=== PATIENT | male | born 1975 | race Caucasian/White ===

== ENCOUNTER 2016-07-04 15:36 | Emergency (ER) | payer OTHER ==
[2016-07-04 17:30] VITALS: BP 139/43
== END 2016-07-04 17:36 | disposition left against medical advice (07) ==
LOC: ED 15:36
DX: M54.9 Dorsalgia, unspecified (principal); Z53.21 Procedure and treatment not carried out due to patient leaving prior to being seen by health care provider

== ENCOUNTER 2016-07-05 17:16 | Emergency (ER) | payer OTHER ==
[2016-07-05 17:35] VITALS: BP 141/73
--- NOTE | 2016-07-05 21:42 | ED ---
Upper Extremity Pain - HPI Summary HPI Summary: Pt here w/ chronic pain of Rt forearm and lower back. Has been receiving multiple narcotic pain medications from PCP (percocet and morphine) until recent d/c from PCP's office. 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 Pt reports he was seen by [facility] for pain management in the past but PCP wanted to take over which is why he's no longer there. He was recently referred back to [facility] who told pt he couldn't rx him a short dose of narcotics as pt's insurance will only cover a 30 day supply from a pain specialist's office. Pt brought his bottles of pain medications with him today. No other complaints at this time. - History of Current Complaint Chief Complaint: EDExtremityUpper Stated Complaint: RT ARM/LOWER BACK PAIN Time Seen by Provider: 07/05/16 17:54 Hx Obtained From: Patient - Allergies/Home Medications Allergies/Adverse Reactions: Allergies Allergy/AdvReac Type Severity Reaction Status Date / Time No Known Allergies Allergy Verified 07/05/16 17:36 PMH/Surg Hx/FS Hx/Imm Hx Previously Healthy: No - chronic pain, morbid obesity Musculoskeletal History: Reports: Hx Back Problems - chronic pain, Other Musculoskeletal History - chronic Rt arm pain Psychiatric History: Reports: Other Psychiatric Issues/Disorders - obesity Infectious Disease History: No Infectious Disease History: Denies: Traveled Outside the [place] in Last 30 Days - Family History Known Family History: Positive: None - Social History Alcohol Use: None Substance Use Type: Reports: Prescribed - percocet and morphine Smoking Status (MU): Never Smoked Tobacco Review of Systems Musculoskeletal: Other - see HPI Skin: Negative Neurological: Negative Psychological: Normal All Other Systems Reviewed And Are Negative: Yes Physical Exam Triage Information Reviewed: Yes Vital Signs On Initial Exam: Initial Vitals Temp Pulse Resp BP Pulse Ox 98.3 F 91 18 141/73 99 07/05/16 17:20 07/05/16 17:20 07/05/16 17:20 07/05/16 17:20 07/05/16 17:20 Vital Signs Reviewed: Yes Appearance: Positive: Well-Appearing, No Pain Distress, Obese Skin: Positive: Warm, Dry - no erythema or ecchymosis of arm Head/Face: Positive: Normal Head/Face Inspection Eyes: Positive: Normal, EOMI ENT: Positive: Hearing grossly normal, Pharynx normal - mucosa moist Respiratory/Lung Sounds: Positive: Breath Sounds Present Cardiovascular: Positive: Normal Musculoskeletal: Positive: Normal, Strength/ROM Intact - FROM UE's w/o pain restriction, ambulates Neurological: Positive: Normal, Alert, Oriented to Person Place, Time, CN Intact II-III Psychiatric: Positive: Normal Diagnostics - Vital Signs Vital Signs Temp Pulse Resp BP Pulse Ox 07/05/16 17:20 98.3 F 91 18 141/73 99 - Laboratory Lab Statement: Any lab studies that have been ordered have been reviewed, and results considered in the medical decision making process. Course/Dx - Course Course Of Treatment: Pt's reason for PCP d/c'ing him practice does not sound realistic however he presents after office hours so cannot call PCP office to verify. His ISTOP confirms his report of pain medication use, correct with name , amounts, supply. Provided 3 days supply today so pt doesn't withdraw and can contact PCP/[facility] at that time to discuss plan of care hereforth. - Diagnoses Provider Diagnoses: Chronic pain, Encounter for medication refill Discharge - Discharge Plan Condition: Stable Disposition: HOME Prescriptions: Oxycodone W/ Acetaminophen [Percocet 7.5-325 mg (NF)] 1 tab PO Q6H PRN #12 tab MDD 4 PRN Reason: Pain Patient Education Materials: Chronic Pain (ED) Referrals: Hubert Hernandes MD [Primary Care Provider] - Additional Instructions: Follow-up with pain management, Dr. Banks, regarding your chronic pain.
== END 2016-07-05 20:54 | disposition home or self-care (01) ==
LOC: ED 17:16
DX: M54.5 Low back pain (principal); M79.631 Pain in right forearm; Z76.0 Encounter for issue of repeat prescription
CPT/HCPCS: 99282

== ENCOUNTER 2016-10-11 14:43 | Emergency (ER) | payer OTHER ==
[2016-10-11 15:34] VITALS: BP 148/100
[2016-10-11] MEDS ORDERED: Ketorolac INJ* 60 MG/2 ML VIAL IM ONE (16:03)
[2016-10-11] MEDS ORDERED: oxyCODONE/Acetamin 5/325 MG* TAB PO ONE (16:03)
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
== END 2016-10-11 16:23 | disposition home or self-care (01) ==
LOC: ED 14:43
DX: M54.9 Dorsalgia, unspecified (principal); M79.601 Pain in right arm; G89.29 Other chronic pain
CPT/HCPCS: 96372; 99282; A9270-GY; J1885

== ENCOUNTER → 2016-10-29 16:52 | Emergency (ER) | payer OTHER ==
[2016-10-29 18:32] VITALS: BP 115/51
--- NOTE | 2016-10-29 21:18 | ED ---
Back Pain - HPI Summary HPI Summary: Patient presents with chronic back pain and CC of not able to refill any medications. He has been on several pain medications over the years. His PCP referred him to a pain clinic that does take his insurance and he has been trying to get into other places without success. He states he had a "falling out" with Dr. Banks. He has been seen here twice in the last 2 months requesting pain medication. It was explained to the patient that we are unable to give more than a few days worth and that he will need to follow up with his PCP again to get more medications or to be referred to another place. He agrees to do this. Pain is throughout his lumbar and thoracic spine and throughout the right arm. He is morbidly obese, does not work. - History of Current Complaint Chief Complaint: EDBackInjuryPain Stated Complaint: RT ARM/BACK PAIN Time Seen by Provider: 10/29/16 17:11 Hx Obtained From: Patient Onset/Duration: Gradual Onset Onset/Duration: Still Present, Worse Since - today Timing: Constant Back Pain Location: Is Discrete @ - low back Severity Initially: Moderate Severity Currently: Moderate Pain Intensity: 8 Pain Scale Used: 0-10 Numeric Character: Dull, Aching Aggravating Symptom(s): Movement, Lifting, Bending, Walking Alleviating Symptom(s): Nothing Associated Signs And Symptoms: Positive: Negative - Risk Factors AAA Risk Factors: Negative TAD Risk Factors: Negative Cauda Equina Risk Factors: Negative - Allergies/Home Medications Allergies/Adverse Reactions: Allergies Allergy/AdvReac Type Severity Reaction Status Date / Time No Known Allergies Allergy Verified 10/11/16 15:47 PMH/Surg Hx/FS Hx/Imm Hx Previously Healthy: Yes Musculoskeletal History: Reports: Hx Back Problems - chronic pain, Other Musculoskeletal History - chronic Rt arm pain Psychiatric History: Reports: Other Psychiatric Issues/Disorders - obesity - Immunization History Hx Pertussis Vaccination: No Immunizations Up to Date: Unable to Obtain/Confirm Infectious Disease History: No Infectious Disease History: Denies: Traveled Outside the [place] in Last 30 Days - Family History Known Family History: Positive: None Negative: Cardiac Disease - Social History Occupation: Unemployed Lives: Alone Alcohol Use: None Hx Substance Use: Yes Substance Use Type: Reports: Prescribed Hx Tobacco Use: No Smoking Status (MU): Never Smoked Tobacco Do You Chew or Dip Tobacco: No Have You Chewed or Dipped Tobacco in the LAST YEAR: No Review of Systems Constitutional: Negative Eyes: Negative Cardiovascular: Negative Respiratory: Negative Gastrointestinal: Negative Positive: no symptoms reported, see HPI Positive: Arthralgia - low back pain Skin: Negative Neurological: Negative All Other Systems Reviewed And Are Negative: Yes Physical Exam Triage Information Reviewed: Yes Vital Signs On Initial Exam: Initial Vitals Temp Pulse Resp BP Pulse Ox 97.5 F 99 20 145/100 98 10/29/16 17:07 10/29/16 17:07 10/29/16 17:07 10/29/16 17:07 10/29/16 17:07 Vital Signs Reviewed: Yes Appearance: Positive: Well-Appearing, Well-Nourished Skin: Positive: Warm, Skin Color Reflects Adequate Perfusion Head/Face: Positive: Normal Head/Face Inspection Eyes: Positive: EOMI, ANDREA Neck: Positive: Supple, No Lymphadenopathy Respiratory/Lung Sounds: Positive: Clear to Auscultation, Breath Sounds Present Cardiovascular: Positive: Normal, RRR, Pulses are Symmetrical in both Upper and Lower Extremities Musculoskeletal: Positive: Limited @ - low back, Other - pain on palpation of lower back Neurological: Positive: Sensory/Motor Intact, Alert, Oriented to Person Place, Time Psychiatric: Positive: Normal Diagnostics - Vital Signs Vital Signs Temp Pulse Resp BP Pulse Ox 10/29/16 18:32 99.0 F 86 18 115/51 10/29/16 17:14 97.7 F 102 24 179/115 96 10/29/16 17:07 97.5 F 99 20 145/100 98 - Laboratory Lab Statement: Any lab studies that have been ordered have been reviewed, and results considered in the medical decision making process. Back Pain Course/Dx - Course Course Of Treatment: Patient was not sent to xrays d/t chronic history. Patient is here for a med refill. It was explained to the patient we can give 2 days worth pain medication, but he will need to follow up with PCP for referrals to a pain clinic. - Diagnoses Differential Diagnosis/HQI/PQRI: Positive: Fracture, Herniated Disc, Strain, Sprain Provider Diagnoses: Back pain Discharge - Discharge Plan Condition: Stable Disposition: HOME Prescriptions: oxyCODONE/Acetamin 5/325 MG* [Percocet 5/325 TAB*] 1 tab PO Q4H PRN #12 tab MDD 6 PRN Reason: Pain Patient Education Materials: Back Pain (ED) Referrals: Troy De Leon NP [Primary Care Provider] - Additional Instructions: Follow up with PCP for referral to different pain specialist.
== END | disposition home or self-care (01) ==
LOC: ED 16:52
DX: M54.9 Dorsalgia, unspecified (principal)
CPT/HCPCS: 99281

== ENCOUNTER 2016-11-09 09:30 | Emergency (ER) | payer OTHER ==
[2016-11-09 10:24] VITALS: BP 155/104
[2016-11-09] MEDS ORDERED: oxyCODONE/Acetamin 5/325 MG* TAB PO ONE ×2 (10:31→10:32)
--- NOTE | 2016-11-09 11:34 | ED ---
Back Pain - HPI Summary HPI Summary: Patient presents with chronic low back pain. He has been seen several times in the past few months requesting pain medicine. He states he continues to be unable to secure appts with pain management and appts with his primary regarding pain medicine. He has been on chronic pain medicine for back pain with unknown injury x 10 years. His Istop reveals morphine and oxycodone dispensed monthly. However, his PCP recently discontinued the pain medication in attempt to transfer him to pain management, yet he states he is unable to go there d/t insurance coverage. It was explained to the patient in previous visits to the ED as well as today, the ED is unable to continuously provide scripts for pain medicine for chronic pain. He states he understands but notes it is d/t his insurance coverage why he cannot secure appts. He denies any new injury. He denies bladder or bowel dysfunction. Notes the pain is midline lower back but radiates to the left leg. This is his baseline. Hx of high blood pressure, today 155/107. He is encouraged to return to his PCP for follow up of pain management and HTN. He agrees. - History of Current Complaint Chief Complaint: EDBackInjuryPain Stated Complaint: BACK PAIN GOING DOWN LEFT LEG Time Seen by Provider: 11/09/16 09:44 Hx Obtained From: Patient Onset/Duration: Gradual Onset Onset/Duration: Still Present - for many years Timing: Constant Back Pain Location: Is Discrete @ - lower back radiating to the left lower leg Severity Initially: Moderate Severity Currently: Moderate Pain Intensity: 2 Pain Scale Used: 0-10 Numeric Character: Aching Aggravating Symptom(s): Movement, Lifting, Bending, Walking Alleviating Symptom(s): Nothing Associated Signs And Symptoms: Positive: Negative Related History: Similar Episode Dx As - all previous visits with low back pain - Risk Factors AAA Risk Factors: Hypertension TAD Risk Factors: Hypertension Cauda Equina Risk Factors: Negative Epidural Abscess Risk Factors: Negative - Allergies/Home Medications Allergies/Adverse Reactions: Allergies Allergy/AdvReac Type Severity Reaction Status Date / Time No Known Allergies Allergy Verified 11/09/16 09:33 PMH/Surg Hx/FS Hx/Imm Hx Previously Healthy: Yes Endocrine/Hematology History: Denies: Hx Anticoagulant Therapy Musculoskeletal History: Reports: Hx Back Problems - chronic pain, Other Musculoskeletal History - chronic Rt arm pain Psychiatric History: Reports: Other Psychiatric Issues/Disorders - obesity - Immunization History Hx Pertussis Vaccination: No Immunizations Up to Date: Unable to Obtain/Confirm Infectious Disease History: No Infectious Disease History: Denies: Traveled Outside the [place] in Last 30 Days - Family History Known Family History: Positive: None Negative: Cardiac Disease - Social History Occupation: Unemployed, Disabled Lives: Alone Alcohol Use: None Hx Substance Use: Yes Substance Use Type: Reports: Prescribed Substance Use Comment - Amount & Last Used: oxycodone Hx Tobacco Use: No Smoking Status (MU): Never Smoked Tobacco Review of Systems Constitutional: Negative Eyes: Negative Cardiovascular: Negative Respiratory: Negative Positive: no symptoms reported, see HPI Positive: Arthralgia Skin: Negative Neurological: Negative Psychological: Normal All Other Systems Reviewed And Are Negative: Yes Physical Exam Triage Information Reviewed: Yes Vital Signs On Initial Exam: Initial Vitals Temp Pulse Resp BP Pulse Ox 98.5 F 98 18 146/96 100 11/09/16 09:31 11/09/16 09:31 11/09/16 09:31 11/09/16 09:31 11/09/16 09:31 Vital Signs Reviewed: Yes Appearance: Positive: Well-Appearing, No Pain Distress, Well-Nourished, Obese Skin: Positive: Warm, Skin Color Reflects Adequate Perfusion Head/Face: Positive: Normal Head/Face Inspection Eyes: Positive: EOMI, ANDREA, Conjunctiva Clear Neck: Positive: Supple, Nontender, No Lymphadenopathy Respiratory/Lung Sounds: Positive: Clear to Auscultation, Breath Sounds Present Cardiovascular: Positive: Normal, RRR, Pulses are Symmetrical in both Upper and Lower Extremities Musculoskeletal: Positive: Limited @ - Thorough physical exam was performed, focusing on thoracic and lumbar special tests and ROM. Due to patient pain around injury, physical exam was limited. Limited ROM. Hip flexion and extension, knee extension, dorsiflexion, great toe extension and plantar flexion intact. Rotating at hips limited d/t pain. Nerve roots L4-S2 reflexes intact. L1-S2 nerve root sensory intact. No saddle anesthesia. Gait normal. Neurological: Positive: Sensory/Motor Intact, Alert, Oriented to Person Place, Time, Speech Normal Psychiatric: Positive: Normal AVPU Assessment: Alert Diagnostics - Vital Signs Vital Signs Temp Pulse Resp BP Pulse Ox 11/09/16 10:43 98.0 F 11/09/16 10:39 18 11/09/16 10:00 95 155/104 97 11/09/16 09:41 101 96 11/09/16 09:39 166/92 11/09/16 09:31 98.5 F 98 18 146/96 100 - Laboratory Lab Statement: Any lab studies that have been ordered have been reviewed, and results considered in the medical decision making process. Back Pain Course/Dx - Course Course Of Treatment: It was explained to the patient in previous visits to the ED as well as today, the ED is unable to continuously provide scripts for pain medicine for chronic pain. He states he understands but notes it is d/t his insurance coverage why he cannot secure appts. He denies any new injury. He denies bladder or bowel dysfunction. Notes the pain is midline lower back but radiates to the left leg. This is his baseline. Hx of high blood pressure, today 155/107. He is encouraged to return to his PCP for follow up of pain management and HTN. He agrees. Patient given orthopedic follow up in 5-7 days. Encouraged Ibuprofen 600mg three times daily with meals for pain. Return precautions given. Educated patient regarding back injuries and healing time and the need for further imaging if discomfort continues. Gave 1 percoset in ED, and 1 percoset to go. Explained we cannot give more controlled substances d/t continuous requests and lack of follow up. - Diagnoses Differential Diagnosis/HQI/PQRI: Positive: Herniated Disc, Strain, Sprain Provider Diagnoses: Chronic back pain Discharge - Discharge Plan Condition: Stable Disposition: HOME Patient Education Materials: Hypertension (ED) Referrals: Troy De Leon NP [Primary Care Provider] - Additional Instructions: Follow up with Dr Cabrera or CHARLETTE De Leon for pain prescriptions or more referrals. Ibuprofen 600mg three times daily for pain Moist heat to the area as needed for pain
== END 2016-11-09 10:43 | disposition home or self-care (01) ==
LOC: ED 09:30
DX: M54.5 Low back pain (principal); G89.29 Other chronic pain
CPT/HCPCS: 99282; A9270-GY

== ENCOUNTER 2018-02-02 09:59 | Emergency (ER) | payer OTHER ==
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
[2018-02-02] MEDS ORDERED: oxyCODONE TAB* 5 MG TAB PO ONE (12:05)
[2018-02-02] MEDS ORDERED: Ketorolac INJ* 60 MG/2 ML VIAL IM ONE (12:05)
[2018-02-02 12:17] LABS: Hematocrit 39 % (42-52); Hemoglobin 12.7 g/dl (14.0-18.0); Mean Corpuscular HGB Conc 33 g/dl (31-36); Mean Corpuscular Hemoglobin 27 pg (27-31); Mean Corpuscular Volume 83 fL (80-94); Mean Platelet Volume 6.9 um3 (7.4-10.4); Platelet Count 272 10^3/ul (150-450); Red Blood Count 4.74 10^6/ul (4.00-5.40); Red Cell Distribution Width 15 % (10.5-15); White Blood Count 11.9 10^3/ul (3.5-10.8)
[2018-02-02 12:35] LABS: EGFR Non-African American 87.2 (>60)
[2018-02-02] MEDS ORDERED: Lidocaine PATCH 5%* 1 PATCH TRANSDERM SCH (13:00)
[2018-02-02 14:30] VITALS: BP 153/88
[2018-02-02] MEDS ORDERED: Lidocaine Patch REMOVE* 1 NOTE MISC SCH (21:00)
== END 2018-02-02 14:28 | disposition home or self-care (01) ==
LOC: ED 09:59
DX: M54.12 Radiculopathy, cervical region (principal); M54.9 Dorsalgia, unspecified
CPT/HCPCS: 36415; 80048; 84484; 85027; 93005; 96372; 99281; A9270-GY; J1885

== ENCOUNTER 2018-02-03 20:59 | Emergency (ER) | payer OTHER ==
[2018-02-03] MEDS ORDERED: Ketorolac INJ* 60 MG/2 ML VIAL IM ONE (22:27)
[2018-02-03] MEDS ORDERED: oxyCODONE/Acetamin 5/325 MG* TAB PO ONE (22:33)
--- NOTE | 2018-02-03 22:33 | ED ---
Upper Extremity Pain - HPI Summary HPI Summary: 42-year-old male presents with acute on chronic right arm pain. He states that he has cervical radiculopathy. He states he has had a CT of his neck is wait for an MRI. He was just seen yesterday and had a full workup done. He is here for pain medication. He gets his pain medication from dr isbell. He states has not been able to get a hold of Dr. Isbell. he is waiting for insurance authorization for a different pain medication as morphine is not working. He denies any fever. Denies any weakness. Has some numbness and tingling. No change in location of the pain. No chest pain or shortness of breath. Nothing is different than when was seen yesterday. He states that the Toradol normally helps and along with Percocet. - History of Current Complaint Chief Complaint: EDExtremityUpper Stated Complaint: RT ARM PAIN Time Seen by Provider: 02/03/18 21:53 - Allergies/Home Medications Allergies/Adverse Reactions: Allergies Allergy/AdvReac Type Severity Reaction Status Date / Time No Known Allergies Allergy Verified 02/03/18 21:13 PMH/Surg Hx/FS Hx/Imm Hx Endocrine/Hematology History: Denies: Hx Anticoagulant Therapy Cardiovascular History: Reports: Hx Coronary Artery Disease, Hx Hypertension Musculoskeletal History: Reports: Hx Back Problems - chronic pain, Other Musculoskeletal History - chronic Rt arm pain Psychiatric History: Reports: Other Psychiatric Issues/Disorders - obesity - Surgical History Surgery Procedure, Year, and Place: none Infectious Disease History: No Infectious Disease History: Denies: Traveled Outside the [place] in Last 30 Days - Family History Known Family History: Negative: Cardiac Disease - Social History Alcohol Use: None Hx Substance Use: Yes Substance Use Type: Reports: Prescribed Substance Use Comment - Amount & Last Used: oxycodone Hx Tobacco Use: No Smoking Status (MU): Never Smoked Tobacco Review of Systems Negative: Fever Negative: Chest Pain Negative: Shortness Of Breath Positive: Myalgia - right arm pain All Other Systems Reviewed And Are Negative: Yes Physical Exam Triage Information Reviewed: Yes Vital Signs On Initial Exam: Initial Vitals Temp Pulse Resp BP Pulse Ox 98.1 F 95 16 149/105 96 02/03/18 21:08 02/03/18 21:08 02/03/18 21:08 09/04/18 21:08 02/03/18 21:08 Vital Signs Reviewed: Yes Appearance: Positive: Well-Appearing Skin: Positive: Warm, Dry Head/Face: Positive: Normal Head/Face Inspection Eyes: Positive: Normal, Conjunctiva Clear ENT: Positive: Pharynx normal Neck: Positive: Other: - pos spuring test, nontender midline neck, nontender right arm Respiratory/Lung Sounds: Positive: Clear to Auscultation, Breath Sounds Present Cardiovascular: Positive: Normal, RRR Musculoskeletal: Positive: Strength/ROM Intact - right arm, Other - good pulses , capillary refil<2 secs, sensation grossly intact Neurological: Positive: Normal Psychiatric: Positive: Normal Diagnostics - Vital Signs Vital Signs Temp Pulse Resp BP Pulse Ox 02/03/18 21:08 98.1 F 95 16 149/105 96 - Laboratory Lab Statement: Any lab studies that have been ordered have been reviewed, and results considered in the medical decision making process. Course/Dx - Course Course Of Treatment: 42-year-old male presents with acute on chronic right arm pain. He states that he has cervical radiculopathy. He states he has had a CT of his neck is wait for an MRI. He was just seen yesterday and had a full workup done. He is here for pain medication. He gets his pain medication from dr isbell. He states has not been able to get a hold of Dr. Isbell. he is waiting for insurance authorization for a different pain medication as morphine is not working. He denies any fever. Denies any weakness. Has some numbness and tingling. No change in location of the pain. No chest pain or shortness of breath. Nothing is different than when was seen yesterday. He states that the Toradol normally helps and along with Percocet. On exam tenderness on right side of neck. Full range of motion of right arm. Positive Spurling's. Discussed will give 1 dose of Percocet and Toradol. Told to follow with primary for continued pain management. Patient understands agrees with plan. - Diagnoses Differential Diagnosis/HQI/PQRI: Positive: Fracture (Closed), Strain, Sprain Provider Diagnoses: Cervical radiculopathy Discharge - Sign-Out/Discharge Documenting (check all that apply): Patient Departure - Discharge Plan Condition: Good Disposition: HOME Referrals: Troy De Leon NP [Primary Care Provider] - Additional Instructions: Follow up with primary care for continue pain management Take normal pain meds ice/heat area neck Return to ED if develop any new or worsening symptoms - Billing Disposition and Condition Condition: GOOD Disposition: Home
[2018-02-03 23:21] VITALS: BP 159/98
== END 2018-02-03 23:05 | disposition home or self-care (01) ==
LOC: ED 20:59
DX: M54.12 Radiculopathy, cervical region (principal)
CPT/HCPCS: 96372; 99282; A9270-GY; J1885

== ENCOUNTER 2018-02-04 07:52 | Emergency (ER) | payer OTHER ==
[2018-02-04 09:13] VITALS: BP 0/0
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
== END 2018-02-04 09:10 | disposition home or self-care (01) ==
LOC: ED 07:52
DX: M54.5 Low back pain (principal); I25.10 Atherosclerotic heart disease of native coronary artery without angina pectoris; I10 Essential (primary) hypertension
CPT/HCPCS: 99281

== ENCOUNTER 2018-04-10 17:36 | Emergency (ER) | payer OTHER ==
[2018-04-10] MEDS ORDERED: Ketorolac INJ* 60 MG/2 ML VIAL IM ONE (20:43)
[2018-04-10 20:57] VITALS: BP 00/00
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
== END 2018-04-10 20:56 | disposition home or self-care (01) ==
LOC: ED 17:36
DX: M54.5 Low back pain (principal); G89.29 Other chronic pain; M54.32 Sciatica, left side; M54.31 Sciatica, right side
CPT/HCPCS: 96372; 99281; J1885

== ENCOUNTER 2018-05-10 10:27 | Emergency (ER) | payer OTHER ==
[2018-05-10] MEDS ORDERED: guaiFENesin/CODIEN 100MG-10MG* 5 ML UDC PO ONE (10:58)
--- NOTE | 2018-05-10 11:04 | ED ---
Influenza-Like Illness - HPI Summary HPI Summary: Pt is 43 y/o M who presents to ED c/o upper respiratory symptoms since 3 days ago. Rates pain intensity 4/10 in severity and describes it an aching. He notes nonproductive cough, runny nose, sore throat, headache, and diarrhea. Robitussin alleviated his symptoms before, but condition since has since worsened. - History of Current Complaint Chief Complaint: EDFluSymptoms Time Seen by Provider: 05/10/18 10:42 Hx Obtained From: Patient Onset/Duration: Lasting Days, Still Present Severity: Moderate - 4/10 Associated Signs & Symptoms: Cough, Sore Throat, Headache, Diarrhea - Allergy/Home Medications Allergies/Adverse Reactions: Allergies Allergy/AdvReac Type Severity Reaction Status Date / Time No Known Allergies Allergy Verified 05/10/18 10:34 PMH/Surg Hx/FS Hx/Imm Hx Endocrine/Hematology History: Denies: Hx Anticoagulant Therapy Cardiovascular History: Reports: Hx Coronary Artery Disease, Hx Hypertension Musculoskeletal History: Reports: Hx Back Problems - chronic pain, Other Musculoskeletal History - chronic Rt arm pain Psychiatric History: Reports: Other Psychiatric Issues/Disorders - obesity - Surgical History Surgery Procedure, Year, and Place: none Infectious Disease History: No Infectious Disease History: Denies: Traveled Outside the [place] in Last 30 Days - Family History Known Family History: Negative: Cardiac Disease - Social History Alcohol Use: None Hx Substance Use: Yes Substance Use Type: Reports: None Substance Use Comment - Amount & Last Used: oxycodone, morphine Hx Tobacco Use: No Smoking Status (MU): Never Smoked Tobacco Review of Systems Positive: Sore Throat, Nasal Discharge Positive: Cough - nonproductive Positive: Diarrhea Positive: Headache All Other Systems Reviewed And Are Negative: Yes Physical Exam - Summary Physical Exam Summary: Appearance: The patient is well-nourished in no acute distress and in no acute pain. Skin: The skin is warm and dry and skin color reflects adequate perfusion. HEENT: The head is normocephalic and atraumatic. The pupils are equal and reactive. The conjunctivae are clear and without drainage. Nasal congestion and mildly erythematous throat. Mouth reveals moist mucous membranes. The external ears are intact. The ear canals are patent and without drainage. The tympanic membranes are intact. Neck: The neck is supple with full range of motion and non-tender. There are no carotid bruits. There is no neck vein distension. Respiratory: Chest is non-tender. Upper respiratory sounds. Cardiovascular: Heart is regular rate and rhythm. There is no murmur or rub auscultated. There is no peripheral edema and pulses are symmetrical and equal. Abdomen: The abdomen is soft and non-tender. There are normal bowel sounds heard in all four quadrants and there is no organomegaly palpated. Musculoskeletal: There is no back tenderness noted. Extremities are non-tender with full range of motion. There is good capillary refill. There is no peripheral edema or calf tenderness elicited. Neurological: Patient is alert and oriented to person, place and time. The patient has symmetrical motor strength in all four extremities. Cranial nerves are grossly intact. Deep tendon reflexes are symmetrical and equal in all four extremities. Psychiatric: The patient has an appropriate affect and does not exhibit any anxiety or depression. Triage Information Reviewed: Yes Vital Signs On Initial Exam: Initial Vitals Temp Pulse Resp BP Pulse Ox 97 F 79 16 142/74 94 05/10/18 10:32 05/10/18 10:32 05/10/18 10:32 05/10/18 10:32 05/10/18 10:32 Vital Signs Reviewed: Yes Diagnostics - Vital Signs Vital Signs Temp Pulse Resp BP Pulse Ox 05/10/18 10:32 97 F 79 16 142/74 94 - Laboratory Lab Statement: Any lab studies that have been ordered have been reviewed, and results considered in the medical decision making process. Flu Symptom Course/Dx - Course Course Of Treatment: Mr. Andino presented to the emergency department with several days of upper respiratory tract infection symptoms is not sure if he has been running a fever. He has a nonproductive cough, nasal congestion, sore throat and a headache. He was nontoxic in appearance here with stable vital signs and a rapid influenza swab was negative. He got some relief with Robitussin with codeine and I will treat him symptomatically as an outpatient with that. - Diagnoses Provider Diagnoses: URI (upper respiratory infection) Discharge - Sign-Out/Discharge Documenting (check all that apply): Patient Departure - Discharge - Discharge Plan Condition: Fair Disposition: HOME Prescriptions: Codeine Phosphate/Guaifenesin [Guaiatussin AC Liquid] 5 ml PO Q4HR #120 ml MDD 30 cc Patient Education Materials: Upper Respiratory Infection (ED) Referrals: Keon Cabrera MD [Primary Care Provider] - 2 Days Additional Instructions: Follow up with PCP. Return to ED for any new or worsening symptoms. - Billing Disposition and Condition Condition: FAIR Disposition: Home - Attestation Statements Document Initiated by Kirkibe: Yes Documenting Scribe: Jayne Burnett Provider For Whom Scribe is Documenting (Include Credential): Dr. George Galaviz MD Scribe Attestation: IJayne, scribed for Dr. George Galaviz MD on 05/10/18 at 1918. Scribe Documentation Reviewed: Yes Provider Attestation: The documentation as recorded by the kirkibJayne barkley accurately reflects the service I personally performed and the decisions made by me, Dr. George Galaviz MD Status of Scribe Document: Viewed
[2018-05-10 12:28] VITALS: BP 0/0
== END 2018-05-10 12:27 | disposition home or self-care (01) ==
LOC: ED 10:27
DX: J06.9 Acute upper respiratory infection, unspecified (principal); I25.10 Atherosclerotic heart disease of native coronary artery without angina pectoris; I10 Essential (primary) hypertension
CPT/HCPCS: 99282; A9270-GY

== ENCOUNTER 2018-09-10 18:33 | Emergency (ER) | payer OTHER ==
[2018-09-10 19:31] LABS: ABS Basophils 0.1 10^3/ul (0-0.2); ABS Eosinophils 0.3 10^3/ul (0-0.6); ABS Lymphocytes 2.2 10^3/ul (1.0-4.8); ABS Monocytes 1.2 10^3/ul (0-0.8); ABS Neutrophils 7.1 10^3/ul (1.5-7.7); ABS Nucleated RBC 0 10^3/ul; Eosinophil % 2.8 %; Hematocrit 41 % (36-46); Hemoglobin 13.5 g/dL (14.0-18.0); Lymphocyte % 19.8 %; Mean Corpuscular HGB Conc 33 g/dL (31-36); Mean Corpuscular Hemoglobin 26 pg (27-31); Mean Corpuscular Volume 80 fL (80-94); Mean Platelet Volume 7.2 fL (7.4-10.4); Nucleated Red Blood Cells % 0; Platelet Count 266 10^3/uL (150-450); Red Blood Count 5.12 10^6 /uL (4.18-5.48); Red Cell Distribution Width 16 % (10.5-15); White Blood Count 10.9 10^3/uL (3.5-10.8)
[2018-09-10] MEDS ORDERED: oxyCODONE TAB* 5 MG TAB PO ONE (19:53)
--- NOTE | 2018-09-10 19:55 | ED ---
Nausea/Vomiting/Diarrhea HPI - HPI Summary HPI Summary: Patient complains of being out of fentanyl prescription since 09/07/18 and nausea , fatigue, diarrhea, episodes of dizziness and vision change which patient states are "withdrawal" symptoms. Patient states he has been getting regular prescriptions for years, but now states insurance will no longer pay for them, and primary care has yet to resolve this issue. Patient complains of chronic pain, history of hypertension for which she has not taken any medication for 6 months due to insurance not paying for them. Patient states he primary care used to be Dr. Isbell who has left the practice, he now has a new primary care doctor who has not gotten to know him yet. Patient denies fever, cough, sore throat, CP, SOB, vomiting, abdominal pain, change in urine, change in BM. Medical history is hypertension, not taking meds, chronic pain. Per [facility] patient last filled prescription for oxycodone 10 mg on 08/24/18 480 tablets, and prescription for fentanyl 25 mg patches on 08/04/18. - History of Current Complaint Chief Complaint: EDDizziness Stated Complaint: DIZZY/NAUSEOUS PER EMS Time Seen by Provider: 09/10/18 18:55 Hx Obtained From: Patient Onset/Duration: Gradual Onset, Lasting Days Timing: Constant Severity Initially: Severe Severity Currently: Severe Pain Intensity: 9 Pain Scale Used: 0-10 Numeric Character: Dull Aggravating Factor(s): Nothing Alleviating Factor(s): Nothing Nausea/Vomiting Presence: Nauseated Diarrhea Presence: Yes Diarrhea Frequency: Every 3-4 hours Diarrhea Characteristics: Watery - Allergies/Home Medications Allergies/Adverse Reactions: Allergies Allergy/AdvReac Type Severity Reaction Status Date / Time No Known Allergies Allergy Verified 05/10/18 10:34 PMH/Surg Hx/FS Hx/Imm Hx Endocrine/Hematology History: Denies: Hx Anticoagulant Therapy Cardiovascular History: Reports: Hx Coronary Artery Disease, Hx Hypertension History: Denies: Hx Dialysis Musculoskeletal History: Reports: Hx Back Problems - chronic pain, Other Musculoskeletal History - chronic Rt arm pain Sensory History: Denies: Hx Eye Prosthesis Opthamlomology History: Denies: Hx Legally Blind EENT History: Denies: Hx Deafness Neurological History: Denies: Hx Dementia Psychiatric History: Reports: Other Psychiatric Issues/Disorders - obesity Denies: Hx Autism - Surgical History Surgery Procedure, Year, and Place: none Infectious Disease History: No Infectious Disease History: Denies: Traveled Outside the [place] in Last 30 Days - Family History Known Family History: Negative: Cardiac Disease - Social History Alcohol Use: None Hx Substance Use: Yes Substance Use Type: Reports: None Substance Use Comment - Amount & Last Used: oxycodone, morphine Hx Tobacco Use: No Smoking Status (MU): Never Smoked Tobacco Review of Systems Constitutional: Negative Positive: Blurred Vision ENT: Negative Cardiovascular: Negative Respiratory: Negative Positive: Diarrhea, Nausea. Negative: Abdominal Pain Genitourinary: Negative Musculoskeletal: Negative Skin: Negative Neurological: Negative Psychological: Normal All Other Systems Reviewed And Are Negative: Yes Physical Exam - Summary Physical Exam Summary: Patient alert and oriented. Appears in no apparent distress. No active nausea or vomiting or diarrhea here in the ED. Patient mostly concerned about getting fentanyl. Neuro exam normal. Abdomen soft nontender. Lung sounds clear to auscultation bilaterally. Triage Information Reviewed: Yes Vital Signs On Initial Exam: Initial Vitals Temp Pulse Resp BP Pulse Ox 98.4 F 94 18 172/147 99 09/10/18 18:33 09/10/18 18:33 09/10/18 18:33 09/10/18 18:33 09/10/18 18:33 Vital Signs Reviewed: Yes Appearance: Positive: Well-Appearing Skin: Positive: Warm Head/Face: Positive: Normal Head/Face Inspection Eyes: Positive: Normal ENT: Positive: Normal ENT inspection Neck: Positive: Supple Respiratory/Lung Sounds: Positive: Clear to Auscultation Cardiovascular: Positive: Normal Abdomen Description: Positive: Nontender Musculoskeletal: Positive: Normal Neurological: Positive: Normal Psychiatric: Positive: Normal AVPU Assessment: Alert - [place] Coma Scale Best Eye Response: 4 - Spontaneous Best Motor Response: 6 - Obeys Commands Best Verbal Response: 5 - Oriented Coma Scale Total: 15 Diagnostics - Vital Signs Vital Signs Temp Pulse Resp BP Pulse Ox 09/10/18 18:33 98.4 F 94 18 172/147 99 - Laboratory Lab Results: Lab Results 09/10/18 Range/Units 19:22 WBC 10.9 H (3.5-10.8) 10^3/uL RBC 5.12 (4.18-5.48) 10^6 /uL Hgb 13.5 L (14.0-18.0) g/dL Hct 41 (36-46) % MCV 80 (80-94) fL MCH 26 L (27-31) pg MCHC 33 (31-36) g/dL RDW 16 H (10.5-15) % Plt Count 266 (150-450) 10^3/uL MPV 7.2 L (7.4-10.4) fL Neut % (Auto) 65.4 % Lymph % (Auto) 19.8 % [place] % (Auto) 11.3 % Eos % (Auto) 2.8 % Baso % (Auto) 0.7 % Absolute Neuts (auto) 7.1 (1.5-7.7) 10^3/ul Absolute Lymphs (auto) 2.2 (1.0-4.8) 10^3/ul Absolute Monos (auto) 1.2 H (0-0.8) 10^3/ul Absolute Eos (auto) 0.3 (0-0.6) 10^3/ul Absolute Basos (auto) 0.1 (0-0.2) 10^3/ul Absolute Nucleated RBC 0 10^3/ul Nucleated RBC % 0 Result Diagrams: 09/10/18 19:22 09/10/18 19:22 Lab Statement: Any lab studies that have been ordered have been reviewed, and results considered in the medical decision making process. Naus/Vom/Diarrhea Course/Dx - Course Course Of Treatment: Patient complains of being out of fentanyl prescription since 09/07/18 and nausea, fatigue, diarrhea, episodes of dizziness and vision change which patient states are "withdrawal" symptoms. Patient states he has been getting regular prescriptions for years, but now states insurance will no longer pay for them, and primary care has yet to resolve this issue. Patient complains of chronic pain, history of hypertension for which she has not taken any medication for 6 months due to insurance not paying for them. Patient states he primary care used to be Dr. Isbell who has left the practice, he now has a new primary care doctor who has not gotten to know him yet. Patient denies fever, cough, sore throat, CP, SOB, vomiting, abdominal pain, change in urine, change in BM. Medical history is hypertension, not taking meds, chronic pain. Per [facility] patient last filled prescription for oxycodone 10 mg on 08/24/18 480 tablets, and prescription for fentanyl 25 mg patches on 08/04/18. Physical exam: Patient alert and oriented. Appears in no apparent distress. No active nausea or vomiting or diarrhea here in the ED. Patient mostly concerned about getting fentanyl. Neuro exam normal. Abdomen soft nontender. Lung sounds clear to auscultation bilaterally. Initial BP 172/147. Vital signs otherwise unremarkable. Discussed patient with Dr. Colon attending who recommended CT brain, EKG and troponin for elevated blood pressure and symptoms of vision change and dizziness. Patient moderately obese, difficult to take blood pressure on, continues to report blood pressure cuff off during blood pressure analysis, stating is too painful. Multiple blood pressure readings confirm elevated DBP. History of hypertension but noncompliant with medications. CT brain was negative for acute process. EKG sinus rhythm with PVC. WBC 10.9. Troponin negative. Labs otherwise unremarkable. Patient blood pressure improved with metoprolol 25 mg, clonidine 0.1 mg by mouth 1, clonidine 0.2 mg 1. Discussed patient with Dr. Rodriguez hospitalist who recommended discharge with prescription for lisinopril from [facility] $4 list and follow-up with primary care. Patient also advised to follow-up with primary care for opiate prescriptions. Patient understands and approves plan. - Differential Dx/Diagnosis Provider Diagnosis: Nausea vomiting and diarrhea, Hypertensive urgency Condition At Discharge: Stable Discharge - Sign-Out/Discharge Documenting (check all that apply): Patient Departure Patient Received Moderate/Deep Sedation with Procedure: No - Discharge Plan Condition: Stable Disposition: HOME Prescriptions: Lisinopril 20 mg PO DAILY 30 Days #30 tablet Patient Education Materials: Acute Nausea and Vomiting (ED), Acute Diarrhea (ED ), Hypertension (ED) Referrals: Aileen Vicente MD [Primary Care Provider] - Additional Instructions: Take lisinopril as directed for hypertension. It is available at [facility] on the $4 list. Follow-up with primary care. Return to the ED for any new or worsening symptoms. - Billing Disposition and Condition Condition: STABLE Disposition: Home
[2018-09-10 20:00] LABS: Albumin 4.3 g/dL (3.2-5.2); Albumin/Globulin Ratio 1.3 (1-3); BUN/Creatinine Ratio 22.4 (8-20); C Reactive Protein 7.54 mg/L (<8.01); Calcium 9.6 mg/dL (8.6-10.3); EGFR African American 134.2 (>60); EGFR Non-African American 110.9 (>60); Globulin 3.4 g/dL (2-4); Potassium 4.3 mmol/L (3.5-5.0); Total Bilirubin 0.4 mg/dL (0.2-1.0); Total Protein 7.7 g/dL (6.4-8.9)
[2018-09-10 20:23] LABS: Troponin I 0.01 ng/mL (<0.04)
[2018-09-10] MEDS ORDERED: Metoprolol Tartrate TAB* 50 mg PO ONE (20:25)
[2018-09-10] MEDS ORDERED: cloNIDine TAB* 0.1 MG PO ONE ×2 (22:10→23:24)
[2018-09-11 00:32] VITALS: BP 153/122
== END 2018-09-11 00:52 | disposition home or self-care (01) ==
LOC: ED 18:33
DX: I16.0 Hypertensive urgency (principal); R11.2 Nausea with vomiting, unspecified; R19.7 Diarrhea, unspecified; I10 Essential (primary) hypertension; I25.10 Atherosclerotic heart disease of native coronary artery without angina pectoris; E66.9 Obesity, unspecified; Z68.44 Body mass index [BMI] 60.0-69.9, adult
CPT/HCPCS: 36415; 70450; 80053; 83880; 84484; 85025; 86140; 93005; 99283; A9270-GY

== ENCOUNTER 2018-11-07 13:40 | Emergency (ER) | payer OTHER ==
[2018-11-07] MEDS ORDERED: oxyCODONE/Acetamin 5/325 MG* TAB PO ONE (14:31)
[2018-11-07 14:46] VITALS: BP 153/113
--- NOTE | 2018-11-07 14:53 | ED ---
Back Pain - HPI Summary HPI Summary: Patient is a 43-year-old male who presents emergency department for requesting pain medication. Patient states his history of chronic back pain and follows with his primary care physician, Dr. Vicente. Patient is chronically prescribed Percocet and fentanyl patch. Patient states he usually gets a 30 day prescription of Percocet but his insurance denied preauthorization and patient was only able to get a 7 days supplies which he states he ran out of on Friday. Patient states he called the office but was unable to get a new prescriptions. Symptoms are mild in severity. No current modifying factors. - History of Current Complaint Chief Complaint: EDPrescriptionNeeded Stated Complaint: "LT KNEE PAIN/ BACK PAIN PER PT" Time Seen by Provider: 11/07/18 14:16 Hx Obtained From: Patient Pain Intensity: 6 Pain Scale Used: 0-10 Numeric - Allergies/Home Medications Allergies/Adverse Reactions: Allergies Allergy/AdvReac Type Severity Reaction Status Date / Time No Known Allergies Allergy Verified 05/10/18 10:34 PMH/Surg Hx/FS Hx/Imm Hx Previously Healthy: Yes Endocrine/Hematology History: Denies: Hx Anticoagulant Therapy Cardiovascular History: Reports: Hx Coronary Artery Disease, Hx Hypertension History: Denies: Hx Dialysis Musculoskeletal History: Reports: Hx Back Problems - chronic pain, Other Musculoskeletal History - chronic Rt arm pain Sensory History: Denies: Hx Eye Prosthesis, Hx Legally Blind, Hx Deafness Opthamlomology History: Denies: Hx Eye Prosthesis, Hx Legally Blind Neurological History: Denies: Hx Dementia Psychiatric History: Reports: Other Psychiatric Issues/Disorders - obesity Denies: Hx Autism - Surgical History Surgery Procedure, Year, and Place: none Infectious Disease History: No Infectious Disease History: Denies: Traveled Outside the [place] in Last 30 Days - Family History Known Family History: Negative: Cardiac Disease - Social History Alcohol Use: None Hx Substance Use: Yes Substance Use Type: Reports: None Substance Use Comment - Amount & Last Used: oxycodone, morphine Hx Tobacco Use: No Smoking Status (MU): Never Smoked Tobacco Review of Systems Positive: Other - chronic back pain Neurological: Negative Negative: Weakness, Paresthesia, Numbness All Other Systems Reviewed And Are Negative: Yes Physical Exam Triage Information Reviewed: Yes Vital Signs On Initial Exam: Initial Vitals Temp Pulse Resp BP Pulse Ox 97.0 F 93 18 128/96 94 11/07/18 13:43 11/07/18 13:43 11/07/18 13:43 11/07/18 13:43 11/07/18 13:43 Vital Signs Reviewed: Yes Appearance: Positive: Well-Appearing - Pt. sitting on chair in NAD. Morbidly obese. Skin: Positive: Warm, Dry Head/Face: Positive: Normal Head/Face Inspection Eyes: Positive: Normal, EOMI Neck: Positive: Supple Musculoskeletal: Positive: Normal, Strength/ROM Intact Neurological: Positive: Normal, CN Intact II-III Psychiatric: Positive: Affect/Mood Appropriate Diagnostics - Vital Signs Vital Signs Temp Pulse Resp BP Pulse Ox 11/07/18 14:45 99.7 F 68 17 153/113 97 11/07/18 14:43 22 11/07/18 13:43 97.0 F 93 18 128/96 94 - Laboratory Lab Statement: Any lab studies that have been ordered have been reviewed, and results considered in the medical decision making process. Back Pain Course/Dx - Course Course Of Treatment: Patient presenting requesting narcotic medication. UPPER CASER reviewed and patient has been chronically on fentanyl and Percocet. Explained to patient we do not refill chronic narcotic prescriptions in the emergency department. Did give patient a dose of Percocet in the ER. Advised to call family doctor on Friday for further pain medication. Patient understands and agrees with plan. - Diagnoses Provider Diagnoses: Chronic pain Discharge - Sign-Out/Discharge Documenting (check all that apply): Patient Departure Patient Received Moderate/Deep Sedation with Procedure: No - Discharge Plan Condition: Good Disposition: HOME Patient Education Materials: Chronic Pain (ED) Referrals: Aileen Vicente MD [Primary Care Provider] - Additional Instructions: Call your PCP Friday for followup Return to ER if symptoms change or worsen - Billing Disposition and Condition Condition: GOOD Disposition: Home
== END 2018-11-07 14:45 | disposition home or self-care (01) ==
LOC: ED 13:40
DX: G89.29 Other chronic pain (principal); M54.9 Dorsalgia, unspecified; M79.601 Pain in right arm; I25.10 Atherosclerotic heart disease of native coronary artery without angina pectoris
CPT/HCPCS: 99282; A9270-GY

== ENCOUNTER 2018-11-09 21:38 | Emergency (ER) | payer OTHER ==
--- OUTSIDE RECORDS SUMMARY | 2018-11-09 21:56 | XMS REPORT | Continuity of Care Document ---
:1975 External Reference #:[id number] Author Name Consuelo Reynolds Care Team Providers Name Role Phone Aileen Vicente M.D. Primary Care Physician Unavailable Payers Date Identification Numbers Payment Provider Subscriber Policy Number: [id number] [employer] Medicaid Tony Bennett Jr PayID: [id number] [address] [address] [place] [address] Advance Directives Type Date Description Status Comment Other Directive 08/28/2017 Health Care Proxy Current and Verified Problems Active Problems Provider Date Hypertensive left ventricular Keon Cabrera M.D.,FACP Onset: 01/22/2018 hypertrophy Note: moderate on echo Essential hypertension Keon Cabrera M.D.,FACP Onset: 11/11/2016 Obesity Troyjessa De Leon, [employer] Onset: 08/14/2016 Low back pain Troyjessa De Leon, [employer] Onset: 08/14/2016 Hyperlipidemia Troyjessa De Leon, [employer] Onset: 08/14/2016 Chronic pain syndrome Keon Cabrera M.D.,FACP Onset: 11/11/2016 Body mass index 40+ - severely obese Keon Cabrera M.D.,FACP Onset: 05/2017 Leukocytosis Keon Cabrera M.D.,FACP Onset: 05/15/2018 Note: sees Dr. Wesley Faulkner, primary osteoarthritis Jelani Alcaraz MD Onset: 10/14/2018 Family History Date Family Member(s) Observation Comments General Heart Disease General Hypertension General Cancer Father DC at 40. Currently 75 Mother due to Cancer () - colon at 55. Social History Type Date Description Comments Sex Unknown Marital Status Single Occupation Unemployed Tobacco Use Start: Unknown Never Smoked Cigarettes Smoking Status Reviewed: 10/16/18 Never Smoked Cigarettes ETOH Use 08/28/2017 Denies alcohol use Tobacco Use Start: Unknown Patient has never smoked Recreational Drug Use Denies Drug Use Exercise Type/Frequency Mild exercise Allergies, Adverse Reactions, Alerts Description No Known Drug Allergies Medications Active Medications SIG Qnty Indications Ordering Date Provider Lisinopril 1 by mouth every day I10 Aileen Vicente MD 10/07/2018 20mg bid Tablets Amlodipine Besylate 1 by mouth every day 30tabs I10 Aileen Vicente MD 2018 10mg Tablets Optichamber Harper Use With Inhalers 1units Keon Fowler 05/14/2018 [facility] Shiva Cabrera,FACP Ventolin HFA take 2 puffs by 18units Troy De Leon NP 04/14/2018 mouth every 4 hours 108(90Base) mcg/Act as needed Aerosol Fentanyl apply one patch once 10units Aileen Vicente MD 04/10/2018 25mcg/HR every 3 days Patches 72HR Buspirone HCL take 1 tablet by 120tabs F41.9 Keon Fowler 04/10/2018 15mg mouth 4 times a day Shiva Cabrera,FACP Tablets Ropinirole HCL Take 1 Tablet By 30tabs Troy De Leon NP 04/08/2018 2mg Mouth Every Day Tablets Aerochamber MV use with inhaler 1units Keon Fowler 12/22/2017 mediations Shiva Cabrera,FACP Misc Docusate Sodium 1 tab every 12 hours 120caps Keon Fowler 11/28/2017 as needed for Shiva Cabrera,FACP 100mg Capsules constipation Cymbalta take one capsule by 90caps G89.4 Aileen Vicente MD 08/05/2017 60mg Caps mouth every evening DR Gonzales M54.5 Tizanidine HCL Take 1 Tablet By 60tabs Troy De Leon NP 06/04/2017 4mg Tablets Mouth Every 6 Hours as Needed Omeprazole Take 1 Capsule By 30caps Troy De Leon NP 05/23/[address] Mouth Every Day [facility] Motion Sickness Take 1/2-1 Tablet By 32units Troy De Leon NP 2016 Relief Mouth Three Times A 25mg Chewtabs Day as Needed Oxycodone-Acetaminophen take 1 tablet by 180tabs G89.4 Aileen Vicente MD 12/2016 mouth every 4 hours 10-325mg Tablets as needed for pain M54.5 Furosemide Take 1 Tablet By 30tabs Troy De Leon NP 04/09/2017 20mg Tablets Mouth Every Day In The Morning Diphenhydramine HCL 1 cap every night Unknown 25mg Capsules at bedtime for sleep Bupropion HCL ER (SR) take 1 tablet by 90tabs Keon Cabrera, 150mg Tablets mouth every day M.DAimee,FACP ER 12HR Duloxetine HCL take one capsule 90caps Aileen Vicente MD 30mg Caps DR Part by mouth every morning Iron 1 by mouth every Unknown 325(65Fe) mg Tablets day Gabapentin take one capsule 120caps Shawna Powers, N.PAimee 300mg Capsules by mouth in the morning , 1 cap at midday and 2 caps at bedtime Atorvastatin Calcium take 1 tablet by 90tabs Keon Cabrera, 40mg Tablets mouth every day in M.D.,FACP the evening History Medications Lisinopril 1 by mouth 30tabs I10 Aileen Vicente MD 09/11/2018 - 40mg every day 10/07/2018 Tablets Benzonatate one by mouth 30caps J06.9 Troy De Leon NP 05/11/2018 - 200mg three times 05/18/2018 Capsules daily as needed for cough Guaiatussin ac Codeine 120units Unknown 05/10/2018 - Phosphate/Guaif 05/15/2018 100-10mg/5ML Syrup enesin Buspirone HCL 1 by mouth 60tabs F41.9 Keon Fowler 04/01/2018 - 30mg twice a day Shiva Cabrera,FACP 04/10/2018 Tablets Fentanyl apply one patch 10units M79.601 Keon Fowler 02/04/2018 - 25mcg/HR once every 3 Shiva Cabrera,FACP 03/17/2018 Patches 72HR days Nucynta ER 1 by mouth 60tabs M79.601 Keon Fowler 01/22/2018 - 50mg twice a day Shiva Cabrera,[facility] 02/04/2018 Tablets ER 12HR Lisinopril 1 by mouth 60tabs I10 Aileen Vicente MD 01/22/2018 - 20mg twice a day 09/11/2018 Tablets Buspirone HCL take 1 tablet 120tabs F41.9 Keon Fowler 06/20/2017 - 15mg by mouth four Shiva Cabrera,[facility] 04/01/2018 Tablets times a day Lisinopril 1/2 by mouth 90tabs Keon Fowler 06/09/2017 - 40mg twice a day Shiva Cabrera,[facility] 01/22/2018 Tablets Meclizine HCL 1/2-1 by mouth 30tabs Virgilio 12/31/2016 - 25mg three times a Shiva Francois 04/13/2017 Tablets day as needed Lisinopril take 1 tablet 60tabs Keon Fowler 11/11/2016 - 20mg by mouth twice Shiva Cabrera,[facility] 06/09/2017 Tablets a day Oxycodone HCL 1 tab three 45tabs G89.4 Keon Fowler 11/11/2016 - 20mg times daily as Shiva Cabrera,[facility] 04/09/2017 Tablets needed M54.5 Morphine Sulfate ER 1 tab twice 60tabs M79.601 Keon Fowler 11/11/2016 - daily Shiva Cabrera,[facility] 01/22/2018 15mg Tablets ER Meloxicam once daily with 30tabs M54.5 Troy De Leon NP 11/04/2016 - 15mg food 11/29/2016 Tablets Ropinirole HCL take 1 tablet 30tabs Troy De Leon NP 11/04/2016 - by mouth every 04/08/2018 0.5mg Tablets night at bedtime Morphine Sulfate ER 1 tab twice 60tabs M79.601 Troy De Leon NP 09/13/2016 - daily 10/11/2016 15mg Tablets ER Oxycodone HCL 1 tab three 90tabs Troy De Leon NP 08/09/2016 - 20mg times daily 10/11/2016 Tablets Morphine Sulfate ER 1 tab twice Unknown - daily 08/14/2016 15mg Tablets ER Lisinopril-Hydrochl 1 tab by mouth 30tabs Keon Fowler - orothiazide every morning Shiva Cabrera,[facility] 04/09/2017 20-25mg Tablets Potassium Chloride 1 tab daily Emir Hunter, - Tanya ER 04/10/2018 20Meq Tablets ER Proair HFA inhale 2 puffs 8.500gm Troy De Leon NP - by mouth every 10/07/2018 108(90Base) mcg/Act 4 hours as Aerosol needed Buspirone HCL take 1/2 tablet 60tabs F41.9 Keon Fowler - 30mg by mouth four Shiva Cabrera,[facility] 06/20/2017 Tablets times a day Metaxalone Take 1 Tablet 90tabs Keon Fowler - 800mg By Mouth 3 Shiva Cabrera,[facility] 06/04/2017 Tablets Times A Day Miralax 17 grams by Unknown - Powder mouth every day 10/07/2018 as needed Immunizations CPT Code Status Date Vaccine Reaction Lot # [id number] Given 04/08/2018 Tdap - No immediate [id number] Tetanus/Diptheria/Acellular reaction... Pertussis [id number] Given 04/08/2018 Influenza Virus Vaccine, No immediate [id number] Quadrivalent, Split, reaction... Preservative Free [id number] Given 04/09/2017 Influenza Virus Vaccine, [id number] Quadrivalent, Split, Preservative Free Vital Signs Date Vital Result Comment 10/16/2018 3:21pm Height 68 inches 5'8" Weight 445.00 lb Heart Rate 72 /min BP Systolic Sitting 138 mmHg BP Diastolic Sitting 80 mmHg Pain Level 5 BMI (Body Mass Index) 67.7 kg/m2 10/14/2018 3:33pm Height 68 inches 5'8" Weight 445.25 lb Heart Rate 84 /min BP Systolic 148 mmHg BP Diastolic 98 mmHg Respiratory Rate 20 /min Pain Level 9 BMI (Body Mass Index) 67.7 kg/m2 10/07/2018 2:54pm Height 68 inches 5'8" Weight 457.00 lb Heart Rate 71 /min BP Systolic Sitting 165 mmHg wrist BP Diastolic Sitting 85 mmHg wrist Pain Level 4 O2 % BldC Oximetry 96 % BMI (Body Mass Index) 69.5 kg/m2 09/07/2018 10:50am Height 68 inches 5'8" Weight 443.00 lb Heart Rate 91 /min BP Systolic Sitting 170 mmHg BP Diastolic Sitting 106 mmHg BMI (Body Mass Index) 67.4 kg/m2 07/03/2018 1:38pm Height 68 inches 5'8" Weight 468.00 lb Heart Rate 98 /min BP Systolic Sitting 132 mmHg BP Diastolic Sitting 88 mmHg O2 % BldC Oximetry 96 % BMI (Body Mass Index) 71.2 kg/m2 05/15/2018 4:42pm Height 68 inches 5'8" Weight 460.00 lb Heart Rate 124 /min BP Systolic Sitting 130 mmHg BP Diastolic Sitting 90 mmHg Body Temperature 98.7 F O2 % BldC Oximetry 91 % BMI (Body Mass Index) 69.9 kg/m2 05/11/2018 1:44pm Height 68 inches 5'8" Weight 440.00 lb Heart Rate 98 /min BP Systolic 138 mmHg BP Diastolic 89 mmHg O2 % BldC Oximetry 96 % BMI (Body Mass Index) 66.9 kg/m2 04/10/2018 3:49pm Height 68 inches 5'8" Weight 439.38 lb Heart Rate 112 /min BP Systolic 137 mmHg BP Diastolic 96 mmHg Body Temperature 100.5 F O2 % BldC Oximetry 96 % BMI (Body Mass Index) 66.8 kg/m2 04/08/2018 1:05pm Height 68 inches 5'8" Weight 433.00 lb Heart Rate 92 /min BP Systolic 134 mmHg BP Diastolic 82 mmHg O2 % BldC Oximetry 97 % BMI (Body Mass Index) 65.8 kg/m2 01/22/2018 3:03pm Height 68 inches 5'8" Weight 446.00 lb Heart Rate 151 /min BP Systolic Sitting 136 mmHg BP Diastolic Sitting 80 mmHg Body Temperature 97.9 F O2 % BldC Oximetry 93 % BMI (Body Mass Index) 67.8 kg/m2 12/29/2017 12:51pm Height 68 inches 5'8" Weight 441.00 lb Heart Rate 115 /min BP Systolic 130 mmHg BP Diastolic 80 mmHg O2 % BldC Oximetry 97 % BMI (Body Mass Index) 67.0 kg/m2 11/28/2017 10:33am Weight 464.00 lb Heart Rate 147 /min recheck is ~100 BP Systolic Sitting 170 mmHg BP Diastolic Sitting 90 mmHg BP Systolic Recheck 125 mmHg BP Diastolic Recheck 84 mmHg Body Temperature 99.1 F O2 % BldC Oximetry 89 % 08/28/2017 11:20am Weight 450.00 lb Heart Rate 112 /min BP Systolic Sitting 160 mmHg BP Diastolic Sitting 90 mmHg BP Systolic Recheck 96 mmHg BP Diastolic Recheck 72 mmHg Body Temperature 98.5 F O2 % BldC Oximetry 97 % 04/09/2017 3:46pm Weight 447.00 lb Heart Rate 101 /min BP Systolic Sitting 140 mmHg BP Diastolic Sitting 88 mmHg Body Temperature 99.4 F O2 % BldC Oximetry 95 % 03/19/2017 1:59pm Weight 439.00 lb Heart Rate 111 /min BP Systolic Sitting 114 mmHg BP Diastolic Sitting 86 mmHg O2 % BldC Oximetry 97 % 01/16/2017 11:44am Height 68.75 inches 5'8.75" Weight 423.00 lb w/ shoes Heart Rate 108 /min reg BP Systolic Sitting 102 mmHg Rue BP Diastolic Sitting 74 mmHg Rue Respiratory Rate 16 /min Body Temperature 97.6 F tympanic Pain Level 3 Buttocks and lower back O2 % BldC Oximetry 95 % on Ra BMI (Body Mass Index) 62.9 kg/m2 12/31/2016 4:39pm Weight 433.50 lb Heart Rate 118 /min BP Systolic Sitting 140 mmHg BP Diastolic Sitting 82 mmHg BP Systolic Recheck 160 mmHg BP Diastolic Recheck 88 mmHg Body Temperature 99.6 F O2 % BldC Oximetry 98 % 11/11/2016 4:44pm Weight 442.00 lb Heart Rate 97 /min BP Systolic Sitting 154 mmHg BP Diastolic Sitting 90 mmHg Body Temperature 99.7 F O2 % BldC Oximetry 97 % 11/04/2016 1:43pm Weight 446.00 lb Heart Rate 126 /min BP Systolic 128 mmHg BP Diastolic 92 mmHg Body Temperature 96.8 F O2 % BldC Oximetry 98 % 10/11/2016 10:40am Weight 430.25 lb Heart Rate 102 /min BP Systolic 110 mmHg BP Diastolic 80 mmHg Body Temperature 97.6 F O2 % BldC Oximetry 96 % 09/19/2016 8:39am Heart Rate 88 /min BP Systolic Sitting 128 mmHg BP Diastolic Sitting 80 mmHg O2 % BldC Oximetry 96 % 09/13/2016 1:31pm Weight 419.00 lb Heart Rate 103 /min BP Systolic 124 mmHg BP Diastolic 82 mmHg Body Temperature 98.7 F O2 % BldC Oximetry 98 % 08/23/2016 9:44am Weight 444.00 lb with shoes Heart Rate 107 /min BP Systolic 120 mmHg BP Diastolic 74 mmHg O2 % BldC Oximetry 95 % 08/09/2016 3:21pm Height 68.75 inches 5'8.75" Weight 436.00 lb Heart Rate 104 /min BP Systolic Sitting 118 mmHg BP Diastolic Sitting 74 mmHg Body Temperature 98.9 F O2 % BldC Oximetry 97 % BMI (Body Mass Index) 64.8 kg/m2 Results Test Date Facility Test Result H/L Range Note Drug Abuse 09/30/2018 [facility] Urine Amphetamine Negative ng/ mL 1, 2 [address] [place] [address] [phone] Urine Barbiturates Negative ng/mL 3 Urine Benzodiazepines Negative ng/mL 4 Urine Cocaine Negative ng/mL 5 Urine Phencyclidine Negative ng/mL Cutoff: 25 Urine Tetrahydrocannabinol Negative ng/mL Cutoff: 50 6 Creatinine, Urine 126.6 mg/dL Specific [place] 1.014 pH 7.0 Oxidants Negative 7 Adulterants Comment Normal Codeine, Ur Not Detected ng/mL Cutoff: 25 8 Teucxba-9-qeky-glucuronide, Ur Not Detected ng/mL 9 Morphine, Ur Not Detected ng/mL Cutoff: 25 10 Ipwxclzo-3-sggn-glucuronide, U Not Detected ng/mL 11 6-monoacetylmorphine, Ur Not Detected ng/mL Cutoff: 25 12 Hydrocodone, Ur Not Detected ng/mL Cutoff: 25 13 Norhydrocodone, Ur Not Detected ng/mL Cutoff: 25 14 Dihydrocodeine, Ur Not Detected ng/mL Cutoff: 25 15 Hydromorphone, Ur Not Detected ng/mL Cutoff: 25 16 Cfgqdydcjrbig0ebwgiiyenulbvtu Not Detected ng/mL 17 Oxycodone, Ur Present ng/mL Abnormal Cutoff: 25 18 Noroxycodone, Ur Present ng/mL Abnormal Cutoff: 25 19 Oxymorphone, Ur Present ng/mL Abnormal Cutoff: 25 20 Oihgaqodmrh-4-qnjw-glucuronide Present ng/mL Abnormal 21 Noroxymorphone, Ur Present ng/mL Abnormal Cutoff: 25 22 Fentanyl, Ur Not Detected ng/mL Cutoff: 2 23 Norfentanyl, Ur Present ng/mL Abnormal Cutoff: 2 24 Meperidine, Ur Not Detected ng/mL Cutoff: 25 25 Normeperidine, Ur Not Detected ng/mL Cutoff: 25 26 Naloxone, Ur Not Detected ng/mL Cutoff: 25 27 Fcxqvtxm-4-ejhn-glucuronide, U Not Detected ng/mL 28 Methadone, Ur Not Detected ng/mL Cutoff: 25 29 Eddp, Ur Not Detected ng/mL Cutoff: 25 30 Propoxyphene, Ur Not Detected ng/mL Cutoff: 25 31 Norpropoxyphene, Ur Not Detected ng/mL Cutoff: 25 32 Tramadol, Ur Not Detected ng/mL Cutoff: 25 33 O-desmethyltramadol, Ur Not Detected ng/mL Cutoff: 25 34 Tapentadol, Ur Not Detected ng/mL Cutoff: 25 35 N-desmethyltapentadol, Ur Not Detected ng/mL Cutoff: 50 36 Eiebjjepqx-nzox-otmgfewzsfl, U Not Detected ng/mL 37 Buprenorphine, Ur Not Detected ng/mL Cutoff: 5 38 Norbuprenorphine, Ur Not Detected ng/mL Cutoff: 5 39 Norbuprenorphine glucuronide Not Detected ng/mL Cutoff: 20 40 Opioid Interpretation See Comment 41 Laboratory test 09/10/2018 [facility] Troponin-I 0.01 <0.04 [address] (TnI) ng/mL [place], [place] [id number] [phone] CBC Auto Diff 09/10/2018 [facility] White Blood 10.9 High 3.5- 10.[address] Count 10^3/[place] [address] [phone] Red Blood Count 5.12 10^6/uL N 4.18-5.48 Hemoglobin 13.5 g/dL Low 14.0-18.0 Hematocrit 41 % N 36-46 Mean Corpuscular Volume 80 fL N 80-94 Mean Corpuscular Hemoglobin 26 pg Low 27-31 Mean Corpuscular HGB Conc 33 g/dL N 31-36 Red Cell Distribution Width 16 % High 10.5-15 Platelet Count 266 10^3/uL N 150-450 Mean Platelet Volume 7.2 fL Low 7.4-10.4 Abs Neutrophils 7.1 10^3/uL N 1.5-7.7 Abs Lymphocytes 2.2 10^3/uL N 1.0-4.8 Abs Monocytes 1.2 10^3/uL High 0-0.8 Abs Eosinophils 0.3 10^3/uL N 0-0.6 Abs Basophils 0.1 10^3/uL N 0-0.2 Abs Nucleated RBC 0 10^3/uL Granulocyte % 65.4 % Lymphocyte % 19.8 % Monocyte % 11.3 % Eosinophil % 2.8 % Basophil % 0.7 % Nucleated Red Blood Cells % 0 Comp Metabolic Panel 09/10/2018 [facility] Sodium 140 mmol/L N 135-[address] [place] [address] [phone] Potassium 4.3 mmol/L N 3.5-5.0 Chloride 105 mmol/L N 101-111 Co2 Carbon Dioxide 29 mmol/L N 22-32 Anion Gap 6 mmol/L N 2-11 Glucose 128 mg/dL High 70-100 Blood Urea Nitrogen 17 mg/dL N 6-24 Creatinine 0.76 mg/dL N 0.67-1.17 BUN/Creatinine Ratio 22.4 High 8-20 Calcium 9.6 mg/dL N 8.6-10.3 Total Protein 7.7 g/dL N 6.4-8.9 Albumin 4.3 g/dL N 3.2-5.2 Globulin 3.4 g/dL N 2-4 Albumin/Globulin Ratio 1.3 N 1-3 Total Bilirubin 0.40 mg/dL N 0.2-1.0 Alkaline Phosphatase 69 U/L N 34-104 Alt 17 U/L N 7-52 Ast 14 U/L N 13-39 Egfr Non- 110.9 >60 Egfr 134.2 >60 43 Laboratory test 09/10/2018 [facility] C Reactive 7.54 mg/L N < 8.[address] [place] [address] [phone] Troponin-I (TnI) 0.01 ng/mL <0.04 44 B-Type Natriuretic Peptide BNP 8 pg/mL <=100 CBC Auto 09/07/2018 [facility] White Blood 11.5 10^3/uL High 3.5-10.[address] [place] [address] [phone] Red Blood Count 4.95 10^6/uL N 4.18-5.48 Hemoglobin 12.9 g/dL Low 14.0-18.0 Hematocrit 40 % N 36-46 Mean Corpuscular Volume 80 fL N 80-94 Mean Corpuscular Hemoglobin 26 pg Low 27-31 Mean Corpuscular HGB Conc 32 g/dL N 31-36 Red Cell Distribution Width 16 % High 10.5-15 Platelet Count 262 10^3/uL N 150-450 Mean Platelet Volume 7.5 fL N 7.4-10.4 Abs Neutrophils 7.1 10^3/uL N 1.5-7.7 Abs Lymphocytes 2.8 10^3/uL N 1.0-4.8 Abs Monocytes 1.1 10^3/uL High 0-0.8 Abs Eosinophils 0.3 10^3/uL N 0-0.6 Abs Basophils 0.1 10^3/uL N 0-0.2 Abs Nucleated RBC 0 10^3/uL Granulocyte % 61.7 % Lymphocyte % 24.8 % Monocyte % 10.0 % Eosinophil % 2.9 % Basophil % 0.6 % Nucleated Red Blood Cells % 0 Laboratory test 09/07/2018 [facility] B-Type 17 pg/mL <=[address] [place] [address] Peptide BNP [phone] Comp Metabolic 09/07/2018 [facility] Sodium 138 mmol/L N 135- [address] [place] [address] [phone] Potassium 3.7 mmol/L N 3.5-5.0 Chloride 102 mmol/L N 101-111 Co2 Carbon Dioxide 28 mmol/L N 22-32 Anion Gap 8 mmol/L N 2-11 Glucose 111 mg/dL High 70-100 Blood Urea Nitrogen 17 mg/dL N 6-24 Creatinine 1.04 mg/dL N 0.67-1.17 BUN/Creatinine Ratio 16.3 N 8-20 Calcium 9.4 mg/dL N 8.6-10.3 Total Protein 7.2 g/dL N 6.4-8.9 Albumin 4.3 g/dL N 3.2-5.2 Globulin 2.9 g/dL N 2-4 Albumin/Globulin Ratio 1.5 N 1-3 Total Bilirubin 0.40 mg/dL N 0.2-1.0 Alkaline Phosphatase 73 U/L N 34-104 Alt 22 U/L N 7-52 Ast 17 U/L N 13-39 Egfr Non- 77.2 >60 Egfr 93.4 >60 45 Laboratory test 09/07/2018 [facility] C Reactive 8.85 mg/L High <8.[address] [place] [address] [phone] Erythrocyte Sed Rate 19 mm/Hr High 0-14 TSH (Thyroid Stim Horm) 2.35 mcIU/mL N 0.34-5.60 Laboratory 09/07/2018 [facility] D Dimer < 200 ng/mL N Less 46 test finding [address] [place] [address] 177 [phone] Drug Abuse 20 07/03/2018 [facility] Urine Negative 47, Urine [address] Amphetamine ng/mL 48 [place] [address] [phone] Urine Barbiturates Negative ng/mL 49 Urine Benzodiazepines Negative ng/mL 50 Urine Cocaine Negative ng/mL 51 Urine Phencyclidine Negative ng/mL Cutoff: 25 Urine Tetrahydrocannabinol Negative ng/mL Cutoff: 50 52 Creatinine, Urine 68.4 mg/dL Specific [place] 1.012 pH 5.9 Oxidants Negative 53 Adulterants Comment Normal Codeine, Ur Not Detected ng/mL Cutoff: 25 54 Fbxncrr-6-mnay-glucuronide, Ur Not Detected ng/mL 55 Morphine, Ur Not Detected ng/mL Cutoff: 25 56 Kqeasrwd-4-tmkk-glucuronide, U Not Detected ng/mL 57 6-monoacetylmorphine, Ur Not Detected ng/mL Cutoff: 25 58 Hydrocodone, Ur Not Detected ng/mL Cutoff: 25 59 Norhydrocodone, Ur Not Detected ng/mL Cutoff: 25 60 Dihydrocodeine, Ur Not Detected ng/mL Cutoff: 25 61 Hydromorphone, Ur Not Detected ng/mL Cutoff: 25 62 Kivkshesyjysx4nvmztdsxrupgjuy Not Detected ng/mL 63 Oxycodone, Ur Present ng/mL Abnormal Cutoff: 25 64 Noroxycodone, Ur Present ng/mL Abnormal Cutoff: 25 65 Oxymorphone, Ur Present ng/mL Abnormal Cutoff: 25 66 Tjdfmtqcvit-0-gkrv-glucuronide Present ng/mL Abnormal 67 Noroxymorphone, Ur Present ng/mL Abnormal Cutoff: 25 68 Fentanyl, Ur Not Detected ng/mL Cutoff: 2 69 Norfentanyl, Ur Present ng/mL Abnormal Cutoff: 2 70 Meperidine, Ur Not Detected ng/mL Cutoff: 25 71 Normeperidine, Ur Not Detected ng/mL Cutoff: 25 72 Naloxone, Ur Not Detected ng/mL Cutoff: 25 73 Ecunnyqy-3-jrjm-glucuronide, U Not Detected ng/mL 74 Methadone, Ur Not Detected ng/mL Cutoff: 25 75 Eddp, Ur Not Detected ng/mL Cutoff: 25 76 Propoxyphene, Ur Not Detected ng/mL Cutoff: 25 77 Norpropoxyphene, Ur Not Detected ng/mL Cutoff: 25 78 Tramadol, Ur Not Detected ng/mL Cutoff: 25 79 O-desmethyltramadol, Ur Not Detected ng/mL Cutoff: 25 80 Tapentadol, Ur Not Detected ng/mL Cutoff: 25 81 N-desmethyltapentadol, Ur Not Detected ng/mL Cutoff: 50 82 Wmjxepqbso-seeu-oczneidzevm, U Not Detected ng/mL 83 Buprenorphine, Ur Not Detected ng/mL Cutoff: 5 84 Norbuprenorphine, Ur Not Detected ng/mL Cutoff: 5 85 Norbuprenorphine glucuronide Not Detected ng/mL Cutoff: 20 86 Opioid Interpretation See Comment 87 Drug Abuse 05/15/2018 [facility] Urine Amphetamine Negative ng/ mL 88, 89 [address] [place] [id number] [phone] Urine Barbiturates Negative ng/mL 90 Urine Benzodiazepines Negative ng/mL 91 Urine Cocaine Negative ng/mL 92 Urine Phencyclidine Negative ng/mL Cutoff: 25 Urine Tetrahydrocannabinol Negative ng/mL Cutoff: 50 93 Creatinine, Urine 113.3 mg/dL Specific [place] 1.015 pH 5.9 Oxidants Negative 94 Adulterants Comment Normal Codeine, Ur Not Detected ng/mL Cutoff: 25 95 Oryowlp-4-zggd-glucuronide, Ur Not Detected ng/mL 96 Morphine, Ur Not Detected ng/mL Cutoff: 25 97 Bahdjona-4-kpty-glucuronide, U Not Detected ng/mL 98 6-monoacetylmorphine, Ur Not Detected ng/mL Cutoff: 25 99 Hydrocodone, Ur Not Detected ng/mL Cutoff: 25 100 Norhydrocodone, Ur Not Detected ng/mL Cutoff: 25 101 Dihydrocodeine, Ur Not Detected ng/mL Cutoff: 25 102 Hydromorphone, Ur Not Detected ng/mL Cutoff: 25 103 Adwqnsvzkftjg9dtbrziiiburzoxc Not Detected ng/mL 104 Oxycodone, Ur Present ng/mL Abnormal Cutoff: 25 105 Noroxycodone, Ur Present ng/mL Abnormal Cutoff: 25 106 Oxymorphone, Ur Not Detected ng/mL Cutoff: 25 107 Xjfucsbswzc-5-giyd-glucuronide Present ng/mL Abnormal 108 Noroxymorphone, Ur Present ng/mL Abnormal Cutoff: 25 109 Fentanyl, Ur Present ng/mL Abnormal Cutoff: 2 110 Norfentanyl, Ur Present ng/mL Abnormal Cutoff: 2 111 Meperidine, Ur Not Detected ng/mL Cutoff: 25 112 Normeperidine, Ur Not Detected ng/mL Cutoff: 25 113 Naloxone, Ur Not Detected ng/mL Cutoff: 25 114 Zxfxickw-2-iqis-glucuronide, U Not Detected ng/mL 115 Methadone, Ur Not Detected ng/mL Cutoff: 25 116 Eddp, Ur Not Detected ng/mL Cutoff: 25 117 Propoxyphene, Ur Not Detected ng/mL Cutoff: 25 118 Norpropoxyphene, Ur Not Detected ng/mL Cutoff: 25 119 Tramadol, Ur Not Detected ng/mL Cutoff: 25 120 O-desmethyltramadol, Ur Not Detected ng/mL Cutoff: 25 121 Tapentadol, Ur Not Detected ng/mL Cutoff: 25 122 N-desmethyltapentadol, Ur Not Detected ng/mL Cutoff: 50 123 Eyzxaiyzcm-uihx-ydnghedhxlq, U Not Detected ng/mL 124 Buprenorphine, Ur Not Detected ng/mL Cutoff: 5 125 Norbuprenorphine, Ur Not Detected ng/mL Cutoff: 5 126 Norbuprenorphine glucuronide Not Detected ng/mL Cutoff: 20 127 Opioid Interpretation See Comment 128 Laboratory test 05/10/2018 [facility] Rapid SEE RESULT [address] [place] [address] Antigen [phone] Rapid Influenza 05/10/2018 [facility] Influenza A NEGATIVE Negative 130 A & B Molecular [address] [place] [address] [phone] Influenza B Molecular NEGATIVE Negative Lipid Profile 04/15/2018 [facility] Triglycerides 157 mg/dL 131 (Trig/Chol/HDL) [address] [place] [address] [phone] Cholesterol 149 mg/dL 132 HDL Cholesterol 54.0 mg/dL 133 LDL Cholesterol 64 mg/dL 134 Comp Metabolic Panel 04/15/2018 [facility] Sodium 142 mmol/L N 135-145 [address] [place] [address] [phone] Potassium 4.6 mmol/L N 3.5-5.0 Chloride 107 mmol/L N 101-111 Co2 Carbon Dioxide 28 mmol/L N 22-32 Anion Gap 7 mmol/L N 2-11 Glucose 119 mg/dL High 70-100 Blood Urea Nitrogen 14 mg/dL N 6-24 Creatinine 0.86 mg/dL N 0.67-1.17 BUN/Creatinine Ratio 16.3 N 8-20 Calcium 9.4 mg/dL N 8.6-10.3 Total Protein 6.5 g/dL N 6.4-8.9 Albumin 4.1 g/dL N 3.2-5.2 Globulin 2.4 g/dL N 2-4 Albumin/Globulin Ratio 1.7 N 1-3 Total Bilirubin 0.30 mg/dL N 0.2-1.0 Alkaline Phosphatase 78 U/L N 34-104 Alt 14 U/L N 7-52 Ast 13 U/L N 13-39 Egfr Non- 96.2 >60 Egfr 116.4 >60 135 Urine Drug Screen Inhouse 04/10/2018 [employer] [facility] Amphetamine Confirm Urine - 12 Urine Buprenorphine Conf QN - Urine Benzodiazepines + Urine Cocaine Random QL - Urine Methamphetamine QL Confm - Urine Methadone - Confirm Opiate Urine - Urine Oxycodone + Urine PCP Phencyclidine QL - Urine THC Confirmation - Urine Barbiturates QN Confirm - Basic Metabolic Panel 02/02/2018 [facility] Sodium 140 mmol/L N 135-145 [address] [place] [address] [phone] Potassium 4.1 mmol/L N 3.5-5.0 Chloride 105 mmol/L N 101-111 Co2 Carbon Dioxide 28 mmol/L N 22-32 Anion Gap 7 mmol/L N 2-11 Glucose 120 mg/dL High 70-100 Blood Urea Nitrogen 13 mg/dL N 6-24 Creatinine 0.94 mg/dL N 0.67-1.17 BUN/Creatinine Ratio 13.8 N 8-20 Calcium 9.8 mg/dL N 8.6-10.3 Egfr Non- 87.2 >60 Egfr 105.5 >60 136 Laboratory test 02/02/2018 [facility] Troponin-I 0.00 <0.[address] (TnI) ng/[place] [address] [phone] CBC No Diff 02/02/2018 [facility] White Blood 11.9 High 3.5- 10.[address] Count 10^3/[place] [address] [phone] Red Blood Count 4.74 10^6/uL N 4.00-5.40 Hemoglobin 12.7 g/dL Low 14.0-18.0 Hematocrit 39 % Low 42-52 Mean Corpuscular Volume 83 fL N 80-94 Mean Corpuscular Hemoglobin 27 pg N 27-31 Mean Corpuscular HGB Conc 33 g/dL N 31-36 Red Cell Distribution Width 15 % N 10.5-15 Platelet Count 272 10^3/uL N 150-450 Mean Platelet Volume 6.9 um3 Low 7.4-10.4 BCR/Abl Trans 9:22 01/29/2018 [facility] BCR/abl (Fish) Normal Fish [address] [place] [address] [phone] BCR/abl (Fish) Result Table See Comment 137 BCR/abl (Fish) Specimen Blood BCR/abl (Fish) Referral Reason See Comment 138 BCR/abl (Fish) Method See Comment 139 BCR/abl Results See Comment 140 BCR/abl (Fish) Interpretation See Comment 141 BCR/abl (Fish) Disclaimer See Comment 142 BCR/abl (Fish) Released By See Comment 143 Leukemia/Lymphoma 01/29/2018 [facility] Path (SEE NOTE) [address] [place] [address] 2-8 Marker [phone] Myeloprolif Neoplasm 01/29/2018 [facility] MPNR Result see 145 With [address]X [address] [place] [address] <SEE NOTE> [phone] MPNR Final Diagnosis See Comment 146 Protein 01/29/2018 [facility] Total 6.8 g/dL 6.3 - Electrophoresis [address] Protein(Pep) 7.9 [place] [address] [phone] Albumin 3.3 g/dL Abnormal 3.4-4.7 Alpha-1 Globulin 0.3 g/dL 0.1-0.3 Alpha-2 Globulin 0.9 g/dL 0.6-1.0 Beta Globulin 1.4 g/dL Abnormal 0.7-1.2 Gamma Globulin 1.0 g/dL 0.6-1.6 Albumin/Globulin Ratio 0.92 Impression See Comment 147 Laboratory test 01/29/2018 [facility] Erythrocyte Sed 28 mm/Hr High 0-[address] [place] [address] [phone] Erythropoietin 13.9 mIU/mL 2.6 - 18.5 148 Retic Count 01/29/2018 [facility] Retic Count 1.7 % High 0.5- 1.[address] [place] [address] [phone] Corrected Retic Count 1.4 % N 0.5-1.5 Maturation Factor Retic 1.5 Retic Index 0.90 Mean Retic Volume 108.1 Immature Retic Fraction 0.44 RBC Retic Count 4.51 10^6/uL Low 4.6-6.2 Hematocrit for Retic CNT 38 % Low 42-52 CBC Auto Diff 01/29/2018 [facility] White Blood 9.9 10^3/uL N 3.5-10.[address] [place] [address] [phone] Red Blood Count 4.51 10^6/uL N 4.00-5.40 Hemoglobin 12.4 g/dL Low 14.0-18.0 Hematocrit 38 % Low 42-52 Mean Corpuscular Volume 84 fL N 80-94 Mean Corpuscular Hemoglobin 28 pg N 27-31 Mean Corpuscular HGB Conc 33 g/dL N 31-36 Red Cell Distribution Width 15 % N 10.5-15 Platelet Count 319 10^3/uL N 150-450 Mean Platelet Volume 7.3 um3 Low 7.4-10.4 Abs Neutrophils 5.6 10^3/uL N 1.5-7.7 Abs Lymphocytes 3.1 10^3/uL N 1.0-4.8 Abs Monocytes 0.7 10^3/uL N 0-0.8 Abs Eosinophils 0.4 10^3/uL N 0-0.6 Abs Basophils 0 10^3/uL N 0-0.2 Abs Nucleated RBC 0 10^3/uL Granulocyte % 56.8 % N 38-83 Lymphocyte % 31.5 % N 25-47 Monocyte % 7.6 % High 0-7 Eosinophil % 3.7 % N 0-6 Basophil % 0.4 % N 0-2 Nucleated Red Blood Cells % 0 Laboratory test 01/29/2018 [facility] Ferritin 30.7 ng/mL N 24 -336 finding [address] [place] [address] [phone] Vitamin B12 554 pg/mL N 180-914 149 Iron & Iron Binding 01/29/2018 [facility] Iron 41 g/dL Low 50-212 Capacity [address] [place] [address] [phone] Unsaturated Iron Binding 373 g/dL Total Iron Binding Capacity 414 g/dL N 250-450 Transferrin 296 mg/dL N 203-362 % Iron Saturation 10 % Low 15-55 Laboratory test 01/29/2018 [employer] [facility] Occult Blood Stool neg x3 finding Diagnostic Comp Metabolic 01/29/2018 [facility] Sodium 139 mmol/L N 135- 145 Panel [address] [place] [address] [phone] Potassium 4.6 mmol/L N 3.5-5.0 Chloride 102 mmol/L N 101-111 Co2 Carbon Dioxide 31 mmol/L N 22-32 Anion Gap 6 mmol/L N 2-11 Glucose 98 mg/dL N 70-100 Blood Urea Nitrogen 19 mg/dL N 6-24 Creatinine 1.03 mg/dL N 0.67-1.17 BUN/Creatinine Ratio 18.4 N 8-20 Calcium 9.3 mg/dL N 8.6-10.3 Total Protein 6.5 g/dL N 6.4-8.9 Albumin 4.0 g/dL N 3.2-5.2 Globulin 2.5 g/dL N 2-4 Albumin/Globulin Ratio 1.6 N 1-3 Total Bilirubin 0.20 mg/dL N 0.2-1.0 Alkaline Phosphatase 61 U/L N 34-104 Alt 15 U/L N 7-52 Ast 14 U/L N 13-39 Egfr Non- 78.5 >60 Egfr 94.9 >60 150 Drug Abuse 01/22/2018 [facility] Urine Amphetamine Negative 151, 152 [address] ng/[place] [address] [phone] Urine Barbiturates Negative ng/mL 153 Urine Benzodiazepines Negative ng/mL 154 Urine Cocaine Negative ng/mL 155 Urine Phencyclidine Negative ng/mL Cutoff: 25 Urine Tetrahydrocannabinol Negative ng/mL Cutoff: 50 156 Creatinine, Urine 237.5 mg/dL Specific [place] 1.015 pH 5.7 Oxidants Negative 157 Adulterants Comment Normal Codeine, Ur Not Detected ng/mL Cutoff: 25 158 Rsxopem-4-kmwd-glucuronide, Ur Not Detected ng/mL 159 Morphine, Ur Present ng/mL Abnormal Cutoff: 25 160 Zhqchneb-4-mccw-glucuronide, U Present ng/mL Abnormal 161 6-monoacetylmorphine, Ur Not Detected ng/mL Cutoff: 25 162 Hydrocodone, Ur Not Detected ng/mL Cutoff: 25 163 Norhydrocodone, Ur Not Detected ng/mL Cutoff: 25 164 Dihydrocodeine, Ur Not Detected ng/mL Cutoff: 25 165 Hydromorphone, Ur Not Detected ng/mL Cutoff: 25 166 Bvjodcslaflmm5htxiaxszjmahsuc Not Detected ng/mL 167 Oxycodone, Ur Present ng/mL Abnormal Cutoff: 25 168 Noroxycodone, Ur Present ng/mL Abnormal Cutoff: 25 169 Oxymorphone, Ur Present ng/mL Abnormal Cutoff: 25 170 Wumtlppitib-6-ojap-glucuronide Present ng/mL Abnormal 171 Noroxymorphone, Ur Present ng/mL Abnormal Cutoff: 25 172 Fentanyl, Ur Not Detected ng/mL Cutoff: 2 173 Norfentanyl, Ur Present ng/mL Abnormal Cutoff: 2 174 Meperidine, Ur Not Detected ng/mL Cutoff: 25 175 Normeperidine, Ur Not Detected ng/mL Cutoff: 25 176 Naloxone, Ur Not Detected ng/mL Cutoff: 25 177 Ubrliokb-0-ztyr-glucuronide, U Not Detected ng/mL 178 Methadone, Ur Not Detected ng/mL Cutoff: 25 179 Eddp, Ur Not Detected ng/mL Cutoff: 25 180 Propoxyphene, Ur Not Detected ng/mL Cutoff: 25 181 Norpropoxyphene, Ur Not Detected ng/mL Cutoff: 25 182 Tramadol, Ur Not Detected ng/mL Cutoff: 25 183 O-desmethyltramadol, Ur Not Detected ng/mL Cutoff: 25 184 Tapentadol, Ur Not Detected ng/mL Cutoff: 25 185 N-desmethyltapentadol, Ur Not Detected ng/mL Cutoff: 50 186 Vvnhjmzwfe-nluj-eaogkrqhkik, U Not Detected ng/mL 187 Buprenorphine, Ur Not Detected ng/mL Cutoff: 5 188 Norbuprenorphine, Ur Not Detected ng/mL Cutoff: 5 189 Norbuprenorphine glucuronide Not Detected ng/mL Cutoff: 20 190 Opioid Interpretation See Comment 191 Drug Abuse 12/29/2017 [facility] Urine Amphetamine Negative 192, 193 [address] ng/[place] [address] [phone] Urine Barbiturates Negative ng/mL 194 Urine Benzodiazepines Negative ng/mL 195 Urine Cocaine Negative ng/mL 196 Urine Phencyclidine Negative ng/mL Cutoff: 25 Urine Tetrahydrocannabinol Negative ng/mL Cutoff: 50 197 Creatinine, Urine 476.7 mg/dL Specific [place] 1.020 pH 5.8 Oxidants Negative 198 Adulterants Comment Normal Codeine, Ur Not Detected ng/mL Cutoff: 25 199 Xtupkxf-6-jpmg-glucuronide, Ur Not Detected ng/mL 200 Morphine, Ur Present ng/mL Abnormal Cutoff: 25 201 Avelwsmj-7-lfof-glucuronide, U Present ng/mL Abnormal 202 6-monoacetylmorphine, Ur Not Detected ng/mL Cutoff: 25 203 Hydrocodone, Ur Not Detected ng/mL Cutoff: 25 204 Norhydrocodone, Ur Not Detected ng/mL Cutoff: 25 205 Dihydrocodeine, Ur Not Detected ng/mL Cutoff: 25 206 Hydromorphone, Ur Present ng/mL Abnormal Cutoff: 25 207 Rdunvwwqdpfgv4vfkmtjocnamvpot Present ng/mL Abnormal 208 Oxycodone, Ur Present ng/mL Abnormal Cutoff: 25 209 Noroxycodone, Ur Present ng/mL Abnormal Cutoff: 25 210 Oxymorphone, Ur Not Detected ng/mL Cutoff: 25 211 Jpvhkreyzys-3-kpwp-glucuronide Present ng/mL Abnormal 212 Noroxymorphone, Ur Present ng/mL Abnormal Cutoff: 25 213 Fentanyl, Ur Not Detected ng/mL Cutoff: 2 214 Norfentanyl, Ur Present ng/mL Abnormal Cutoff: 2 215 Meperidine, Ur Not Detected ng/mL Cutoff: 25 216 Normeperidine, Ur Not Detected ng/mL Cutoff: 25 217 Naloxone, Ur Not Detected ng/mL Cutoff: 25 218 Muzkkeam-3-biks-glucuronide, U Not Detected ng/mL 219 Methadone, Ur Not Detected ng/mL Cutoff: 25 220 Eddp, Ur Not Detected ng/mL Cutoff: 25 221 Propoxyphene, Ur Not Detected ng/mL Cutoff: 25 222 Norpropoxyphene, Ur Not Detected ng/mL Cutoff: 25 223 Tramadol, Ur Not Detected ng/mL Cutoff: 25 224 O-desmethyltramadol, Ur Not Detected ng/mL Cutoff: 25 225 Tapentadol, Ur Not Detected ng/mL Cutoff: 25 226 N-desmethyltapentadol, Ur Not Detected ng/mL Cutoff: 50 227 Nyvhidoydy-hrps-olmhxgrymry, U Not Detected ng/mL 228 Buprenorphine, Ur Not Detected ng/mL Cutoff: 5 229 Norbuprenorphine, Ur Not Detected ng/mL Cutoff: 5 230 Norbuprenorphine glucuronide Not Detected ng/mL Cutoff: 20 231 Opioid Interpretation See Comment 232 CBC Auto 12/29/2017 [facility] White Blood 13.2 10^3/uL High 3.5-10.[address] [place] [address] [phone] Red Blood Count 5.03 10^6/uL N 4.00-5.40 Hemoglobin 13.6 g/dL Low 14.0-18.0 Hematocrit 41 % Low 42-52 Mean Corpuscular Volume 82 fL N 80-94 Mean Corpuscular Hemoglobin 27 pg N 27-31 Mean Corpuscular HGB Conc 33 g/dL N 31-36 Red Cell Distribution Width 15 % N 10.5-15 Platelet Count 329 10^3/uL N 150-450 Mean Platelet Volume 7.0 um3 Low 7.4-10.4 Abs Neutrophils 8.5 10^3/uL High 1.5-7.7 Abs Lymphocytes 3.2 10^3/uL N 1.0-4.8 Abs Monocytes 1.1 10^3/uL High 0-0.8 Abs Eosinophils 0.3 10^3/uL N 0-0.6 Abs Basophils 0.1 10^3/uL N 0-0.2 Abs Nucleated RBC 0 10^3/uL Granulocyte % 64.8 % N 38-83 Lymphocyte % 24.0 % Low 25-47 Monocyte % 8.5 % High 0-7 Eosinophil % 2.3 % N 0-6 Basophil % 0.4 % N 0-2 Nucleated Red Blood Cells % 0 Drug Abuse 11/28/2017 [facility] Urine Amphetamine Negative ng/ mL 233 [address] [place] [address] [phone] Urine Barbiturates Negative ng/mL 234 Urine Benzodiazepines Negative ng/mL 235 Urine Cocaine Negative ng/mL 236 Urine Phencyclidine Negative ng/mL Cutoff: 25 Urine Tetrahydrocannabinol Negative ng/mL Cutoff: 50 237 Creatinine, Urine 88.6 mg/dL Specific [place] 1.014 pH 5.5 Oxidants Negative 238 Adulterants Comment Normal Codeine, Ur Not Detected ng/mL Cutoff: 25 239 Zdullwt-6-zmxv-glucuronide, Ur Not Detected ng/mL 240 Morphine, Ur Present ng/mL Abnormal Cutoff: 25 241 Jxhoadqi-9-encz-glucuronide, U Present ng/mL Abnormal 242 6-monoacetylmorphine, Ur Not Detected ng/mL Cutoff: 25 243 Hydrocodone, Ur Not Detected ng/mL Cutoff: 25 244 Norhydrocodone, Ur Not Detected ng/mL Cutoff: 25 245 Dihydrocodeine, Ur Not Detected ng/mL Cutoff: 25 246 Hydromorphone, Ur Not Detected ng/mL Cutoff: 25 247 Sfcpfaqxxxhux3dvtvngehqshawnc Not Detected ng/mL 248 Oxycodone, Ur Present ng/mL Abnormal Cutoff: 25 249 Noroxycodone, Ur Present ng/mL Abnormal Cutoff: 25 250 Oxymorphone, Ur Not Detected ng/mL Cutoff: 25 251 Krofnzhqwhx-2-ialw-glucuronide Present ng/mL Abnormal 252 Noroxymorphone, Ur Present ng/mL Abnormal Cutoff: 25 253 Fentanyl, Ur Not Detected ng/mL Cutoff: 2 254 Norfentanyl, Ur Not Detected ng/mL Cutoff: 2 255 Meperidine, Ur Not Detected ng/mL Cutoff: 25 256 Normeperidine, Ur Not Detected ng/mL Cutoff: 25 257 Naloxone, Ur Not Detected ng/mL Cutoff: 25 258 Gdcnmziz-1-ekbh-glucuronide, U Not Detected ng/mL 259 Methadone, Ur Not Detected ng/mL Cutoff: 25 260 Eddp, Ur Not Detected ng/mL Cutoff: 25 261 Propoxyphene, Ur Not Detected ng/mL Cutoff: 25 262 Norpropoxyphene, Ur Not Detected ng/mL Cutoff: 25 263 Tramadol, Ur Not Detected ng/mL Cutoff: 25 264 O-desmethyltramadol, Ur Not Detected ng/mL Cutoff: 25 265 Tapentadol, Ur Not Detected ng/mL Cutoff: 25 266 N-desmethyltapentadol, Ur Not Detected ng/mL Cutoff: 50 267 Agfksjaylv-jcsc-mbosizstczq, U Not Detected ng/mL 268 Buprenorphine, Ur Not Detected ng/mL Cutoff: 5 269 Norbuprenorphine, Ur Not Detected ng/mL Cutoff: 5 270 Norbuprenorphine glucuronide Not Detected ng/mL Cutoff: 20 271 Opioid Interpretation See Comment 272 CBC Auto 11/28/2017 [facility] White Blood 14.6 10^3/uL High 3.5-10.[address] [place] [address] [phone] Red Blood Count 4.62 10^6/uL N 4.00-5.40 Hemoglobin 12.7 g/dL Low 14.0-18.0 Hematocrit 38 % Low 42-52 Mean Corpuscular Volume 83 fL N 80-94 Mean Corpuscular Hemoglobin 28 pg N 27-31 Mean Corpuscular HGB Conc 33 g/dL N 31-36 Red Cell Distribution Width 16 % High 10.5-15 Platelet Count 375 10^3/uL N 150-450 Mean Platelet Volume 7.0 um3 Low 7.4-10.4 Abs Neutrophils 9.3 10^3/uL High 1.5-7.7 Abs Lymphocytes 3.7 10^3/uL N 1.0-4.8 Abs Monocytes 1.2 10^3/uL High 0-0.8 Abs Eosinophils 0.4 10^3/uL N 0-0.6 Abs Basophils 0.1 10^3/uL N 0-0.2 Abs Nucleated RBC 0 10^3/uL Granulocyte % 63.4 % N 38-83 Lymphocyte % 25.5 % N 25-47 Monocyte % 8.1 % High 0-7 Eosinophil % 2.5 % N 0-6 Basophil % 0.5 % N 0-2 Nucleated Red Blood Cells % 0 Comp Metabolic Panel 11/28/2017 [facility] Sodium 142 mmol/L N 135-[address] [place] [address] [phone] Potassium 3.7 mmol/L N 3.5-5.0 Chloride 102 mmol/L N 101-111 Co2 Carbon Dioxide 28 mmol/L N 22-32 Anion Gap 12 mmol/L High 2-11 Glucose 110 mg/dL High 70-100 Blood Urea Nitrogen 13 mg/dL N 6-24 Creatinine 1.04 mg/dL N 0.67-1.17 BUN/Creatinine Ratio 12.5 N 8-20 Calcium 9.1 mg/dL N 8.6-10.3 Total Protein 6.8 g/dL N 6.4-8.9 Albumin 4.1 g/dL N 3.2-5.2 Globulin 2.7 g/dL N 2-4 Albumin/Globulin Ratio 1.5 N 1-3 Total Bilirubin 0.30 mg/dL N 0.2-1.0 Alkaline Phosphatase 57 U/L N 34-104 Alt 15 U/L N 7-52 Ast 14 U/L N 13-39 Egfr Non- 77.6 >60 Egfr 93.9 >60 273 Laboratory test 11/28/2017 [facility] B-Type 13 pg/mL [address] [place] [address] Peptide BNP [phone] Drug Abuse 20 08/28/2017 [facility] Urine Negative 275, Urine [address] Amphetamine ng/mL 276 [place], [place] [id number] [phone] Urine Barbiturates Negative ng/mL 277 Urine Benzodiazepines Negative ng/mL 278 Urine Cocaine Negative ng/mL 279 Urine Phencyclidine Negative ng/mL Cutoff: 25 Urine Tetrahydrocannabinol Negative ng/mL Cutoff: 50 280 Creatinine, Urine 294.6 mg/dL Specific [place] 1.019 pH 5.6 Oxidants Negative 281 Adulterants Comment Normal Codeine, Ur Not Detected ng/mL Cutoff: 25 282 Ypadimg-1-cpdl-glucuronide, Ur Not Detected ng/mL 283 Morphine, Ur Present ng/mL Abnormal Cutoff: 25 284 Fylopfol-2-favq-glucuronide, U Present ng/mL Abnormal 285 6-monoacetylmorphine, Ur Not Detected ng/mL Cutoff: 25 286 Hydrocodone, Ur Not Detected ng/mL Cutoff: 25 287 Norhydrocodone, Ur Not Detected ng/mL Cutoff: 25 288 Dihydrocodeine, Ur Not Detected ng/mL Cutoff: 25 289 Hydromorphone, Ur Present ng/mL Abnormal Cutoff: 25 290 Nkxaqmdurokwn3hrrjwsuoeafgzxc Not Detected ng/mL 291 Oxycodone, Ur Present ng/mL Abnormal Cutoff: 25 292 Noroxycodone, Ur Present ng/mL Abnormal Cutoff: 25 293 Oxymorphone, Ur Present ng/mL Abnormal Cutoff: 25 294 Yxmhtqafqmf-0-rhhd-glucuronide Present ng/mL Abnormal 295 Noroxymorphone, Ur Present ng/mL Abnormal Cutoff: 25 296 Fentanyl, Ur Not Detected ng/mL Cutoff: 2 297 Norfentanyl, Ur Not Detected ng/mL Cutoff: 2 298 Meperidine, Ur Not Detected ng/mL Cutoff: 25 299 Normeperidine, Ur Not Detected ng/mL Cutoff: 25 300 Naloxone, Ur Not Detected ng/mL Cutoff: 25 301 Bypfeere-5-zzfi-glucuronide, U Not Detected ng/mL 302 Methadone, Ur Not Detected ng/mL Cutoff: 25 303 Eddp, Ur Not Detected ng/mL Cutoff: 25 304 Propoxyphene, Ur Not Detected ng/mL Cutoff: 25 305 Norpropoxyphene, Ur Not Detected ng/mL Cutoff: 25 306 Tramadol, Ur Not Detected ng/mL Cutoff: 25 307 O-desmethyltramadol, Ur Not Detected ng/mL Cutoff: 25 308 Tapentadol, Ur Not Detected ng/mL Cutoff: 25 309 N-desmethyltapentadol, Ur Not Detected ng/mL Cutoff: 50 310 Bfaruszetu-frqn-hwvzogpssuq, U Not Detected ng/mL 311 Buprenorphine, Ur Not Detected ng/mL Cutoff: 5 312 Norbuprenorphine, Ur See Comment ng/mL Cutoff: 5 313 Norbuprenorphine glucuronide Not Detected ng/mL Cutoff: 20 314 Opioid Interpretation See Comment 315 Laboratory test 04/28/2017 [facility] PSA Screening 0.110 N 0- 4.000 [address] ng/[place] [address] [phone] Lipid Profile 04/28/2017 [facility] Triglycerides 139 mg/dL 317 (Trig/Chol/HDL) [address] [place], [place] [id number] [phone] Cholesterol 167 mg/dL 318 HDL Cholesterol 41.7 mg/dL 319 LDL Cholesterol 98 mg/dL 320 Comp Metabolic Panel 04/28/2017 [facility] Sodium 138 mmol/L N 133-145 [address] [place] [address] [phone] Potassium 4.2 mmol/L N 3.5-5.0 Chloride 103 mmol/L N 101-111 Co2 Carbon Dioxide 30 mmol/L N 22-32 Anion Gap 5 mmol/L N 2-11 Glucose 97 mg/dL N 70-100 Blood Urea Nitrogen 12 mg/dL N 6-24 Creatinine 1.01 mg/dL N 0.67-1.17 BUN/Creatinine Ratio 11.9 N 8-20 Calcium 9.2 mg/dL N 8.6-10.3 Total Protein 6.5 g/dL N 6.4-8.9 Albumin 3.9 g/dL N 3.2-5.2 Globulin 2.6 g/dL N 2-4 Albumin/Globulin Ratio 1.5 N 1-3 Total Bilirubin 0.30 mg/dL N 0.2-1.0 Alkaline Phosphatase 47 U/L N 34-104 Alt 16 U/L N 7-52 Ast 14 U/L N 13-39 Egfr Non- 80.2 >60 Egfr 103.2 >60 321 Drug Abuse 04/09/2017 [facility] Urine Amphetamine Negative ng/ mL 322 20 Urine [address] [place] [address] [phone] Urine Barbiturates Negative ng/mL 323 Urine Benzodiazepines Negative ng/mL 324 Urine Cocaine Negative ng/mL 325 Urine Phencyclidine Negative ng/mL Cutoff: 25 Urine Tetrahydrocannabinol Negative ng/mL Cutoff: 50 326 Creatinine, Urine 53.0 mg/dL Specific [place] 1.015 pH 5.4 Oxidants Negative 327 Adulterants Comment Normal Codeine, Ur Not Detected ng/mL Cutoff: 25 328 Zahqwxv-1-zsaj-glucuronide, Ur Not Detected ng/mL 329 Morphine, Ur Not Detected ng/mL Cutoff: 25 330 Jstdotuo-9-jklk-glucuronide, U Not Detected ng/mL 331 6-monoacetylmorphine, Ur Not Detected ng/mL Cutoff: 25 332 Hydrocodone, Ur Not Detected ng/mL Cutoff: 25 333 Norhydrocodone, Ur Not Detected ng/mL Cutoff: 25 334 Dihydrocodeine, Ur Not Detected ng/mL Cutoff: 25 335 Hydromorphone, Ur Not Detected ng/mL Cutoff: 25 336 Ytfmxovajywiq7whcftukamrzjmkl Not Detected ng/mL 337 Oxycodone, Ur Present ng/mL Cutoff: 25 338 Noroxycodone, Ur Present ng/mL Cutoff: 25 339 Oxymorphone, Ur Not Detected ng/mL Cutoff: 25 340 Lgchviyrnfv-0-yxkh-glucuronide Present ng/mL 341 Noroxymorphone, Ur Present ng/mL Cutoff: 25 342 Fentanyl, Ur Not Detected ng/mL Cutoff: 2 343 Norfentanyl, Ur Not Detected ng/mL Cutoff: 2 344 Meperidine, Ur Not Detected ng/mL Cutoff: 25 345 Normeperidine, Ur Not Detected ng/mL Cutoff: 25 346 Naloxone, Ur Not Detected ng/mL Cutoff: 25 347 Umhtsogs-1-hntf-glucuronide, U Not Detected ng/mL 348 Methadone, Ur Not Detected ng/mL Cutoff: 25 349 Eddp, Ur Not Detected ng/mL Cutoff: 25 350 Propoxyphene, Ur Not Detected ng/mL Cutoff: 25 351 Norpropoxyphene, Ur Not Detected ng/mL Cutoff: 25 352 Tramadol, Ur Not Detected ng/mL Cutoff: 25 353 O-desmethyltramadol, Ur Not Detected ng/mL Cutoff: 25 354 Tapentadol, Ur Not Detected ng/mL Cutoff: 25 355 N-desmethyltapentadol, Ur Not Detected ng/mL Cutoff: 50 356 Sgvywdujgl-dxsm-mvkpmkrokkm, U Not Detected ng/mL 357 Buprenorphine, Ur Not Detected ng/mL Cutoff: 5 358 Norbuprenorphine, Ur Not Detected ng/mL Cutoff: 5 359 Norbuprenorphine glucuronide Not Detected ng/mL Cutoff: 20 360 Opioid Interpretation See Comment 361 Ua Routine 03/19/2017 [employer] [facility] Ua Specific [place] 1.015 Ua PH 5 Ua Color yellow Ua Appera clear Ua WBC neg Ua Protein trace Ua Glucose neg Ua Ketones neg Ua Bilirubin neg Ua Urobilinogen neg Ua Nitrite neg Ua Occult Blood neg Drug Abuse 12/31/2016 [facility] Urine Amphetamine Negative ng/ mL N [address] [place] [address] [phone] Urine Barbiturates Negative ng/mL N 363 Urine Benzodiazepines Negative ng/mL N 364 Urine Cocaine Negative ng/mL N 365 Urine Phencyclidine Negative ng/mL N Cutoff: 25 Urine Tetrahydrocannabinol Negative ng/mL N Cutoff: 50 366 Creatinine, Urine 338.6 mg/dL N Specific [place] 1.018 N pH 5.8 N Oxidants Negative N 367 Adulterants Comment Normal N Codeine, Ur Not Detected ng/mL N Cutoff: 25 368 Jrxhiou-1-ofnz-glucuronide, Ur Present ng/mL N 369 Morphine, Ur Present ng/mL N Cutoff: 25 370 Uwwvnysl-2-xlno-glucuronide, U Present ng/mL N 371 6-monoacetylmorphine, Ur Not Detected ng/mL N Cutoff: 25 372 Hydrocodone, Ur Not Detected ng/mL N Cutoff: 25 373 Norhydrocodone, Ur Not Detected ng/mL N Cutoff: 25 374 Dihydrocodeine, Ur Not Detected ng/mL N Cutoff: 25 375 Hydromorphone, Ur Present ng/mL N Cutoff: 25 376 Reovbfyikvair0ihdayyirzgqpzky Present ng/mL N 377 Oxycodone, Ur Present ng/mL N Cutoff: 25 378 Noroxycodone, Ur Present ng/mL N Cutoff: 25 379 Oxymorphone, Ur Not Detected ng/mL N Cutoff: 25 380 Dacfvhxsabt-5-mqaz-glucuronide Present ng/mL N 381 Noroxymorphone, Ur Present ng/mL N Cutoff: 25 382 Fentanyl, Ur Not Detected ng/mL N Cutoff: 2 383 Norfentanyl, Ur Not Detected ng/mL N Cutoff: 2 384 Meperidine, Ur Not Detected ng/mL N Cutoff: 25 385 Normeperidine, Ur Not Detected ng/mL N Cutoff: 25 386 Naloxone, Ur Not Detected ng/mL N Cutoff: 25 387 Zpjvxfke-5-zdtg-glucuronide, U Not Detected ng/mL N 388 Methadone, Ur Not Detected ng/mL N Cutoff: 25 389 Eddp, Ur Not Detected ng/mL N Cutoff: 25 390 Propoxyphene, Ur Not Detected ng/mL N Cutoff: 25 391 Norpropoxyphene, Ur Not Detected ng/mL N Cutoff: 25 392 Tramadol, Ur Not Detected ng/mL N Cutoff: 25 393 O-desmethyltramadol, Ur Not Detected ng/mL N Cutoff: 25 394 Tapentadol, Ur Not Detected ng/mL N Cutoff: 25 395 N-desmethyltapentadol, Ur Not Detected ng/mL N Cutoff: 50 396 Ojlpkfjifv-qhfy-kqwnykcebka, U Not Detected ng/mL N 397 Buprenorphine, Ur Not Detected ng/mL N Cutoff: 5 398 Norbuprenorphine, Ur Not Detected ng/mL N Cutoff: 5 399 Norbuprenorphine glucuronide Not Detected ng/mL N Cutoff: 20 400 Opioid Interpretation See Comment N 401 Drug Abuse 11/11/2016 [facility] Urine Amphetamine Negative ng/ mL N 402 [address] [place] [address] [phone] Urine Barbiturates Negative ng/mL N 403 Urine Benzodiazepines Negative ng/mL N 404 Urine Cocaine Negative ng/mL N 405 Urine Phencyclidine Negative ng/mL N Cutoff: 25 Urine Tetrahydrocannabinol Negative ng/mL N Cutoff: 50 406 Creatinine, Urine 224.5 mg/dL N Specific [place] 1.020 N pH 5.6 N Oxidants Negative N 407 Adulterants Comment Normal N Codeine, Ur Not Detected ng/mL N Cutoff: 25 408 Zmzbnwx-1-[id number]-glucuronide, Ur Not Detected ng/mL N 409 Morphine, Ur Not Detected ng/mL N Cutoff: 25 410 Usdydwoi-5-hbzf-glucuronide, U Not Detected ng/mL N 411 6-monoacetylmorphine, Ur See Comment ng/mL N Cutoff: 25 412 Hydrocodone, Ur Not Detected ng/mL N Cutoff: 25 413 Norhydrocodone, Ur Not Detected ng/mL N Cutoff: 25 414 Dihydrocodeine, Ur Not Detected ng/mL N Cutoff: 25 415 Hydromorphone, Ur Not Detected ng/mL N Cutoff: 25 416 [id number] Not Detected ng/mL N 417 Oxycodone, Ur Not Detected ng/mL N Cutoff: 25 418 Noroxycodone, Ur Not Detected ng/mL N Cutoff: 25 419 Oxymorphone, Ur Not Detected ng/mL N Cutoff: 25 420 Imnuqgghtoj-2-wgrq-glucuronide Not Detected ng/mL N 421 Noroxymorphone, Ur Not Detected ng/mL N Cutoff: 25 422 Fentanyl, Ur Not Detected ng/mL N Cutoff: 2 423 Norfentanyl, Ur Not Detected ng/mL N Cutoff: 2 424 Meperidine, Ur Not Detected ng/mL N Cutoff: 25 425 Normeperidine, Ur Not Detected ng/mL N Cutoff: 25 426 Naloxone, Ur Not Detected ng/mL N Cutoff: 25 427 Tejvblcz-7-vcmx-glucuronide, U Not Detected ng/mL N 428 Methadone, Ur Not Detected ng/mL N Cutoff: 25 429 Eddp, Ur Not Detected ng/mL N Cutoff: 25 430 Propoxyphene, Ur Not Detected ng/mL N Cutoff: 25 431 Norpropoxyphene, Ur Not Detected ng/mL N Cutoff: 25 432 Tramadol, Ur Not Detected ng/mL N Cutoff: 25 433 O-desmethyltramadol, Ur Not Detected ng/mL N Cutoff: 25 434 Tapentadol, Ur Not Detected ng/mL N Cutoff: 25 435 N-desmethyltapentadol, Ur Not Detected ng/mL N Cutoff: 50 436 Cqedhqkkeh-atuc-xmsxhoxkgzb, U Not Detected ng/mL N 437 Buprenorphine, Ur Not Detected ng/mL N Cutoff: 5 438 Norbuprenorphine, Ur Not Detected ng/mL N Cutoff: 5 439 Norbuprenorphine glucuronide Not Detected ng/mL N Cutoff: 20 440 Opioid Interpretation See Comment N 441 Drug Abuse 09/19/2016 [facility] Urine Amphetamine Negative ng/ mL N [address] [place] [address] [phone] Urine Barbiturates Negative ng/mL N 443 Urine Benzodiazepines Negative ng/mL N 444 Urine Cocaine Negative ng/mL N 445 Urine Phencyclidine Negative ng/mL N Cutoff: 25 Urine Tetrahydrocannabinol Negative ng/mL N Cutoff: 50 446 Creatinine 179.1 mg/dL N Specific [place] 1.017 N pH 5.7 N Oxidants Negative N 447 Adulterants Comment Normal N Codeine, Ur Not Detected ng/mL N Cutoff: 25 448 Ypanafe-8-mjkd-glucuronide, Ur Not Detected ng/mL N 449 Morphine, Ur Not Detected ng/mL N Cutoff: 25 450 Iegpnsxm-7-dwzx-glucuronide, U Not Detected ng/mL N 451 6-monoacetylmorphine, Ur Not Detected ng/mL N Cutoff: 25 452 Hydrocodone, Ur Not Detected ng/mL N Cutoff: 25 453 Norhydrocodone, Ur Not Detected ng/mL N Cutoff: 25 454 Dihydrocodeine, Ur Not Detected ng/mL N Cutoff: 25 455 Hydromorphone, Ur Not Detected ng/mL N Cutoff: 25 456 Hnouxnzaamoiv1xhkhguyfrdpkkog Not Detected ng/mL N 457 Oxycodone, Ur Present ng/mL N Cutoff: 25 458 Noroxycodone, Ur Present ng/mL N Cutoff: 25 459 Oxymorphone, Ur Not Detected ng/mL N Cutoff: 25 460 Mqphuypiuwe-3-vesu-glucuronide Present ng/mL N 461 Noroxymorphone, Ur Present ng/mL N Cutoff: 25 462 Fentanyl, Ur Not Detected ng/mL N Cutoff: 2 463 Norfentanyl, Ur Not Detected ng/mL N Cutoff: 2 464 Meperidine, Ur Not Detected ng/mL N Cutoff: 25 465 Normeperidine, Ur Not Detected ng/mL N Cutoff: 25 466 Naloxone, Ur Not Detected ng/mL N Cutoff: 25 467 Blzawjrt-8-koam-glucuronide, U Not Detected ng/mL N 468 Methadone, Ur Not Detected ng/mL N Cutoff: 25 469 Eddp, Ur Not Detected ng/mL N Cutoff: 25 470 Propoxyphene, Ur Not Detected ng/mL N Cutoff: 25 471 Norpropoxyphene, Ur Not Detected ng/mL N Cutoff: 25 472 Tramadol, Ur Not Detected ng/mL N Cutoff: 25 473 O-desmethyltramadol, Ur Not Detected ng/mL N Cutoff: 25 474 Tapentadol, Ur Not Detected ng/mL N Cutoff: 25 475 N-desmethyltapentadol, Ur Not Detected ng/mL N Cutoff: 50 476 Aspeclbzak-cufg-auswpktqmwl, U Not Detected ng/mL N 477 Buprenorphine, Ur Not Detected ng/mL N Cutoff: 5 478 Norbuprenorphine, Ur Not Detected ng/mL N Cutoff: 5 479 Norbuprenorphine glucuronide Not Detected ng/mL N Cutoff: 20 480 Opioid Interpretation See Comment N 481 Drug Abuse 08/09/2016 [facility] Urine Amphetamine Negative ng/ mL N [address] [place] [address] [phone] Urine Barbiturates Negative ng/mL N 483 Urine Benzodiazepines Negative ng/mL N 484 Urine Cocaine Negative ng/mL N 485 Urine Phencyclidine Negative ng/mL N Cutoff: 25 Urine Tetrahydrocannabinol Negative ng/mL N Cutoff: 50 486 Creatinine 188.3 mg/dL N Specific [place] 1.018 N pH 5.8 N Oxidants Negative N 487 Adulterants Comment Normal N Codeine, Ur Not Detected ng/mL N Cutoff: 25 488 Tlttzja-3-xsxf-glucuronide, Ur Not Detected ng/mL N 489 Morphine, Ur Not Detected ng/mL N Cutoff: 25 490 Pvqlczfq-2-mbyf-glucuronide, U Not Detected ng/mL N 491 6-monoacetylmorphine, Ur Not Detected ng/mL N Cutoff: 25 492 Hydrocodone, Ur Not Detected ng/mL N Cutoff: 25 493 Norhydrocodone, Ur Not Detected ng/mL N Cutoff: 25 494 Dihydrocodeine, Ur Not Detected ng/mL N Cutoff: 25 495 Hydromorphone, Ur Not Detected ng/mL N Cutoff: 25 496 Lcfhdtfhlkedz0vsufvxmknmkxgzp Not Detected ng/mL N 497 Oxycodone, Ur Present ng/mL N Cutoff: 25 498 Noroxycodone, Ur Present ng/mL N Cutoff: 25 499 Oxymorphone, Ur Not Detected ng/mL N Cutoff: 25 500 Sxfbwlfldyt-1-lsry-glucuronide Present ng/mL N 501 Noroxymorphone, Ur Present ng/mL N Cutoff: 25 502 Fentanyl, Ur Not Detected ng/mL N Cutoff: 2 503 Norfentanyl, Ur Not Detected ng/mL N Cutoff: 2 504 Meperidine, Ur Not Detected ng/mL N Cutoff: 25 505 Normeperidine, Ur Not Detected ng/mL N Cutoff: 25 506 Naloxone, Ur Not Detected ng/mL N Cutoff: 25 507 Irtdnren-0-uhdq-glucuronide, U Not Detected ng/mL N 508 Methadone, Ur Not Detected ng/mL N Cutoff: 25 509 Eddp, Ur Not Detected ng/mL N Cutoff: 25 510 Propoxyphene, Ur Not Detected ng/mL N Cutoff: 25 511 Norpropoxyphene, Ur Not Detected ng/mL N Cutoff: 25 512 Tramadol, Ur Not Detected ng/mL N Cutoff: 25 513 O-desmethyltramadol, Ur Not Detected ng/mL N Cutoff: 25 514 Tapentadol, Ur Not Detected ng/mL N Cutoff: 25 515 N-desmethyltapentadol, Ur Not Detected ng/mL N Cutoff: 50 516 Bioowydvzo-wmps-ztnkixqvnkb, U Not Detected ng/mL N 517 Buprenorphine, Ur Not Detected ng/mL N Cutoff: 5 518 Norbuprenorphine, Ur Not Detected ng/mL N Cutoff: 5 519 Norbuprenorphine glucuronide Not Detected ng/mL N Cutoff: 20 520 Opioid Interpretation See Comment N 521 1 [id number] REFERENCE VALUE Cutoff: 500 3 REFERENCE VALUE Cutoff: 200 4 REFERENCE VALUE Cutoff: 100 5 REFERENCE VALUE Cutoff: 150 6 ADDITIONAL INFORMATION This report is intended for use in clinical monitoring or management of patients. It is not intended for use in employment-related testing. 7 REFERENCE VALUE Cutoff: 200 mg/L 8 Tylenol 3 9 Metabolite of codeine REFERENCE VALUE Cutoff: 100 10 Nicol Guadalupe, Contin; Also a minor metabolite (10%) of codeine and can be seen in low concentrations (<2,000 ng/mL) with poppy seed ingestion. 11 Metabolite of morphine REFERENCE VALUE Cutoff: 100 12 Metabolite of heroin 13 Lortab, [place], Vicodin; Also a very minor metabolite of codeine and impurity (<1%) of oxycodone. 14 Metabolite of hydrocodone 15 Metabolite of hydrocodone 16 Dilaudid, Exalgo; Also a metabolite of hydrocodone and a minor (<5%) metabolite of morphine. 17 Metabolite of hydromorphone REFERENCE VALUE Cutoff: 100 18 Endocet, Percocet, Oxycontin 19 Metabolite of oxycodone 20 Numorphan, Opana; Also a metabolite of oxycodone. 21 Metabolite of oxymorphone REFERENCE VALUE Cutoff: 100 22 Metabolite of oxymorphone 23 Actiq, Duragesic, Fentora 24 Metabolite of fentanyl 25 Demerol 26 Metabolite of meperidine 27 Narcan 28 Metabolite of naloxone REFERENCE VALUE Cutoff: 100 29 Dolophine 30 Metabolite of methadone 31 Darvon, Darvocet 32 Metabolite of propoxyphene 33 Tradol, Ultram, Ultracet 34 Metabolite of tramadol 35 Nucynta 36 Metabolite of tapentadol 37 Metabolite of tapentadol REFERENCE VALUE Cutoff: 100 38 Buprenex, Suboxone 39 Metabolite of buprenorphine 40 Metabolite of buprenorphine 41 Test detected the presence of oxycodone and several metabolites (noroxycodone, oxymorphone, noroxymorphone, and qmjlzxwqzdo-3-ezvk-glucuronide). Suspect use of oxycodone and/or oxymorphone within the past three days. Test detected the presence of norfentanyl (metabolite of fentanyl) only. Suspect use of fentanyl within the past three days. ADDITIONAL INFORMATION This test was developed and its performance characteristics determined by [facility] in a manner consistent with CLIA requirements. This test has not been cleared or approved by the U.S. Food and Drug Administration. Test Performed by: [facility] [address] [place] [address] 42 Troponin-I testing on Plasma Separator Tubes (PST) has a known false positive rate of 0.20-0.40%. All positive troponins reflex immediate secondary confirmatory testing. 43 Because ethnic data is not always readily available, this report includes an eGFR for both -Americans and non- Americans. The National Kidney Disease Education Program (NKDEP) does not endorse the use of the MDRD equation for patients that are not between the ages of 18 and 70, are , have extremes of body size, muscle mass, or nutritional status, or are non- or non-. According to the National Kidney Foundation, irrespective of diagnosis, the stage of the disease is based on the level of kidney function: Stage Description GFR(mL/min/1.73 m(2)) 1 Kidney damage with normal or decreased GFR 90 2 Kidney damage with mild decrease in GFR 60-89 3 Moderate decrease in GFR 30-59 4 Severe decrease in GFR 15-29 5 Kidney failure <15 (or dialysis) 44 Troponin-I testing on Plasma Separator Tubes (PST) has a known false positive rate of 0.20-0.40%. All positive troponins reflex immediate secondary confirmatory testing. 45 Because ethnic data is not always readily available, this report includes an eGFR for both -Americans and non- Americans. The National Kidney Disease Education Program (NKDEP) does not endorse the use of the MDRD equation for patients that are not between the ages of 18 and 70, are , have extremes of body size, muscle mass, or nutritional status, or are non- or non-. According to the National Kidney Foundation, irrespective of diagnosis, the stage of the disease is based on the level of kidney function: Stage Description GFR(mL/min/1.73 m(2)) 1 Kidney damage with normal or decreased GFR 90 2 Kidney damage with mild decrease in GFR 60-89 3 Moderate decrease in GFR 30-59 4 Severe decrease in GFR 15-29 5 Kidney failure <15 (or dialysis) 46 Please note: The following may produce a false positive D Dimer test: - Rheumatoid factor greater than 60 IU/ml - Plasma hemoglobin greater than 0.05 gm/dl - Bilirubin greater than 50 mg/dl - Lipids greater than 1000 mg/dl - FDP greater than 20 ug/ml 47 [id number] REFERENCE VALUE Cutoff: 500 49 REFERENCE VALUE Cutoff: 200 50 REFERENCE VALUE Cutoff: 100 51 REFERENCE VALUE Cutoff: 150 52 ADDITIONAL INFORMATION This report is intended for use in clinical monitoring or management of patients. It is not intended for use in employment-related testing. 53 REFERENCE VALUE Cutoff: 200 mg/L 54 Tylenol 3 55 Metabolite of codeine REFERENCE VALUE Cutoff: 100 56 Nicol Guadalupe, [place] Contin; Also a minor metabolite (10%) of codeine and can be seen in low concentrations (<2,000 ng/mL) with poppy seed ingestion. 57 Metabolite of morphine REFERENCE VALUE Cutoff: 100 58 Metabolite of heroin 59 Lortab, [place], Vicodin; Also a very minor metabolite of codeine and impurity (<1%) of oxycodone. 60 Metabolite of hydrocodone 61 Metabolite of hydrocodone 62 Dilaudid, Exalgo; Also a metabolite of hydrocodone and a minor (<5%) metabolite of morphine. 63 Metabolite of hydromorphone REFERENCE VALUE Cutoff: 100 64 Endocet, Percocet, Oxycontin 65 Metabolite of oxycodone 66 Numorphan, Opana; Also a metabolite of oxycodone. 67 Metabolite of oxymorphone REFERENCE VALUE Cutoff: 100 68 Metabolite of oxymorphone 69 Actiq, Duragesic, Fentora 70 Metabolite of fentanyl 71 Demerol 72 Metabolite of meperidine 73 Narcan 74 Metabolite of naloxone REFERENCE VALUE Cutoff: 100 75 Dolophine 76 Metabolite of methadone 77 Darvon, Darvocet 78 Metabolite of propoxyphene 79 Tradol, Ultram, Ultracet 80 Metabolite of tramadol 81 Nucynta 82 Metabolite of tapentadol 83 Metabolite of tapentadol REFERENCE VALUE Cutoff: 100 84 Buprenex, Suboxone 85 Metabolite of buprenorphine 86 Metabolite of buprenorphine 87 Test detected the presence of oxycodone and several metabolites (noroxycodone, oxymorphone, noroxymorphone, and avpodwnnaei-1-yuqt-glucuronide). Suspect use of oxycodone and/or oxymorphone within the past three days. Test detected the presence of norfentanyl (metabolite of fentanyl) only. Suspect use of fentanyl within the past three days. ADDITIONAL INFORMATION This test was developed and its performance characteristics determined by [facility] in a manner consistent with CLIA requirements. This test has not been cleared or approved by the U.S. Food and Drug Administration. Test Performed by: [facility] [address] [place] [address] 88 [id number] REFERENCE VALUE Cutoff: 500 90 REFERENCE VALUE Cutoff: 200 91 REFERENCE VALUE Cutoff: 100 92 REFERENCE VALUE Cutoff: 150 93 ADDITIONAL INFORMATION This report is intended for use in clinical monitoring or management of patients. It is not intended for use in employment-related testing. 94 REFERENCE VALUE Cutoff: 200 mg/L 95 Tylenol 3 96 Metabolite of codeine REFERENCE VALUE Cutoff: 100 97 Nicol Guadalupe, MS Contin; Also a minor metabolite (10%) of codeine and can be seen in low concentrations (<2,000 ng/mL) with poppy seed ingestion. 98 Metabolite of morphine REFERENCE VALUE Cutoff: 100 99 Metabolite of heroin 100 Lortab, [place], Vicodin; Also a very minor metabolite of codeine and impurity (<1%) of oxycodone. 101 Metabolite of hydrocodone 102 Metabolite of hydrocodone 103 Dilaudid, Exalgo; Also a metabolite of hydrocodone and a minor (<5%) metabolite of morphine. 104 Metabolite of hydromorphone REFERENCE VALUE Cutoff: 100 105 Endocet, Percocet, Oxycontin 106 Metabolite of oxycodone 107 Numorphan, Opana; Also a metabolite of oxycodone. 108 Metabolite of oxymorphone REFERENCE VALUE Cutoff: 100 109 Metabolite of oxymorphone 110 Actiq, Duragesic, Fentora 111 Metabolite of fentanyl 112 Demerol 113 Metabolite of meperidine 114 Narcan 115 Metabolite of naloxone REFERENCE VALUE Cutoff: 100 116 Dolophine 117 Metabolite of methadone 118 Darvon, Darvocet 119 Metabolite of propoxyphene 120 Tradol, Ultram, Ultracet 121 Metabolite of tramadol 122 Nucynta 123 Metabolite of tapentadol 124 Metabolite of tapentadol REFERENCE VALUE Cutoff: 100 125 Buprenex, Suboxone 126 Metabolite of buprenorphine 127 Metabolite of buprenorphine 128 Test detected the presence of oxycodone and several metabolites (noroxycodone, noroxymorphone, and xxpqoczmloo-8-jgjr-glucuronide). Suspect use of oxycodone and/or oxymorphone within the past three days. Test detected the presence of fentanyl and its metabolite (norfentanyl). Suspect use of fentanyl within the past three days. ADDITIONAL INFORMATION This test was developed and its performance characteristics determined by [facility] in a manner consistent with CLIA requirements. This test has not been cleared or approved by the U.S. Food and Drug Administration. Test Performed by: [facility] [address] [place] [address] 129 SEE RESULT BELOW Name: TONY BENNETT JR : [address]: George Galaviz MD Acct: [id number] Unit: [id number] AGE: 43 Location: ED Re05/10/18 SEX: M Status: REG ER SPEC: [id number] JAYE: 05/10/18-[address]: George Galaviz MD REQ: [id number] RECD: 05/10/18 STATUS: MARELY JOHN DR: Keon Cabrera MD _ SOURCE: NASAL SPDESC: ORDERED: Flu A B Request Procedure Result Reported Site Rapid Influenza A B Request Final 05/10/18- 111 ML Specimen received for Influenza A/B Molecular testing * ML - Main Lab . END OF REPORT DEPARTMENT OF PATHOLOGY, [address] [place] [address] Brennan Richardson M.D. Director [facility] # [id number] 130 Biochemical Engineer: [id number] Desirable: <150 Borderline High: 150-199 High: 200-499 Very High: >500 132 Desirable: <200 Borderline High: 200-239 High: >239 133 Low: <40 Desirable: 40-60 High: >60 134 Desirable: <100 Near Optimal: 100-129 Borderline High: 130-159 High: 160-189 Very High: >189 135 Because ethnic data is not always readily available, this report includes an eGFR for both -Americans and non- Americans. The National Kidney Disease Education Program (NKDEP) does not endorse the use of the MDRD equation for patients that are not between the ages of 18 and 70, are , have extremes of body size, muscle mass, or nutritional status, or are non- or non-. According to the National Kidney Foundation, irrespective of diagnosis, the stage of the disease is based on the level of kidney function: Stage Description GFR(mL/min/1.73 m(2)) 1 Kidney damage with normal or decreased GFR 90 2 Kidney damage with mild decrease in GFR 60-89 3 Moderate decrease in GFR 30-59 4 Severe decrease in GFR 15-29 5 Kidney failure <15 (or dialysis) 136 Because ethnic data is not always readily available, this report includes an eGFR for both -Americans and non- Americans. The National Kidney Disease Education Program (NKDEP) does not endorse the use of the MDRD equation for patients that are not between the ages of 18 and 70, are , have extremes of body size, muscle mass, or nutritional status, or are non- or non-. 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 140 nuc radha(ABL1,BCR)x2[500] Of 500 nuclei, 0% had fusion of BCR and ABL1. 141 The result is within normal limits for the BCR and ABL1 gene regions. 142 Analyte Specific Reagent (ASR). This test was developed using an analyte specific reagent. Its performance characteristics were determined by [facility] in a manner consistent with CLIA requirements. This test has not been cleared or approved by the U.S. Food and Drug Administration. This FISH test does not rule out other chromosome abnormalities. 143 RESULT: Endy Patricia M.D. Test Performed by: [address] [address] 144 FINAL DIAGNOSIS: No immunophenotypic abnormality identified. Specimen Source: Peripheral blood Flow cytometry immunophenotypic analysis: Interpretative data: Blasts: 0% Lymphocytes: 38% of WBCs B-cells: 6% of lymphocytes with no evidence of light chain restriction or other immunophenotypic abnormality T-cells/NK cells: No aberrant population detected. Markers tested: CD3, CD10, CD16, CD19, CD34, CD45, kappa surface light chains, lambda surface light chains, 7-AAD. Quality Assessment: Acceptable Viability: Acceptable Viable lymphocytes (7-AAD): 100% of gated Specimen received within validated guidelines. A Wade-Giemsa stained slide prepared from the flow cytometry specimen was examined for quality purposes. Electronically signed by: Brennan Richardson MD 02/03/18 8474 Technical component performed by: [place] [address] Suggestion Clerk: Patrick Lopez II, MD, PhD. 145 see interpretation 146 Peripheral blood, JAK2 V617F mutation analysis: Negative for JAK2 V617F. Method summary - JAK2 V617F analysis: Quantitative, allele-specific polymerase chain reaction (PCR) assay was performed using extracted genomic DNA to evaluate for the point mutation causing JAK2 V617F. The analytic sensitivity of this assay has been determined at 0.06% (see [facility] [employer] Interpretive Handbook for method details). Peripheral blood, CALR mutation analysis, exon 9. Negative. No deletion or insertion was detected in CALR, exon 9. Method Summary - CALR: Exon 9 of CALR was amplified from genomic DNA by polymerase chain reaction (PCR). The size of the PCR product was analyzed by capillary electrophoresis on the [employer] 3130xl Genetic Analyzer. The analytic sensitivity of this assay is approximately 6% for the majority of CALR mutations and is approximately 20% for the rare type 1-bp deletion (See [facility] [employer] Interpretive Handbook for details). Peripheral blood, MPL exon 10 mutation analysis: Negative. No mutation was detected in MPL, exon 10. Method summary - MPL exon 10 mutation analysis: Genomic DNA was extracted and Leonard sequencing used to evaluate for mutations in MPL, exon 10 (see [facility] [employer] Interpretive Handbook for method details). The sensitivity of this assay is approximately 20%, such that samples containing lower percentages of mutated DNA will appear negative. Comment: Negative results for [id number], CALR exon 9, and MPL exon 10 mutations do not exclude the diagnosis of a myeloproliferative neoplasm. Correlation with clinical and morphologic finding is recommended for a definitive diagnosis. Samples containing mutations in these genes at levels below the analytical sensitivity of each assay may not be detected by these methods. If there are persistent unexplained erythrocytosis, JAK2 Exon 12 analysis could be considered (JAKXB or JAKXM) to rule out polycythemia vera (PV). Signing Pathologist: Hi Burger M.D. ADDITIONAL INFORMATION This test was developed and its performance characteristics determined by [facility] in a manner consistent with CLIA requirements. This test has not been cleared or approved by the U.S. Food and Drug Administration. Test Performed by: [facility] - [address] [address] 147 RESULT: No apparent monoclonal protein on serum electrophoresis. Test Performed by: [facility] - [facility] [address] [place] [address] 148 Test Performed by: [facility] - [facility] [address] [place] [address] 149 Normal Range 180 to 914 Indeterminate Range 145 to 180 Deficient Range <145 150 Because ethnic data is not always readily available, this report includes an eGFR for both -Americans and non- Americans. The National Kidney Disease Education Program (NKDEP) does not endorse the use of the MDRD equation for patients that are not between the ages of 18 and 70, are , have extremes of body size, muscle mass, or nutritional status, or are non- or non-. According to the National Kidney Foundation, irrespective of diagnosis, the stage of the disease is based on the level of kidney function: Stage Description GFR(mL/min/1.73 m(2)) 1 Kidney damage with normal or decreased GFR 90 2 Kidney damage with mild decrease in GFR 60-89 3 Moderate decrease in GFR 30-59 4 Severe decrease in GFR 15-29 5 Kidney failure <15 (or dialysis) 151 [id number] 152 REFERENCE VALUE Cutoff: 500 153 REFERENCE VALUE Cutoff: 200 154 REFERENCE VALUE Cutoff: 100 155 REFERENCE VALUE Cutoff: 150 156 ADDITIONAL INFORMATION This report is intended for use in clinical monitoring or management of patients. It is not intended for use in employment-related testing. 157 REFERENCE VALUE Cutoff: 200 mg/L 158 Tylenol 3 159 Metabolite of codeine REFERENCE VALUE Cutoff: 100 160 Nicol Guadalupe, Contin; Also a minor metabolite (10%) of codeine and can be seen in low concentrations (<2,000 ng/mL) with poppy seed ingestion. 161 Metabolite of morphine REFERENCE VALUE Cutoff: 100 162 Metabolite of heroin 163 Lortab, [place], Vicodin; Also a very minor metabolite of codeine and impurity (<1%) of oxycodone. 164 Metabolite of hydrocodone 165 Metabolite of hydrocodone 166 Dilaudid, Exalgo; Also a metabolite of hydrocodone and a minor (<5%) metabolite of morphine. 167 Metabolite of hydromorphone REFERENCE VALUE Cutoff: 100 168 Endocet, Percocet, Oxycontin 169 Metabolite of oxycodone 170 Numorphan, Opana; Also a metabolite of oxycodone. 171 Metabolite of oxymorphone REFERENCE VALUE Cutoff: 100 172 Metabolite of oxymorphone 173 Actiq, Duragesic, Fentora 174 Metabolite of fentanyl 175 Demerol 176 Metabolite of meperidine 177 Narcan 178 Metabolite of naloxone REFERENCE VALUE Cutoff: 100 179 Dolophine 180 Metabolite of methadone 181 Darvon, Darvocet 182 Metabolite of propoxyphene 183 Tradol, Ultram, Ultracet 184 Metabolite of tramadol 185 Nucynta 186 Metabolite of tapentadol 187 Metabolite of tapentadol REFERENCE VALUE Cutoff: 100 188 Buprenex, Suboxone 189 Metabolite of buprenorphine 190 Metabolite of buprenorphine 191 Test detected the presence of both morphine and its metabolite (ogibkeob-9-hsns-glucuronide). Suspect use of morphine within the past three days. Alternatively, these results could also be suggestive of heroin use. Low levels of morphine can also be seen following poppy seed ingestion. Test detected the presence of oxycodone and several metabolites (noroxycodone, oxymorphone, noroxymorphone, and shnmnuxianj-5-xjfn-glucuronide). Suspect use of oxycodone or possibly oxycodone and oxymorphone within the past three days. Test detected the presence of norfentanyl (metabolite of fentanyl) only. Suspect use of fentanyl within the past three days. ADDITIONAL INFORMATION This test was developed and its performance characteristics determined by [facility] in a manner consistent with CLIA requirements. This test has not been cleared or approved by the U.S. Food and Drug Administration. Test Performed by: [facility] [address] [place] [address] 192 [id number] REFERENCE VALUE Cutoff: 500 194 REFERENCE VALUE Cutoff: 200 195 REFERENCE VALUE Cutoff: 100 196 REFERENCE VALUE Cutoff: 150 197 ADDITIONAL INFORMATION This report is intended for use in clinical monitoring or management of patients. It is not intended for use in employment-related testing. 198 REFERENCE VALUE Cutoff: 200 mg/L 199 Tylenol 3 200 Metabolite of codeine REFERENCE VALUE Cutoff: 100 201 Nicol Guadalupe, MS Contin; Also a minor metabolite (10%) of codeine and can be seen in low concentrations (<2,000 ng/mL) with poppy seed ingestion. 202 Metabolite of morphine REFERENCE VALUE Cutoff: 100 203 Metabolite of heroin 204 Lortab, Bowie, Vicodin; Also a very minor metabolite of codeine and impurity (<1%) of oxycodone. 205 Metabolite of hydrocodone 206 Metabolite of hydrocodone 207 Dilaudid, Exalgo; Also a metabolite of hydrocodone and a minor (<5%) metabolite of morphine. 208 Metabolite of hydromorphone REFERENCE VALUE Cutoff: 100 209 Endocet, Percocet, Oxycontin 210 Metabolite of oxycodone 211 Numorphan, Opana; Also a metabolite of oxycodone. 212 Metabolite of oxymorphone REFERENCE VALUE Cutoff: 100 213 Metabolite of oxymorphone 214 Actiq, Duragesic, Fentora 215 Metabolite of fentanyl 216 Demerol 217 Metabolite of meperidine 218 Narcan 219 Metabolite of naloxone REFERENCE VALUE Cutoff: 100 220 Dolophine 221 Metabolite of methadone 222 Darvon, Darvocet 223 Metabolite of propoxyphene 224 Tradol, Ultram, Ultracet 225 Metabolite of tramadol 226 Nucynta 227 Metabolite of tapentadol 228 Metabolite of tapentadol REFERENCE VALUE Cutoff: 100 229 Buprenex, Suboxone 230 Metabolite of buprenorphine 231 Metabolite of buprenorphine 232 Test detected the presence of both morphine and metabolites (mfjjctzt-5-bqot-glucuronide, hydromorphone and cbemyxmzudsym-6-ouqe-glucuronide). Suspect use of morphine or morphine and hydromorphone within the past three days. Test detected the presence of oxycodone and several metabolites (noroxycodone, noroxymorphone, and ebouncsdjrt-9-soxp-glucuronide). Suspect use of oxycodone or possibly oxycodone and oxymorphone within the past three days. Test detected the presence of norfentanyl (metabolite of fentanyl) only. Suspect use of fentanyl within the past three days. ADDITIONAL INFORMATION This test was developed and its performance characteristics determined by [facility] in a manner consistent with CLIA requirements. This test has not been cleared or approved by the U.S. Food and Drug Administration. Test Performed by: [facility] [address] [place] [address] 233 REFERENCE VALUE Cutoff: 500 234 REFERENCE VALUE Cutoff: 200 235 REFERENCE VALUE Cutoff: 100 236 REFERENCE VALUE Cutoff: 150 237 ADDITIONAL INFORMATION This report is intended for use in clinical monitoring or management of patients. It is not intended for use in employment-related testing. 238 REFERENCE VALUE Cutoff: 200 mg/L 239 Tylenol 3 240 Metabolite of codeine REFERENCE VALUE Cutoff: 100 241 Nicol Guadalupe MS Contin; Also a minor metabolite (10%) of codeine and can be seen in low concentrations (<2,000 ng/mL) with poppy seed ingestion. 242 Metabolite of morphine REFERENCE VALUE Cutoff: 100 243 Metabolite of heroin 244 Lortab, Bowie, Vicodin; Also a very minor metabolite of codeine and impurity (<1%) of oxycodone. 245 Metabolite of hydrocodone 246 Metabolite of hydrocodone 247 Dilaudid, Exalgo; Also a metabolite of hydrocodone and a minor (<5%) metabolite of morphine. 248 Metabolite of hydromorphone REFERENCE VALUE Cutoff: 100 249 Endocet, Percocet, Oxycontin 250 Metabolite of oxycodone 251 Numorphan, Opana; Also a metabolite of oxycodone. 252 Metabolite of oxymorphone REFERENCE VALUE Cutoff: 100 253 Metabolite of oxymorphone 254 Actiq, Duragesic, Fentora 255 Metabolite of fentanyl 256 Demerol 257 Metabolite of meperidine 258 Narcan 259 Metabolite of naloxone REFERENCE VALUE Cutoff: 100 260 Dolophine 261 Metabolite of methadone 262 Darvon, Darvocet 263 Metabolite of propoxyphene 264 Tradol, Ultram, Ultracet 265 Metabolite of tramadol 266 Nucynta 267 Metabolite of tapentadol 268 Metabolite of tapentadol REFERENCE VALUE Cutoff: 100 269 Buprenex, Suboxone 270 Metabolite of buprenorphine 271 Metabolite of buprenorphine 272 Test detected the presence of both morphine and its metabolite (epmiakok-8-jqzt-glucuronide). Suspect use of morphine within the past three days. Alternatively, these results could also be suggestive of heroin use. Low levels of morphine can also be seen following poppy seed ingestion. Test detected the presence of oxycodone and several metabolites (noroxycodone, noroxymorphone, and cnwzhgbeexh-1-vsfo-glucuronide). Suspect use of oxycodone or possibly oxycodone and oxymorphone within the past three days. ADDITIONAL INFORMATION This test was developed and its performance characteristics determined by [facility] in a manner consistent with CLIA requirements. This test has not been cleared or approved by the U.S. Food and Drug Administration. Test Performed by: [facility] [address] [facility], [place] [address] 384 Because ethnic data is not always readily available, this report includes an eGFR for both -Americans and non- Americans. The National Kidney Disease Education Program (NKDEP) does not endorse the use of the MDRD equation for patients that are not between the ages of 18 and 70, are , have extremes of body size, muscle mass, or nutritional status, or are non- or non-. According to the National Kidney Foundation, irrespective of diagnosis, the stage of the disease is based on the level of kidney function: Stage Description GFR(mL/min/1.73 m(2)) 1 Kidney damage with normal or decreased GFR 90 2 Kidney damage with mild decrease in GFR 60-89 3 Moderate decrease in GFR 30-59 4 Severe decrease in GFR 15-29 5 Kidney failure <15 (or dialysis) 274 >100 to <200 pg/mL: likely compensated congestive heart failure (CHF) 200 to 400 pg/mL: likely moderate CHF >400 pg/mL: likely moderate to severe CHF 275 [id number] 276 REFERENCE VALUE Cutoff: 500 277 REFERENCE VALUE Cutoff: 200 278 REFERENCE VALUE Cutoff: 100 279 REFERENCE VALUE Cutoff: 150 280 ADDITIONAL INFORMATION This report is intended for use in clinical monitoring or management of patients. It is not intended for use in employment-related testing. 281 REFERENCE VALUE Cutoff: 200 mg/L 282 Tylenol 3 283 Metabolite of codeine REFERENCE VALUE Cutoff: 100 284 Nicol Guadalupe, MS Contin; Also a minor metabolite (10%) of codeine and can be seen in low concentrations (<2,000 ng/mL) with poppy seed ingestion. 285 Metabolite of morphine REFERENCE VALUE Cutoff: 100 286 Metabolite of heroin 287 Lortab, Bowie, Vicodin; Also a very minor metabolite of codeine and impurity (<1%) of oxycodone. 288 Metabolite of hydrocodone 289 Metabolite of hydrocodone 290 Dilaudid, Exalgo; Also a metabolite of hydrocodone and a minor (<5%) metabolite of morphine. 291 Metabolite of hydromorphone REFERENCE VALUE Cutoff: 100 292 Endocet, Percocet, Oxycontin 293 Metabolite of oxycodone 294 Numorphan, Opana; Also a metabolite of oxycodone. 295 Metabolite of oxymorphone REFERENCE VALUE Cutoff: 100 296 Metabolite of oxymorphone 297 Actiq, Duragesic, Fentora 298 Metabolite of fentanyl 299 Demerol 300 Metabolite of meperidine 301 Narcan 302 Metabolite of naloxone REFERENCE VALUE Cutoff: 100 303 Dolophine 304 Metabolite of methadone 305 Darvon, Darvocet 306 Metabolite of propoxyphene 307 Tradol, Ultram, Ultracet 308 Metabolite of tramadol 309 Nucynta 310 Metabolite of tapentadol 311 Metabolite of tapentadol REFERENCE VALUE Cutoff: 100 312 Buprenex, Suboxone 313 Metabolite of buprenorphine Unknown interfering substance present; unable to obtain results. 314 Metabolite of buprenorphine 315 Test detected the presence of both morphine and its metabolites (kzpfgbdr-0-lzmx-glucuronide and espplotmninjh-1-jelb-glucuronide). Suspect use of morphine or morphine and hydromorphone within the past three days. Alternatively, these results could also be suggestive of heroin use. Low levels of morphine can also be seen following poppy seed ingestion. Test detected the presence of oxycodone and several metabolites (noroxycodone, oxymorphone, noroxymorphone, and pqjazduqqyo-9-rnpr-glucuronide). Suspect use of oxycodone or possibly oxycodone and oxymorphone within the past three days. ADDITIONAL INFORMATION This test was developed and its performance characteristics determined by [facility] in a manner consistent with CLIA requirements. This test has not been cleared or approved by the U.S. Food and Drug Administration. Test Performed by: [facility] [address] [place] [address] 316 Serum levels of PSA measured using the Ani Jacky DXI Hybritech immunoassay should not be interpreted as absolute evidence of the presence or absence of disease. The PSA value should be used in conjunction with other pertinent clinical diagnostic procedures. A PSA value in the range of 0.1 to 0.6 ng/ml is indeterminate if being used as an indicator of recurrent or residual disease. The values obtained with different assay methods or kits cannot be used interchangeably. 317 Desirable: <150 Borderline High: 150-199 High: 200-499 Very High: >500 318 Desirable: <200 Borderline High: 200-239 High: >239 319 Low: <40 Desirable: 40-60 High: >60 320 Desirable: <100 Near Optimal: 100-129 Borderline High: 130-159 High: 160-189 Very High: >189 321 Because ethnic data is not always readily available, this report includes an eGFR for both -Americans and non- Americans. The National Kidney Disease Education Program (NKDEP) does not endorse the use of the MDRD equation for patients that are not between the ages of 18 and 70, are , have extremes of body size, muscle mass, or nutritional status, or are non- or non-. According to the National Kidney Foundation, irrespective of diagnosis, the stage of the disease is based on the level of kidney function: Stage Description GFR(mL/min/1.73 m(2)) 1 Kidney damage with normal or decreased GFR 90 2 Kidney damage with mild decrease in GFR 60-89 3 Moderate decrease in GFR 30-59 4 Severe decrease in GFR 15-29 5 Kidney failure <15 (or dialysis) 322 REFERENCE VALUE Cutoff: 500 323 REFERENCE VALUE Cutoff: 200 324 REFERENCE VALUE Cutoff: 100 325 REFERENCE VALUE Cutoff: 150 326 ADDITIONAL INFORMATION This report is intended for use in clinical monitoring or management of patients. It is not intended for use in employment-related testing. 327 REFERENCE VALUE Cutoff: 200 mg/L 328 Tylenol 3 329 Metabolite of codeine REFERENCE VALUE Cutoff: 100 330 Nicol Guadalupe, MS Contin; Also a minor metabolite (10%) of codeine and can be seen in low concentrations (<2,000 ng/mL) with poppy seed ingestion. 331 Metabolite of morphine REFERENCE VALUE Cutoff: 100 332 Metabolite of heroin 333 Lortab, Bowie, Vicodin; Also a very minor metabolite of codeine and impurity (<1%) of oxycodone. 334 Metabolite of hydrocodone 335 Metabolite of hydrocodone 336 Dilaudid, Exalgo; Also a metabolite of hydrocodone and a minor (<5%) metabolite of morphine. 337 Metabolite of hydromorphone REFERENCE VALUE Cutoff: 100 338 Endocet, Percocet, Oxycontin 339 Metabolite of oxycodone 340 Numorphan, Opana; Also a metabolite of oxycodone. 341 Metabolite of oxymorphone REFERENCE VALUE Cutoff: 100 342 Metabolite of oxymorphone 343 Actiq, Duragesic, Fentora 344 Metabolite of fentanyl 345 Demerol 346 Metabolite of meperidine 347 Narcan 348 Metabolite of naloxone REFERENCE VALUE Cutoff: 100 349 Dolophine 350 Metabolite of methadone 351 Darvon, Darvocet 352 Metabolite of propoxyphene 353 Tradol, Ultram, Ultracet 354 Metabolite of tramadol 355 Nucynta 356 Metabolite of tapentadol 357 Metabolite of tapentadol REFERENCE VALUE Cutoff: 100 358 Buprenex, Suboxone 359 Metabolite of buprenorphine 360 Metabolite of buprenorphine 361 Test detected the presence of oxycodone and several metabolites (noroxycodone, noroxymorphone, and sqewpwfkopj-3-zgrf-glucuronide). Suspect use of oxycodone or possibly oxycodone and oxymorphone within the past three days. ADDITIONAL INFORMATION This test was developed and its performance characteristics determined by [facility] in a manner consistent with CLIA requirements. This test has not been cleared or approved by the U.S. Food and Drug Administration. Test Performed by: [facility] [address] [facility], [place] [address] 362 REFERENCE VALUE Cutoff: 500 363 REFERENCE VALUE Cutoff: 200 364 REFERENCE VALUE Cutoff: 100 365 REFERENCE VALUE Cutoff: 150 366 ADDITIONAL INFORMATION This report is intended for use in clinical monitoring or management of patients. It is not intended for use in employment-related testing. 367 REFERENCE VALUE Cutoff: 200 mg/L 368 Tylenol 3 369 Metabolite of codeine REFERENCE VALUE Cutoff: 100 370 Nicol Guadalupe, Contin; Also a minor metabolite (10%) of codeine and can be seen in low concentrations (<2,000 ng/mL) with poppy seed ingestion. 371 Metabolite of morphine REFERENCE VALUE Cutoff: 100 372 Metabolite of heroin 373 Lortab, Bowie, Vicodin; Also a very minor metabolite of codeine and impurity (<1%) of oxycodone. 374 Metabolite of hydrocodone 375 Metabolite of hydrocodone 376 Dilaudid, Exalgo; Also a metabolite of hydrocodone and a minor (<5%) metabolite of morphine. 377 Metabolite of hydromorphone REFERENCE VALUE Cutoff: 100 378 Endocet, Percocet, Oxycontin 379 Metabolite of oxycodone 380 Numorphan, Opana; Also a metabolite of oxycodone. 381 Metabolite of oxymorphone REFERENCE VALUE Cutoff: 100 382 Metabolite of oxymorphone 383 Actiq, Duragesic, Fentora 384 Metabolite of fentanyl 385 Demerol 386 Metabolite of meperidine 387 Narcan 388 Metabolite of naloxone REFERENCE VALUE Cutoff: 100 389 Dolophine 390 Metabolite of methadone 391 Darvon, Darvocet 392 Metabolite of propoxyphene 393 Tradol, Ultram, Ultracet 394 Metabolite of tramadol 395 Nucynta 396 Metabolite of tapentadol 397 Metabolite of tapentadol REFERENCE VALUE Cutoff: 100 398 Buprenex, Suboxone 399 Metabolite of buprenorphine 400 Metabolite of buprenorphine 401 Test detected the presence of morphine and its metabolites (zpryixas-8-chny-glucuronide, hydromorphone, and jdwphkalffmvh-2-wmlw-glucuronide) along with ceflfse-4-hqyh-glucuronide (metabolite of codeine). Suspect use of morphine or morphine and hydromorphone within the past three days. In addition, suspect possible use of codeine within the past three days or trace amounts of codeine can also be found as an impurity in morphine. Test detected the presence of oxycodone and several metabolites (noroxycodone, noroxymorphone, and dovjckzfeaf-2-lcyp-glucuronide). Suspect use of oxycodone or possibly oxycodone and oxymorphone within the past three days. ADDITIONAL INFORMATION This test was developed and its performance characteristics determined by [facility] in a manner consistent with CLIA requirements. This test has not been cleared or approved by the U.S. Food and Drug Administration. Test Performed by: [facility] [employer] - [address] [address] 402 REFERENCE VALUE Cutoff: 500 403 REFERENCE VALUE Cutoff: 200 404 REFERENCE VALUE Cutoff: 100 405 REFERENCE VALUE Cutoff: 150 406 ADDITIONAL INFORMATION This report is intended for use in clinical monitoring or management of patients. It is not intended for use in employment-related testing. 407 REFERENCE VALUE Cutoff: 200 mg/L 408 Tylenol 3 409 Metabolite of codeine REFERENCE VALUE Cutoff: 100 410 Nicol Guadalupe MS Contin; Also a minor metabolite (10%) of codeine and can be seen in low concentrations (<2,000 ng/mL) with poppy seed ingestion. 411 Metabolite of morphine REFERENCE VALUE Cutoff: 100 412 RESULT: Results not available due to analyte specific failure. 413 Lortab, Bowie, Vicodin; Also a very minor metabolite of codeine and impurity (<1%) of oxycodone. 414 Metabolite of hydrocodone 415 Metabolite of hydrocodone 416 Dilaudid, Exalgo; Also a metabolite of hydrocodone and a minor (<5%) metabolite of morphine. 417 Metabolite of hydromorphone REFERENCE VALUE Cutoff: 100 418 Endocet, Percocet, Oxycontin 419 Metabolite of oxycodone 420 Numorphan, Opana; Also a metabolite of oxycodone. 421 Metabolite of oxymorphone REFERENCE VALUE Cutoff: 100 422 Metabolite of oxymorphone 423 Actiq, Duragesic, Fentora 424 Metabolite of fentanyl 425 Demerol 426 Metabolite of meperidine 427 Narcan 428 Metabolite of naloxone REFERENCE VALUE Cutoff: 100 429 Dolophine 430 Metabolite of methadone 431 Darvon, Darvocet 432 Metabolite of propoxyphene 433 Tradol, Ultram, Ultracet 434 Metabolite of tramadol 435 Nucynta 436 Metabolite of tapentadol 437 Metabolite of tapentadol REFERENCE VALUE Cutoff: 100 438 Buprenex, Suboxone 439 Metabolite of buprenorphine 440 Metabolite of buprenorphine 441 No opioids were detected. The absence of expected drug(s) and/or drug metabolite(s) may indicate non-compliance, altered pharmacokinetics, inappropriate timing of specimen collection relative to drug administration, diluted/adulterated urine, or limitations of testing. ADDITIONAL INFORMATION This test was developed and its performance characteristics determined by [facility] in a manner consistent with CLIA requirements. This test has not been cleared or approved by the U.S. Food and Drug Administration. Test Performed by: [facility] [address] [facility], [place] [address] 442 REFERENCE VALUE Cutoff: 500 443 REFERENCE VALUE Cutoff: 200 444 REFERENCE VALUE Cutoff: 100 445 REFERENCE VALUE Cutoff: 150 446 ADDITIONAL INFORMATION This report is intended for use in clinical monitoring or management of patients. It is not intended for use in employment-related testing. 447 REFERENCE VALUE Cutoff: 200 mg/L 448 Tylenol 3 449 Metabolite of codeine REFERENCE VALUE Cutoff: 100 450 Nicol Guadalupe MS Contin; Also a minor metabolite (10%) of codeine and can be seen in low concentrations (<2,000 ng/mL) with poppy seed ingestion. 451 Metabolite of morphine REFERENCE VALUE Cutoff: 100 452 Metabolite of heroin 453 Lortab, Bowie, Vicodin; Also a very minor metabolite of codeine and impurity (<1%) of oxycodone. 454 Metabolite of hydrocodone 455 Metabolite of hydrocodone 456 Dilaudid, Exalgo; Also a metabolite of hydrocodone and a minor (<5%) metabolite of morphine. 457 Metabolite of hydromorphone REFERENCE VALUE Cutoff: 100 458 Endocet, Percocet, Oxycontin 459 Metabolite of oxycodone 460 Numorphan, Opana; Also a metabolite of oxycodone. 461 Metabolite of oxymorphone REFERENCE VALUE Cutoff: 100 462 Metabolite of oxymorphone 463 Actiq, Duragesic, Fentora 464 Metabolite of fentanyl 465 Demerol 466 Metabolite of meperidine 467 Narcan 468 Metabolite of naloxone REFERENCE VALUE Cutoff: 100 469 Dolophine 470 Metabolite of methadone 471 Darvon, Darvocet 472 Metabolite of propoxyphene 473 Tradol, Ultram, Ultracet 474 Metabolite of tramadol 475 Nucynta 476 Metabolite of tapentadol 477 Metabolite of tapentadol REFERENCE VALUE Cutoff: 100 478 Buprenex, Suboxone 479 Metabolite of buprenorphine 480 Metabolite of buprenorphine 481 Test detected the presence of oxycodone and several metabolites (noroxycodone, noroxymorphone, and ccbcdvltrsl-9-bdyl-glucuronide). Suspect use of oxycodone or possibly oxycodone and oxymorphone within the past three days. ADDITIONAL INFORMATION This test was developed and its performance characteristics determined by [facility] in a manner consistent with CLIA requirements. This test has not been cleared or approved by the U.S. Food and Drug Administration. Test Performed by: [facility] [employer] - [address] [address] 482 REFERENCE VALUE Cutoff: 500 483 REFERENCE VALUE Cutoff: 200 484 REFERENCE VALUE Cutoff: 100 485 REFERENCE VALUE Cutoff: 150 486 ADDITIONAL INFORMATION This report is intended for use in clinical monitoring or management of patients. It is not intended for use in employment-related testing. 487 REFERENCE VALUE Cutoff: 200 mg/L 488 Tylenol 3 489 Metabolite of codeine REFERENCE VALUE Cutoff: 100 490 Nicol Guadalupe, Contin; Also a minor metabolite (10%) of codeine and can be seen in low concentrations (<2,000 ng/mL) with poppy seed ingestion. 491 Metabolite of morphine REFERENCE VALUE Cutoff: 100 492 Metabolite of heroin 493 Lortab, Bowie, Vicodin; Also a very minor metabolite of codeine and impurity (<1%) of oxycodone. 494 Metabolite of hydrocodone 495 Metabolite of hydrocodone 496 Dilaudid, Exalgo; Also a metabolite of hydrocodone and a minor (<5%) metabolite of morphine. 497 Metabolite of hydromorphone REFERENCE VALUE Cutoff: 100 498 Endocet, Percocet, Oxycontin 499 Metabolite of oxycodone 500 Numorphan, Opana; Also a metabolite of oxycodone. 501 Metabolite of oxymorphone REFERENCE VALUE Cutoff: 100 502 Metabolite of oxymorphone 503 Actiq, Duragesic, Fentora 504 Metabolite of fentanyl 505 Demerol 506 Metabolite of meperidine 507 Narcan 508 Metabolite of naloxone REFERENCE VALUE Cutoff: 100 509 Dolophine 510 Metabolite of methadone 511 Darvon, Darvocet 512 Metabolite of propoxyphene 513 Tradol, Ultram, Ultracet 514 Metabolite of tramadol 515 Nucynta 516 Metabolite of tapentadol 517 Metabolite of tapentadol REFERENCE VALUE Cutoff: 100 518 Buprenex, Suboxone 519 Metabolite of buprenorphine 520 Metabolite of buprenorphine 521 Test detected the presence of oxycodone and several metabolites (noroxycodone, noroxymorphone, and tiumyzgpphm-4-qfwc-glucuronide). Suspect use of oxycodone or possibly oxycodone and oxymorphone within the past three days. ADDITIONAL INFORMATION This test was developed and its performance characteristics determined by [facility] in a manner consistent with CLIA requirements. This test has not been cleared or approved by the U.S. Food and Drug Administration. Test Performed by: [address] [address] Procedures Date Code Description Status 12/29/2017 57158 ECHO Transthorasic Realtime 2D W Doppler & Color Flow Hosp Completed 12/29/2017 [id number] ECHO Transthorasic Realtime 2D W Doppler & Color Flow Hosp Completed 12/29/2017 [id number] ECHO Transthoracic, Real-Time 2D With Doppler And Color Completed Flow Encounters Type Date Location Provider Dx Diagnosis Office Visit 10/07/2018 [facility] Internal Aileen Vicente MD I10 Essential ( primary) 3:00p Medicine hypertension G89.4 Chronic pain syndrome M17.12 Unilateral primary osteoarthritis, left knee Office Visit 09/07/2018 11:00a [facility] Internal Aileen Vicente MD G89.4 Chronic pain Medicine syndrome 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 I10 Essential (primary) hypertension M25.562 Pain in left knee Office Visit 07/03/2018 1:40p [facility] Internal Troy De Leon NP G89.4 Chronic pain Medicine syndrome R60.0 Localized edema Office Visit 05/15/2018 4:40p [facility] Internal Keon Fowler G89.4 Chronic pain Medicine - Tbdu Cabrera M.D.,FACP syndrome Rd G47.33 Obstructive sleep apnea (adult) (pediatric) E66.8 Other obesity Office Visit 05/11/2018 1:40p [facility] Internal Troy De Leon, J06.9 Acute upper Medicine [employer] respiratory infection, unspecified Office Visit 04/10/2018 4:00p [facility] Internal Keon Fowler G89.4 Chronic pain Medicine - [place] Deborah, syndrome Rd M.DAimee,FACP E78.5 Hyperlipidemia, unspecified I10 Essential (primary) hypertension D72.829 Elevated white blood cell count, unspecified Office Visit 04/08/2018 1:00p [facility] Internal Troy De Leon, H[employer]SE [employer]ER Z00.00 Encntr for Medicine general adult medical exam w/o abnormal findings I10 Essential (primary) hypertension E78.5 Hyperlipidemia, unspecified Z23 Encounter for immunization Office Visit 01/22/2018 [facility] Internal Keon Fowler 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.,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 G89.4 Chronic pain syndrome D64.9 Anemia, unspecified D72.829 Elevated white blood cell count, unspecified I51.7 Cardiomegaly Office Visit 12/29/2017 1:00p [facility] Internal Becca I50.9 Heart failure, Medicine - Tbdu Marker, RPA-C unspecified Rd G89.4 Chronic pain syndrome D72.829 Elevated white blood cell count, unspecified D64.9 Anemia, unspecified Office Visit 11/28/2017 11:30a [facility] Rip Fowler I50.9 Heart failure, Valerie Cabrera M.D.,FACP unspecified [address] G89.4 Chronic pain syndrome I10 Essential (primary) hypertension M25.511 Pain in right shoulder Office Visit 08/28/2017 11:20a [facility] Rip Fowler I10 Essential ( primary) Valerie Cabrera M.D.,FACP hypertension [address] G89.4 Chronic pain syndrome M25.511 Pain in right shoulder Office Visit 04/09/2017 3:40p [facility] Internal Keon Fowler G89.4 Chronic pain Medicine - Tbdu Cabrera M.D.,FACP syndrome Rd I10 Essential (primary) hypertension Z23 Encounter for immunization Office Visit 03/19/2017 1:40p [facility] Internal Troy De Leon, R35.0 Frequency of Medicine [employer] micturition Z13.220 Encounter for screening for lipoid disorders Z13.1 Encounter for screening for diabetes mellitus Office Visit 01/16/2017 11:40a [facility] Internal Troy De Leon NP E66.8 Other obesity Medicine I10 Essential (primary) hypertension G89.4 Chronic pain syndrome Office Visit 12/31/2016 4:40p [facility] Internal Keon Fowler G89.4 Chronic pain Medicine Shiva Cabrera,FACP syndrome T75.3xxA Motion sickness, initial encounter I10 Essential (primary) hypertension Office Visit 11/11/2016 4:40p [facility] Internal Keon Fowler G89.4 Chronic pain Medicine - [place] Shiva Cabrera,FACP syndrome Rd E66.8 Other obesity I10 Essential (primary) hypertension Office Visit 11/04/2016 2:00p [facility] Internal Troy DeL eon NP M54.5 Low back pain Medicine H61.23 Impacted cerumen, bilateral Office Visit 10/11/2016 10:40a [facility] Internal Troy De Leon NP M54.5 Low back pain Medicine Office Visit 09/19/2016 8:40a [facility] Internal Troy De Leon NP 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 H61.23 Impacted cerumen, bilateral D48.5 Neoplasm of uncertain behavior of skin Office Visit 09/13/2016 2:00p [facility] Internal Troy De Leon, K08.89 Other specified Medicine [employer] disorders of teeth and supporting structures M79.601 Pain in right arm Office Visit 08/23/2016 10:00a [facility] Internal Troy De Leon NP M54.5 Low back pain Medicine Office Visit 08/09/2016 3:00p [facility] Internal Troy De Leon NP E66.8 Other obesity Medicine M54.5 Low back pain Office Visit 06/23/2007 1:30p Neurosurgery Jaylan Hart 721.3 [facility] Shiva Dominique Lumbar W/O Myelopathy Plan of Treatment Future Appointment(s):11/18/2018 4:00 pm - Aileen Vicente MD at [facility] Internal Yepitfiw23/22/2019 9:30 am - Dian Gloria MD at [facility]10/16/2018 - Jelani Alcaraz, [facility]17.12 Unilateral primary osteoarthritis, left kneeNew Xrays:Inj/Aspir Major JT Or Bursa W/ US, Ordered: 10/16/18Referral:[facility], NutritionistFollow up:Follow Up: 3 months
--- OUTSIDE RECORDS SUMMARY | 2018-11-09 21:57 | XMS REPORT | Continuity of Care Document ---
:1975 External Reference #:[id number] Author Name Consuelo Reynolds Care Team Providers Name Role Phone Aileen Vicente M.D. Primary Care Physician Unavailable Payers Date Identification Numbers Payment Provider Subscriber Policy Number: [id number] [employer] Medicaid Tony Andino Jr PayID: [id number] [address] [address] [place] [address] Advance Directives Type Date Description Status Comment Other Directive 08/28/2017 Health Care Proxy Current and Verified Problems Active Problems Provider Date Hypertensive left ventricular Keon Cabrera M.D.,FACP Onset: 01/22/2018 hypertrophy Note: moderate on echo Essential hypertension Keon Cabrera M.D.,FACP Onset: 11/11/2016 Obesity Troy Haley, [employer]PERINT[employer]ENT Onset: 08/14/2016 Low back pain Troy Haley, [employer] SUPERINTENDENT Onset: 08/14/2016 Hyperlipidemia Troy Haley, [employer] SUPERINTENDENT Onset: 08/14/2016 Chronic pain syndrome Keon Cabrera M.D.,FACP Onset: 11/11/2016 Body mass index 40+ - severely obese Keon Cabrera M.D.,FACP Onset: 05/2017 Leukocytosis Keon Cabrera M.D.,FACP Onset: 05/15/2018 Note: sees Dr. Olson Family History Date Family Member(s) Observation Comments General Heart Disease General Hypertension General Cancer Father [place] at 40. Currently 75 Mother due to Cancer () - colon at 55. Social History Type Date Description Comments Sex Unknown Marital Status Single Occupation Unemployed Tobacco Use Start: Unknown Never Smoked Cigarettes Smoking Status Reviewed: 10/14/18 Never Smoked Cigarettes ETOH Use 08/28/2017 Denies [...] Use With Inhalers 1units Keon Fowler 05/14/2018 [facility] Shiva Cabrera,FACP Ventolin HFA take 2 puffs by 18units Troy De Leon NP 04/14/2018 mouth every 4 hours 108(90Base) mcg/Act as needed Aerosol Fentanyl apply one patch once 10units Troy De Leon NP 04/10/2018 25mcg/HR every 3 days Patches 72HR [...] Keon Fowler 11/28/2017 as needed for Shiva Carbera,FACCarlin 100mg Capsules constipation Cymbalta Take One Capsule By 90caps G89.4 Keon Fowler 08/05/2017 60mg Caps Mouth Every Evening Shiva Cabrera,FACP Part M54.5 Tizanidine HCL Take 1 Tablet By [...] day Gabapentin take one capsule 120caps Shawna Powers N.PAimee 300mg Capsules by mouth in the [...] Tablets Fentanyl apply one patch 10units M79.601 Koen Fowler 02/04/2018 - 25mcg/HR once every 3 Shiva Cabrera,FACP 03/17/2018 Patches 72HR days Nucynta ER 1 by mouth 60tabs M79.601 Keon Fowler 01/22/2018 - 50mg twice a day Shiva Cabrera,[facility] 02/04/2018 Tablets ER 12HR Lisinopril 1 by mouth 60tabs I10 Aileen Vicente MD 01/22/2018 - 20mg twice a day 09/11/2018 Tablets Buspirone HCL take 1 tablet 120tabs F41.9 Keon Fowler 06/20/2017 - 15mg by mouth four Shiva Cabrera,[facility] 04/01/2018 Tablets times a day Lisinopril 1/2 by mouth 90tabs Keon Fowler 06/09/2017 - 40mg twice a day Shiva Cabrera,[facility] 01/22/2018 Tablets Meclizine HCL 1/2-1 by mouth 30tabs Virgilio 12/31/2016 - 25mg three times a Shiva Francois 04/13/2017 Tablets day as needed Lisinopril take 1 tablet 60tabs Keon Fowler 11/11/2016 - 20mg by mouth twice Shiva Cabrera,[facility] 06/09/2017 Tablets a day Oxycodone HCL 1 tab three 45tabs G89.4 Keon Fowler 11/11/2016 - 20mg times daily as Shiva Cabrera,[facility] 04/09/2017 Tablets needed M54.5 Morphine Sulfate ER 1 tab twice 60tabs M79.601 Keon Fowler 11/11/2016 - daily Shiva Cabrera,[facility] 01/22/2018 15mg Tablets ER Meloxicam once daily [...] Keon Fowler - orothiazide every morning Shiva Cabrera,[facility] 04/09/2017 20-25mg Tablets Potassium Chloride 1 tab daily Emir Hunter, - Tanya ER 04/10/2018 20Meq Tablets ER Proair HFA inhale 2 puffs 8.500gm Troy De Leon NP - by mouth every 10/07/2018 108(90Base) mcg/Act 4 hours as Aerosol needed Buspirone HCL take 1/2 tablet 60tabs F41.9 Keon Fowler - 30mg by mouth four Shiva Cabrera,[facility] 06/20/2017 Tablets times a day Metaxalone Take 1 Tablet 90tabs Keon Fowler - 800mg By Mouth 3 Shiva Cabrera,[facility] 06/04/2017 Tablets Times A Day Miralax 17 grams by Unknown - Powder mouth every day 10/07/2018 as needed Immunizations CPT Code Status Date Vaccine Reaction Lot # [id number] Given 04/08/2018 Tdap - No immediate [id number] Tetanus/Diptheria/Acellular reaction... Pertussis [id number] Given 04/08/2018 Influenza Virus Vaccine, No immediate [id number] Quadrivalent, Split, reaction... Preservative Free 23534 Given 04/09/2017 Influenza Virus Vaccine, [id number] Quadrivalent, Split, Preservative Free Vital Signs Date Vital Result Comment 10/14/2018 3:33pm Height 68 inches 5'8" Weight [...] Result H/L Range Note Drug Abuse 09/30/2018 [facility] Urine Amphetamine Negative ng/ mL 1, 2 [address] [place] [address] [phone] Urine Barbiturates Negative ng/mL 3 Urine Benzodiazepines Negative ng/mL 4 Urine Cocaine Negative ng/mL 5 Urine Phencyclidine Negative ng/mL Cutoff: 25 Urine Tetrahydrocannabinol Negative ng/mL Cutoff: 50 6 Creatinine, Urine 126.6 mg/dL Specific Inglis 1.014 pH 7.0 Oxidants Negative 7 Adulterants Comment Normal Codeine, Ur Not Detected ng/mL Cutoff: 25 8 Mlaeszq-4-udwa-glucuronide, Ur Not Detected ng/mL 9 Morphine, Ur Not Detected ng/mL Cutoff: 25 10 Zagfwmqx-0-tlra-glucuronide, U Not Detected ng/mL 11 6-monoacetylmorphine, Ur Not Detected ng/mL Cutoff: 25 12 Hydrocodone, Ur Not Detected ng/mL Cutoff: 25 13 Norhydrocodone, Ur Not Detected ng/mL Cutoff: 25 14 Dihydrocodeine, Ur Not Detected ng/mL Cutoff: 25 15 Hydromorphone, Ur Not Detected ng/mL Cutoff: 25 16 Flghigqudyfjf2fydeqmqrccosvqw Not Detected ng/mL 17 Oxycodone, Ur Present ng/mL Abnormal Cutoff: 25 18 Noroxycodone, Ur Present ng/mL Abnormal Cutoff: 25 19 Oxymorphone, Ur Present ng/mL Abnormal Cutoff: 25 20 Lyzjbiknpcw-1-gars-glucuronide Present ng/mL Abnormal 21 Noroxymorphone, Ur Present ng/mL Abnormal Cutoff: 25 22 Fentanyl, Ur Not Detected ng/mL Cutoff: 2 23 Norfentanyl, Ur Present ng/mL Abnormal Cutoff: 2 24 Meperidine, Ur Not Detected ng/mL Cutoff: 25 25 Normeperidine, Ur Not Detected ng/mL Cutoff: 25 26 Naloxone, Ur Not Detected ng/mL Cutoff: 25 27 Tesadnam-6-jzkc-glucuronide, U Not Detected ng/mL 28 Methadone, Ur [...] Ur Not Detected ng/mL Cutoff: 50 36 Xpczqmgqwd-kisc-htsmfachpkk, U Not Detected ng/mL 37 Buprenorphine, Ur Not Detected ng/mL Cutoff: 5 38 Norbuprenorphine, Ur Not Detected ng/mL Cutoff: 5 39 Norbuprenorphine glucuronide Not Detected ng/mL Cutoff: 20 40 Opioid Interpretation See Comment 41 Laboratory test 09/10/2018 [facility] Troponin-I 0.01 <0.04 [address] (TnI) ng/[place] [address] [phone] CBC Auto Diff 09/10/2018 [facility] White Blood 10.9 High 3.5- 10.[address] Count 10^3/[place] [address] [phone] Red Blood Count 5.12 10^6/uL N 4.18-5.48 [...] Cells % 0 Comp Metabolic Panel 09/10/2018 [facility] Sodium 140 mmol/L N 135-[address] [place] [address] [phone] Potassium 4.3 mmol/L N 3.5-5.0 Chloride 105 [...] Egfr 134.2 >60 43 Laboratory test 09/10/2018 [facility] C Reactive 7.54 mg/L N < 8.[address] [place] [address] [phone] Troponin-I (TnI) 0.01 ng/mL <0.04 44 B-Type Natriuretic Peptide BNP 8 pg/mL <=100 CBC Auto 09/07/2018 [facility] White Blood 11.5 10^3/uL High 3.5-10.[address] [place] [address] [phone] Red Blood Count 4.95 10^6/uL N 4.18-5.48 [...] Blood Cells % 0 Laboratory test 09/07/2018 [facility] B-Type 17 pg/mL <=[address] [place] [address] Peptide BNP [phone] Comp Metabolic 09/07/2018 [facility] Sodium 138 mmol/L N 135- [address] [place] [address] [phone] Potassium 3.7 mmol/L N 3.5-5.0 Chloride 102 [...] Egfr 93.4 >60 45 Laboratory test 09/07/2018 [facility] C Reactive 8.85 mg/L High <8.[address] [place] [address] [phone] Erythrocyte Sed Rate 19 mm/Hr High 0-14 TSH (Thyroid Stim Horm) 2.35 mcIU/mL N 0.34-5.60 Laboratory 09/07/2018 [facility] D Dimer < 200 ng/mL N Less 46 test finding [address] [place] [address] [phone] Drug Abuse 20 07/03/2018 [facility] Urine Negative 47, Urine [address] Amphetamine ng/mL 48 [place] [address] [phone] Urine Barbiturates Negative ng/mL 49 Urine Benzodiazepines Negative ng/mL 50 Urine Cocaine Negative ng/mL 51 Urine Phencyclidine Negative ng/mL Cutoff: 25 Urine Tetrahydrocannabinol Negative ng/mL Cutoff: 50 52 Creatinine, Urine 68.4 mg/dL Specific Inglis 1.012 pH 5.9 Oxidants Negative 53 Adulterants Comment Normal Codeine, Ur Not Detected ng/mL Cutoff: 25 54 Ifvgbdp-9-othx-glucuronide, Ur Not Detected ng/mL 55 Morphine, Ur Not Detected ng/mL Cutoff: 25 56 Tcvpmabv-9-pmdd-glucuronide, U Not Detected ng/mL 57 6-monoacetylmorphine, Ur Not Detected ng/mL Cutoff: 25 58 Hydrocodone, Ur Not Detected ng/mL Cutoff: 25 59 Norhydrocodone, Ur Not Detected ng/mL Cutoff: 25 60 Dihydrocodeine, Ur Not Detected ng/mL Cutoff: 25 61 Hydromorphone, Ur Not Detected ng/mL Cutoff: 25 62 Ivannpwlznigt2yiwmgairhimnflh Not Detected ng/mL 63 Oxycodone, Ur Present ng/mL Abnormal Cutoff: 25 64 Noroxycodone, Ur Present ng/mL Abnormal Cutoff: 25 65 Oxymorphone, Ur Present ng/mL Abnormal Cutoff: 25 66 Xvuywmkdzun-7-vkkz-glucuronide Present ng/mL Abnormal 67 Noroxymorphone, Ur Present ng/mL Abnormal Cutoff: 25 68 Fentanyl, Ur Not Detected ng/mL Cutoff: 2 69 Norfentanyl, Ur Present ng/mL Abnormal Cutoff: 2 70 Meperidine, Ur Not Detected ng/mL Cutoff: 25 71 Normeperidine, Ur Not Detected ng/mL Cutoff: 25 72 Naloxone, Ur Not Detected ng/mL Cutoff: 25 73 Juvjlejk-6-ivec-glucuronide, U Not Detected ng/mL 74 Methadone, Ur [...] Ur Not Detected ng/mL Cutoff: 50 82 Kfyellkjmo-lwmp-lhshklzupii, U Not Detected ng/mL 83 Buprenorphine, Ur Not Detected ng/mL Cutoff: 5 84 Norbuprenorphine, Ur Not Detected ng/mL Cutoff: 5 85 Norbuprenorphine glucuronide Not Detected ng/mL Cutoff: 20 86 Opioid Interpretation See Comment 87 Drug Abuse 05/15/2018 [facility] Urine Amphetamine Negative ng/ mL 88, 89 [address] [place] [id number] [phone] Urine Barbiturates Negative ng/mL 90 Urine Benzodiazepines Negative ng/mL 91 Urine Cocaine Negative ng/mL 92 Urine Phencyclidine Negative ng/mL Cutoff: 25 Urine Tetrahydrocannabinol Negative ng/mL Cutoff: 50 93 Creatinine, Urine 113.3 mg/dL Specific Inglis 1.015 pH 5.9 Oxidants Negative 94 Adulterants Comment Normal Codeine, Ur Not Detected ng/mL Cutoff: 25 95 Ldlubtm-0-fjkx-glucuronide, Ur Not Detected ng/mL 96 Morphine, Ur Not Detected ng/mL Cutoff: 25 97 Bsnepksg-0-xccz-glucuronide, U Not Detected ng/mL 98 6-monoacetylmorphine, Ur Not Detected ng/mL Cutoff: 25 99 Hydrocodone, Ur Not Detected ng/mL Cutoff: 25 100 Norhydrocodone, Ur Not Detected ng/mL Cutoff: 25 101 Dihydrocodeine, Ur Not Detected ng/mL Cutoff: 25 102 Hydromorphone, Ur Not Detected ng/mL Cutoff: 25 103 Bcpcyuagyhswg0yulndddxoxwhycg Not Detected ng/mL 104 Oxycodone, Ur Present ng/mL Abnormal Cutoff: 25 105 Noroxycodone, Ur Present ng/mL Abnormal Cutoff: 25 106 Oxymorphone, Ur Not Detected ng/mL Cutoff: 25 107 Miilexsvdbb-7-oteh-glucuronide Present ng/mL Abnormal 108 Noroxymorphone, Ur Present ng/mL Abnormal Cutoff: 25 109 Fentanyl, Ur Present ng/mL Abnormal Cutoff: 2 110 Norfentanyl, Ur Present ng/mL Abnormal Cutoff: 2 111 Meperidine, Ur Not Detected ng/mL Cutoff: 25 112 Normeperidine, Ur Not Detected ng/mL Cutoff: 25 113 Naloxone, Ur Not Detected ng/mL Cutoff: 25 114 Ruavveej-8-qzgn-glucuronide, U Not Detected ng/mL 115 Methadone, Ur [...] Ur Not Detected ng/mL Cutoff: 50 123 Heuiaycrld-zhwr-ymvwfbrokdk, U Not Detected ng/mL 124 Buprenorphine, Ur Not Detected ng/mL Cutoff: 5 125 Norbuprenorphine, Ur Not Detected ng/mL Cutoff: 5 126 Norbuprenorphine glucuronide Not Detected ng/mL Cutoff: 20 127 Opioid Interpretation See Comment 128 Laboratory test 05/10/2018 [facility] Rapid SEE RESULT [address] [place] [address] Antigen [phone] Rapid Influenza 05/10/2018 [facility] Influenza A NEGATIVE Negative 130 A & B Molecular [address] Molecular [place], [place] [id number] [phone] Influenza B Molecular NEGATIVE Negative Lipid Profile 04/15/2018 [facility] Triglycerides 157 mg/dL 131 (Trig/Chol/HDL) [address] [place] [address] [phone] Cholesterol 149 mg/dL 132 HDL Cholesterol 54.0 mg/dL 133 LDL Cholesterol 64 mg/dL 134 Comp Metabolic Panel 04/15/2018 [facility] Sodium 142 mmol/L N 135-145 [address] [place] [address] [phone] Potassium 4.6 mmol/L N 3.5-5.0 Chloride 107 [...] >60 135 Urine Drug Screen Inhouse 04/10/2018 [facility] In House Amphetamine Confirm Urine - 12 Urine Buprenorphine Conf QN - Urine Benzodiazepines + Urine Cocaine Random QL - Urine Methamphetamine QL Confm - Urine Methadone - Confirm Opiate Urine - Urine Oxycodone + Urine PCP Phencyclidine QL - Urine THC Confirmation - Urine Barbiturates QN Confirm - Basic Metabolic Panel 02/02/2018 [facility] Sodium 140 mmol/L N 135-145 [address] [place] [address] [phone] Potassium 4.1 mmol/L N 3.5-5.0 Chloride 105 mmol/L N 101-111 Co2 Carbon Dioxide 28 mmol/L N 22-32 Anion Gap 7 mmol/L N 2-11 Glucose 120 mg/dL High 70-100 Blood Urea Nitrogen 13 mg/dL N 6-24 Creatinine 0.94 mg/dL N 0.67-1.17 BUN/Creatinine Ratio 13.8 N 8-20 Calcium 9.8 mg/dL N 8.6-10.3 Egfr Non- 87.2 >60 Egfr 105.5 >60 136 Laboratory test 02/02/2018 [facility] Troponin-I 0.00 <0.[address] (TnI) ng/[place] [address] [phone] CBC No Diff 02/02/2018 [facility] White Blood 11.9 High 3.5- 10.[address] Count 10^3/[place] [address] [phone] Red Blood Count 4.74 10^6/uL N 4.00-5.40 [...] um3 Low 7.4-10.4 BCR/Abl Trans 9:22 01/29/2018 [facility] BCR/abl (Fish) Normal Fish [address] [place] [address] [phone] BCR/abl (Fish) Result Table See Comment 137 BCR/abl (Fish) Specimen Blood BCR/abl (Fish) Referral Reason See Comment 138 BCR/abl (Fish) Method See Comment 139 BCR/abl Results See Comment 140 BCR/abl (Fish) Interpretation See Comment 141 BCR/abl (Fish) Disclaimer See Comment 142 BCR/abl (Fish) Released By See Comment 143 Leukemia/Lymphoma 01/29/2018 [facility] Path (SEE NOTE) [address] [place] [address] 2-8 Marker [phone] Myeloprolif Neoplasm 01/29/2018 [facility] MPNR Result see [address] [place] [address] <SEE NOTE> [phone] MPNR Final Diagnosis See Comment 146 Protein 01/29/2018 [facility] Total 6.8 g/dL 6.3 - Electrophoresis [address] Protein(Pep) 7.9 [place], [place] [id number] [phone] Albumin 3.3 g/dL Abnormal 3.4-4.7 Alpha-1 Globulin 0.3 g/dL 0.1-0.3 Alpha-2 Globulin 0.9 g/dL 0.6-1.0 Beta Globulin 1.4 g/dL Abnormal 0.7-1.2 Gamma Globulin 1.0 g/dL 0.6-1.6 Albumin/Globulin Ratio 0.92 Impression See Comment 147 Laboratory test 01/29/2018 [facility] Erythrocyte Sed 28 mm/Hr High 0-[address] [place] [address] [phone] Erythropoietin 13.9 mIU/mL 2.6 - 18.5 148 Retic Count 01/29/2018 [facility] Retic Count 1.7 % High 0.5- 1.[address] [place] [address] [phone] Corrected Retic Count 1.4 % N 0.5-1.5 Maturation Factor Retic 1.5 Retic Index 0.90 Mean Retic Volume 108.1 Immature Retic Fraction 0.44 RBC Retic Count 4.51 10^6/uL Low 4.6-6.2 Hematocrit for Retic CNT 38 % Low 42-52 CBC Auto Diff 01/29/2018 [facility] White Blood 9.9 10^3/uL N 3.5-10.[address] [place] [address] [phone] Red Blood Count 4.51 10^6/uL N 4.00-5.40 [...] Blood Cells % 0 Laboratory test 01/29/2018 [facility] Ferritin 30.7 ng/mL N 24 -336 finding [address] [place] [address] [phone] Vitamin B12 554 pg/mL N 180-914 149 Iron & Iron Binding 01/29/2018 [facility] Iron 41 g/dL Low 50-212 Capacity [address] [place] [address] [phone] Unsaturated Iron Binding 373 g/dL Total Iron Binding Capacity 414 g/dL N 250-450 Transferrin 296 mg/dL N 203-362 % Iron Saturation 10 % Low 15-55 Comp Metabolic Panel 01/29/2018 [facility] Sodium 139 mmol/L N 135-145 [address] [place] [address] [phone] Potassium 4.6 mmol/L N 3.5-5.0 Chloride 102 [...] Non- 78.5 >60 Egfr 94.9 >60 150 Laboratory test 01/29/2018 [facility] In House Occult Blood neg x3 finding Stool Diagnostic Drug Abuse 20 01/22/2018 [facility] Urine Amphetamine Negative ng/mL 151, 152 Urine [address] [place] [address] [phone] Urine Barbiturates Negative ng/mL 153 Urine Benzodiazepines Negative ng/mL 154 Urine Cocaine Negative ng/mL 155 Urine Phencyclidine Negative ng/mL Cutoff: 25 Urine Tetrahydrocannabinol Negative ng/mL Cutoff: 50 156 Creatinine, Urine 237.5 mg/dL Specific [place]glis 1.015 pH 5.7 Oxidants Negative 157 Adulterants Comment Normal Codeine, Ur Not Detected ng/mL Cutoff: 25 158 Ushysdp-9-yvmf-glucuronide, Ur Not Detected ng/mL 159 Morphine, Ur Present ng/mL Abnormal Cutoff: 25 160 Rfljzaet-4-xxlz-glucuronide, U Present ng/mL Abnormal 161 6-monoacetylmorphine, Ur Not Detected ng/mL Cutoff: 25 162 Hydrocodone, Ur Not Detected ng/mL Cutoff: 25 163 Norhydrocodone, Ur Not Detected ng/mL Cutoff: 25 164 Dihydrocodeine, Ur Not Detected ng/mL Cutoff: 25 165 Hydromorphone, Ur Not Detected ng/mL Cutoff: 25 166 Adacbjztlkzog7oeebrmkdjrevcpu Not Detected ng/mL 167 Oxycodone, Ur Present ng/mL Abnormal Cutoff: 25 168 Noroxycodone, Ur Present ng/mL Abnormal Cutoff: 25 169 Oxymorphone, Ur Present ng/mL Abnormal Cutoff: 25 170 Vbcxqpzujbs-5-lhrj-glucuronide Present ng/mL Abnormal 171 Noroxymorphone, Ur Present ng/mL Abnormal Cutoff: 25 172 Fentanyl, Ur Not Detected ng/mL Cutoff: 2 173 Norfentanyl, Ur Present ng/mL Abnormal Cutoff: 2 174 Meperidine, Ur Not Detected ng/mL Cutoff: 25 175 Normeperidine, Ur Not Detected ng/mL Cutoff: 25 176 Naloxone, Ur Not Detected ng/mL Cutoff: 25 177 Gubbsvcm-6-cjsg-glucuronide, U Not Detected ng/mL 178 Methadone, Ur [...] Ur Not Detected ng/mL Cutoff: 50 186 Tkfresxiai-nlyg-mbxyjeffprv, U Not Detected ng/mL 187 Buprenorphine, Ur Not Detected ng/mL Cutoff: 5 188 Norbuprenorphine, Ur Not Detected ng/mL Cutoff: 5 189 Norbuprenorphine glucuronide Not Detected ng/mL Cutoff: 20 190 Opioid Interpretation See Comment 191 Drug Abuse 12/29/2017 [facility] Urine Amphetamine Negative 192, 193 [address] ng/[place] [address] [phone] Urine Barbiturates Negative ng/mL 194 Urine Benzodiazepines Negative ng/mL 195 Urine Cocaine Negative ng/mL 196 Urine Phencyclidine Negative ng/mL Cutoff: 25 Urine Tetrahydrocannabinol Negative ng/mL Cutoff: 50 197 Creatinine, Urine 476.7 mg/dL Specific Inglis 1.020 pH 5.8 Oxidants Negative 198 Adulterants Comment Normal Codeine, Ur Not Detected ng/mL Cutoff: 25 199 Uweifqa-7-vsbr-glucuronide, Ur Not Detected ng/mL 200 Morphine, Ur Present ng/mL Abnormal Cutoff: 25 201 Nauxcxbx-2-ipll-glucuronide, U Present ng/mL Abnormal 202 6-monoacetylmorphine, Ur Not Detected ng/mL Cutoff: 25 203 Hydrocodone, Ur Not Detected ng/mL Cutoff: 25 204 Norhydrocodone, Ur Not Detected ng/mL Cutoff: 25 205 Dihydrocodeine, Ur Not Detected ng/mL Cutoff: 25 206 Hydromorphone, Ur Present ng/mL Abnormal Cutoff: 25 207 Cmtvfhcwefyes7uqmthgwghfjggvl Present ng/mL Abnormal 208 Oxycodone, Ur Present ng/mL Abnormal Cutoff: 25 209 Noroxycodone, Ur Present ng/mL Abnormal Cutoff: 25 210 Oxymorphone, Ur Not Detected ng/mL Cutoff: 25 211 Ftacpnjiisk-4-tiva-glucuronide Present ng/mL Abnormal 212 Noroxymorphone, Ur Present ng/mL Abnormal Cutoff: 25 213 Fentanyl, Ur Not Detected ng/mL Cutoff: 2 214 Norfentanyl, Ur Present ng/mL Abnormal Cutoff: 2 215 Meperidine, Ur Not Detected ng/mL Cutoff: 25 216 Normeperidine, Ur Not Detected ng/mL Cutoff: 25 217 Naloxone, Ur Not Detected ng/mL Cutoff: 25 218 Rqfaobis-7-vpbf-glucuronide, U Not Detected ng/mL 219 Methadone, Ur [...] Ur Not Detected ng/mL Cutoff: 50 227 Qqtzoiejxk-mfzk-gtlodupxffl, U Not Detected ng/mL 228 Buprenorphine, Ur Not Detected ng/mL Cutoff: 5 229 Norbuprenorphine, Ur Not Detected ng/mL Cutoff: 5 230 Norbuprenorphine glucuronide Not Detected ng/mL Cutoff: 20 231 Opioid Interpretation See Comment 232 CBC Auto 12/29/2017 [facility] White Blood 13.2 10^3/uL High 3.5-10.[address] [place] [address] [phone] Red Blood Count 5.03 10^6/uL N 4.00-5.40 [...] 0-2 Nucleated Red Blood Cells % 0 CBC Auto 11/28/2017 [facility] White Blood 14.6 10^3/uL High 3.5-10.[address] [place] [address] [phone] Red Blood Count 4.62 10^6/uL N 4.00-5.40 [...] Cells % 0 Comp Metabolic Panel 11/28/2017 [facility] Sodium 142 mmol/L N 135-[address] [place] [address] [phone] Potassium 3.7 mmol/L N 3.5-5.0 Chloride 102 [...] Egfr Non- 77.6 >60 Egfr 93.9 >60 233 Laboratory test 11/28/2017 [facility] B-Type 13 pg/mL [address] [place] [address] Peptide BNP [phone] Drug Abuse 20 11/28/2017 [facility] Urine Amphetamine Negative [address] ng/[place] [address] [phone] Urine Barbiturates Negative ng/mL 236 Urine Benzodiazepines Negative ng/mL 237 Urine Cocaine Negative ng/mL 238 Urine Phencyclidine Negative ng/mL Cutoff: 25 Urine Tetrahydrocannabinol Negative ng/mL Cutoff: 50 239 Creatinine, Urine 88.6 mg/dL Specific [place]is 1.014 pH 5.5 Oxidants Negative 240 Adulterants Comment Normal Codeine, Ur Not Detected ng/mL Cutoff: 25 241 Flvfbem-3-dlwh-glucuronide, Ur Not Detected ng/mL 242 Morphine, Ur Present ng/mL Abnormal Cutoff: 25 243 Qfttvjkj-3-slfl-glucuronide, U Present ng/mL Abnormal 244 6-monoacetylmorphine, Ur Not Detected ng/mL Cutoff: 25 245 Hydrocodone, Ur Not Detected ng/mL Cutoff: 25 246 Norhydrocodone, Ur Not Detected ng/mL Cutoff: 25 247 Dihydrocodeine, Ur Not Detected ng/mL Cutoff: 25 248 Hydromorphone, Ur Not Detected ng/mL Cutoff: 25 249 Qwuntppbubxbn6dwmxfokqpyursbu Not Detected ng/mL 250 Oxycodone, Ur Present ng/mL Abnormal Cutoff: 25 251 Noroxycodone, Ur Present ng/mL Abnormal Cutoff: 25 252 Oxymorphone, Ur Not Detected ng/mL Cutoff: 25 253 Jljecrvmmha-0-mwjg-glucuronide Present ng/mL Abnormal 254 Noroxymorphone, Ur Present ng/mL Abnormal Cutoff: 25 255 Fentanyl, Ur Not Detected ng/mL Cutoff: 2 256 Norfentanyl, Ur Not Detected ng/mL Cutoff: 2 257 Meperidine, Ur Not Detected ng/mL Cutoff: 25 258 Normeperidine, Ur Not Detected ng/mL Cutoff: 25 259 Naloxone, Ur Not Detected ng/mL Cutoff: 25 260 Cjfbqhii-4-lcki-glucuronide, U Not Detected ng/mL 261 Methadone, Ur Not Detected ng/mL Cutoff: 25 262 Eddp, Ur Not Detected ng/mL Cutoff: 25 263 Propoxyphene, Ur Not Detected ng/mL Cutoff: 25 264 Norpropoxyphene, Ur Not Detected ng/mL Cutoff: 25 265 Tramadol, Ur Not Detected ng/mL Cutoff: 25 266 O-desmethyltramadol, Ur Not Detected ng/mL Cutoff: 25 267 Tapentadol, Ur Not Detected ng/mL Cutoff: 25 268 N-desmethyltapentadol, Ur Not Detected ng/mL Cutoff: 50 269 Gepbhpfxsq-remw-zxuyfvfhdnu, U Not Detected ng/mL 270 Buprenorphine, Ur Not Detected ng/mL Cutoff: 5 271 Norbuprenorphine, Ur Not Detected ng/mL Cutoff: 5 272 Norbuprenorphine glucuronide Not Detected ng/mL Cutoff: 20 273 Opioid Interpretation See Comment 274 Drug Abuse 08/28/2017 [facility] Urine Amphetamine Negative 275, 276 [address] ng/[place] [address] [phone] Urine Barbiturates Negative ng/mL 277 Urine Benzodiazepines Negative ng/mL 278 Urine Cocaine Negative ng/mL 279 Urine Phencyclidine Negative ng/mL Cutoff: 25 Urine Tetrahydrocannabinol Negative ng/mL Cutoff: 50 280 Creatinine, Urine 294.6 mg/dL Specific [place]glis 1.019 pH 5.6 Oxidants Negative 281 Adulterants Comment Normal Codeine, Ur Not Detected ng/mL Cutoff: 25 282 Kociqdl-9-wwgb-glucuronide, Ur Not Detected ng/mL 283 Morphine, Ur Present ng/mL Abnormal Cutoff: 25 284 Ptsxsbpi-8-gkwg-glucuronide, U Present ng/mL Abnormal 285 6-monoacetylmorphine, Ur Not Detected ng/mL Cutoff: 25 286 Hydrocodone, Ur Not Detected ng/mL Cutoff: 25 287 Norhydrocodone, Ur Not Detected ng/mL Cutoff: 25 288 Dihydrocodeine, Ur Not Detected ng/mL Cutoff: 25 289 Hydromorphone, Ur Present ng/mL Abnormal Cutoff: 25 290 Xkpehiodinjoq4hoprwwcurwdlmri Not Detected ng/mL 291 Oxycodone, Ur Present ng/mL Abnormal Cutoff: 25 292 Noroxycodone, Ur Present ng/mL Abnormal Cutoff: 25 293 Oxymorphone, Ur Present ng/mL Abnormal Cutoff: 25 294 Aasmbjmeeev-5-rtax-glucuronide Present ng/mL Abnormal 295 Noroxymorphone, Ur Present ng/mL Abnormal Cutoff: 25 296 Fentanyl, Ur Not Detected ng/mL Cutoff: 2 297 Norfentanyl, Ur Not Detected ng/mL Cutoff: 2 298 Meperidine, Ur Not Detected ng/mL Cutoff: 25 299 Normeperidine, Ur Not Detected ng/mL Cutoff: 25 300 Naloxone, Ur Not Detected ng/mL Cutoff: 25 301 Jmppidad-6-eemn-glucuronide, U Not Detected ng/mL 302 Methadone, Ur [...] Ur Not Detected ng/mL Cutoff: 50 310 Rywplctosq-fdql-ijqdsjojmcd, U Not Detected ng/mL 311 Buprenorphine, Ur Not Detected ng/mL Cutoff: 5 312 Norbuprenorphine, Ur See Comment ng/mL Cutoff: 5 313 Norbuprenorphine glucuronide Not Detected ng/mL Cutoff: 20 314 Opioid Interpretation See Comment 315 Laboratory test 04/28/2017 [facility] PSA Screening 0.110 N 0- 4.000 [address] ng/[place] [address] [phone] Lipid Profile 04/28/2017 [facility] Triglycerides 139 mg/dL 317 (Trig/Chol/HDL) [address] [place] [address] [phone] Cholesterol 167 mg/dL 318 HDL Cholesterol 41.7 mg/dL 319 LDL Cholesterol 98 mg/dL 320 Comp Metabolic Panel 04/28/2017 [facility] Sodium 138 mmol/L N 133-[address] [place] [address] [phone] Potassium 4.2 mmol/L N 3.5-5.0 Chloride 103 [...] Egfr 103.2 >60 321 Drug Abuse 04/09/2017 [facility] Urine Amphetamine Negative ng/ mL 322 [address] [place] [address] [phone] Urine Barbiturates Negative ng/mL 323 Urine Benzodiazepines Negative ng/mL 324 Urine Cocaine Negative ng/mL 325 Urine Phencyclidine Negative ng/mL Cutoff: 25 Urine Tetrahydrocannabinol Negative ng/mL Cutoff: 50 326 Creatinine, Urine 53.0 mg/dL Specific Inglis 1.015 pH 5.4 Oxidants Negative 327 Adulterants Comment Normal Codeine, Ur Not Detected ng/mL Cutoff: 25 328 Qqiyeli-4-uvgl-glucuronide, Ur Not Detected ng/mL 329 Morphine, Ur Not Detected ng/mL Cutoff: 25 330 Tygdqkad-0-hwbw-glucuronide, U Not Detected ng/mL 331 6-monoacetylmorphine, Ur Not Detected ng/mL Cutoff: 25 332 Hydrocodone, Ur Not Detected ng/mL Cutoff: 25 333 Norhydrocodone, Ur Not Detected ng/mL Cutoff: 25 334 Dihydrocodeine, Ur Not Detected ng/mL Cutoff: 25 335 Hydromorphone, Ur Not Detected ng/mL Cutoff: 25 336 Lcrfjigvxozzw4fuskihrqzvwgljg Not Detected ng/mL 337 Oxycodone, Ur Present ng/mL Cutoff: 25 338 Noroxycodone, Ur Present ng/mL Cutoff: 25 339 Oxymorphone, Ur Not Detected ng/mL Cutoff: 25 340 Obrnpanjhsc-9-msiw-glucuronide Present ng/mL 341 Noroxymorphone, Ur Present ng/mL Cutoff: 25 342 Fentanyl, Ur Not Detected ng/mL Cutoff: 2 343 Norfentanyl, Ur Not Detected ng/mL Cutoff: 2 344 Meperidine, Ur Not Detected ng/mL Cutoff: 25 345 Normeperidine, Ur Not Detected ng/mL Cutoff: 25 346 Naloxone, Ur Not Detected ng/mL Cutoff: 25 347 Jilkbvyc-8-ruaq-glucuronide, U Not Detected ng/mL 348 Methadone, Ur [...] Ur Not Detected ng/mL Cutoff: 50 356 Lulzckguvz-mvfa-srbdxbmyvpt, U Not Detected ng/mL 357 Buprenorphine, Ur Not Detected ng/mL Cutoff: 5 358 Norbuprenorphine, Ur Not Detected ng/mL Cutoff: 5 359 Norbuprenorphine glucuronide Not Detected ng/mL Cutoff: 20 360 Opioid Interpretation See Comment 361 Ua Routine 03/19/2017 [facility] [employer] [facility] Ua Specific Inglis 1.015 Ua PH 5 Ua Color yellow Ua Appera clear Ua WBC neg Ua Protein trace Ua Glucose neg Ua Ketones neg Ua Bilirubin neg Ua Urobilinogen neg Ua Nitrite neg Ua Occult Blood neg Drug Abuse 12/31/2016 [facility] Urine Amphetamine Negative ng/ mL N [address] [place] [address] [phone] Urine Barbiturates Negative ng/mL N 363 Urine Benzodiazepines Negative ng/mL N 364 Urine Cocaine Negative ng/mL N 365 Urine Phencyclidine Negative ng/mL N Cutoff: 25 Urine Tetrahydrocannabinol Negative ng/mL N Cutoff: 50 366 Creatinine, Urine 338.6 mg/dL N Specific Inglis 1.018 N pH 5.8 N Oxidants Negative N 367 Adulterants Comment Normal N Codeine, Ur Not Detected ng/mL N Cutoff: 25 368 Dezrbay-2-xefy-glucuronide, Ur Present ng/mL N 369 Morphine, Ur Present ng/mL N Cutoff: 25 370 Kzqhkiiq-9-hyux-glucuronide, U Present ng/mL N 371 6-monoacetylmorphine, Ur Not Detected ng/mL N Cutoff: 25 372 Hydrocodone, Ur Not Detected ng/mL N Cutoff: 25 373 Norhydrocodone, Ur Not Detected ng/mL N Cutoff: 25 374 Dihydrocodeine, Ur Not Detected ng/mL N Cutoff: 25 375 Hydromorphone, Ur Present ng/mL N Cutoff: 25 376 Shhllubzopeia1ybrbwtbsmbuwlbh Present ng/mL N 377 Oxycodone, Ur Present ng/mL N Cutoff: 25 378 Noroxycodone, Ur Present ng/mL N Cutoff: 25 379 Oxymorphone, Ur Not Detected ng/mL N Cutoff: 25 380 Hjnhxqqissa-1-obbf-glucuronide Present ng/mL N 381 Noroxymorphone, Ur Present ng/mL N Cutoff: 25 382 Fentanyl, Ur Not Detected ng/mL N Cutoff: 2 383 Norfentanyl, Ur Not Detected ng/mL N Cutoff: 2 384 Meperidine, Ur Not Detected ng/mL N Cutoff: 25 385 Normeperidine, Ur Not Detected ng/mL N Cutoff: 25 386 Naloxone, Ur Not Detected ng/mL N Cutoff: 25 387 Ogmcvuja-5-mojk-glucuronide, U Not Detected ng/mL N 388 Methadone, [...] Not Detected ng/mL N Cutoff: 50 396 Gtdndznfdh-ecfb-sabakgribzg, U Not Detected ng/mL N 397 Buprenorphine, Ur Not Detected ng/mL N Cutoff: 5 398 Norbuprenorphine, Ur Not Detected ng/mL N Cutoff: 5 399 Norbuprenorphine glucuronide Not Detected ng/mL N Cutoff: 20 400 Opioid Interpretation See Comment N 401 Drug Abuse 11/11/2016 [facility] Urine Amphetamine Negative ng/ mL N [address] [place] [address] [phone] Urine Barbiturates Negative ng/mL N 403 Urine Benzodiazepines Negative ng/mL N 404 Urine Cocaine Negative ng/mL N 405 Urine Phencyclidine Negative ng/mL N Cutoff: 25 Urine Tetrahydrocannabinol Negative ng/mL N Cutoff: 50 406 Creatinine, Urine 224.5 mg/dL N Specific Inglis 1.020 N pH 5.6 N Oxidants Negative N 407 Adulterants Comment Normal N Codeine, Ur Not Detected ng/mL N Cutoff: 25 408 Uvnpitk-4-zqgy-glucuronide, Ur Not Detected ng/mL N 409 Morphine, Ur Not Detected ng/mL N Cutoff: 25 410 Jmcdfbqq-9-irln-glucuronide, U Not Detected ng/mL N 411 6-monoacetylmorphine, Ur See Comment ng/mL N Cutoff: 25 412 Hydrocodone, Ur Not Detected ng/mL N Cutoff: 25 413 Norhydrocodone, Ur Not Detected ng/mL N Cutoff: 25 414 Dihydrocodeine, Ur Not Detected ng/mL N Cutoff: 25 415 Hydromorphone, Ur Not Detected ng/mL N Cutoff: 25 416 Kjitczqihjavc2cpjjhxkqegyipqj Not Detected ng/mL N 417 Oxycodone, Ur Not Detected ng/mL N Cutoff: 25 418 Noroxycodone, Ur Not Detected ng/mL N Cutoff: 25 419 Oxymorphone, Ur Not Detected ng/mL N Cutoff: 25 420 Qvxgnjhrmok-5-oxwk-glucuronide Not Detected ng/mL N 421 Noroxymorphone, Ur Not Detected ng/mL N Cutoff: 25 422 Fentanyl, Ur Not Detected ng/mL N Cutoff: 2 423 Norfentanyl, Ur Not Detected ng/mL N Cutoff: 2 424 Meperidine, Ur Not Detected ng/mL N Cutoff: 25 425 Normeperidine, Ur Not Detected ng/mL N Cutoff: 25 426 Naloxone, Ur Not Detected ng/mL N Cutoff: 25 427 Zlhcrzaz-3-mzwd-glucuronide, U Not Detected ng/mL N 428 Methadone, [...] Not Detected ng/mL N Cutoff: 50 436 Rzmqinvico-iarc-iwkbfyokpzp, U Not Detected ng/mL N 437 Buprenorphine, Ur Not Detected ng/mL N Cutoff: 5 438 Norbuprenorphine, Ur Not Detected ng/mL N Cutoff: 5 439 Norbuprenorphine glucuronide Not Detected ng/mL N Cutoff: 20 440 Opioid Interpretation See Comment N 441 Drug Abuse 09/19/2016 [facility] Urine Amphetamine Negative ng/ mL N [address] [place] [address] [phone] Urine Barbiturates Negative ng/mL N 443 Urine Benzodiazepines Negative ng/mL N 444 Urine Cocaine Negative ng/mL N 445 Urine Phencyclidine Negative ng/mL N Cutoff: 25 Urine Tetrahydrocannabinol Negative ng/mL N Cutoff: 50 446 Creatinine 179.1 mg/dL N Specific Inglis 1.017 N pH 5.7 N Oxidants Negative N 447 Adulterants Comment Normal N Codeine, Ur Not Detected ng/mL N Cutoff: 25 448 Skmezcc-2-uigz-glucuronide, Ur Not Detected ng/mL N 449 Morphine, Ur Not Detected ng/mL N Cutoff: 25 450 Frfwmaav-5-lhlj-glucuronide, U Not Detected ng/mL N 451 6-monoacetylmorphine, Ur Not Detected ng/mL N Cutoff: 25 452 Hydrocodone, Ur Not Detected ng/mL N Cutoff: 25 453 Norhydrocodone, Ur Not Detected ng/mL N Cutoff: 25 454 Dihydrocodeine, Ur Not Detected ng/mL N Cutoff: 25 455 Hydromorphone, Ur Not Detected ng/mL N Cutoff: 25 456 Zsthqkakwsolz4szxakzuvcuzjmdn Not Detected ng/mL N 457 Oxycodone, Ur Present ng/mL N Cutoff: 25 458 Noroxycodone, Ur Present ng/mL N Cutoff: 25 459 Oxymorphone, Ur Not Detected ng/mL N Cutoff: 25 460 Dzrpmpehkzv-6-qfcm-glucuronide Present ng/mL N 461 Noroxymorphone, Ur Present ng/mL N Cutoff: 25 462 Fentanyl, Ur Not Detected ng/mL N Cutoff: 2 463 Norfentanyl, Ur Not Detected ng/mL N Cutoff: 2 464 Meperidine, Ur Not Detected ng/mL N Cutoff: 25 465 Normeperidine, Ur Not Detected ng/mL N Cutoff: 25 466 Naloxone, Ur Not Detected ng/mL N Cutoff: 25 467 Bnzuknoe-3-rggj-glucuronide, U Not Detected ng/mL N 468 Methadone, [...] Not Detected ng/mL N Cutoff: 50 476 Hjfblqndrz-jjrc-joqyhmtaixg, U Not Detected ng/mL N 477 Buprenorphine, Ur Not Detected ng/mL N Cutoff: 5 478 Norbuprenorphine, Ur Not Detected ng/mL N Cutoff: 5 479 Norbuprenorphine glucuronide Not Detected ng/mL N Cutoff: 20 480 Opioid Interpretation See Comment N 481 Drug Abuse 08/09/2016 [facility] Urine Amphetamine Negative ng/ mL N [address] [place] [address] [phone] Urine Barbiturates Negative ng/mL N 483 Urine Benzodiazepines Negative ng/mL N 484 Urine Cocaine Negative ng/mL N 485 Urine Phencyclidine Negative ng/mL N Cutoff: 25 Urine Tetrahydrocannabinol Negative ng/mL N Cutoff: 50 486 Creatinine 188.3 mg/dL N Specific Inglis 1.018 N pH 5.8 N Oxidants Negative N 487 Adulterants Comment Normal N Codeine, Ur Not Detected ng/mL N Cutoff: 25 488 Vdkitdl-7-dxdd-glucuronide, Ur Not Detected ng/mL N 489 Morphine, Ur Not Detected ng/mL N Cutoff: 25 490 Qyerkqwh-6-syeo-glucuronide, U Not Detected ng/mL N 491 6-monoacetylmorphine, Ur Not Detected ng/mL N Cutoff: 25 492 Hydrocodone, Ur Not Detected ng/mL N Cutoff: 25 493 Norhydrocodone, Ur Not Detected ng/mL N Cutoff: 25 494 Dihydrocodeine, Ur Not Detected ng/mL N Cutoff: 25 495 Hydromorphone, Ur Not Detected ng/mL N Cutoff: 25 496 Sckqulamuplfx3nzplyfwdfqkceqw Not Detected ng/mL N 497 Oxycodone, Ur Present ng/mL N Cutoff: 25 498 Noroxycodone, Ur Present ng/mL N Cutoff: 25 499 Oxymorphone, Ur Not Detected ng/mL N Cutoff: 25 500 Oshnegdsvtt-7-jhis-glucuronide Present ng/mL N 501 Noroxymorphone, Ur Present ng/mL N Cutoff: 25 502 Fentanyl, Ur Not Detected ng/mL N Cutoff: 2 503 Norfentanyl, Ur Not Detected ng/mL N Cutoff: 2 504 Meperidine, Ur Not Detected ng/mL N Cutoff: 25 505 Normeperidine, Ur Not Detected ng/mL N Cutoff: 25 506 Naloxone, Ur Not Detected ng/mL N Cutoff: 25 507 Paxgveay-0-wgvh-glucuronide, U Not Detected ng/mL N 508 Methadone, [...] Not Detected ng/mL N Cutoff: 50 516 Zhwkmryipi-rfai-msnlerkbejj, U Not Detected ng/mL N 517 Buprenorphine, Ur Not Detected ng/mL N Cutoff: 5 518 Norbuprenorphine, Ur Not Detected ng/mL N Cutoff: 5 519 Norbuprenorphine glucuronide Not Detected ng/mL N Cutoff: 20 520 Opioid Interpretation See Comment N 521 1 [id number] REFERENCE VALUE Cutoff: 500 3 REFERENCE [...] 100 12 Metabolite of heroin 13 Lortab, [place], Vicodin; Also a very minor metabolite of [...] and several metabolites (noroxycodone, oxymorphone, noroxymorphone, and wggplnfogjw-9-gouq-glucuronide). Suspect use of oxycodone and/or oxymorphone within the past three days. Test detected the presence of norfentanyl (metabolite of fentanyl) only. Suspect use of fentanyl within the past three days. ADDITIONAL INFORMATION This test was developed and its performance characteristics determined by [facility] in a manner consistent with CLIA requirements. This test has not been cleared or approved by the U.S. Food and Drug Administration. Test Performed by: [facility] [address] [place] [address] 42 Troponin-I testing on Plasma Separator Tubes [...] - FDP greater than 20 ug/ml 47 [id number] REFERENCE VALUE Cutoff: 500 49 REFERENCE [...] 100 58 Metabolite of heroin 59 Lortab, [place], Vicodin; Also a very minor metabolite of [...] and several metabolites (noroxycodone, oxymorphone, noroxymorphone, and wulsrreeite-0-lllz-glucuronide). Suspect use of oxycodone and/or oxymorphone within the past three days. Test detected the presence of norfentanyl (metabolite of fentanyl) only. Suspect use of fentanyl within the past three days. ADDITIONAL INFORMATION This test was developed and its performance characteristics determined by [facility] in a manner consistent with CLIA requirements. This test has not been cleared or approved by the U.S. Food and Drug Administration. Test Performed by: [facility] [address] [place] [address] [id number] REFERENCE VALUE Cutoff: 500 90 REFERENCE [...] 100 99 Metabolite of heroin 100 Lortab, [place], Vicodin; Also a very minor metabolite of [...] oxycodone and several metabolites (noroxycodone, noroxymorphone, and gsevknelcqx-3-bqge-glucuronide). Suspect use of oxycodone and/or oxymorphone within the past three days. Test detected the presence of fentanyl and its metabolite (norfentanyl). Suspect use of fentanyl within the past three days. ADDITIONAL INFORMATION This test was developed and its performance characteristics determined by [facility] in a manner consistent with CLIA requirements. This test has not been cleared or approved by the U.S. Food and Drug Administration. Test Performed by: [facility] [address] [place] [address] 129 SEE RESULT BELOW Name: SABRINA CESARTONY : [address]: George Galaviz MD Acct: [id number] Unit: [id number] AGE: 43 Location: ED Re05/10/18 SEX: M Status: REG ER SPEC: [id number] JAYE: 05/10/18-[address] [facility] DR: George Galaviz MD REQ: [id number] RECD: 05/10/18 STATUS: COMP DORA DR: Keon Cabrera MD _ SOURCE: NASAL SPDESC: ORDERED: Flu A B Request Procedure Result Reported Site Rapid Influenza A B Request Final 05/10/18- 111 ML Specimen received for Influenza A/B Molecular testing * ML - Main Lab . END OF REPORT DEPARTMENT OF PATHOLOGY, [address] [place] [address] Brennan Richardson M.D. Director [facility] # [id number] 130 Back Gray Cloth Washer: [id number] 131 Desirable: <150 Borderline High: 150-199 High: [...] reagent. Its performance characteristics were determined by [facility] in a manner consistent with CLIA requirements. This test has not been cleared or approved by the U.S. Food and Drug Administration. This FISH test does not rule out other chromosome abnormalities. 143 RESULT: Endy Patricia M.D. Test Performed by: [address] [address] 144 FINAL DIAGNOSIS: No immunophenotypic abnormality identified. [...] Electronically signed by: Brennan Richardson MD 02/03/18 1252 Technical component performed by: [place] [address] Top Lift Cutter: Patrick Lopez II, MD, PhD. 145 see interpretation 146 Peripheral blood, JAK2 V617F mutation analysis: Negative for JAK2 V617F. Method summary - JAK2 V617F analysis: Quantitative, allele-specific polymerase chain reaction (PCR) assay was performed using extracted genomic DNA to evaluate for the point mutation causing JAK2 V617F. The analytic sensitivity of this assay has been determined at 0.06% (see [facility] Interpretive Handbook for method details). Peripheral blood, [...] for the rare type 1-bp deletion (See [facility] Interpretive Handbook for details). Peripheral blood, MPL exon 10 mutation analysis: Negative. No mutation was detected in MPL, exon 10. Method summary - MPL exon 10 mutation analysis: Genomic DNA was extracted and Valier sequencing used to evaluate for mutations in MPL, exon 10 (see [facility] Interpretive Handbook for method details). The sensitivity of this assay is approximately 20%, such that samples containing lower percentages of mutated DNA will appear negative. Comment: Negative results for [id number], CALR exon 9, and MPL exon 10 [...] developed and its performance characteristics determined by [facility] in a manner consistent with CLIA requirements. This test has not been cleared or approved by the U.S. Food and Drug Administration. Test Performed by: [facility] [address] [place] [address] 147 RESULT: No apparent monoclonal protein on serum electrophoresis. Test Performed by: [facility] [address] [place] [address] 148 Test Performed by: [facility] [place] [place] [address] 149 Normal Range 180 to 914 Indeterminate [...] 5 Kidney failure <15 (or dialysis) 151 [id number] REFERENCE VALUE Cutoff: 500 153 REFERENCE [...] REFERENCE VALUE Cutoff: 100 160 Nicol Guadalupe, MS Contin; Also a minor metabolite (10%) of codeine and can be seen in low concentrations (<2,000 ng/mL) with poppy seed ingestion. 161 Metabolite of morphine REFERENCE VALUE Cutoff: 100 162 Metabolite of heroin 163 Lortab, [place], Vicodin; Also a very minor metabolite of [...] presence of both morphine and its metabolite (elurfvwh-0-xgpt-glucuronide). Suspect use of morphine within the past three days. Alternatively, these results could also be suggestive of heroin use. Low levels of morphine can also be seen following poppy seed ingestion. Test detected the presence of oxycodone and several metabolites (noroxycodone, oxymorphone, noroxymorphone, and tjlmroaqxpg-5-otbb-glucuronide). Suspect use of oxycodone or possibly oxycodone and oxymorphone within the past three days. Test detected the presence of norfentanyl (metabolite of fentanyl) only. Suspect use of fentanyl within the past three days. ADDITIONAL INFORMATION This test was developed and its performance characteristics determined by [facility] in a manner consistent with CLIA requirements. This test has not been cleared or approved by the U.S. Food and Drug Administration. Test Performed by: [facility] [address] [place] [address] 192 [id number] REFERENCE VALUE Cutoff: 500 194 REFERENCE [...] REFERENCE VALUE Cutoff: 100 201 Nicol Guadalupe, Contin; Also a minor metabolite (10%) of codeine and can be seen in low concentrations (<2,000 ng/mL) with poppy seed ingestion. 202 Metabolite of morphine REFERENCE VALUE Cutoff: 100 203 Metabolite of heroin 204 Lortab, [place], Vicodin; Also a very minor metabolite of [...] the presence of both morphine and metabolites (tzafptml-5-ffrl-glucuronide, hydromorphone and apszmfzyoxplr-9-qnij-glucuronide). Suspect use of morphine or morphine and hydromorphone within the past three days. Test detected the presence of oxycodone and several metabolites (noroxycodone, noroxymorphone, and fnvzfuredwu-8-kkum-glucuronide). Suspect use of oxycodone or possibly oxycodone and oxymorphone within the past three days. Test detected the presence of norfentanyl (metabolite of fentanyl) only. Suspect use of fentanyl within the past three days. ADDITIONAL INFORMATION This test was developed and its performance characteristics determined by [facility] in a manner consistent with CLIA requirements. This test has not been cleared or approved by the U.S. Food and Drug Administration. Test Performed by: [facility] [address] [place] [address] 233 Because ethnic data is not always readily [...] 15-29 5 Kidney failure <15 (or dialysis) 234 >100 to <200 pg/mL: likely compensated congestive heart failure (CHF) 200 to 400 pg/mL: likely moderate CHF >400 pg/mL: likely moderate to severe CHF 235 REFERENCE VALUE Cutoff: 500 236 REFERENCE VALUE Cutoff: 200 237 REFERENCE VALUE Cutoff: 100 238 REFERENCE VALUE Cutoff: 150 239 ADDITIONAL INFORMATION This report is intended for use in clinical monitoring or management of patients. It is not intended for use in employment-related testing. 240 REFERENCE VALUE Cutoff: 200 mg/L 241 Tylenol 3 242 Metabolite of codeine REFERENCE VALUE Cutoff: 100 243 Nicol Guadalupe MS Contin; Also a minor metabolite (10%) of codeine and can be seen in low concentrations (<2,000 ng/mL) with poppy seed ingestion. 244 Metabolite of morphine REFERENCE VALUE Cutoff: 100 245 Metabolite of heroin 246 Lortab, [place], Vicodin; Also a very minor metabolite of codeine and impurity (<1%) of oxycodone. 247 Metabolite of hydrocodone 248 Metabolite of hydrocodone 249 Dilaudid, Exalgo; Also a metabolite of hydrocodone and a minor (<5%) metabolite of morphine. 250 Metabolite of hydromorphone REFERENCE VALUE Cutoff: 100 251 Endocet, Percocet, Oxycontin 252 Metabolite of oxycodone 253 Numorphan, Opana; Also a metabolite of oxycodone. 254 Metabolite of oxymorphone REFERENCE VALUE Cutoff: 100 255 Metabolite of oxymorphone 256 Actiq, Duragesic, Fentora 257 Metabolite of fentanyl 258 Demerol 259 Metabolite of meperidine 260 Narcan 261 Metabolite of naloxone REFERENCE VALUE Cutoff: 100 262 Dolophine 263 Metabolite of methadone 264 Darvon, Darvocet 265 Metabolite of propoxyphene 266 Tradol, Ultram, Ultracet 267 Metabolite of tramadol 268 Nucynta 269 Metabolite of tapentadol 270 Metabolite of tapentadol REFERENCE VALUE Cutoff: 100 271 Buprenex, Suboxone 272 Metabolite of buprenorphine 273 Metabolite of buprenorphine 274 Test detected the presence of both morphine and its metabolite (qywuojzs-3-ocwo-glucuronide). Suspect use of morphine within the past three days. Alternatively, these results could also be suggestive of heroin use. Low levels of morphine can also be seen following poppy seed ingestion. Test detected the presence of oxycodone and several metabolites (noroxycodone, noroxymorphone, and uphykxqwdfv-5-hudo-glucuronide). Suspect use of oxycodone or possibly oxycodone and oxymorphone within the past three days. ADDITIONAL INFORMATION This test was developed and its performance characteristics determined by [facility] in a manner consistent with CLIA requirements. This test has not been cleared or approved by the U.S. Food and Drug Administration. Test Performed by: [facility] [address] [place] [address] [id number] REFERENCE VALUE Cutoff: 500 277 REFERENCE [...] 100 286 Metabolite of heroin 287 Lortab, [place], Vicodin; Also a very minor metabolite of [...] presence of both morphine and its metabolites (khpyqahc-0-uvzk-glucuronide and jjurheuroeddv-5-hppf-glucuronide). Suspect use of morphine or morphine and hydromorphone within the past three days. Alternatively, these results could also be suggestive of heroin use. Low levels of morphine can also be seen following poppy seed ingestion. Test detected the presence of oxycodone and several metabolites (noroxycodone, oxymorphone, noroxymorphone, and neazjbfomby-2-kibu-glucuronide). Suspect use of oxycodone or possibly oxycodone and oxymorphone within the past three days. ADDITIONAL INFORMATION This test was developed and its performance characteristics determined by [facility] in a manner consistent with CLIA requirements. This test has not been cleared or approved by the U.S. Food and Drug Administration. Test Performed by: [facility] [address] [place] [address] 316 Serum levels of PSA measured using the Ani Elmira DXI Hybritech immunoassay should not be interpreted [...] 100 332 Metabolite of heroin 333 Lortab, [place], Vicodin; Also a very minor metabolite of [...] oxycodone and several metabolites (noroxycodone, noroxymorphone, and zccqjzhogpv-5-dztq-glucuronide). Suspect use of oxycodone or possibly oxycodone and oxymorphone within the past three days. ADDITIONAL INFORMATION This test was developed and its performance characteristics determined by [facility] in a manner consistent with CLIA requirements. This test has not been cleared or approved by the U.S. Food and Drug Administration. Test Performed by: [facility] [address], [place] [address] 362 REFERENCE VALUE Cutoff: [phone] REFERENCE [...] 100 372 Metabolite of heroin 373 Lortab, [place], Vicodin; Also a very minor metabolite of [...] the presence of morphine and its metabolites (ekuslyjw-6-adnz-glucuronide, hydromorphone, and lnbvpjabpomyp-7-qhrc-glucuronide) along with qrieoni-4-wlux-glucuronide (metabolite of codeine). Suspect use of morphine or morphine and hydromorphone within the past three days. In addition, suspect possible use of codeine within the past three days or trace amounts of codeine can also be found as an impurity in morphine. Test detected the presence of oxycodone and several metabolites (noroxycodone, noroxymorphone, and frcmqqrjoyl-6-pral-glucuronide). Suspect use of oxycodone or possibly oxycodone and oxymorphone within the past three days. ADDITIONAL INFORMATION This test was developed and its performance characteristics determined by [facility] in a manner consistent with CLIA requirements. This test has not been cleared or approved by the U.S. Food and Drug Administration. Test Performed by: [facility] - [address] [place] [address] 402 REFERENCE VALUE Cutoff: [phone] REFERENCE [...] due to analyte specific failure. 413 Lortab, [place], Vicodin; Also a very minor metabolite of [...] developed and its performance characteristics determined by [facility] in a manner consistent with CLIA requirements. This test has not been cleared or approved by the U.S. Food and Drug Administration. Test Performed by: [facility] - [address] [address] 442 REFERENCE VALUE Cutoff: 500 443 REFERENCE [...] 100 452 Metabolite of heroin 453 Lortab, [place], Vicodin; Also a very minor metabolite of [...] oxycodone and several metabolites (noroxycodone, noroxymorphone, and rfcwvhhzcmb-1-naoc-glucuronide). Suspect use of oxycodone or possibly oxycodone and oxymorphone within the past three days. ADDITIONAL INFORMATION This test was developed and its performance characteristics determined by [facility] in a manner consistent with CLIA requirements. This test has not been cleared or approved by the U.S. Food and Drug Administration. Test Performed by: [facility] [address] [place] [id number] [phone] REFERENCE VALUE Cutoff: [phone] REFERENCE [...] codeine REFERENCE VALUE Cutoff: 100 490 Nicol Guadalupe MS Contin; Also a minor metabolite (10%) of codeine and can be seen in low concentrations (<2,000 ng/mL) with poppy seed ingestion. 491 Metabolite of morphine REFERENCE VALUE Cutoff: 100 492 Metabolite of heroin 493 Lortab, [place], Vicodin; Also a very minor metabolite of [...] oxycodone and several metabolites (noroxycodone, noroxymorphone, and ptsjgjdqppr-7-pcyk-glucuronide). Suspect use of oxycodone or possibly oxycodone and oxymorphone within the past three days. ADDITIONAL INFORMATION This test was developed and its performance characteristics determined by [facility] in a manner consistent with CLIA requirements. This test has not been cleared or approved by the U.S. Food and Drug Administration. Test Performed by: [facility] - [address] [address] Procedures Date Code Description Status 12/29/2017 41711 ECHO Transthorasic Realtime 2D W Doppler & Color Flow Hosp Completed 12/29/2017 18221 ECHO Transthorasic Realtime 2D W Doppler & Color Flow Hosp Completed 12/29/2017 32252 ECHO Transthoracic, Real-Time 2D With Doppler And Color Completed Flow Encounters Type Date Location Provider Dx Diagnosis Office Visit 10/07/2018 [facility] Internal Aileen Vicente MD I10 Essential ( primary) 3:00p Medicine hypertension G89.4 Chronic pain syndrome M17.12 Unilateral primary osteoarthritis, left knee Office Visit 09/07/2018 11:00a [facility] Rip Vicente MD G89.4 Chronic pain Medicine syndrome Z79.891 director heart (current) use of opiate analgesic I10 Essential (primary) hypertension M25.562 Pain in left knee Office Visit 07/03/2018 1:40p [facility] Internal Troy De Leon NP G89.4 Chronic pain Medicine syndrome R60.0 Localized edema Office Visit 05/15/2018 4:40p [facility] Internal Keon Fowler G89.4 Chronic pain Medicine - Dai Cabrera M.D.,FACP syndrome Rd G47.33 Obstructive sleep apnea (adult) (pediatric) E66.8 Other obesity Office Visit 05/11/2018 1:40p [facility] Rip De Leon J06.9 Acute upper Medicine CAUSTIC [employer]ESYL[employer] SUPERINTENDENT respiratory infection, unspecified Office Visit 04/10/2018 4:00p [facility] Rip Fowler G89.4 Chronic pain Medicine - [place] [address], syndrome Rd Shiva,FACP E78.5 Hyperlipidemia, unspecified I10 Essential (primary) hypertension D72.829 Elevated white blood cell count, unspecified Office Visit 04/08/2018 1:00p [facility] Internal Troy De Leon NP Z00.00 Encntr for Medicine general adult medical exam w/o abnormal findings I10 Essential (primary) hypertension E78.5 Hyperlipidemia, unspecified Z23 Encounter for immunization Office Visit 01/22/2018 [facility] Internal Keon Fowler 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.,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 G89.4 Chronic pain syndrome D64.9 Anemia, unspecified D72.829 Elevated white blood cell count, unspecified I51.7 Cardiomegaly Office Visit 12/29/2017 1:00p [facility] Internal Becca I50.9 Heart failure, Medicine - Tbdu Marker, RPA-C unspecified Rd G89.4 Chronic pain syndrome D72.829 Elevated white blood cell count, unspecified D64.9 Anemia, unspecified Office Visit 11/28/2017 11:30a [facility] Rip Fowler I50.9 Heart failure, Valerie Cabrera M.D.,FACP unspecified [address] G89.4 Chronic pain syndrome I10 Essential (primary) hypertension M25.511 Pain in right shoulder Office Visit 08/28/2017 11:20a [facility] Rip Fowler I10 Essential ( primary) Valerie Cabrera M.D.,FACP hypertension [address] G89.4 Chronic pain syndrome M25.511 Pain in right shoulder Office Visit 04/09/2017 3:40p [facility] Rip Fowler G89.4 Chronic pain Medicine - Tbdu Cabrera M.D.,FACP syndrome Rd I10 Essential (primary) hypertension Z23 Encounter for immunization Office Visit 03/19/2017 1:40p [facility] Internal Troy De Leon, R35.0 Frequency of Medicine CA[employer] CRESYL[employer] SHIFT SUPERINTENDENT micturition Z13.220 Encounter for screening for lipoid disorders Z13.1 Encounter for screening for diabetes mellitus Office Visit 01/16/2017 11:40a [facility] Internal Troy De Leon NP E66.8 Other obesity Medicine I10 Essential (primary) hypertension G89.4 Chronic pain syndrome Office Visit 12/31/2016 4:40p [facility] Keon Fowler G89.4 Chronic pain Medicine Shiva Cabrera,FACP syndrome T75.3xxA Motion sickness, initial encounter I10 Essential (primary) hypertension Office Visit 11/11/2016 4:40p [facility] Keon Fowler G89.4 Chronic pain Medicine - [place] Sh[place] Cabrera,FACP syndrome Rd E66.8 Other obesity I10 Essential (primary) hypertension Office Visit 11/04/2016 2:00p [facility] Troy De Leon NP M54.5 Low back pain Medicine H61.23 Impacted cerumen, bilateral Office Visit 10/11/2016 10:40a [facility] Troy De Leon NP M54.5 Low back pain Medicine Office Visit 09/19/2016 8:40a [facility] Troy De Leon NP Z79.899 Other group home Medicine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 therapy H61.23 Impacted cerumen, bilateral D48.5 Neoplasm of uncertain behavior of skin Office Visit 09/13/2016 2:00p [facility] Internal Troyjessa De Leon, K08.89 Other specified Medicine CA[employer] SH[employer] SUPERINTENDENT disorders of teeth and supporting structures M79.601 Pain in right arm Office Visit 08/23/2016 10:00a [facility] Internal Troy De Leon CAUSTIC CRESYLATE SHIFT SUPERINTENDENT M54.5 Low back pain Medicine Office Visit 08/09/2016 3:00p [facility] Troy De Leon NP E66.8 Other obesity Medicine M54.5 Low back pain Office Visit 06/23/2007 1:30p Neurosurgery Jaylan Hart 721.3 [facility] Shiva Dominique Lumbar W/O Myelopathy Plan of Treatment Future Appointment(s):10/16/2018 3:15 pm - Jelani Alcaraz MD at [facility]11/18/2018 4:00 pm - Aileen Vicente MD at [facility] Internal Nxyhbnph59/22/2019 9:30 am - Dian Gloria MD at [facility]
[2018-11-09] MEDS ORDERED: Ketorolac INJ* 30 MG/ML 1 ML VIAL IM ONE (23:31)
[2018-11-09] MEDS ORDERED: oxyCODONE/Acetamin 5/325 MG* TAB PO ONE (23:31)
--- NOTE | 2018-11-09 23:31 | ED ---
Lower Extremity - HPI Summary HPI Summary: 43-year-old male presents with acute on chronic pain with back and knee. He rain out of pain medication. he contacted pain management today and they're trying to work on it. He states that he started having nausea and worsening pain due to being out of pain medication. Denies any urinary symptoms. Denies any loss of bowel or bladder. No saddle anesthesia. No new injury. He states he is only here for pain medication. - History of Current Complaint Chief Complaint: EDBackInjuryPain Stated Complaint: PAIN IN BACK AND LT KNEE PER PT Time Seen by Provider: 11/09/18 23:04 Pain Intensity: 8 - Allergies/Home Medications Allergies/Adverse Reactions: Allergies Allergy/AdvReac Type Severity Reaction Status Date / Time No Known Allergies Allergy Verified 11/09/18 21:44 PMH/Surg Hx/FS Hx/Imm Hx Endocrine/Hematology History: Denies: Hx Anticoagulant Therapy Cardiovascular History: Reports: Hx Coronary Artery Disease, Hx Hypertension History: Denies: Hx Dialysis Musculoskeletal History: Reports: Hx Back Problems - chronic pain, Other Musculoskeletal History - chronic Rt arm pain Sensory History: Denies: Hx Eye Prosthesis, Hx Legally Blind, Hx Deafness Opthamlomology History: Denies: Hx Eye Prosthesis, Hx Legally Blind Neurological History: Denies: Hx Dementia Psychiatric History: Reports: Other Psychiatric Issues/Disorders - obesity Denies: Hx Autism - Surgical History Surgery Procedure, Year, and Place: none Infectious Disease History: No Infectious Disease History: Denies: Traveled Outside the [place] in Last 30 Days - Family History Known Family History: Negative: Cardiac Disease - Social History Alcohol Use: None Hx Substance Use: Yes Substance Use Type: Reports: None Substance Use Comment - Amount & Last Used: oxycodone, morphine Hx Tobacco Use: No Smoking Status (MU): Never Smoked Tobacco Review of Systems Negative: Fever Negative: Chest Pain Negative: Shortness Of Breath Positive: Myalgia - left knee pain, back pain All Other Systems Reviewed And Are Negative: Yes Physical Exam Triage Information Reviewed: Yes Vital Signs On Initial Exam: Initial Vitals Temp Pulse Resp BP Pulse Ox 98.6 F 111 18 135/82 96 11/09/18 21:42 11/09/18 21:42 11/09/18 21:42 11/09/18 21:42 11/09/18 21:42 Vital Signs Reviewed: Yes Appearance: Positive: Well-Appearing Skin: Positive: Warm, Dry Head/Face: Positive: Normal Head/Face Inspection Eyes: Positive: Normal, Conjunctiva Clear ENT: Positive: Pharynx normal Respiratory/Lung Sounds: Positive: Clear to Auscultation, Breath Sounds Present Cardiovascular: Positive: Normal, RRR Musculoskeletal: Positive: Other - tenderness lower back, neg SLR, tenderness left knee, good pulses Neurological: Positive: Normal Psychiatric: Positive: Normal Diagnostics - Vital Signs Vital Signs Temp Pulse Resp BP Pulse Ox 11/09/18 21:42 98.6 F 111 18 135/82 96 - Laboratory Lab Statement: Any lab studies that have been ordered have been reviewed, and results considered in the medical decision making process. Lower Extremity Course/Dx - Course Course Of Treatment: 43-year-old male presents with acute on chronic pain with back and knee. He rain out of pain medication. he contacted pain management today and they're trying to work on it. He states that he started having nausea and worsening pain due to being out of pain medication. Denies any urinary symptoms. Denies any loss of bowel or bladder. No saddle anesthesia. No new injury. He states he is only here for pain medication. On exam tenderness of lower back and left knee. No sign of infection of left knee. Patient just had an injection of the knee. Gave dose pain medication here. Explained cannot give prescription for pain medication. Told to contact primary about refill. Patient understands agrees with plan. - Diagnoses Differential Diagnosis/HQI/PQRI: Positive: Fracture (Closed), Sprain, Strain Provider Diagnoses: Chronic pain Discharge - Sign-Out/Discharge Documenting (check all that apply): Patient Departure Patient Received Moderate/Deep Sedation with Procedure: No - Discharge Plan Condition: Good Disposition: HOME Patient Education Materials: Back Pain (ED) Referrals: Aileen Vicente MD [Primary Care Provider] - Additional Instructions: follow up with primary about pain medications ice, take tyenlol or ibuprofen every 6 hours Return to ED if develop any new or worsening symptoms - Billing Disposition and Condition Condition: GOOD Disposition: Home
[2018-11-09 23:51] VITALS: BP 186/84
== END 2018-11-09 23:50 | disposition home or self-care (01) ==
LOC: ED 21:38
DX: G89.29 Other chronic pain (principal); M54.9 Dorsalgia, unspecified; M25.562 Pain in left knee; R11.0 Nausea
CPT/HCPCS: 96372; 99282; A9270-GY; J1885

== ENCOUNTER → 2018-11-10 18:39 | Emergency (ER) | payer OTHER ==
[~2018-11-10 18:39] MED LIST: oxyCODONE/Acetamin 5/325 MG* TAB PO ONE
--- NOTE | 2018-11-10 19:46 | ED ---
Back Pain - HPI Summary HPI Summary: Patient with history of chronic back and left knee pain complains of not being able to fill prescription for pain medication due to insurance complications. States he has been receiving pain medication prescription for years, but recently insurance has been denying prescription. Seen here 11/07, 11/09 for same. Denies any new injury, other pain, other symptoms. Just wants some pain medication here in the ED. States attempting to get pain management, attempting to work out prescription issues with primary care and insurance. - History of Current Complaint Chief Complaint: EDBackInjuryPain Stated Complaint: HURT BACK AND KNEE PER PT Time Seen by Provider: 11/10/18 19:13 Hx Obtained From: Patient Onset/Duration: Gradual Onset Timing: Constant Severity Initially: Severe Severity Currently: Severe Pain Intensity: 8 Pain Scale Used: 0-10 Numeric Character: Aching, Throbbing Aggravating Symptom(s): Movement Alleviating Symptom(s): Rest Associated Signs And Symptoms: Positive: Negative - Allergies/Home Medications Allergies/Adverse Reactions: Allergies Allergy/AdvReac Type Severity Reaction Status Date / Time No Known Allergies Allergy Verified 11/10/18 18:46 PMH/Surg Hx/FS Hx/Imm Hx Endocrine/Hematology History: Denies: Hx Anticoagulant Therapy Cardiovascular History: Reports: Hx Coronary Artery Disease, Hx Hypertension History: Denies: Hx Dialysis Musculoskeletal History: Reports: Hx Back Problems - chronic pain, Other Musculoskeletal History - chronic Rt arm pain Sensory History: Denies: Hx Eye Prosthesis, Hx Legally Blind, Hx Deafness Opthamlomology History: Denies: Hx Eye Prosthesis, Hx Legally Blind Neurological History: Denies: Hx Dementia Psychiatric History: Reports: Other Psychiatric Issues/Disorders - obesity Denies: Hx Autism - Surgical History Surgery Procedure, Year, and Place: none Infectious Disease History: No Infectious Disease History: Denies: Traveled Outside the [place] in Last 30 Days - Family History Known Family History: Negative: Cardiac Disease - Social History Alcohol Use: None Hx Substance Use: Yes Substance Use Type: Reports: None Substance Use Comment - Amount & Last Used: oxycodone, morphine Hx Tobacco Use: No Smoking Status (MU): Never Smoked Tobacco Review of Systems Constitutional: Negative Eyes: Negative ENT: Negative Cardiovascular: Negative Respiratory: Negative Gastrointestinal: Negative Genitourinary: Negative Musculoskeletal: Other Skin: Negative Neurological: Negative Psychological: Normal All Other Systems Reviewed And Are Negative: Yes Physical Exam - Summary Physical Exam Summary: No pain with palpation of lower back. No bony point tenderness. No pain with palpation of left knee. Patient ambulatory here in the ED. No erythema, ecchymosis, deformity swelling, extra warmth noted to lower back or left knee. Patient states baseline range of motion for left knee and back. Triage Information Reviewed: Yes Vital Signs On Initial Exam: Initial Vitals Temp Pulse Resp BP Pulse Ox 97.6 F 86 16 149/118 92 11/10/18 18:42 11/10/18 18:42 11/10/18 18:42 11/10/18 18:42 11/10/18 18:42 Vital Signs Reviewed: Yes Appearance: Positive: Well-Appearing Skin: Positive: Warm Head/Face: Positive: Normal Head/Face Inspection Eyes: Positive: Normal Neck: Positive: Supple Respiratory/Lung Sounds: Positive: Clear to Auscultation Cardiovascular: Positive: Normal Abdomen Description: Positive: Nontender Musculoskeletal: Positive: Normal Neurological: Positive: Normal Psychiatric: Positive: Normal AVPU Assessment: Alert - [place] Coma Scale Best Eye Response: 4 - Spontaneous Best Motor Response: 6 - Obeys Commands Best Verbal Response: 5 - Oriented Coma Scale Total: 15 Diagnostics - Vital Signs Vital Signs Temp Pulse Resp BP Pulse Ox 11/10/18 18:42 97.6 F 86 16 149/118 92 - Laboratory Lab Statement: Any lab studies that have been ordered have been reviewed, and results considered in the medical decision making process. Back Pain Course/Dx - Course Course Of Treatment: Patient with history of chronic back and left knee pain complains of not being able to fill prescription for pain medication due to insurance complications. States he has been receiving pain medication prescription for years, but recently insurance has been denying prescription. Seen here 11/07, 11/09 for same. Denies any new injury, other pain, other symptoms. Just wants some pain medication here in the ED. States attempting to get pain management, attempting to work out prescription issues with primary care and insurance. Physical exam:No pain with palpation of lower back. No bony point tenderness. No pain with palpation of left knee. Patient ambulatory here in the ED. No erythema, ecchymosis, deformity swelling, extra warmth noted to lower back or left knee. Patient states baseline range of motion for left knee and back. Vital signs within normal limits. Patient given Percocet here in the ED. Advised we cannot give pain medication prescription for chronic pain. Advised patient to continue to follow up with insurance and primary care. Patient agreeable to plan. - Diagnoses Provider Diagnoses: Chronic back pain Discharge - Sign-Out/Discharge Documenting (check all that apply): Patient Departure Patient Received Moderate/Deep Sedation with Procedure: No - Discharge Plan Condition: Stable Disposition: HOME Patient Education Materials: Chronic Back Pain (DC) Referrals: Aileen Vicente MD [Primary Care Provider] - Additional Instructions: Follow-up with primary care for management of chronic back pain. Return to the ED for any new or worsening symptoms. - Billing Disposition and Condition Condition: STABLE Disposition: Home
[2018-11-10 20:06] VITALS: BP 155/102
== END | disposition home or self-care (01) ==
LOC: ED 18:39
DX: G89.29 Other chronic pain (principal); M54.9 Dorsalgia, unspecified; M25.562 Pain in left knee
CPT/HCPCS: 99282; A9270-GY

== ENCOUNTER 2018-12-04 21:12 | Inpatient (IN) | payer OTHER ==
--- NOTE | 2018-12-04 21:36 | ED ---
Psychiatric Complaint - HPI Summary HPI Summary: This pt is a 43 y/o male presenting to [facility] c/o worsening depression and SI. Pt reports he has had depression for a long time. He notes he has been having SI thoughts and today had SI [place] [employer]. He states he has recent stressors, father who recently . Pt also reports that he has "a lot of stuff piling up" from all his life. He notes he has chronic pain in his back and knees that aggravate his SI. Pt states having URI for a few days now and nonproductive cough that began a couple of days ago. He has been taking cough medicine with no effect. Denies alcohol use today. - History Of Current Complaint Chief Complaint: EDMentalHealth Time Seen by Provider: 12/04/18 21:28 Hx Obtained From: Patient Onset/Duration: Lasting Days, Still Present Timing: Days Severity Currently: Moderate Character: Depressed Aggravating Factor(s): Recent Stress Alleviating Factor(s): Nothing Has Suicidal: Reports: Thoughts, With A Plan Has Homicidal: Denies: Thoughts, With A Plan Recent Stressor(s): father recently - Allergies/Home Medications Allergies/Adverse Reactions: Allergies Allergy/AdvReac Type Severity Reaction Status Date / Time No Known Allergies Allergy Verified 12/04/18 21:24 PMH/Surg Hx/FS Hx/Imm Hx Endocrine/Hematology History: Denies: Hx Anticoagulant Therapy Cardiovascular History: Reports: Hx Coronary Artery Disease, Hx Hypertension History: Denies: Hx Dialysis Musculoskeletal History: Reports: Hx Back Problems - chronic pain, Other Musculoskeletal History - chronic Rt arm pain Sensory History: Denies: Hx Eye Prosthesis, Hx Legally Blind, Hx Deafness Opthamlomology History: Denies: Hx Eye Prosthesis, Hx Legally Blind Neurological History: Denies: Hx Dementia Psychiatric History: Reports: Hx Depression, Other Psychiatric Issues/Disorders - obesity Denies: Hx Autism - Surgical History Surgery Procedure, Year, and Place: none Infectious Disease History: No Infectious Disease History: Denies: Traveled Outside the [place] in Last 30 Days - Family History Known Family History: Negative: Cardiac Disease - Social History Alcohol Use: None Hx Substance Use: Yes Substance Use Type: Reports: None Substance Use Comment - Amount & Last Used: oxycodone, morphine Hx Tobacco Use: No Smoking Status (MU): Never Smoked Tobacco Review of Systems Negative: Fever, Chills Positive: Cough Musculoskeletal: Other - POSITIVE: chronic pain in back and knees Psychological: Other - POSITIVE: SI thoughts and plan Positive: Depressed. Negative: Other - NEGATIVE: HI All Other Systems Reviewed And Are Negative: Yes Physical Exam - Summary Physical Exam Summary: VITAL SIGNS: Reviewed. GENERAL: Patient is a well-developed and obese male who is lying comfortable in the stretcher. Patient is not in any acute respiratory distress. HEAD AND FACE: No signs of trauma. No ecchymosis, hematomas or skull depressions. No sinus tenderness. EYES: PERRLA, EOMI x 2, No injected conjunctiva, no nystagmus. EARS: Hearing grossly intact. Ear canals and tympanic membranes are within normal limits. MOUTH: Oropharynx within normal limits. NECK: Supple, trachea is midline, no adenopathy, no JVD, no carotid bruit, no c- spine tenderness, neck with full ROM. CHEST: Symmetric, no tenderness at palpation LUNGS: Clear to auscultation bilaterally. No wheezing or crackles. Patient with dry cough. CVS: Regular rate and rhythm, S1 and S2 present, no murmurs or gallops appreciated. ABDOMEN: Soft, non-tender. No signs of distention. No rebound, no guarding, and no masses palpated. Bowel sounds are normal. EXTREMITIES: FROM in all major joints, no edema, no cyanosis or clubbing. NEURO: Alert and oriented x 3. No acute neurological deficits. Speech is normal and follows commands. SKIN: Dry and warm Triage Information Reviewed: Yes Vital Signs On Initial Exam: Initial Vitals Temp Pulse Resp BP Pulse Ox 97.8 F 83 16 157/95 95 12/04/18 21:17 12/04/18 21:17 12/04/18 21:17 12/04/18 21:17 12/04/18 21:17 Vital Signs Reviewed: Yes Diagnostics - Vital Signs Vital Signs Temp Pulse Resp BP Pulse Ox 12/04/18 21:17 97.8 F 83 16 157/95 95 - Laboratory Result Diagrams: 12/04/18 21:40 Lab Statement: Any lab studies that have been ordered have been reviewed, and results considered in the medical decision making process. - Radiology Chest XR Radiology Interpretation Completed By: ED Physician Summary of Radiographic Findings: Cardiomegaly. No infiltrates. Re-Evaluation - Re-Evaluation First Eval Re-Evaluation Time: 21:33 Comment: Pt is medically cleared. Course/Dx - Course Assessment/Plan: Blood work w/o a significant abnormality. He is medically cleared. He is awaiting a MHE. Patient is hemodynamically stable and A+O x 3. Patient will be signed out to Dr. Cedeno at shift change pending mental health evaluation and disposition. - Differential Dx/Clinical Impression Provider Diagnosis: Depression, URI, acute Discharge - Sign-Out/Discharge Documenting (check all that apply): Sign-Out Patient Signing out patient TO: Anita Redman - pending MHE and dispo Patient Received Moderate/Deep Sedation with Procedure: No - Discharge Plan Condition: Stable Referrals: Aileen Vicente MD [Primary Care Provider] - - Billing Disposition and Condition Condition: STABLE - Attestation Statements Document Initiated by Scribe: Yes Documenting Scribe: nAa Franco Provider For Whom Scribe is Documenting (Include Credential): Marvin Alfonso MD Scribe Attestation: Ana Mars, scribed for Marvin Alfonso MD on 12/04/18 at 2201. Scribe Documentation Reviewed: Yes Provider Attestation: The documentation as recorded by the Ana arevalo accurately reflects the service I personally performed and the decisions made by , Marvin Alfonso MD Status of Scribe Document: Viewed
--- OUTSIDE RECORDS SUMMARY | 2018-12-04 21:40 | XMS REPORT | Continuity of Care Document ---
:1975 External Reference #:[id number] Author Name Ronna Wong Care Team Providers Name Role Phone Aileen Vicente M.D. Primary Care Physician Unavailable Payers Date Identification Numbers Payment Provider Subscriber Effective: 2016 Policy Number: [id number] [employer] Medicaid Tony Bennett JR PayID: [id number] [address] [address] [place] [address] Advance Directives Type Date Description Status Comment Other Directive 08/28/2017 Health Care Proxy Current and Verified Problems Active Problems Provider Date Hypertensive left ventricular Keon Cabrera M.D.,FACP Onset: 01/22/2018 hypertrophy Note: moderate on echo Essential hypertension Keon Cabrera M.D.,FACP Onset: 11/11/2016 Obesity Troy Haley, KNOWLEDGE MANAGEMENT CONSULTANT Onset: 08/14/2016 Low back pain Troy Haley, KNOWLEDGE MANAGEMENT CONSULTANT Onset: 08/14/2016 Hyperlipidemia Troy Haley, KNOWLEDGE MANAGEMENT CONSULTANT Onset: 08/14/2016 Chronic pain syndrome Keon Cabrera M.D.,FACP Onset: 11/11/2016 Body mass index 40+ - severely obese Keon Cabrera M.D.,FACP Onset: 05/2017 Leukocytosis Keon Cabrera M.D.,FACP Onset: 05/15/2018 Note: sees Dr. Wesley Faulkner, primary osteoarthritis Jelani Alcaraz MD Onset: 10/14/2018 Family History Date Family Member(s) Observation Comments General Heart Disease General Hypertension General Cancer Father [place] at 40. Currently 75 Mother due to Cancer () - colon at 55. Social History Type Date Description Comments Sex Unknown Marital Status Single Occupation Unemployed Tobacco Use Start: Unknown Never Smoked Cigarettes Smoking Status Reviewed: 11/18/18 Never Smoked Cigarettes ETOH Use 08/28/2017 Denies alcohol use Tobacco Use Start: Unknown Patient has never smoked Recreational Drug Use Denies Drug Use Exercise Type/Frequency Mild exercise Allergies, Adverse Reactions, Alerts Description No Known Drug Allergies Medications Active Medications SIG Qnty Indications Ordering Date Provider Fentanyl apply one patch once 5units Aileen Vicente MD 11/18/2018 25mcg/HR every 3 days Patches 72HR Lisinopril 1 by mouth every day I10 Aileen Vicente MD 10/07/2018 20mg bid Tablets Amlodipine Besylate 1 by mouth every day 30tabs I10 Aileen Vicente MD 2018 10mg Tablets Optichamber Harper Use With Inhalers 1units Keon Fowler 05/14/2018 [facility] Shiva Cabrera,FACP Ventolin HFA take 2 puffs by 18units Troy De Leon NP 04/14/2018 mouth every 4 hours 108(90Base) mcg/Act as needed Aerosol Buspirone HCL take 1 tablet by 120tabs F41.9 Keon Fowler 04/10/2018 15mg mouth 4 times a day Shiva Cabrera,FACP Tablets Ropinirole HCL Take 1 Tablet By 30tabs Troy De Leon NP 04/08/2018 2mg Mouth Every Day Tablets Aerochamber MV use with inhaler 1unjuan manuel Fowler 12/22/2017 mediations Shiva Cabrera,FACP Misc Docusate Sodium 1 tab every 12 hours 120caps Keon Fowler 11/28/2017 as needed for Shiva Cabrera,FACP 100mg Capsules constipation Cymbalta take one capsule by 90caps G89.4 Aileen Viecnte MD 08/05/2017 60mg Caps mouth every evening DR Gonzales M54.5 Tizanidine HCL Take 1 Tablet By 60tabs Troy De Leon NP 06/04/2017 4mg Tablets Mouth Every 6 Hours as Needed Omeprazole Take 1 Capsule By 30caps Troy De Leon NP 05/23/[address] Mouth Every Day [facility] Motion Sickness take 1/2-1 tablet by 32units Aileen Vicente MD 2016 Relief mouth three times a 25mg Chewtabs day as needed Oxycodone-Acetaminophen take 1 tablet by 42tabs G89.4 Aileen Vicente MD 12/2016 mouth every 4 hours 10-325mg Tablets as needed for pain M54.5 Furosemide take 1 tablet by 30tabs Aileen Vicente MD 04/09/2017 20mg Tablets mouth every day in the morning Diphenhydramine HCL 1 cap every night Unknown 25mg Capsules at bedtime for sleep Bupropion HCL ER (SR) take 1 tablet by 90tabs Keon Cabrera, 150mg Tablets mouth every day M.D.,FACP ER 12HR Duloxetine HCL take one capsule by 90treasure Vicente MD 30mg Caps DR Part mouth every morning Iron 1 by mouth every Unknown 325(65Fe) mg Tablets day Gabapentin take one capsule by 120caps Aileen Vicente MD 300mg Capsules mouth in the morning , 1 cap at midday and 2 caps at bedtime Atorvastatin Calcium take 1 tablet by 90tabs Keon Cabrera, 40mg Tablets mouth every day in M.D.,FACP the evening History Medications Buprenorphine HCL 1-2 sl three 60tabs Aileen Vicente MD 11/14/2018 - 2mg times a day as 11/18/2018 Tablets Sub needed for pain Buprenorphine HCL 1 sl every 12 30tabs Aileen Vicente MD 11/10/2018 - 8mg hours as needed 11/14/2018 Tablets Sub for pain Lisinopril 1 by mouth 30tabs I10 Aileen Vicente MD 09/11/2018 - 40mg Tablets every day 10/07/2018 Benzonatate one by mouth 30caps J06.9 Troy De Leon NP 05/11/2018 - 200mg three times 05/18/2018 Capsules daily as needed for cough Guaiatussin ac Codeine 120units Unknown 05/10/2018 - Phosphate/Guaif 05/15/2018 100-10mg/5ML Syrup enesin Fentanyl apply one patch 10units Aileen Vicente MD 04/10/2018 - 25mcg/HR once every 3 11/13/2018 Patches 72HR days Buspirone HCL 1 by mouth 60tabs F41.9 Keon Fowler 04/01/2018 - 30mg twice a day Shiva Cabrera,[facility] 04/10/2018 Tablets Fentanyl apply one patch 10units M79.601 Keon Fowler 02/04/2018 - 25mcg/HR once every 3 Shiva Cabrera,[facility] 03/17/2018 Patches 72HR days Nucynta ER 1 by mouth 60tabs M79.601 Keon Fowler 01/22/2018 - 50mg Tablets twice a day Shiva Cabrera,[facility] 02/04/2018 ER 12HR Lisinopril 1 by mouth 60tabs I10 Aileen Vicente MD 01/22/2018 - 20mg Tablets twice a day 09/11/2018 Buspirone HCL take 1 tablet 120tabs F41.9 Koen Fowler 06/20/2017 - 15mg by mouth four Shiva Cabrera,[facility] 04/01/2018 Tablets times a day Lisinopril 1/2 by mouth 90tabs Keon Fowler 06/09/2017 - 40mg Tablets twice a day Shiva Cabrera,[facility] 01/22/2018 Meclizine HCL 1/2-1 by mouth 30tabs Virgilio 12/31/2016 - 25mg three times a PachShiva robles 04/13/2017 Tablets day as needed Lisinopril take 1 tablet 60tabs Keon Fowler 11/11/2016 - 20mg Tablets by mouth twice Shiva Cabrera,[facility] 06/09/2017 a day Oxycodone HCL 1 tab three 45tabs G89.4 Keon Fowler 11/11/2016 - 20mg times daily as Shiva Cabrera,[facility] 04/09/2017 Tablets needed M54.5 Morphine Sulfate ER 1 tab twice 60tabs M79.601 Keon Fowler 11/11/2016 - daily Shiva Cabrera,[facility] 01/22/2018 15mg Tablets ER Meloxicam once daily [...] Keon Fowler - orothiazide every morning Shiva Cabrera,[facility] 04/09/2017 20-25mg Tablets Potassium Chloride 1 tab daily Emir Hunter, - Tanya ER 04/10/2018 20Meq Tablets ER Proair HFA inhale 2 puffs 8.500gm Troy De Leon NP - by mouth every 10/07/2018 108(90Base) mcg/Act 4 hours as Aerosol needed Buspirone HCL take 1/2 tablet 60tabs F41.9 Keon Fowler - 30mg by mouth four Shiva Cabrera,[facility] 06/20/2017 Tablets times a day Metaxalone Take 1 Tablet 90tabs Keon Fowler - 800mg By Mouth 3 Shiva Cabrera,[facility] 06/04/2017 Tablets Times A Day Miralax 17 grams by Unknown - Powder mouth every day 10/07/2018 as needed Medications Administered in Office Medication SIG Qnty Indications Ordering Provider Date Triamcinolone (Kenalog) Jelani Alcaraz MD 10/16/2018 Injection Immunizations CPT Code Status Date Vaccine Reaction Lot # [id number] Given 04/08/2018 Tdap - No immediate [id number] Tetanus/Diptheria/Acellular reaction... Pertussis 41095 Given 04/08/2018 Influenza Virus Vaccine, No immediate [id number] Quadrivalent, Split, reaction... Preservative Free 62716 Given 04/09/2017 Influenza Virus Vaccine, [id number] Quadrivalent, Split, Preservative Free Vital Signs Date Vital Result Comment 11/18/2018 3:50pm Weight 440.00 lb Heart Rate 87 /min BP Systolic 122 mmHg BP Diastolic 88 mmHg Body Temperature 98.2 F O2 % BldC Oximetry 97 % 10/16/2018 3:21pm Height 68 inches 5'8" Weight [...] Result H/L Range Note Drug Abuse 09/30/2018 [facility] Urine Amphetamine Negative ng/ mL 1, 2 [address] [place] [address] [phone] Urine Barbiturates Negative ng/mL 3 Urine Benzodiazepines Negative ng/mL 4 Urine Cocaine Negative ng/mL 5 Urine Phencyclidine Negative ng/mL Cutoff: 25 Urine Tetrahydrocannabinol Negative ng/mL Cutoff: 50 6 Creatinine, Urine 126.6 mg/dL Specific [place] 1.014 pH 7.0 Oxidants Negative 7 Adulterants Comment Normal Codeine, Ur Not Detected ng/mL Cutoff: 25 8 Gjrjmhi-5-ochr-glucuronide, Ur Not Detected ng/mL 9 Morphine, Ur Not Detected ng/mL Cutoff: 25 10 Lxkagnvt-4-bqfy-glucuronide, U Not Detected ng/mL 11 6-monoacetylmorphine, Ur Not Detected ng/mL Cutoff: 25 12 Hydrocodone, Ur Not Detected ng/mL Cutoff: 25 13 Norhydrocodone, Ur Not Detected ng/mL Cutoff: 25 14 Dihydrocodeine, Ur Not Detected ng/mL Cutoff: 25 15 Hydromorphone, Ur Not Detected ng/mL Cutoff: 25 16 Ksigyvqctjbcb3gkhzmvcyktalvvj Not Detected ng/mL 17 Oxycodone, Ur Present ng/mL Abnormal Cutoff: 25 18 Noroxycodone, Ur Present ng/mL Abnormal Cutoff: 25 19 Oxymorphone, Ur Present ng/mL Abnormal Cutoff: 25 20 Mwstrhxvfxz-6-zaaq-glucuronide Present ng/mL Abnormal 21 Noroxymorphone, Ur Present ng/mL Abnormal Cutoff: 25 22 Fentanyl, Ur Not Detected ng/mL Cutoff: 2 23 Norfentanyl, Ur Present ng/mL Abnormal Cutoff: 2 24 Meperidine, Ur Not Detected ng/mL Cutoff: 25 25 Normeperidine, Ur Not Detected ng/mL Cutoff: 25 26 Naloxone, Ur Not Detected ng/mL Cutoff: 25 27 Ecoenqbx-2-zprg-glucuronide, U Not Detected ng/mL 28 Methadone, Ur [...] Ur Not Detected ng/mL Cutoff: 50 36 Njeppdqeog-mcpw-dyrxldmkndc, U Not Detected ng/mL 37 Buprenorphine, Ur Not Detected ng/mL Cutoff: 5 38 Norbuprenorphine, Ur Not Detected ng/mL Cutoff: 5 39 Norbuprenorphine glucuronide Not Detected ng/mL Cutoff: 20 40 Opioid Interpretation See Comment 41 Laboratory test 09/10/2018 [facility] Troponin-I 0.01 <0.04 [address] (TnI) ng/[place] [address] [phone] CBC Auto Diff 09/10/2018 [facility] White Blood 10.9 High 3.5- 10.[address] Count 10^3/[place] [address] [phone] Red Blood Count 5.12 10^6/uL N 4.18-5.48 [...] Cells % 0 Comp Metabolic Panel 09/10/2018 [facility] Sodium 140 mmol/L N 135-[address] [place] [address] [phone] Potassium 4.3 mmol/L N 3.5-5.0 Chloride 105 [...] Egfr 134.2 >60 43 Laboratory test 09/10/2018 [facility] C Reactive 7.54 mg/L N < 8.[address] [place] [address] [phone] Troponin-I (TnI) 0.01 ng/mL <0.04 44 B-Type Natriuretic Peptide BNP 8 pg/mL <=100 CBC Auto 09/07/2018 [facility] White Blood 11.5 10^3/uL High 3.5-10.[address] [place] [address] [phone] Red Blood Count 4.95 10^6/uL N 4.18-5.48 [...] Blood Cells % 0 Laboratory test 09/07/2018 [facility] B-Type 17 pg/mL <=[address] [place] [address] Peptide BNP [phone] Comp Metabolic 09/07/2018 [facility] Sodium 138 mmol/L N 135- [address] [place] [address] [phone] Potassium 3.7 mmol/L N 3.5-5.0 Chloride 102 [...] Egfr 93.4 >60 45 Laboratory test 09/07/2018 [facility] C Reactive 8.85 mg/L High <8.[address] [place] [address] [phone] Erythrocyte Sed Rate 19 mm/Hr High 0-14 TSH (Thyroid Stim Horm) 2.35 mcIU/mL N 0.34-5.60 Laboratory 09/07/2018 [facility] D Dimer < 200 ng/mL N Less 46 test finding [address] [place] [address] [phone] Drug Abuse 20 07/03/2018 [facility] Urine Negative 47, Urine [address] Amphetamine ng/mL 48 [place] [address] [phone] Urine Barbiturates Negative ng/mL 49 Urine Benzodiazepines Negative ng/mL 50 Urine Cocaine Negative ng/mL 51 Urine Phencyclidine Negative ng/mL Cutoff: 25 Urine Tetrahydrocannabinol Negative ng/mL Cutoff: 50 52 Creatinine, Urine 68.4 mg/dL Specific [place] 1.012 pH 5.9 Oxidants Negative 53 Adulterants Comment Normal Codeine, Ur Not Detected ng/mL Cutoff: 25 54 Xqkbwbr-8-zpfx-glucuronide, Ur Not Detected ng/mL 55 Morphine, Ur Not Detected ng/mL Cutoff: 25 56 Sleymeug-1-mnca-glucuronide, U Not Detected ng/mL 57 6-monoacetylmorphine, Ur Not Detected ng/mL Cutoff: 25 58 Hydrocodone, Ur Not Detected ng/mL Cutoff: 25 59 Norhydrocodone, Ur Not Detected ng/mL Cutoff: 25 60 Dihydrocodeine, Ur Not Detected ng/mL Cutoff: 25 61 Hydromorphone, Ur Not Detected ng/mL Cutoff: 25 62 Yhxiydlkowhyi8vaupbtfezqlcylp Not Detected ng/mL 63 Oxycodone, Ur Present ng/mL Abnormal Cutoff: 25 64 Noroxycodone, Ur Present ng/mL Abnormal Cutoff: 25 65 Oxymorphone, Ur Present ng/mL Abnormal Cutoff: 25 66 Goeqnuvfifn-5-otwg-glucuronide Present ng/mL Abnormal 67 Noroxymorphone, Ur Present ng/mL Abnormal Cutoff: 25 68 Fentanyl, Ur Not Detected ng/mL Cutoff: 2 69 Norfentanyl, Ur Present ng/mL Abnormal Cutoff: 2 70 Meperidine, Ur Not Detected ng/mL Cutoff: 25 71 Normeperidine, Ur Not Detected ng/mL Cutoff: 25 72 Naloxone, Ur Not Detected ng/mL Cutoff: 25 73 Hklloouj-2-oxue-glucuronide, U Not Detected ng/mL 74 Methadone, Ur [...] Ur Not Detected ng/mL Cutoff: 50 82 Tlyntumdfa-tone-dbbjlspqadm, U Not Detected ng/mL 83 Buprenorphine, Ur Not Detected ng/mL Cutoff: 5 84 Norbuprenorphine, Ur Not Detected ng/mL Cutoff: 5 85 Norbuprenorphine glucuronide Not Detected ng/mL Cutoff: 20 86 Opioid Interpretation See Comment 87 Drug Abuse 05/15/2018 [facility] Urine Amphetamine Negative ng/ mL 88, 89 [address] [place] [address] [phone] Urine Barbiturates Negative ng/mL 90 Urine Benzodiazepines Negative ng/mL 91 Urine Cocaine Negative ng/mL 92 Urine Phencyclidine Negative ng/mL Cutoff: 25 Urine Tetrahydrocannabinol Negative ng/mL Cutoff: 50 93 Creatinine, Urine 113.3 mg/dL Specific [place] 1.015 pH 5.9 Oxidants Negative 94 Adulterants Comment Normal Codeine, Ur Not Detected ng/mL Cutoff: 25 95 Mtmqfdw-1-zwcj-glucuronide, Ur Not Detected ng/mL 96 Morphine, Ur Not Detected ng/mL Cutoff: 25 97 Qadgbkpt-8-gnkf-glucuronide, U Not Detected ng/mL 98 6-monoacetylmorphine, Ur Not Detected ng/mL Cutoff: 25 99 Hydrocodone, Ur Not Detected ng/mL Cutoff: 25 100 Norhydrocodone, Ur Not Detected ng/mL Cutoff: 25 101 Dihydrocodeine, Ur Not Detected ng/mL Cutoff: 25 102 Hydromorphone, Ur Not Detected ng/mL Cutoff: 25 103 Ydquesfogeljs4kpfxlsvrzkzunol Not Detected ng/mL 104 Oxycodone, Ur Present ng/mL Abnormal Cutoff: 25 105 Noroxycodone, Ur Present ng/mL Abnormal Cutoff: 25 106 Oxymorphone, Ur Not Detected ng/mL Cutoff: 25 107 Ieesnspyftd-0-ydff-glucuronide Present ng/mL Abnormal 108 Noroxymorphone, Ur Present ng/mL Abnormal Cutoff: 25 109 Fentanyl, Ur Present ng/mL Abnormal Cutoff: 2 110 Norfentanyl, Ur Present ng/mL Abnormal Cutoff: 2 111 Meperidine, Ur Not Detected ng/mL Cutoff: 25 112 Normeperidine, Ur Not Detected ng/mL Cutoff: 25 113 Naloxone, Ur Not Detected ng/mL Cutoff: 25 114 Jowmgdqi-8-nwln-glucuronide, U Not Detected ng/mL 115 Methadone, Ur [...] Ur Not Detected ng/mL Cutoff: 50 123 Bgvxxkmgfr-ezrx-huajtnqsdtw, U Not Detected ng/mL 124 Buprenorphine, Ur Not Detected ng/mL Cutoff: 5 125 Norbuprenorphine, Ur Not Detected ng/mL Cutoff: 5 126 Norbuprenorphine glucuronide Not Detected ng/mL Cutoff: 20 127 Opioid Interpretation See Comment 128 Laboratory test 05/10/2018 [facility] Rapid SEE RESULT 129 finding [address] [facility] [place] [address] Antigen [phone] Rapid Influenza 05/10/2018 [facility] Influenza A NEGATIVE Negative 130 A & B Molecular [address] [place] [address] [phone] Influenza B Molecular NEGATIVE Negative Lipid Profile 04/15/2018 [facility] Triglycerides 157 mg/dL 131 (Trig/Chol/HDL) [address] [place] [address] [phone] Cholesterol 149 mg/dL 132 HDL Cholesterol 54.0 mg/dL 133 LDL Cholesterol 64 mg/dL 134 Comp Metabolic Panel 04/15/2018 [facility] Sodium 142 mmol/L N 135-145 [address] [place] [address] [phone] Potassium 4.6 mmol/L N 3.5-5.0 Chloride 107 [...] >60 135 Urine Drug Screen Inhouse 04/10/2018 [employer] In House Amphetamine Confirm Urine - 12 Urine Buprenorphine Conf QN - Urine Benzodiazepines + Urine Cocaine Random QL - Urine Methamphetamine QL Confm - Urine Methadone - Confirm Opiate Urine - Urine Oxycodone + Urine PCP Phencyclidine QL - Urine THC Confirmation - Urine Barbiturates QN Confirm - Basic Metabolic Panel 02/02/2018 [facility] Sodium 140 mmol/L N 135-[address] [place] [address] [phone] Potassium 4.1 mmol/L N 3.5-5.0 Chloride 105 mmol/L N 101-111 Co2 Carbon Dioxide 28 mmol/L N 22-32 Anion Gap 7 mmol/L N 2-11 Glucose 120 mg/dL High 70-100 Blood Urea Nitrogen 13 mg/dL N 6-24 Creatinine 0.94 mg/dL N 0.67-1.17 BUN/Creatinine Ratio 13.8 N 8-20 Calcium 9.8 mg/dL N 8.6-10.3 Egfr Non- 87.2 >60 Egfr 105.5 >60 136 Laboratory test 02/02/2018 [facility] Troponin-I 0.00 <0.[address] (TnI) ng/[place] [address] [phone] CBC No Diff 02/02/2018 [facility] White Blood 11.9 High 3.5- 10.[address] Count 10^3/[place] [address] [phone] Red Blood Count 4.74 10^6/uL N 4.00-5.40 [...] um3 Low 7.4-10.4 BCR/Abl Trans 9:22 01/29/2018 [facility] BCR/abl (Fish) Normal Fish [address] [place] [place] [address] [phone] BCR/abl (Fish) Result Table See Comment 137 BCR/abl (Fish) Specimen Blood BCR/abl (Fish) Referral Reason See Comment 138 BCR/abl (Fish) Method See Comment 139 BCR/abl Results See Comment 140 BCR/abl (Fish) Interpretation See Comment 141 BCR/abl (Fish) Disclaimer See Comment 142 BCR/abl (Fish) Released By See Comment 143 Leukemia/Lymphoma 01/29/2018 [facility] Path (SEE NOTE) [address] [place] [address] 2-8 Marker [phone] Myeloprolif Neoplasm 01/29/2018 [facility] MPNR Result see 145 [address] [place] [address] <SEE NOTE> [phone] MPNR Final Diagnosis See Comment 146 Protein 01/29/2018 [facility] Total 6.8 g/dL 6.3 - Electrophoresis [address] Protein(Pep) 7.9 [place] [address] [phone] Albumin 3.3 g/dL Abnormal 3.4-4.7 Alpha-1 Globulin 0.3 g/dL 0.1-0.3 Alpha-2 Globulin 0.9 g/dL 0.6-1.0 Beta Globulin 1.4 g/dL Abnormal 0.7-1.2 Gamma Globulin 1.0 g/dL 0.6-1.6 Albumin/Globulin Ratio 0.92 Impression See Comment 147 Laboratory test 01/29/2018 [facility] Erythrocyte Sed 28 mm/Hr High 0-[address] [place] [address] [phone] Erythropoietin 13.9 mIU/mL 2.6 - 18.5 148 Retic Count 01/29/2018 [facility] Retic Count 1.7 % High 0.5- 1.[address] [place] [address] [phone] Corrected Retic Count 1.4 % N 0.5-1.5 Maturation Factor Retic 1.5 Retic Index 0.90 Mean Retic Volume 108.1 Immature Retic Fraction 0.44 RBC Retic Count 4.51 10^6/uL Low 4.6-6.2 Hematocrit for Retic CNT 38 % Low 42-52 CBC Auto Diff 01/29/2018 [facility] White Blood 9.9 10^3/uL N 3.5-10.8 [address] [place] [address] [phone] Red Blood Count 4.51 10^6/uL N 4.00-5.40 [...] Blood Cells % 0 Laboratory test 01/29/2018 [facility] Ferritin 30.7 ng/mL N 24 -336 finding [address] [place] [address] [phone] Vitamin B12 554 pg/mL N 180-914 149 Iron & Iron Binding 01/29/2018 [facility] Iron 41 g/dL Low 50-212 Capacity [address] [place] [address] [phone] Unsaturated Iron Binding 373 g/dL Total Iron Binding Capacity 414 g/dL N 250-450 Transferrin 296 mg/dL N 203-362 % Iron Saturation 10 % Low 15-55 Laboratory test 01/29/2018 [employer] In House Occult Blood Stool neg x3 finding Diagnostic Comp Metabolic 01/29/2018 [facility] Sodium 139 mmol/L N 135- 145 Panel [address] [place] [address] [phone] Potassium 4.6 mmol/L N 3.5-5.0 Chloride 102 [...] Egfr 94.9 >60 150 Drug Abuse 01/22/2018 [facility] Urine Amphetamine Negative 151, 152 [address] ng/[place] [address] [phone] Urine Barbiturates Negative ng/mL 153 Urine Benzodiazepines Negative ng/mL 154 Urine Cocaine Negative ng/mL 155 Urine Phencyclidine Negative ng/mL Cutoff: 25 Urine Tetrahydrocannabinol Negative ng/mL Cutoff: 50 156 Creatinine, Urine 237.5 mg/dL Specific [place] 1.015 pH 5.7 Oxidants Negative 157 Adulterants Comment Normal Codeine, Ur Not Detected ng/mL Cutoff: 25 158 Cmrrezb-2-qbdm-glucuronide, Ur Not Detected ng/mL 159 Morphine, Ur Present ng/mL Abnormal Cutoff: 25 160 Osvniijg-2-qpoa-glucuronide, U Present ng/mL Abnormal 161 6-monoacetylmorphine, Ur Not Detected ng/mL Cutoff: 25 162 Hydrocodone, Ur Not Detected ng/mL Cutoff: 25 163 Norhydrocodone, Ur Not Detected ng/mL Cutoff: 25 164 Dihydrocodeine, Ur Not Detected ng/mL Cutoff: 25 165 Hydromorphone, Ur Not Detected ng/mL Cutoff: 25 166 Yoymbiacuajkx8lrryakkkuqsoucv Not Detected ng/mL 167 Oxycodone, Ur Present ng/mL Abnormal Cutoff: 25 168 Noroxycodone, Ur Present ng/mL Abnormal Cutoff: 25 169 Oxymorphone, Ur Present ng/mL Abnormal Cutoff: 25 170 Wurufidkavd-5-mcdi-glucuronide Present ng/mL Abnormal 171 Noroxymorphone, Ur Present ng/mL Abnormal Cutoff: 25 172 Fentanyl, Ur Not Detected ng/mL Cutoff: 2 173 Norfentanyl, Ur Present ng/mL Abnormal Cutoff: 2 174 Meperidine, Ur Not Detected ng/mL Cutoff: 25 175 Normeperidine, Ur Not Detected ng/mL Cutoff: 25 176 Naloxone, Ur Not Detected ng/mL Cutoff: 25 177 Trkxktgd-9-yxwx-glucuronide, U Not Detected ng/mL 178 Methadone, Ur [...] Ur Not Detected ng/mL Cutoff: 50 186 Ymugvqrtpb-rodo-scclvebnumo, U Not Detected ng/mL 187 Buprenorphine, Ur Not Detected ng/mL Cutoff: 5 188 Norbuprenorphine, Ur Not Detected ng/mL Cutoff: 5 189 Norbuprenorphine glucuronide Not Detected ng/mL Cutoff: 20 190 Opioid Interpretation See Comment 191 Drug Abuse 12/29/2017 [facility] Urine Amphetamine Negative 192, 193 [address] ng/[place] [address] [phone] Urine Barbiturates Negative ng/mL 194 Urine Benzodiazepines Negative ng/mL 195 Urine Cocaine Negative ng/mL 196 Urine Phencyclidine Negative ng/mL Cutoff: 25 Urine Tetrahydrocannabinol Negative ng/mL Cutoff: 50 197 Creatinine, Urine 476.7 mg/dL Specific [place] 1.020 pH 5.8 Oxidants Negative 198 Adulterants Comment Normal Codeine, Ur Not Detected ng/mL Cutoff: 25 199 Lqyrwhj-3-rqcf-glucuronide, Ur Not Detected ng/mL 200 Morphine, Ur Present ng/mL Abnormal Cutoff: 25 201 Fglytcoc-5-ogva-glucuronide, U Present ng/mL Abnormal 202 6-monoacetylmorphine, Ur Not Detected ng/mL Cutoff: 25 203 Hydrocodone, Ur Not Detected ng/mL Cutoff: 25 204 Norhydrocodone, Ur Not Detected ng/mL Cutoff: 25 205 Dihydrocodeine, Ur Not Detected ng/mL Cutoff: 25 206 Hydromorphone, Ur Present ng/mL Abnormal Cutoff: 25 207 Bhraaqdazqjvj2nbnjsmjnesdcuxr Present ng/mL Abnormal 208 Oxycodone, Ur Present ng/mL Abnormal Cutoff: 25 209 Noroxycodone, Ur Present ng/mL Abnormal Cutoff: 25 210 Oxymorphone, Ur Not Detected ng/mL Cutoff: 25 211 Mbguferykyr-4-btzu-glucuronide Present ng/mL Abnormal 212 Noroxymorphone, Ur Present ng/mL Abnormal Cutoff: 25 213 Fentanyl, Ur Not Detected ng/mL Cutoff: 2 214 Norfentanyl, Ur Present ng/mL Abnormal Cutoff: 2 215 Meperidine, Ur Not Detected ng/mL Cutoff: 25 216 Normeperidine, Ur Not Detected ng/mL Cutoff: 25 217 Naloxone, Ur Not Detected ng/mL Cutoff: 25 218 Oktughzz-5-imlc-glucuronide, U Not Detected ng/mL 219 Methadone, Ur [...] Ur Not Detected ng/mL Cutoff: 50 227 Panuaugkts-fwfa-cgtofjmysko, U Not Detected ng/mL 228 Buprenorphine, Ur Not Detected ng/mL Cutoff: 5 229 Norbuprenorphine, Ur Not Detected ng/mL Cutoff: 5 230 Norbuprenorphine glucuronide Not Detected ng/mL Cutoff: 20 231 Opioid Interpretation See Comment 232 CBC Auto 12/29/2017 [facility] White Blood 13.2 10^3/uL High 3.5-10.[address] [place] [address] [phone] Red Blood Count 5.03 10^6/uL N 4.00-5.40 [...] Blood Cells % 0 Drug Abuse 11/28/2017 [facility] Urine Amphetamine Negative ng/ mL 233 [address] [place] [address] [phone] Urine Barbiturates Negative ng/mL 234 Urine Benzodiazepines Negative ng/mL 235 Urine Cocaine Negative ng/mL 236 Urine Phencyclidine Negative ng/mL Cutoff: 25 Urine Tetrahydrocannabinol Negative ng/mL Cutoff: 50 237 Creatinine, Urine 88.6 mg/dL Specific [place] 1.014 pH 5.5 Oxidants Negative 238 Adulterants Comment Normal Codeine, Ur Not Detected ng/mL Cutoff: 25 239 Muvjkof-9-erak-glucuronide, Ur Not Detected ng/mL 240 Morphine, Ur Present ng/mL Abnormal Cutoff: 25 241 Qfvjblex-6-pvtt-glucuronide, U Present ng/mL Abnormal 242 6-monoacetylmorphine, Ur Not Detected ng/mL Cutoff: 25 243 Hydrocodone, Ur Not Detected ng/mL Cutoff: 25 244 Norhydrocodone, Ur Not Detected ng/mL Cutoff: 25 245 Dihydrocodeine, Ur Not Detected ng/mL Cutoff: 25 246 Hydromorphone, Ur Not Detected ng/mL Cutoff: 25 247 Mkdkrvclqnhtp1xaaybrzjvjvgytv Not Detected ng/mL 248 Oxycodone, Ur Present ng/mL Abnormal Cutoff: 25 249 Noroxycodone, Ur Present ng/mL Abnormal Cutoff: 25 250 Oxymorphone, Ur Not Detected ng/mL Cutoff: 25 251 Mthnsekfwvh-5-roni-glucuronide Present ng/mL Abnormal 252 Noroxymorphone, Ur Present ng/mL Abnormal Cutoff: 25 253 Fentanyl, Ur Not Detected ng/mL Cutoff: 2 254 Norfentanyl, Ur Not Detected ng/mL Cutoff: 2 255 Meperidine, Ur Not Detected ng/mL Cutoff: 25 256 Normeperidine, Ur Not Detected ng/mL Cutoff: 25 257 Naloxone, Ur Not Detected ng/mL Cutoff: 25 258 Wfbybxtp-4-fcmz-glucuronide, U Not Detected ng/mL 259 Methadone, Ur [...] Ur Not Detected ng/mL Cutoff: 50 267 Ojbszbohak-zwgo-zawracplthf, U Not Detected ng/mL 268 Buprenorphine, Ur Not Detected ng/mL Cutoff: 5 269 Norbuprenorphine, Ur Not Detected ng/mL Cutoff: 5 270 Norbuprenorphine glucuronide Not Detected ng/mL Cutoff: 20 271 Opioid Interpretation See Comment 272 CBC Auto 11/28/2017 [facility] White Blood 14.6 10^3/uL High 3.5-10.[address] [place] [address] [phone] Red Blood Count 4.62 10^6/uL N 4.00-5.40 [...] Cells % 0 Comp Metabolic Panel 11/28/2017 [facility] Sodium 142 mmol/L N 135-[address] [place], [place] [id number] [phone] Potassium 3.7 mmol/L N 3.5-5.0 Chloride 102 [...] Egfr 93.9 >60 273 Laboratory test 11/28/2017 [facility] B-Type 13 pg/mL [address] [place] [address] Peptide BNP [phone] Drug Abuse 20 08/28/2017 [facility] Urine Negative 275, Urine [address] Amphetamine ng/mL 276 [place] [address] [phone] Urine Barbiturates Negative ng/mL 277 Urine Benzodiazepines Negative ng/mL 278 Urine Cocaine Negative ng/mL 279 Urine Phencyclidine Negative ng/mL Cutoff: 25 Urine Tetrahydrocannabinol Negative ng/mL Cutoff: 50 280 Creatinine, Urine 294.6 mg/dL Specific [place] 1.019 pH 5.6 Oxidants Negative 281 Adulterants Comment Normal Codeine, Ur Not Detected ng/mL Cutoff: 25 282 Bhtwkhq-1-tsty-glucuronide, Ur Not Detected ng/mL 283 Morphine, Ur Present ng/mL Abnormal Cutoff: 25 284 Nahrzxzg-5-krac-glucuronide, U Present ng/mL Abnormal 285 6-monoacetylmorphine, Ur Not Detected ng/mL Cutoff: 25 286 Hydrocodone, Ur Not Detected ng/mL Cutoff: 25 287 Norhydrocodone, Ur Not Detected ng/mL Cutoff: 25 288 Dihydrocodeine, Ur Not Detected ng/mL Cutoff: 25 289 Hydromorphone, Ur Present ng/mL Abnormal Cutoff: 25 290 Rjkympfgrumgd0oaajrfqsxgzwltt Not Detected ng/mL 291 Oxycodone, Ur Present ng/mL Abnormal Cutoff: 25 292 Noroxycodone, Ur Present ng/mL Abnormal Cutoff: 25 293 Oxymorphone, Ur Present ng/mL Abnormal Cutoff: 25 294 Qypttqeggpi-9-tstc-glucuronide Present ng/mL Abnormal 295 Noroxymorphone, Ur Present ng/mL Abnormal Cutoff: 25 296 Fentanyl, Ur Not Detected ng/mL Cutoff: 2 297 Norfentanyl, Ur Not Detected ng/mL Cutoff: 2 298 Meperidine, Ur Not Detected ng/mL Cutoff: 25 299 Normeperidine, Ur Not Detected ng/mL Cutoff: 25 300 Naloxone, Ur Not Detected ng/mL Cutoff: 25 301 Hxdkdmgl-0-pfnp-glucuronide, U Not Detected ng/mL 302 Methadone, Ur [...] Ur Not Detected ng/mL Cutoff: 50 310 Tsoyljrsnp-iycu-elwcxodebut, U Not Detected ng/mL 311 Buprenorphine, Ur Not Detected ng/mL Cutoff: 5 312 Norbuprenorphine, Ur See Comment ng/mL Cutoff: 5 313 Norbuprenorphine glucuronide Not Detected ng/mL Cutoff: 20 314 Opioid Interpretation See Comment 315 Laboratory test 04/28/2017 [facility] PSA Screening 0.110 N 0- 4.000 [address] ng/mL [place], [place] [id number] [phone] Lipid Profile 04/28/2017 [facility] Triglycerides 139 mg/dL 317 (Trig/Chol/HDL) [address] [place] [address] [phone] Cholesterol 167 mg/dL 318 HDL Cholesterol 41.7 mg/dL 319 LDL Cholesterol 98 mg/dL 320 Comp Metabolic Panel 04/28/2017 [facility] Sodium 138 mmol/L N 133-[address] [place] [address] [phone] Potassium 4.2 mmol/L N 3.5-5.0 Chloride 103 [...] Egfr 103.2 >60 321 Drug Abuse 04/09/2017 [facility] Urine Amphetamine Negative ng/ mL 322 [address] [place] [address] [phone] Urine Barbiturates Negative ng/mL 323 Urine Benzodiazepines Negative ng/mL 324 Urine Cocaine Negative ng/mL 325 Urine Phencyclidine Negative ng/mL Cutoff: 25 Urine Tetrahydrocannabinol Negative ng/mL Cutoff: 50 326 Creatinine, Urine 53.0 mg/dL Specific [place] 1.015 pH 5.4 Oxidants Negative 327 Adulterants Comment Normal Codeine, Ur Not Detected ng/mL Cutoff: 25 328 Ekchsmg-3-zbds-glucuronide, Ur Not Detected ng/mL 329 Morphine, Ur Not Detected ng/mL Cutoff: 25 330 Yuezldfa-2-fbbz-glucuronide, U Not Detected ng/mL 331 6-monoacetylmorphine, Ur Not Detected ng/mL Cutoff: 25 332 Hydrocodone, Ur Not Detected ng/mL Cutoff: 25 333 Norhydrocodone, Ur Not Detected ng/mL Cutoff: 25 334 Dihydrocodeine, Ur Not Detected ng/mL Cutoff: 25 335 Hydromorphone, Ur Not Detected ng/mL Cutoff: 25 336 Bsliavypszutb9jfzaapiorbeptnd Not Detected ng/mL 337 Oxycodone, Ur Present ng/mL Cutoff: 25 338 Noroxycodone, Ur Present ng/mL Cutoff: 25 339 Oxymorphone, Ur Not Detected ng/mL Cutoff: 25 340 Ihgyfnucrtq-6-nhtt-glucuronide Present ng/mL 341 Noroxymorphone, Ur Present ng/mL Cutoff: 25 342 Fentanyl, Ur Not Detected ng/mL Cutoff: 2 343 Norfentanyl, Ur Not Detected ng/mL Cutoff: 2 344 Meperidine, Ur Not Detected ng/mL Cutoff: 25 345 Normeperidine, Ur Not Detected ng/mL Cutoff: 25 346 Naloxone, Ur Not Detected ng/mL Cutoff: 25 347 Onkngtjq-3-lbjj-glucuronide, U Not Detected ng/mL 348 Methadone, Ur [...] Ur Not Detected ng/mL Cutoff: 50 356 Xfcxceyfwz-gnbq-irmgpuconrx, U Not Detected ng/mL 357 Buprenorphine, Ur Not Detected ng/mL Cutoff: 5 358 Norbuprenorphine, Ur Not Detected ng/mL Cutoff: 5 359 Norbuprenorphine glucuronide Not Detected ng/mL Cutoff: 20 360 Opioid Interpretation See Comment 361 Ua Routine 03/19/2017 [employer] In House Ua Specific [place] 1.015 Ua PH 5 Ua Color yellow Ua Appera clear Ua WBC neg Ua Protein trace Ua Glucose neg Ua Ketones neg Ua Bilirubin neg Ua Urobilinogen neg Ua Nitrite neg Ua Occult Blood neg Drug Abuse 12/31/2016 [facility] Urine Amphetamine Negative ng/ mL N [address] [place] [address] [phone] Urine Barbiturates Negative ng/mL N 363 Urine Benzodiazepines Negative ng/mL N 364 Urine Cocaine Negative ng/mL N 365 Urine Phencyclidine Negative ng/mL N Cutoff: 25 Urine Tetrahydrocannabinol Negative ng/mL N Cutoff: 50 366 Creatinine, Urine 338.6 mg/dL N Specific [place] 1.018 N pH 5.8 N Oxidants Negative N 367 Adulterants Comment Normal N Codeine, Ur Not Detected ng/mL N Cutoff: 25 368 Irkdngm-0-ltoa-glucuronide, Ur Present ng/mL N 369 Morphine, Ur Present ng/mL N Cutoff: 25 370 Idkqqfau-1-tzdw-glucuronide, U Present ng/mL N 371 6-monoacetylmorphine, Ur Not Detected ng/mL N Cutoff: 25 372 Hydrocodone, Ur Not Detected ng/mL N Cutoff: 25 373 Norhydrocodone, Ur Not Detected ng/mL N Cutoff: 25 374 Dihydrocodeine, Ur Not Detected ng/mL N Cutoff: 25 375 Hydromorphone, Ur Present ng/mL N Cutoff: 25 376 Tbfgcgtvihymf8ubmevurwicqgqjm Present ng/mL N 377 Oxycodone, Ur Present ng/mL N Cutoff: 25 378 Noroxycodone, Ur Present ng/mL N Cutoff: 25 379 Oxymorphone, Ur Not Detected ng/mL N Cutoff: 25 380 Asgszvfxwef-4-nxol-glucuronide Present ng/mL N 381 Noroxymorphone, Ur Present ng/mL N Cutoff: 25 382 Fentanyl, Ur Not Detected ng/mL N Cutoff: 2 383 Norfentanyl, Ur Not Detected ng/mL N Cutoff: 2 384 Meperidine, Ur Not Detected ng/mL N Cutoff: 25 385 Normeperidine, Ur Not Detected ng/mL N Cutoff: 25 386 Naloxone, Ur Not Detected ng/mL N Cutoff: 25 387 Kkhlkegk-8-ozbq-glucuronide, U Not Detected ng/mL N 388 Methadone, [...] Not Detected ng/mL N Cutoff: 50 396 Lxadokioye-rtgb-wzogdukoerg, U Not Detected ng/mL N 397 Buprenorphine, Ur Not Detected ng/mL N Cutoff: 5 398 Norbuprenorphine, Ur Not Detected ng/mL N Cutoff: 5 399 Norbuprenorphine glucuronide Not Detected ng/mL N Cutoff: 20 400 Opioid Interpretation See Comment N 401 Drug Abuse 11/11/2016 [facility] Urine Amphetamine Negative ng/ mL N [address] [place], [place] [address] [phone] Urine Barbiturates Negative ng/mL N 403 Urine Benzodiazepines Negative ng/mL N 404 Urine Cocaine Negative ng/mL N 405 Urine Phencyclidine Negative ng/mL N Cutoff: 25 Urine Tetrahydrocannabinol Negative ng/mL N Cutoff: 50 406 Creatinine, Urine 224.5 mg/dL N Specific [place] 1.020 N pH 5.6 N Oxidants Negative N 407 Adulterants Comment Normal N Codeine, Ur Not Detected ng/mL N Cutoff: 25 408 Pjjoqsf-5-uzgs-glucuronide, Ur Not Detected ng/mL N 409 Morphine, Ur Not Detected ng/mL N Cutoff: 25 410 Xvfgjtum-6-sjvl-glucuronide, U Not Detected ng/mL N 411 6-monoacetylmorphine, Ur See Comment ng/mL N Cutoff: 25 412 Hydrocodone, Ur Not Detected ng/mL N Cutoff: 25 413 Norhydrocodone, Ur Not Detected ng/mL N Cutoff: 25 414 Dihydrocodeine, Ur Not Detected ng/mL N Cutoff: 25 415 Hydromorphone, Ur Not Detected ng/mL N Cutoff: 25 416 Wyyjmhrwlaevm6ldhycklbdgyrmkj Not Detected ng/mL N 417 Oxycodone, Ur Not Detected ng/mL N Cutoff: 25 418 Noroxycodone, Ur Not Detected ng/mL N Cutoff: 25 419 Oxymorphone, Ur Not Detected ng/mL N Cutoff: 25 420 Gjfpgdawtsf-9-gugx-glucuronide Not Detected ng/mL N 421 Noroxymorphone, Ur Not Detected ng/mL N Cutoff: 25 422 Fentanyl, Ur Not Detected ng/mL N Cutoff: 2 423 Norfentanyl, Ur Not Detected ng/mL N Cutoff: 2 424 Meperidine, Ur Not Detected ng/mL N Cutoff: 25 425 Normeperidine, Ur Not Detected ng/mL N Cutoff: 25 426 Naloxone, Ur Not Detected ng/mL N Cutoff: 25 427 Ozdrzfoj-8-rmmh-glucuronide, U Not Detected ng/mL N 428 Methadone, [...] Not Detected ng/mL N Cutoff: 50 436 Oruhvglocp-nwap-xwhbogkfytg, U Not Detected ng/mL N 437 Buprenorphine, Ur Not Detected ng/mL N Cutoff: 5 438 Norbuprenorphine, Ur Not Detected ng/mL N Cutoff: 5 439 Norbuprenorphine glucuronide Not Detected ng/mL N Cutoff: 20 440 Opioid Interpretation See Comment N 441 Drug Abuse 09/19/2016 [facility] Urine Amphetamine Negative ng/ mL N 442 [address] [place] [address] [phone] Urine Barbiturates Negative ng/mL N 443 Urine Benzodiazepines Negative ng/mL N 444 Urine Cocaine Negative ng/mL N 445 Urine Phencyclidine Negative ng/mL N Cutoff: 25 Urine Tetrahydrocannabinol Negative ng/mL N Cutoff: 50 446 Creatinine 179.1 mg/dL N Specific [place] 1.017 N pH 5.7 N Oxidants Negative N 447 Adulterants Comment Normal N Codeine, Ur Not Detected ng/mL N Cutoff: 25 448 Fwgfybc-5-suts-glucuronide, Ur Not Detected ng/mL N 449 Morphine, Ur Not Detected ng/mL N Cutoff: 25 450 Aspynskw-4-rwzd-glucuronide, U Not Detected ng/mL N 451 6-monoacetylmorphine, Ur Not Detected ng/mL N Cutoff: 25 452 Hydrocodone, Ur Not Detected ng/mL N Cutoff: 25 453 Norhydrocodone, Ur Not Detected ng/mL N Cutoff: 25 454 Dihydrocodeine, Ur Not Detected ng/mL N Cutoff: 25 455 Hydromorphone, Ur Not Detected ng/mL N Cutoff: 25 456 Hkybcexcliuag6pjryqqziqyzshpk Not Detected ng/mL N 457 Oxycodone, Ur Present ng/mL N Cutoff: 25 458 Noroxycodone, Ur Present ng/mL N Cutoff: 25 459 Oxymorphone, Ur Not Detected ng/mL N Cutoff: 25 460 Ukoajwnxmnl-1-gvlk-glucuronide Present ng/mL N 461 Noroxymorphone, Ur Present ng/mL N Cutoff: 25 462 Fentanyl, Ur Not Detected ng/mL N Cutoff: 2 463 Norfentanyl, Ur Not Detected ng/mL N Cutoff: 2 464 Meperidine, Ur Not Detected ng/mL N Cutoff: 25 465 Normeperidine, Ur Not Detected ng/mL N Cutoff: 25 466 Naloxone, Ur Not Detected ng/mL N Cutoff: 25 467 Cmcecwpy-2-vzum-glucuronide, U Not Detected ng/mL N 468 Methadone, [...] Not Detected ng/mL N Cutoff: 50 476 Xwcyxexgzh-vmcb-akyghideldc, U Not Detected ng/mL N 477 Buprenorphine, Ur Not Detected ng/mL N Cutoff: 5 478 Norbuprenorphine, Ur Not Detected ng/mL N Cutoff: 5 479 Norbuprenorphine glucuronide Not Detected ng/mL N Cutoff: 20 480 Opioid Interpretation See Comment N 481 Drug Abuse 08/09/2016 [facility] Urine Amphetamine Negative ng/ mL N [address] [place] [address] [phone] Urine Barbiturates Negative ng/mL N 483 Urine Benzodiazepines Negative ng/mL N 484 Urine Cocaine Negative ng/mL N 485 Urine Phencyclidine Negative ng/mL N Cutoff: 25 Urine Tetrahydrocannabinol Negative ng/mL N Cutoff: 50 486 Creatinine 188.3 mg/dL N Specific [place] 1.018 N pH 5.8 N Oxidants Negative N 487 Adulterants Comment Normal N Codeine, Ur Not Detected ng/mL N Cutoff: 25 488 Ceygqif-0-zjtr-glucuronide, Ur Not Detected ng/mL N 489 Morphine, Ur Not Detected ng/mL N Cutoff: 25 490 Giigexbp-6-wtim-glucuronide, U Not Detected ng/mL N 491 6-monoacetylmorphine, Ur Not Detected ng/mL N Cutoff: 25 492 Hydrocodone, Ur Not Detected ng/mL N Cutoff: 25 493 Norhydrocodone, Ur Not Detected ng/mL N Cutoff: 25 494 Dihydrocodeine, Ur Not Detected ng/mL N Cutoff: 25 495 Hydromorphone, Ur Not Detected ng/mL N Cutoff: 25 496 Kyxzyfplkmbxj9zrxkiognirdszhk Not Detected ng/mL N 497 Oxycodone, Ur Present ng/mL N Cutoff: 25 498 Noroxycodone, Ur Present ng/mL N Cutoff: 25 499 Oxymorphone, Ur Not Detected ng/mL N Cutoff: 25 500 Rnurgnjctzj-7-ujhp-glucuronide Present ng/mL N 501 Noroxymorphone, Ur Present ng/mL N Cutoff: 25 502 Fentanyl, Ur Not Detected ng/mL N Cutoff: 2 503 Norfentanyl, Ur Not Detected ng/mL N Cutoff: 2 504 Meperidine, Ur Not Detected ng/mL N Cutoff: 25 505 Normeperidine, Ur Not Detected ng/mL N Cutoff: 25 506 Naloxone, Ur Not Detected ng/mL N Cutoff: 25 507 Fuxdhovk-4-uczf-glucuronide, U Not Detected ng/mL N 508 Methadone, [...] Not Detected ng/mL N Cutoff: 50 516 Vtvmoxbkku-zrin-adzpxkfgagx, U Not Detected ng/mL N 517 Buprenorphine, Ur Not Detected ng/mL N Cutoff: 5 518 Norbuprenorphine, Ur Not Detected ng/mL N Cutoff: 5 519 Norbuprenorphine glucuronide Not Detected ng/mL N Cutoff: 20 520 Opioid Interpretation See Comment N 521 1 [id number] REFERENCE VALUE Cutoff: 500 3 REFERENCE [...] 100 12 Metabolite of heroin 13 Lortab, Miracle, Vicodin; Also a very minor metabolite of [...] and several metabolites (noroxycodone, oxymorphone, noroxymorphone, and slqsjpmoumi-0-folx-glucuronide). Suspect use of oxycodone and/or oxymorphone within the past three days. Test detected the presence of norfentanyl (metabolite of fentanyl) only. Suspect use of fentanyl within the past three days. ADDITIONAL INFORMATION This test was developed and its performance characteristics determined by [facility] in a manner consistent with CLIA requirements. This test has not been cleared or approved by the U.S. Food and Drug Administration. Test Performed by: [facility] [address] [place] [address] 42 Troponin-I testing on Plasma Separator Tubes [...] - FDP greater than 20 ug/ml 47 [id number] REFERENCE VALUE Cutoff: 500 49 REFERENCE [...] REFERENCE VALUE Cutoff: 100 56 Nicol Guadalupe, Contin; Also a minor metabolite (10%) of codeine and can be seen in low concentrations (<2,000 ng/mL) with poppy seed ingestion. 57 Metabolite of morphine REFERENCE VALUE Cutoff: 100 58 Metabolite of heroin 59 Lortab, Miracle, Vicodin; Also a very minor metabolite of [...] and several metabolites (noroxycodone, oxymorphone, noroxymorphone, and cmxdqjzqbkt-1-atrc-glucuronide). Suspect use of oxycodone and/or oxymorphone within the past three days. Test detected the presence of norfentanyl (metabolite of fentanyl) only. Suspect use of fentanyl within the past three days. ADDITIONAL INFORMATION This test was developed and its performance characteristics determined by [facility] in a manner consistent with CLIA requirements. This test has not been cleared or approved by the U.S. Food and Drug Administration. Test Performed by: [facility] [address] [place] [address] 88 [id number] REFERENCE VALUE Cutoff: 500 90 REFERENCE [...] REFERENCE VALUE Cutoff: 100 97 Nicol Guadalupe, Contin; Also a minor metabolite (10%) of codeine and can be seen in low concentrations (<2,000 ng/mL) with poppy seed ingestion. 98 Metabolite of morphine REFERENCE VALUE Cutoff: 100 99 Metabolite of heroin 100 Lortab, Miracle, Vicodin; Also a very minor metabolite of [...] oxycodone and several metabolites (noroxycodone, noroxymorphone, and zbekxaewgko-5-ueli-glucuronide). Suspect use of oxycodone and/or oxymorphone within the past three days. Test detected the presence of fentanyl and its metabolite (norfentanyl). Suspect use of fentanyl within the past three days. ADDITIONAL INFORMATION This test was developed and its performance characteristics determined by [facility] in a manner consistent with CLIA requirements. This test has not been cleared or approved by the U.S. Food and Drug Administration. Test Performed by: [facility] [address] [place] [address] 129 SEE RESULT BELOW Name: TONY BENNETT JR : [address]: George Galaviz MD Acct: [id number] Unit: [id number] AGE: 43 Location: ED Re05/10/18 SEX: M Status: REG ER SPEC: [id number] JAYE: 05/10/18-[address] [facility] [address]: George Galaviz MD REQ: [id number] RECD: 05/10/18 STATUS: MARELY JOHN DR: Keon Cabrera MD _ SOURCE: NASAL SPDESC: ORDERED: Flu A B Request Procedure Result Reported Site Rapid Influenza A B Request Final 05/10/18- 1114 ML Specimen received for Influenza A/B Molecular testing * ML - Main Lab . END OF REPORT DEPARTMENT OF PATHOLOGY, [address] [place] [address] Brennan Richardson M.D. Director [facility] # [id number] 130 Welding Tester: [id number] Desirable: <150 Borderline High: 150-199 High: [...] Its performance characteristics were determined by [facility] in a manner consistent with CLIA requirements. This test has not been cleared or approved by the U.S. Food and Drug Administration. This FISH test does not rule out other chromosome abnormalities. 143 RESULT: Endy Patricia M.D. Test Performed by: [place] [address] 144 FINAL DIAGNOSIS: No immunophenotypic abnormality identified. [...] MD 02/03/18 1252 Technical component performed by: [place] [address] Mechanical Maintenance Technician: Patrick Lopez II, MD, PhD. 145 see interpretation 146 Peripheral blood, JAK2 V617F mutation analysis: Negative for JAK2 V617F. Method summary - JAK2 V617F analysis: Quantitative, allele-specific polymerase chain reaction (PCR) assay was performed using extracted genomic DNA to evaluate for the point mutation causing JAK2 V617F. The analytic sensitivity of this assay has been determined at 0.06% (see [facility] [employer] Interpretive Handbook for method details). Peripheral blood, [...] for the rare type 1-bp deletion (See [facility] Interpretive Handbook for details). Peripheral blood, MPL exon 10 mutation analysis: Negative. No mutation was detected in MPL, exon 10. Method summary - MPL exon 10 mutation analysis: Genomic DNA was extracted and Leonard sequencing used to evaluate for mutations in MPL, exon 10 (see [facility] Interpretive Handbook for method details). The sensitivity of this assay is approximately 20%, such that samples containing lower percentages of mutated DNA will appear negative. Comment: Negative results for [id number], CALR exon 9, and MPL exon 10 [...] and its performance characteristics determined by [facility] in a manner consistent with CLIA requirements. This test has not been cleared or approved by the U.S. Food and Drug Administration. Test Performed by: [facility] [address] [place] [address] 147 RESULT: No apparent monoclonal protein on serum electrophoresis. Test Performed by: [facility] [address] [place] [address] 148 Test Performed by: [facility] [address] [place] [address] 149 Normal Range 180 to 914 Indeterminate [...] 5 Kidney failure <15 (or dialysis) 151 [id number] REFERENCE VALUE Cutoff: 500 153 REFERENCE [...] 100 162 Metabolite of heroin 163 Lortab, Miracle, Vicodin; Also a very minor metabolite of [...] presence of both morphine and its metabolite (lpgfwruo-6-mwkg-glucuronide). Suspect use of morphine within the past three days. Alternatively, these results could also be suggestive of heroin use. Low levels of morphine can also be seen following poppy seed ingestion. Test detected the presence of oxycodone and several metabolites (noroxycodone, oxymorphone, noroxymorphone, and sokwzzslwip-0-bbbm-glucuronide). Suspect use of oxycodone or possibly oxycodone and oxymorphone within the past three days. Test detected the presence of norfentanyl (metabolite of fentanyl) only. Suspect use of fentanyl within the past three days. ADDITIONAL INFORMATION This test was developed and its performance characteristics determined by [facility] in a manner consistent with CLIA requirements. This test has not been cleared or approved by the U.S. Food and Drug Administration. Test Performed by: [facility] [address] [place] [address] 192 [id number] REFERENCE VALUE Cutoff: 500 194 REFERENCE [...] 100 203 Metabolite of heroin 204 Lortab, Miracle, Vicodin; Also a very minor metabolite of [...] the presence of both morphine and metabolites (hnouilik-1-yfou-glucuronide, hydromorphone and eatxalmhqpbao-8-ufdo-glucuronide). Suspect use of morphine or morphine and hydromorphone within the past three days. Test detected the presence of oxycodone and several metabolites (noroxycodone, noroxymorphone, and fzbtldmwael-5-xmzs-glucuronide). Suspect use of oxycodone or possibly oxycodone and oxymorphone within the past three days. Test detected the presence of norfentanyl (metabolite of fentanyl) only. Suspect use of fentanyl within the past three days. ADDITIONAL INFORMATION This test was developed and its performance characteristics determined by [facility] in a manner consistent with CLIA requirements. This test has not been cleared or approved by the U.S. Food and Drug Administration. Test Performed by: [facility] [employer] - [address] [address] 233 REFERENCE VALUE Cutoff: 500 234 REFERENCE [...] codeine REFERENCE VALUE Cutoff: 100 241 Nicol Guadalupe, Contin; Also a minor metabolite (10%) of codeine and can be seen in low concentrations (<2,000 ng/mL) with poppy seed ingestion. 242 Metabolite of morphine REFERENCE VALUE Cutoff: 100 243 Metabolite of heroin 244 Lortab, Miracle, Vicodin; Also a very minor metabolite of [...] presence of both morphine and its metabolite (mfsnovqd-0-aqij-glucuronide). Suspect use of morphine within the past three days. Alternatively, these results could also be suggestive of heroin use. Low levels of morphine can also be seen following poppy seed ingestion. Test detected the presence of oxycodone and several metabolites (noroxycodone, noroxymorphone, and vdnyndckqct-6-ryxe-glucuronide). Suspect use of oxycodone or possibly oxycodone and oxymorphone within the past three days. ADDITIONAL INFORMATION This test was developed and its performance characteristics determined by [facility] in a manner consistent with CLIA requirements. This test has not been cleared or approved by the U.S. Food and Drug Administration. Test Performed by: [facility] - [facility] [address] [place] [address] 273 Because ethnic data is not always readily [...] pg/mL: likely moderate to severe CHF 275 [id number] REFERENCE VALUE Cutoff: 500 277 REFERENCE [...] 100 286 Metabolite of heroin 287 Lortab, Miracle, Vicodin; Also a very minor metabolite of [...] presence of both morphine and its metabolites (npwuzgak-6-lnue-glucuronide and dsxnozcmlzeot-7-frgr-glucuronide). Suspect use of morphine or morphine and hydromorphone within the past three days. Alternatively, these results could also be suggestive of heroin use. Low levels of morphine can also be seen following poppy seed ingestion. Test detected the presence of oxycodone and several metabolites (noroxycodone, oxymorphone, noroxymorphone, and knzbhvxknlk-5-zpgn-glucuronide). Suspect use of oxycodone or possibly oxycodone and oxymorphone within the past three days. ADDITIONAL INFORMATION This test was developed and its performance characteristics determined by [facility] in a manner consistent with CLIA requirements. This test has not been cleared or approved by the U.S. Food and Drug Administration. Test Performed by: [facility] [address] [place] [address] 337 Serum levels of PSA measured using the [...] codeine REFERENCE VALUE Cutoff: 100 330 Nicol Guadalupe MS Contin; Also a minor metabolite (10%) of codeine and can be seen in low concentrations (<2,000 ng/mL) with poppy seed ingestion. 331 Metabolite of morphine REFERENCE VALUE Cutoff: 100 332 Metabolite of heroin 333 Lortab, Miracle, Vicodin; Also a very minor metabolite of [...] oxycodone and several metabolites (noroxycodone, noroxymorphone, and hqstnjbszwj-2-elsn-glucuronide). Suspect use of oxycodone or possibly oxycodone and oxymorphone within the past three days. ADDITIONAL INFORMATION This test was developed and its performance characteristics determined by [facility] in a manner consistent with CLIA requirements. This test has not been cleared or approved by the U.S. Food and Drug Administration. Test Performed by: [facility] [facility] [address] [place] [address] 362 REFERENCE VALUE Cutoff: 500 363 REFERENCE [...] codeine REFERENCE VALUE Cutoff: 100 370 Nicol Guadalupe MS Contin; Also a minor metabolite (10%) of codeine and can be seen in low concentrations (<2,000 ng/mL) with poppy seed ingestion. 371 Metabolite of morphine REFERENCE VALUE Cutoff: 100 372 Metabolite of heroin 373 Lortab, Miracle, Vicodin; Also a very minor metabolite of [...] the presence of morphine and its metabolites (gmfxwmkk-5-jktc-glucuronide, hydromorphone, and kgtvzixidxxtj-6-clzf-glucuronide) along with cqkcctq-6-bpjo-glucuronide (metabolite of codeine). Suspect use of morphine or morphine and hydromorphone within the past three days. In addition, suspect possible use of codeine within the past three days or trace amounts of codeine can also be found as an impurity in morphine. Test detected the presence of oxycodone and several metabolites (noroxycodone, noroxymorphone, and phtcnkpnusz-4-cxvt-glucuronide). Suspect use of oxycodone or possibly oxycodone and oxymorphone within the past three days. ADDITIONAL INFORMATION This test was developed and its performance characteristics determined by [facility] in a manner consistent with CLIA requirements. This test has not been cleared or approved by the U.S. Food and Drug Administration. Test Performed by: [facility] [facility] [address] [place] [address] 402 REFERENCE VALUE Cutoff: 500 403 REFERENCE [...] due to analyte specific failure. 413 Lortab, Miracle, Vicodin; Also a very minor metabolite of [...] and its performance characteristics determined by [facility] in a manner consistent with CLIA requirements. This test has not been cleared or approved by the U.S. Food and Drug Administration. Test Performed by: [facility] - [address] [address] 442 REFERENCE VALUE Cutoff: 500 443 REFERENCE [...] codeine REFERENCE VALUE Cutoff: 100 450 Nicol Guadalupe, MS Contin; Also a minor metabolite (10%) of codeine and can be seen in low concentrations (<2,000 ng/mL) with poppy seed ingestion. 451 Metabolite of morphine REFERENCE VALUE Cutoff: 100 452 Metabolite of heroin 453 Lortab, Miracle, Vicodin; Also a very minor metabolite of [...] oxycodone and several metabolites (noroxycodone, noroxymorphone, and yhlwakhzsmp-7-twfg-glucuronide). Suspect use of oxycodone or possibly oxycodone and oxymorphone within the past three days. ADDITIONAL INFORMATION This test was developed and its performance characteristics determined by [facility] in a manner consistent with CLIA requirements. This test has not been cleared or approved by the U.S. Food and Drug Administration. Test Performed by: [facility] [employer] - [address] [address] 482 REFERENCE VALUE Cutoff: 500 483 REFERENCE [...] 100 492 Metabolite of heroin 493 Lortab, Miracle, Vicodin; Also a very minor metabolite of [...] oxycodone and several metabolites (noroxycodone, noroxymorphone, and fllhiociajm-8-zexh-glucuronide). Suspect use of oxycodone or possibly oxycodone and oxymorphone within the past three days. ADDITIONAL INFORMATION This test was developed and its performance characteristics determined by [facility] in a manner consistent with CLIA requirements. This test has not been cleared or approved by the U.S. Food and Drug Administration. Test Performed by: [facility] - [address] [address] Procedures Date Code Description Status 10/16/2018 65254 Inj/Aspir Major JT Or Bursa W/ US Completed 12/29/2017 78882 ECHO Transthorasic Realtime 2D W Doppler & Color Flow Hosp Completed 12/29/2017 69929 ECHO Transthorasic Realtime 2D W Doppler & Color Flow Hosp Completed 12/29/2017 17067 ECHO Transthoracic, Real-Time 2D With Doppler And Color Completed Flow Encounters Type Date Location Provider Dx Diagnosis Office Visit 10/14/2018 Orthopedic Jelani Alcaraz, M17.12 Unilateral primary 3:00p [facility] osteoarthritis, left knee Office Visit 10/07/2018 [facility] Internal Aileen Vicente MD I10 Essential ( primary) 3:00p Medicine - [facility] hypertension G89.4 Chronic pain syndrome M17.12 Unilateral primary osteoarthritis, left knee Office Visit 09/07/2018 11:00a [facility] Aileen Vicente MD G89.4 Chronic pain Medicine - [facility] syndrome Z79.891 nursing home (current) use of opiate analgesic I10 Essential (primary) hypertension M25.562 Pain in left knee Office Visit 07/03/2018 1:40p [facility] Troy De Leon NP G89.4 Chronic pain Medicine - [facility] syndrome R60.0 Localized edema Office Visit 05/15/2018 4:40p [facility] Keon Fowler G89.4 Chronic pain Medicine - Suite Shiva Cabrera,FACP syndrome R G47.33 Obstructive sleep apnea (adult) (pediatric) E66.8 Other obesity Office Visit 05/11/2018 1:40p [facility] Troy De Leon, J06.9 [facility] KNOWLEDGE MANAGEMENT CONSULTANT respiratory infection, unspecified Office Visit 04/10/2018 4:00p [facility] Keon Fowler G89.4 Chronic pain Medicine - Suite Deborah, syndrome R M.DAimee,FACP E78.5 Hyperlipidemia, unspecified I10 Essential (primary) hypertension D72.829 Elevated white blood cell count, unspecified Office Visit 04/08/2018 1:00p [facility] Troy De Leon NP Z00.00 [facility] w/o abnormal findings I10 Essential (primary) hypertension E78.5 Hyperlipidemia, unspecified Z23 Encounter for immunization Office Visit 01/22/2018 [facility] Keon Fowler M50.122 Cervical disc 3:20p Valerie aCbrera M.D.,FACP disorder at C5-C6 Suite R level with radiculopathy G89.4 Chronic pain syndrome D64.9 Anemia, unspecified D72.829 Elevated white blood cell count, unspecified I51.7 Cardiomegaly Office Visit 12/29/2017 1:00p [facility] Becca I50.9 Heart failure, Medicine - Suite Marker, RPA-C unspecified R G89.4 Chronic pain syndrome D72.829 Elevated white blood cell count, unspecified D64.9 Anemia, unspecified Office Visit 11/28/2017 11:30a [facility] Keon Fowler I50.9 Heart failure, Medicine - Shiva Cabrera,FACP unspecified Suite R G89.4 Chronic pain syndrome I10 Essential (primary) hypertension M25.511 Pain in right shoulder Office Visit 08/28/2017 11:20a [facility] Keon Fowler I10 Essential ( primary) Medicine - Shiva Cabrera,FACP hypertension Suite R G89.4 Chronic pain syndrome M25.511 Pain in right shoulder Office Visit 04/09/2017 3:40p [facility] Keon Fowler G89.4 Chronic pain Medicine - Suite Shiva Cabrera,FACP syndrome R I10 Essential (primary) hypertension Z23 Encounter for immunization Office Visit 03/19/2017 1:40p [facility] Troy De Leon, R35.0 [facility] KNOWLEDGE MANAGEMENT CONSULTANT micturition Z13.220 Encounter for screening for lipoid disorders Z13.1 Encounter for screening for diabetes mellitus Office Visit 01/16/2017 11:40a [facility] Troy De Leon NP E66.8 Other obesity [facility] (primary) hypertension G89.4 Chronic pain syndrome Office Visit 12/31/2016 4:40p [facility] Keon Fowler G89.4 [facility],FACP syndrome T75.3xxA Motion sickness, initial encounter I10 Essential (primary) hypertension Office Visit 11/11/2016 4:40p [facility] Keon Fowler G89.4 Chronic pain Medicine - Suite Shiva Cabrera,FACP syndrome R E66.8 Other obesity I10 Essential (primary) hypertension Office Visit 11/04/2016 2:00p [facility] Troy De Leon NP M54.5 [facility] back [facility] H61.23 Impacted cerumen, bilateral Office Visit 10/11/2016 10:40a [facility] Troy De Leon NP M54.5 [facility] Office Visit 09/19/2016 8:40a [facility] Troy De Leon KNOWLEDGE MANAGEMENT CONSULTANT 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 - [facility]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 therapy H61.23 Impacted cerumen, bilateral D48.5 Neoplasm of uncertain behavior of skin Office Visit 09/13/2016 2:00p [facility] Troy De Leon, K08.89 Other specified Medicine - [facility] KNOWLEDGE MANAGEMENT CONSULTANT disorders of teeth and supporting structures M79.601 Pain in right arm Office Visit 08/23/2016 10:00a [facility] Troy De Leon KNOWLEDGE MANAGEMENT CONSULTANT M54.5 [facility] Office Visit 08/09/2016 3:00p [facility] Troy De Leon NP E66.8 Other obesity Medicine - [facility] M54.5 Low back pain Office Visit 06/23/2007 1:30p Neurosurgery Jaylan Hart 721.3 Spondylosis [facility] Shiva Dominique Lumbar W/O Myelopathy Plan of Treatment Future Appointment(s):12/16/2018 4:20 pm - Aileen Vicente MD at [facility] Internal Medicine - [facility]12/21/2018 9:30 am - Dian Gloria MD at [facility]11/18/2018 - Aileen Vicente MDG89.4 Chronic pain syndromeFollow up:4 kbxdxP65.891 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
[2018-12-04 21:48] LABS: Hematocrit 38 % (42-52); Hemoglobin 12.7 g/dL (14.0-18.0); Mean Corpuscular HGB Conc 33 g/dL (31-36); Mean Corpuscular Hemoglobin 27 pg (27-31); Mean Corpuscular Volume 81 fL (80-94); Mean Platelet Volume 7.4 fL (7.4-10.4); Platelet Count 374 10^3/uL (150-450); Red Blood Count 4.69 10^6 /uL (4.18-5.48); Red Cell Distribution Width 17 % (10-15); White Blood Count 11.8 10^3/uL (3.5-10.8)
[2018-12-04 22:07] LABS: ALT 24 U/L (7-52); AST 17 U/L (13-39); Albumin 4.1 g/dL (3.2-5.2); Albumin/Globulin Ratio 1.2 (1-3); Alkaline Phosphatase 67 U/L (34-104); Anion Gap 7 mmol/L (2-11); Blood Urea Nitrogen 18 mg/dL (6-24); CO2 Carbon Dioxide 26 mmol/L (22-32); Calcium 9.7 mg/dL (8.6-10.3); Chloride 106 mmol/L (101-111); EGFR African American 110.4 (>60); EGFR Non-African American 91.3 (>60); Globulin 3.3 g/dL (2-4); Glucose 127 mg/dL (70-100); Potassium 3.8 mmol/L (3.5-5.0); Sodium 139 mmol/L (135-145); Total Protein 7.4 g/dL (6.4-8.9)
[2018-12-04 22:21] LABS: Acetaminophen < 15 mcg/mL; Alcohol < 10 mg/dL (<10); Salicylate < 2.50 mg/dL (<30)
[2018-12-04 22:22] LABS: ABS Basophils 0.1 10^3/ul (0-0.2); ABS Eosinophils 0.3 10^3/ul (0-0.6); ABS Lymphocytes 2.9 10^3/ul (1.0-4.8); ABS Monocytes 0.9 10^3/ul (0-0.8); ABS Neutrophils 7.5 10^3/ul (1.5-7.7); Eosinophil % 2.9 %; Lymphocyte % 24.6 %; Nucleated Red Blood Cells % 0.1
[2018-12-04 22:36] LABS: TSH (Thyroid Stimulating Horm) 1.29 mcIU/mL (0.34-5.60)
--- NOTE | 2018-12-04 22:44 | ED ---
Progress - Progress Note Progress Note: The patient is a sign-out from Dr. Marvin Alfonso MD, to Dr. Anita Goyal MD, at change of shift at 2200 on 12/04/218, pending MHE and disposition. At 0240, Fabio Gorman, mental health divinity professor, reports that mann Garcia is voluntarily admitting the patient with dx of major depressive disorder, NOS. Patient agrees with this plan. Re-Evaluation - Re-Evaluation First Eval Re-Evaluation Time: 21:33 Comment: Pt is medically cleared. Course/Dx - Course Course Of Treatment: The patient is a sign-out from Dr. Marvin Alfonso MD, to Dr. Anita Redman MD, at change of shift at 2200 on 12/04/218, pending MHE and disposition. At 0240, Fabio Gorman, mental health divinity professor, reports that mann Garcia is voluntarily admitting the patient with dx of major depressive disorder, NOS. Patient agrees with this plan. - Diagnoses Provider Diagnoses: Depression, URI, acute, Major depressive disorder - Provider Notifications Discussed Care Of Patient With: Fabio Gorman - mental health divinity professor Time Discussed With Above Provider: 02:40 Instructed by Provider To: Other - At 0240, Fabio Gorman mental health divinity professor, reports that mann Garcia is voluntarily admitting the patient with dx of major depressive disorder, NOS. Discharge - Sign-Out/Discharge Documenting (check all that apply): Patient Departure - Patient is accepted for admission by Dr. Mckoy., Receiving Sign-Out Receiving patient FROM: Marvin Alfonso - Patient is a sign-out from Dr. Alfonso at shift change pending MHE and disposition. Patient Received Moderate/Deep Sedation with Procedure: No - Discharge Plan Condition: Stable [place] [place] Disposition and Condition Condition: STABLE Disposition: [place] [facility] [place] Attestation Statements Document Initiated by Scribe: Yes Documenting Scribe: Melinda Helm Provider For Whom Scribe is Documenting (Include Credential): Dr. Anita Redman MD Scribe Attestation: Melinda Mars, scribed for Dr. Anita Redman MD on 12/05/18 at 0836. Scribe Documentation Reviewed: Yes Provider Attestation: The documentation as recorded by the scribe, Melinda Helm accurately reflects the service I personally performed and the decisions made by me, Dr. Anita Redman MD Status of Scribe Document: Viewed
[2018-12-04 23:42] LABS: Urine Appearance Cloudy; Urine Bacteria Absent (Absent); Urine Bilirubin 1+ (Negative); Urine Blood Negative (Negative); Urine Color Yellow; Urine Glucose Negative (Negative); Urine Ketones Negative (Negative); Urine Nitrite Negative (Negative); Urine Protein 1+(30 mg/dL) (Negative); Urine Red Blood Cell Trace(0-2/hpf) (Absent); Urine Specific Gravity 1.046 (1.010-1.030); Urine Squamous Epithelial Cell Present (Absent); Urine Urobilinogen Negative (Negative); Urine White Blood Cell Trace(0-5/hpf) (Absent)
[2018-12-04 23:50] LABS: Urine Benzodiazepine Screen None Detected (None Detect); Urine Opiates Screen Presumptive Positive (None Detect)
[2018-12-05] MEDS ORDERED: Benzocaine/Menthol LOZ* 1 LOZENGE MT ONE (05:00)
[2018-12-05] MEDS ORDERED: Al Hydrox/Mg Hydrox/Simet LIQ* 30 ML UDC PO PRN (05:58)
[2018-12-05] MEDS: Multivitamins/Minerals TAB PO SCH (09:36)
[2018-12-05] MEDS ORDERED: Naproxen TAB* 250 MG PO PRN (14:30)
[2018-12-05] MEDS: oxyCODONE TAB* 5 MG TAB PO PRN ×3 (15:04→23:06)
[2018-12-05] MEDS: oxyCODONE/Acetamin 5/325 MG* TAB PO PRN ×2 (15:04→23:06)
[2018-12-05] MEDS: DULoxetine DR CAP* 60 MG CAP.DR PO SCH (15:05)
--- NOTE | 2018-12-05 16:08 | HP ---
HISTORY AND PHYSICAL: DATE OF ADMISSION: 12/05/18 IDENTIFYING DATA: Martin is a 43-year-old, never , physically disabled male, who b rought himself to the [facility] ED complaining of suicidal ideation and a plan in the con text of worsening depression and stress. CHIEF COMPLAINT: "I have been thinking about killing myself, but couldn't do it, I need help." HISTORY OF PRESENT ILLNESS: This is a 43-year-old male who reports of experiencing depression in his early teenage years requiring hospitalization, has not been treated for mental health since his disc harge from the inpatient hospitalization during his teenage years. However, his primary care kyle flores was prescribing him Cymbalta for mainly anxiety, which had helped him to an extent. In the recent past his pain related to his back, as well as arthritis of his knees, was bothering so much that his depression worsened to a point that he could not handle it anymore. For the last few days he has bee n thinking about suicide and [facility] [place] [facility] to jump off and end his life. Then, f or no reason, he changed his mind and decided to come to the emergency room for help. He continues t o be depressed with sadness, anhedonia, poor self-esteem, lack of motivation, poor self-worth, and no goal in life. He does not go anywhere, stays in his house, most of the time sitting on a couch. He has even been having difficulty getting up to go use the restroom. He is morbidly obese and feels s ocially awkward. On top of everything, his dad and is in morgue to be picked up by ced martin. Everybody looks at him that he will do it; however, he does not have any financial support or m otivation to do it and feels guilty about it. PAST PSYCHIATRIC HISTORY: Possibly at least one psychiatric hospitalization in his early teenage yea rs because of depression and suicide attempt at that time. He has not been taking any medications fo r a long, long time until the recent past when his primary care physician started him on Cymbalta for unrelated reason. However, that has been helping him with anxiety and appetite as well. SUBSTANCE ABUSE HISTORY: Denies using any alcohol or drugs. PAST MEDICAL HISTORY: Morbid obesity, hypertension, chronic back pain, bilateral osteoarthritis of k nee joints. ALLERGIES: No known drug allergies. FAMILY PSYCHIATRIC HISTORY: Martin believes his only sister has depression, but he is not aware tatum t she gets any treatment or not. He has 2 other brothers who are in perfect health. His father was an alcoholic. Mother smoked a lot. PERSONAL AND SOCIAL HISTORY: Martin is physically disabled because of knee and back problems, as we ll as morbid obesity. 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 Since then he cou ld not even find anymore work, moreover he became so ill with his back and knee problems that he coul d not work. He is currently supported by social security benefits. He never got , does not h ave any children. He had brief relationships here and there, but he does not enjoy having any kind o f significant relationship. He denies any legal problems as well. He lives alone by himself. He wa s born and raised in [place], describes his growing up as decent. PHYSICAL EXAMINATION GENERAL: Other than feeling little bit sick with his back and knee pain, he denies any other physica l distress. As mentioned earlier, Martin is morbidly obese. He is appropriately dressed, fairly gr oomed, with fair personal hygiene. VITAL SIGNS: Show a blood pressure of 157/95, pulse 83, temperature 97.8, respirations 16, pulse ox 95% on room air. HEENT: His head looks atraumatic, normocephalic. Eyes: PERRLA. EOMI x2. Oral cavity and orophary nx within normal limits. Pharynx look a little bit injected, otherwise no exudate or anything. NECK: Supple. Somewhat difficult to move because of his shortness of neck and thickness. Midline t rachea. No adenopathy or thyromegaly appreciated. CHEST: Difficult to auscultate because of his obesity, but apparently there is bilateral air entry e qually. No crackles or wheezing. HEART: Again, very difficult to auscultate. S1 and S2 appreciated. No gallops or other abnormal so unds. ABDOMEN: Extremely obese. Very difficult to palpate anything. No pain or tenderness. Bowel sounds positive in all quadrants. EXTREMITIES: Difficult to move because of obesity and knee problems. Otherwise positive pulses in a ll extremities. NEUROLOGICAL: No sensory deficits. Cranial nerves II through XII grossly intact. He is alert and or iented to time, place, and person. DIAGNOSTIC STUDIES/LAB DATA: Labs show a WBC count of 11.8, hemoglobin 12.7, hematocrit 38, platele t count 374. Rest of the lab reports are all unremarkable. X-ray of the chest shows cardiomegaly. No infiltrate or other abnormalities. MENTAL STATUS EXAMINATION: This is a morbidly obese, appropriately dressed, fairly groomed male, who is alert and oriented to time, place, and person; pleasant and cooperative with the evalua tion; makes poor eye contact. Speech is normal in all spheres. Describes his mood as depressed. Ob served affect appears to be restricted and mostly dysphoric. There is no evidence of any thought, pe rceptual or psychomotor disturbances. His intelligence appears to be average as evidenced by his voc abulary and fund of knowledge. Memory functions were intact in all spheres. Insight and judgment ap pears to be fair to good. SUMMARY: This 43-year-old male with prior history of hospitalization for depression and sporadic bernie atment for his mental health issues for all his life has been severely depressed in the recent past i n the context of physical disability as well as loss of his dad and not being able to take care of hi s , was very discouraged and wanted to end his life by jumping off of the bridge in [facility]. He went to the bridge, but changed his mind and came to the emergency department for hel p. DIAGNOSTIC IMPRESSION: MENTAL HEALTH DIAGNOSIS: Major depressive disorder, recurrent, severe, without psychosis. PHYSICAL HEALTH DIAGNOSES: 1. Morbid obesity. 2. Hypertension. 3. Chronic back pain. 4. Bilateral osteoarthritis of both knees. TREATMENT RECOMMENDATIONS: Martin will remain hospitalized on behavioral science unit for his safet y and further evaluation of his mental health conditions. His code status will remain full. Support ibeth milieu, individual and group therapy will be initiated. For now, I am going to adjust the doses of his Cymbalta to at least 120 mg per day and defer further psychopharmacological treatment to his a ssied psychiatrist. We will try to manage his pain syndrome as much as we can by resuming Percocet as he was taking outside, otherwise obtain a hospitalist consult to help us with the pain management . [id number]/[facility] #: [id number]
[2018-12-05] MEDS: Benzocaine/Menthol LOZ* 1 LOZENGE PO PRN ×2 (17:23→23:07)
[2018-12-06] MEDS: oxyCODONE TAB* 5 MG TAB PO PRN ×4 (06:23→23:08)
[2018-12-06] MEDS: oxyCODONE/Acetamin 5/325 MG* TAB PO PRN ×4 (06:24→23:09)
[2018-12-06] MEDS: Benzocaine/Menthol LOZ* 1 LOZENGE PO PRN ×3 (06:26→19:07)
[2018-12-06 08:17] LABS: HDL Cholesterol 34.2 mg/dL
[2018-12-06] MEDS: Multivitamins/Minerals TAB PO SCH (12:29)
[2018-12-06] MEDS: DULoxetine DR CAP* 60 MG CAP.DR PO SCH (12:29)
[2018-12-07] MEDS: Benzocaine/Menthol LOZ* 1 LOZENGE PO PRN ×4 (01:50→21:28)
[2018-12-07] MEDS: oxyCODONE/Acetamin 5/325 MG* TAB PO PRN ×3 (05:05→13:44)
[2018-12-07] MEDS: oxyCODONE TAB* 5 MG TAB PO PRN ×4 (05:06→18:19)
[2018-12-07] MEDS: Multivitamins/Minerals TAB PO SCH (09:41)
[2018-12-07] MEDS: DULoxetine DR CAP* 60 MG CAP.DR PO SCH (09:42)
--- NOTE | 2018-12-07 11:16 | PN ---
Subjective - Subjective Date of Service: 12/07/18 Service Type: 07689 Hosp care 35 min high complexity Subjective: Nursing Report: Patient was visible on unit, no chemical restraints Poor Slept overnight. No behavioral incidents. He is attending group activities. CC: "okay" Patient was seen and evaluated in the common room. His current stressors include his father recently dying. He remarked "I am suppose to burry the deni and he didnt even like me." The patient reported he was in and out of psychiatric hospitals his whole life and one time ate glass and a suicide attempt. He reported having poor sleep because he has restless leg syndrome. The patient reports attending and participating in day groups. Per nursing no behavioral issues or overnight events reported. Patient reported that he is tolerating medications without side effects. Objective - General Observations Appearance: Disheveled Appears Stated Age: Yes Stature: Overweight Posture: Slumped Eye Contact: Average Behavior/Activity: Accelerated - Interaction Observations Attitude Towards Examiner: Cooperative Stated Mood: Elevated Affect: Blunted Speech Pattern/Tone: Clear Thought Process: Coherent Perception: WNL Thought Content: WNL Thought Process: Lethality: Passive Wish Hallucination Type: None Delusion Type: None - Cognitive Function Orientation: A&O x 4 Level of Consciousness: Awake - Medication Compliance Cooperative with Inpatient Medication Regimen: Yes - Group Participation Participates in Group Activities: Yes Assessment - Assessment Merits Inpatient Hospitalization: For Immediate Safety Clinical Impression: 43 year old male presented to the hospital with suicidal ideation and plan to jump off a bridge. Plan - Plan Treatment Plan: Name: TONY BENNETT JR Birthdate: 1975 [id number] Plan # Q15 minute observation. # The patient requires psychiatric inpatient admission at this time to assure safety, receive treatment and work toward stabilization. # Obtain collateral information once release is signed. # Collaboration with Grind Operator #[place] PROGRAM MANAGEMENT PROFESSIONAL confirmed oxycodone 10mg/ 325mg six times a day #Resume requip 2mg at 2100 for RLS # Change cymbalta 60mg BID #Goals before discharge include: To eliminate/ reduce suicidal ideation The risks, benefits, and alternative treatment options were discussed as well as of the risks of refusing treatment. After this discussion and an acknowledgement of this understanding was made. A risk/ benefit assessment of treatment was considered and discussed with the patient. When comparing the risks of treatment with the dangers of not receiving treatment, the benefits of treatment outweigh the treatment risks at this time. Risks of allergy, suicidal ideation, behavioral changes, dystonia, rashes, electrolyte imbalances, movement disorders, cardiac conduction changes, serotonin syndrome, metabolic risks were among some of the risks discussed. Continued Medication Management: Continue Outpt Medication Medications: Current Medications Acetaminophen (Tylenol Tab*) 650 mg PO Q4H PRN PRN Reason: PAIN; OR TEMP >101 Al Hydrox/Mg Hydrox/Simethicone (Maalox Plus*) 30 ml PO Q4H PRN PRN Reason: INDIGESTION Duloxetine HCl (Cymbalta Cap*) 120 mg PO DAILY [facility] Last Admin: 12/07/18 09:42 Dose: 120 mg Multivitamins/Minerals (Theragran/Minerals Tab*) 1 tab PO DAILY [facility] Last Admin: 12/07/18 09:41 Dose: 1 tab Naproxen (Naprosyn Tab*) 500 mg PO Q12H PRN PRN Reason: PAIN Oxycodone HCl (Roxycodone Tab*) 5 mg PO Q4H PRN PRN Reason: PAIN Last Admin: 12/07/18 09:42 Dose: 5 mg Oxycodone/Acetaminophen (Percocet 5/325 Tab*) 1 tab PO Q4H PRN PRN Reason: PAIN Last Admin: 12/07/18 09:41 Dose: 1 tab Throat Lozenges (Chloraseptic Mauri*) 1 mauri PO Q6H PRN PRN Reason: COUGH Last Admin: 12/07/18 07:35 Dose: 1 mauri - Discharge Plan Discharge Plan: Inpatient Hospitalization
--- NOTE | 2018-12-07 11:33 | PN ---
BSU: Group Therapy Note - Service Type Service Type: [id number] Group Psychotherapy - Cognitive Behavioral Group Therapy ( CBT):Patient was attentive and participatory in CBT programming this morning, and remained in good behavioral control. Patient expressed positive insights regarding relevant treatment interventions and goals.
[2018-12-07] MEDS ORDERED: Naloxone Nasal Spray* 4 MG/0.1 ML NASAL.SPR INTRANASAL PRN (14:56)
[2018-12-07] MEDS: rOPINIRole TAB* 1 MG PO SCH (21:26)
[2018-12-07] MEDS: Acetaminophen TAB* 325 MG PO PRN (21:27)
[2018-12-08] MEDS: oxyCODONE TAB* 5 MG TAB PO PRN ×3 (01:49→18:11)
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
[2018-12-08] MEDS: Acetaminophen TAB* 325 MG PO PRN ×2 (10:00→18:16)
[2018-12-08] MEDS: DULoxetine DR CAP* 60 MG CAP.DR PO SCH ×2 (10:00→21:50)
[2018-12-08] MEDS: Multivitamins/Minerals TAB PO SCH (10:00)
[2018-12-08] MEDS: Benzocaine/Menthol LOZ* 1 LOZENGE PO PRN ×3 (10:03→18:16)
[2018-12-08] MEDS: Lisinopril TAB* 10 MG PO SCH (12:12)
[2018-12-08] MEDS: guaiFENesin LIQ* 100 MG/5 ML UDC PO PRN ×2 (16:18→21:54)
[2018-12-08] MEDS: rOPINIRole TAB* 1 MG PO SCH (21:49)
[2018-12-09] MEDS: Benzocaine/Menthol LOZ* 1 LOZENGE PO PRN ×4 (00:10→22:10)
[2018-12-09] MEDS: oxyCODONE TAB* 5 MG TAB PO PRN ×3 (01:25→17:52)
[2018-12-09] MEDS: Acetaminophen TAB* 325 MG PO PRN ×2 (01:26→17:54)
[2018-12-09] MEDS: Multivitamins/Minerals TAB PO SCH (09:47)
[2018-12-09] MEDS: DULoxetine DR CAP* 60 MG CAP.DR PO SCH ×2 (09:47→22:07)
[2018-12-09] MEDS: Lisinopril TAB* 10 MG PO SCH (09:47)
[2018-12-09] MEDS: guaiFENesin LIQ* 100 MG/5 ML UDC PO PRN ×2 (09:48→22:09)
--- NOTE | 2018-12-09 12:01 | PN ---
Subjective - Subjective Date of Service: 12/09/18 Service Type: [id number] Hosp care 35 min high complexity Subjective: Nursing Report: Patient was visible on unit, no chemical restraints or PRNs. Slept overnight without incident. He is attending group activities. CC: " okay" Patient was seen and evaluated in the common room. The patient reported he feels safe on the unit and is interacting with peers. He reported having adequate appetite and sleep. The patient reports attending and participating in day groups. Per nursing no behavioral issues or overnight events reported. Patient reported that he is tolerating medications without side effects. Patient plans to go to [facility] after he is discharged. He mentioned that he did not like the last place that he was assigned and was given a citation. He wants to live for his family. Objective - General Observations Appearance: Disheveled Appears Stated Age: Yes Stature: Overweight Posture: Slumped Eye Contact: Average Behavior/Activity: WNL - Interaction Observations Attitude Towards Examiner: Cooperative Stated Mood: Dysphoric Affect: Blunted Speech Pattern/Tone: Clear Thought Process: Coherent Perception: WNL Thought Content: WNL Hallucination Type: None Delusion Type: None - Cognitive Function Orientation: A&O x 4 Level of Consciousness: Awake - Medication Compliance Cooperative with Inpatient Medication Regimen: Yes - Group Participation Participates in Group Activities: Yes Assessment - Assessment Merits Inpatient Hospitalization: For Immediate Safety Clinical Impression: 43 year old male presented to the hospital with suicidal ideation and plan to jump off a bridge. Plan - Plan Treatment Plan: Name: TONY BENNETT JR Birthdate: 1975 [id number] Plan # Q30 minute observation with staff pass # The patient requires psychiatric inpatient admission at this time to assure safety, receive treatment and work toward stabilization. # Obtain collateral information once release is signed. # Collaboration with Assistant Portfolio Manager #[place] HAT MEASURER verified oxycodone 10mg/ 325mg six times a day # Requip 2mg at 2100 for RLS # Cymbalta 60mg BID #Currently homeless, plans to go to [facility] upon discharge #Goals before discharge include: To eliminate/ reduce suicidal ideation Tentative Discharge The risks, benefits, and alternative treatment options were discussed as well as of the risks of refusing treatment. After this discussion and an acknowledgement of this understanding was made. A risk/ benefit assessment of treatment was considered and discussed with the patient. When comparing the risks of treatment with the dangers of not receiving treatment, the benefits of treatment outweigh the treatment risks at this time. Risks of allergy, suicidal ideation, behavioral changes, dystonia, rashes, electrolyte imbalances, movement disorders, cardiac conduction changes, serotonin syndrome, metabolic risks were among some of the risks discussed. Continued Medication Management: Continue Outpt Medication Medications: Current Medications Acetaminophen (Tylenol Tab*) 650 mg PO Q4H PRN PRN Reason: PAIN; OR TEMP >101 Last Admin: 12/09/18 01:26 Dose: 650 mg Al Hydrox/Mg Hydrox/Simethicone (Maalox Plus*) 30 ml PO Q4H PRN PRN Reason: INDIGESTION Duloxetine HCl (Cymbalta Cap*) 60 mg PO BID [facility] Last Admin: 12/09/18 09:47 Dose: 60 mg Guaifenesin (Robitussin*) 5 ml PO Q6H PRN PRN Reason: COUGH Last Admin: 12/09/18 09:48 Dose: 5 ml Lisinopril (Prinivil Tab*) 40 mg PO DAILY [facility] Last Admin: 12/09/18 09:47 Dose: 40 mg Multivitamins/Minerals (Theragran/Minerals Tab*) 1 tab PO DAILY [facility] Last Admin: 12/09/18 09:47 Dose: 1 tab Naloxone HCl (Narcan Nasal [place]) 4 mg INTRANASAL .REPEAT Q2M to Q3M PRN PRN Reason: RESPIRATORY DEPRESSION Naproxen (Naprosyn Tab*) 500 mg PO Q12H PRN PRN Reason: PAIN Oxycodone HCl (Roxycodone Tab*) 20 mg PO Q8H PRN PRN Reason: PAIN Last Admin: 12/09/18 09:50 Dose: 20 mg Ropinirole HCl (Requip Tab*) 2 mg PO 2100 [facility] Last Admin: 12/08/18 21:49 Dose: 2 mg Throat Lozenges (Chloraseptic Mauri*) 1 mauri PO Q4H PRN PRN Reason: COUGH Last Admin: 12/09/18 09:48 Dose: 1 mauri - Discharge Plan Discharge Plan: Inpatient Hospitalization
[2018-12-09] MEDS: rOPINIRole TAB* 1 MG PO SCH (22:07)
[2018-12-10] MEDS: oxyCODONE TAB* 5 MG TAB PO PRN ×2 (01:27→09:17)
--- NOTE | 2018-12-10 08:39 | DS ---
Subjective - Subjective Service Types: [id number] [facility] Day Mgmt complex over 30 min Discharge Date: 12/10/18 Subjective: CC: "Fine " Patient looks forward to finding housing and wants to live for his dog. The patient was seen and evaluated before discharge today. The patient reported having adequate appetite and sleep. The patient reports attending and participating in day groups. Per nursing no behavioral issues or overnight events reported. Patient reported tolerating medications without side effects. IDENTIFYING DATA: Martin is a 43-year-old, never , physically disabled male, who brought himself to the [facility] ED complaining of suicidal ideation and a plan in the context of worsening depression and stress. CHIEF COMPLAINT: "I have been thinking about killing myself, but couldn't do it , I need help." HISTORY OF PRESENT ILLNESS: This is a 43-year-old male who reports of experiencing depression in his early teenage years requiring hospitalization, has not been treated for mental health since his discharge from the inpatient hospitalization during his teenage years. However, his primary care physician was prescribing him Cymbalta for mainly anxiety, which had helped him to an extent. In the recent past his pain related to his back, as well as arthritis of his knees, was bothering so much that his depression worsened to a point that he could not handle it anymore. For the last few days he has been thinking about suicide and went to the bridge in [facility] to jump off and end his life. Then, for no reason, he changed his mind and decided to come to the emergency room for help. He continues to be depressed with sadness, anhedonia, poor self-esteem, lack of motivation, poor self-worth, and no goal in life. He does not go anywhere, stays in his house, most of the time sitting on a couch. He has even been having difficulty getting up to go use the restroom. He is morbidly obese and feels socially awkward. On top of everything, his dad and is in morgue to be picked up by somebody. Everybody looks at him that he will do it; however, he does not have any financial support or motivation to do it and feels guilty about it. PAST PSYCHIATRIC HISTORY: Possibly at least one psychiatric hospitalization in his early teenage years because of depression and suicide attempt at that time. He has not been taking any medications for a long, long time until the recent past when his primary care physician started him on Cymbalta for unrelated reason. However, that has been helping him with anxiety and appetite as well. SUBSTANCE ABUSE HISTORY: Denies using any alcohol or drugs. PAST MEDICAL HISTORY: Morbid obesity, hypertension, chronic back pain, bilateral osteoarthritis of knee joints. ALLERGIES: No known drug allergies. FAMILY PSYCHIATRIC HISTORY: Martin believes his only sister has depression, but he is not aware that she gets any treatment or not. He has 2 other brothers who are in perfect health. His father was an alcoholic. Mother smoked a lot. PERSONAL AND SOCIAL HISTORY: Martin is physically disabled because of knee and back problems, as well as morbid obesity. 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 Since then he could not even find anymore work, moreover he became so ill with his back and knee problems that he could not work. He is currently supported by social security benefits. He never got , does not have any children. He had brief relationships here and there, but he does not enjoy having any kind of significant relationship. He denies any legal problems as well. He lives alone by himself. He was born and raised in [place], describes his growing up as decent. PHYSICAL EXAMINATION GENERAL: Other than feeling little bit sick with his back and knee pain, he denies any other physical distress. As mentioned earlier, Martin is morbidly obese. He is appropriately dressed, fairly groomed, with fair personal hygiene. VITAL SIGNS: Show a blood pressure of 157/95, pulse 83, temperature 97.8, respirations 16, pulse ox 95% on room air. HEENT: His head looks atraumatic, normocephalic. Eyes: PERRLA. EOMI x2. Oral cavity and oropharynx within normal limits. Pharynx look a little bit injected, otherwise no exudate or anything. NECK: Supple. Somewhat difficult to move because of his shortness of neck and thickness. Midline trachea. No adenopathy or thyromegaly appreciated. CHEST: Difficult to auscultate because of his obesity, but apparently there is bilateral air entry equally. No crackles or wheezing. HEART: Again, very difficult to auscultate. S1 and S2 appreciated. No gallops or other abnormal sounds. ABDOMEN: Extremely obese. Very difficult to palpate anything. No pain or tenderness. Bowel sounds positive in all quadrants. EXTREMITIES: Difficult to move because of obesity and knee problems. Otherwise positive pulses in all extremities. NEUROLOGICAL: No sensory deficits. Cranial nerves II through XII grossly intact. He is alert and oriented to time, place, and person. DIAGNOSTIC STUDIES/LAB DATA: Labs show a WBC count of 11.8, hemoglobin 12.7, hematocrit 38, platelet count 374. Rest of the lab reports are all unremarkable. X-ray of the chest shows cardiomegaly. No infiltrate or other abnormalities. MENTAL STATUS EXAMINATION: This is a morbidly obese, appropriately dressed, fairly groomed male, who is alert and oriented to time, place, and person; pleasant and cooperative with the evaluation; makes poor eye contact. Speech is normal in all spheres. Describes his mood as depressed. Observed affect appears to be restricted and mostly dysphoric. There is no evidence of any thought, perceptual or psychomotor disturbances. His intelligence appears to be average as evidenced by his vocabulary and fund of knowledge. Memory functions were intact in all spheres. Insight and judgment appears to be fair to good. SUMMARY: This 43-year-old male with prior history of hospitalization for depression and sporadic treatment for his mental health issues for all his life has been severely depressed in the recent past in the context of physical disability as well as loss of his dad and not being able to take care of his , was very discouraged and wanted to end his life by jumping off of the bridge [place] [facility]. He went to the bridge, but changed his mind and came to the emergency department for help. DIAGNOSTIC IMPRESSION: MENTAL HEALTH DIAGNOSIS: Major depressive disorder, recurrent, severe, without psychosis. PHYSICAL HEALTH DIAGNOSES: 1. Morbid obesity. 2. Hypertension. 3. Chronic back pain. 4. Bilateral osteoarthritis of both knees. TREATMENT RECOMMENDATIONS: Martin will remain hospitalized on behavioral science unit for his safety and further evaluation of his mental health conditions. His code status will remain full. Supportive milieu, individual and group therapy will be initiated. For now, I am going to adjust the doses of his Cymbalta to at least 120 mg per day and defer further psychopharmacological treatment to his assigned psychiatrist. We will try to manage his pain syndrome as much as we can by resuming Percocet as he was taking outside, otherwise obtain a hospitalist consult to help us with the pain management. Diagnosis on Discharge: Major Depressive Disorder in partial remission. Adjustment disorder. Condition at the time of discharge: At the time of discharge patient showed improvement of sleep and appetite. The patient was not a danger to self or others. The patient denied suicidal ideation , intent or plan. The patient denied homicidal targets, ideation, intent or plan. This patient participated in psychosocial rehabilitation and gained some insight into problems. The patient gained insight into mental illness, triggers, and treatment. The patient took medication as prescribed. The patient denied side effects of medication and objective signs of side effects were not evident. Therapy Resources were offered to the patient. Patient was given a supply of prescriptions at the time of discharge. The patient plans to attend follow up care with the follow up arrangements that were discussed and put in place. Patient was asked to keep appointments as scheduled, take medication as prescribed, have routine follow up care with their primary care physician and refrain from any use of alcohol or drugs. Objective - General Observations Appearance: Disheveled Stature: Overweight Posture: Slumped Eye Contact: Average Behavior/Activity: Accelerated - Interaction Observations Attitude Towards Examiner: Cooperative Stated Mood: Elevated Affect: Full Speech Pattern/Tone: Appropriate Thought Process: Coherent Perception: WNL Thought Content: WNL Hallucination Type: None Delusion Type: None - Cognitive Function Orientation: A&O x 4 Level of Consciousness: Awake - Medication Compliance Cooperative with Inpatient Medication Regimen: Yes - Group Participation Participates in Group Activities: Yes Treatment Course & Assessment Clinical Course & Impression: Hospital course part A: 43 year old male presented to the hospital with suicidal ideation and plan to jump off a bridge. Hospital course part B: Labs ordered included CBC, CMP, UDS, TSH, HBA1c, TSH, Toxicology screen, Urine analysis, and lipid profile. Labs were reviewed and did not require the need for further evaluation. Vital signs were monitored during the course of admission. EKG ordered for risk of QT prolongation of antipsychotic medication. EKG was reviewed and no abnormal findings were present The patient was admitted to the adult behavioral unit and placed on 15 minute check for safety. At a later time the patient was on Q30 minute observation and staff pass privileges. With those limits being extended , there were no occurrence of behavioral incidents. The patient did well on the unit and went to groups. Interacted with peers had adequate sleep and regular appetite. Tolerated medication changes without side effects. Group therapy and services were offered. The risks, benefits, and alternative treatment options were discussed as well as of the risks of refusing treatment. Treatment associated risks discussed. After this discussion made an acknowledgement of this understanding. Follow up care appointments were put in place for follow up care. The importance of monitoring for metabolic changes was discussed and acknowledgement of this understanding was made. Patient informed not to abruptly stop or start new medications before consulting with a medical professional. Improvements in patient from the time of admission include: Improved affect, sleep and decrease in anxiety. No longer suicidal and no longer having feelings of hopelessness. The patient expressed readiness for discharge home. The patient presents with a broader range of affect, and the absence of depressed mood, delusions, perceptual disturbances. The patient denied suicidal and or homicidal ideation intent or plan. Overall, the patient responded well to inpatient treatment as evidenced by their report of strengthening of coping mechanisms, reduced distress, and more positive outlook on circumstances. Of note there was an improvement of recognizing how emotional state can effect mood and behavior. Safety precautions were put in place which included involving the patient and their family to closely monitor for changes in mental state. In addition, implementing follow up care, screening for the need to remove/securing firearms , weapons and stockpile of medications. Patient instructed to immediately call 911 should any safety concerns arise. OFFICE SYSTEM ANALYST was checked and no indications of prescription abuse or diversion were present. Patient advised of the lethality and dangerousness of combining medications with pain medications and/ or with alcohol and acknowledged this understanding. [place] OFFICE SYSTEM ANALYST confirmed oxycodone 10mg/ 325mg six times a day. Patient expressed having enough medications until his next follow up appointment and did not need refills. The patient was advised of the 24 hour / 7 days a week availability of the emergency room and to call 911 in the event of an emergency such as being suicidal and/ or homicidal. The patient was informed of the contact information for [facility], Suicide Prevention and Crisis Services, National Suicide Prevention Lifeline, [facility], Alcoholics Anonymous, and [facility]. Medications started included resuming his home medications. Patient did not have a release to contact family for collateral information. Patient plans to solve current stressors of finding housing and work with a medical office administrator to settle his fathers estate. Patient was not assaultive or a behavioral problem during the course of admission. The patient showed improvement of hygiene and was able to carry out activities of daily living. Patient will be discharged to department of social security to find housing options. [facility] up appointment at [facility] and Dr. Gallagher PCP Patient informed of follow up appointment times. See more details for follow up care in the discharge plan. Risk factors: , Age, single, history of mental illness. Prior suicide attempt. Limited support system. Current change of housing status. Protective factors: Currently no suicidal ideation, intent or plan. No history of service. Currently no feelings of hopelessness, not in an occupation of social isolation, doesnt have multiple medical conditions, no family history of suicide, doesnt have access to firearms. Doesnt have command hallucinations and or psychotic features at this time. No current substance abuse. No current alcohol abuse. Not an anniversary of a loss of a loved one. Currently future orientated. Patient engaged in treatment and compliant with medication. Merits Inpatient Hospitalization: No Clear for Discharge: Adequate Clinical Respons Discharge Planning - Discharge Planning Outpatient Program: [facility] Recommendations for Continuing Care: Medication Management Medications: Current Medications Acetaminophen (Tylenol Tab*) 650 mg PO Q4H PRN PRN Reason: PAIN; OR TEMP >101 Last Admin: 12/09/18 17:54 Dose: 650 mg Al Hydrox/Mg Hydrox/Simethicone (Maalox Plus*) 30 ml PO Q4H PRN PRN Reason: INDIGESTION Duloxetine HCl (Cymbalta Cap*) 60 mg PO BID [facility] Last Admin: 12/09/18 22:07 Dose: 60 mg Guaifenesin (Robitussin*) 5 ml PO Q6H PRN PRN Reason: COUGH Last Admin: 12/09/18 22:09 Dose: 5 ml Lisinopril (Prinivil Tab*) 40 mg PO DAILY [facility] Last Admin: 12/09/18 09:47 Dose: 40 mg Multivitamins/Minerals (Theragran/Minerals Tab*) 1 tab PO DAILY [facility] Last Admin: 12/09/18 09:47 Dose: 1 tab Naloxone HCl (Narcan Nasal [place]) 4 mg INTRANASAL .REPEAT Q2M to Q3M PRN PRN Reason: RESPIRATORY DEPRESSION Naproxen (Naprosyn Tab*) 500 mg PO Q12H PRN PRN Reason: PAIN Oxycodone HCl (Roxycodone Tab*) 20 mg PO Q8H PRN PRN Reason: PAIN Last Admin: 12/10/18 01:27 Dose: 20 mg Ropinirole HCl (Requip Tab*) 2 mg PO 2100 [facility] Last Admin: 12/09/18 22:07 Dose: 2 mg Throat Lozenges (Chloraseptic Garret*) 1 garret PO Q4H PRN PRN Reason: COUGH Last Admin: 12/09/18 22:10 Dose: 1 garret Discharge Planning: Prescriptions provided for discharge [] Yes [x] No Ample home supply Follow up care details as per social work arrangements. Patient response to discharge plan: [] eager for discharge [x] agreeable with discharge plan [] ambivalent about discharge [] disagrees with discharge today
[2018-12-10 08:44] VITALS: BP 131/73
[2018-12-10] MEDS: Multivitamins/Minerals TAB PO SCH (09:15)
[2018-12-10] MEDS: DULoxetine DR CAP* 60 MG CAP.DR PO SCH (09:15)
[2018-12-10] MEDS: guaiFENesin LIQ* 100 MG/5 ML UDC PO PRN (09:17)
[2018-12-10] MEDS: Benzocaine/Menthol LOZ* 1 LOZENGE PO PRN (09:17)
[2018-12-10] MEDS: Lisinopril TAB* 10 MG PO SCH (09:18)
== END 2018-12-10 09:55 | disposition home or self-care (01) | DRG 751 ==
LOC: ED 21:12 → BSU 12-05 03:21
PROVIDERS: ADMIT Psychiatry & Neurology Psychiatry; ATTEND Psychiatry & Neurology Psychiatry
PROC: GZHZZZZ Group Psychotherapy (ICD-10-PCS; principal; 2018-12-07)
DX: F33.2 Major depressive disorder, recurrent severe without psychotic features (principal); Z68.44 Body mass index [BMI] 60.0-69.9, adult; R45.851 Suicidal ideations; M17.0 Bilateral primary osteoarthritis of knee; E66.01 Morbid (severe) obesity due to excess calories; G89.29 Other chronic pain; M54.9 Dorsalgia, unspecified; I10 Essential (primary) hypertension; F43.20 Adjustment disorder, unspecified; F41.9 Anxiety disorder, unspecified; I25.10 Atherosclerotic heart disease of native coronary artery without angina pectoris; M79.601 Pain in right arm; Z91.5 Personal history of self-harm; Z81.8 Family history of other mental and behavioral disorders; Z81.1 Family history of alcohol abuse and dependence; Z81.2 Family history of tobacco abuse and dependence
CPT/HCPCS: 36415; 71045; 80053; 80061; 80307; 80320; 80329; 81003; 81015; 83036; 84443; 85025; 87086; 90853; 99222; 99233; 99238; 99285; A9270-GY; G0480

== ENCOUNTER 2018-12-10 22:35 | Inpatient (IN) | payer OTHER ==
[2018-12-10 23:34] LABS: Hematocrit 42 % (42-52); Hemoglobin 13.2 g/dL (14.0-18.0); Mean Corpuscular HGB Conc 32 g/dL (31-36); Mean Corpuscular Hemoglobin 26 pg (27-31); Mean Corpuscular Volume 82 fL (80-94); Mean Platelet Volume 6.9 fL (7.4-10.4); Platelet Count 499 10^3/uL (150-450); Red Blood Count 5.13 10^6 /uL (4.18-5.48); Red Cell Distribution Width 18 % (10-15); White Blood Count 17.3 10^3/uL (3.5-10.8)
[2018-12-10 23:54] LABS: ALT 44 U/L (7-52); AST 26 U/L (13-39); Albumin 4.1 g/dL (3.2-5.2); Albumin/Globulin Ratio 1.2 (1-3); Alkaline Phosphatase 76 U/L (34-104); Anion Gap 7 mmol/L (2-11); BUN/Creatinine Ratio 26.9 (8-20); Blood Urea Nitrogen 29 mg/dL (6-24); CO2 Carbon Dioxide 28 mmol/L (22-32); Calcium 9.7 mg/dL (8.6-10.3); Chloride 100 mmol/L (101-111); EGFR African American 89.5 (>60); EGFR Non-African American 73.9 (>60); Globulin 3.5 g/dL (2-4); Glucose 115 mg/dL (70-100); Potassium 4.2 mmol/L (3.5-5.0); Sodium 135 mmol/L (135-145); Total Protein 7.6 g/dL (6.4-8.9)
--- NOTE | 2018-12-10 23:59 | ED ---
Psychiatric Complaint - HPI Summary HPI Summary: Pt is a 43 y/o M presenting to the ED with a chief psychiatric complaint. He was d/stephen on 12/10/18, but feels that he was not rehabilitated enough, and his suicidal thoughts are still present, and have been present for a week and a half. He denies any physical symptoms, including CP and SOB. - History Of Current Complaint Chief Complaint: EDMentalHealth Time Seen by Provider: 12/10/18 23:15 Accompanied By: alone Hx Obtained From: Patient Onset/Duration: Gradual Onset, Lasting Days Timing: Days Severity Initially: Moderate Severity Currently: Moderate Character: Depressed Aggravating Factor(s): Recent Stress Alleviating Factor(s): Nothing Has Suicidal: Reports: Thoughts - Allergies/Home Medications Allergies/Adverse Reactions: Allergies Allergy/AdvReac Type Severity Reaction Status Date / Time No Known Allergies Allergy Verified 12/10/18 22:42 PMH/Surg Hx/FS Hx/Imm Hx Previously Healthy: Yes Endocrine/Hematology History: Denies: Hx Anticoagulant Therapy Cardiovascular History: Reports: Hx Coronary Artery Disease, Hx Hypertension History: Denies: Hx Dialysis Musculoskeletal History: Reports: Hx Arthritis - knee, Hx Back Problems - chronic pain, Other Musculoskeletal History - chronic Rt arm pain Sensory History: Denies: Hx Contacts or Glasses, Hx Eye Prosthesis, Hx Legally Blind, Hx Deafness, Hx Hearing Aid Opthamlomology History: Denies: Hx Contacts or Glasses, Hx Eye Prosthesis, Hx Legally Blind Neurological History: Denies: Hx Dementia Psychiatric History: Reports: Hx Depression, Hx Substance Abuse, Other Psychiatric Issues/Disorders - obesity Denies: Hx Autism, Hx of Violent Episodes Against Others - Surgical History Surgery Procedure, Year, and Place: none Infectious Disease History: No Infectious Disease History: Denies: Traveled Outside the [place] in Last 30 Days - Family History Known Family History: Negative: Cardiac Disease - Social History Alcohol Use: None Hx Substance Use: Yes Substance Use Type: Reports: None Substance Use Comment - Amount & Last Used: oxycodone, morphine Hx Tobacco Use: No Smoking Status (MU): Never Smoked Tobacco Review of Systems Negative: Chest Pain Negative: Shortness Of Breath Positive: Depressed All Other Systems Reviewed And Are Negative: Yes Physical Exam - Summary Physical Exam Summary: Constitutional: Well-developed, Well-nourished, Alert. (-) Distressed Skin: Warm, Dry HENT: Normocephalic; Atraumatic Eyes: Conjunctiva normal Neck: Musculoskeletal ROM normal neck. (-) JVD, (-) Stridor, (-) Tracheal deviation Cardio: Rhythm regular, rate normal, Heart sounds normal; Intact distal pulses; The pedal pulses are 2+ and symmetric. Radial pulses are 2+ and symmetric. Pulmonary/Chest wall: Effort normal. (-) Respiratory distress, (-) Wheezes, (-) Rales Abd: Soft, (-) tenderness, (-) Distension, (-) Guarding, (-) Rebound Musculoskeletal: (-) Edema Neuro: Alert, Oriented x3 Psych: Mood and affect Normal Triage Information Reviewed: Yes Vital Signs On Initial Exam: Initial Vitals Temp Pulse Resp BP Pulse Ox 98.1 F 92 16 128/82 97 12/10/18 22:35 12/10/18 22:35 12/10/18 22:35 12/10/18 22:35 12/10/18 22:35 Vital Signs Reviewed: Yes Diagnostics - Vital Signs Vital Signs Temp Pulse Resp BP Pulse Ox 12/10/18 22:35 98.1 F 92 16 128/82 97 - Laboratory Lab Results: Lab Results 12/10/18 12/10/18 Range/Units 23:25 23:25 WBC 17.3 H (3.5-10.8) 10^3/uL RBC 5.13 (4.18-5.48) 10^6 /uL Hgb 13.2 L (14.0-18.0) g/dL Hct 42 (42-52) % MCV 82 (80-94) fL MCH 26 L (27-31) pg MCHC 32 (31-36) g/dL RDW 18 H (10-15) % Plt Count 499 H D (150-450) 10^3/uL MPV 6.9 L (7.4-10.4) fL Neut % (Auto) Pending Lymph % (Auto) Pending [place] % (Auto) Pending Eos % (Auto) Pending Baso % (Auto) Pending Absolute Neuts (auto) Pending Absolute Lymphs (auto) Pending Absolute Monos (auto) Pending Absolute Eos (auto) Pending Absolute Basos (auto) Pending Absolute Nucleated RBC Pending Nucleated RBC % Pending Sodium 135 (135-145) mmol/L Potassium 4.2 (3.5-5.0) mmol/L Chloride 100 L (101-111) mmol/L Carbon Dioxide 28 (22-32) mmol/L Anion Gap 7 (2-11) mmol/L BUN 29 H (6-24) mg/dL Creatinine 1.08 (0.67-1.17) mg/dL Est GFR ( Amer) 89.5 (>60) Est GFR (Non-Af Amer) 73.9 (>60) BUN/Creatinine Ratio 26.9 H (8-20) Glucose 115 H (70-100) mg/dL Calcium 9.7 (8.6-10.3) mg/dL Total Bilirubin 0.30 (0.2-1.0) mg/dL AST 26 (13-39) U/L ALT 44 (7-52) U/L Alkaline Phosphatase 76 (34-104) U/L Total Protein 7.6 (6.4-8.9) g/dL Albumin 4.1 (3.2-5.2) g/dL Globulin 3.5 (2-4) g/dL Albumin/Globulin Ratio 1.2 (1-3) TSH Pending Salicylates Pending Acetaminophen Pending Serum Alcohol Pending Result Diagrams: 12/10/18 23:25 12/10/18 23:25 Lab Statement: Any lab studies that have been ordered have been reviewed, and results considered in the medical decision making process. Course/Dx - Course Course Of Treatment: Pt is a 43 y/o M presenting to the ED with a chief psychiatric complaint. He was d/stephen on 12/10/18, but feels that he was not rehabilitated enough, and his suicidal thoughts are still present. He denies any physical symptoms, including CP and SOB. Pt's white count without shift is probably a reaction to acute emotional distress. The pt has no other signs of infection, including a fever. He also has opiates in his system, c/w his story. Pt will be admitted to [facility] with dx of unspecified depressive disorder. - Differential Dx/Clinical Impression Provider Diagnosis: Depressive disorder Discharge - Sign-Out/Discharge Documenting (check all that apply): Patient Departure - Discharge Plan Condition: Stable Disposition: PSYCHIATRIC FACILITY-[facility] - Billing Disposition and Condition Condition: STABLE Disposition: Psychiatric Facility [facility] - Attestation Statements Document Initiated by Scribe: Yes Documenting Scribe: Kimberly Bueno Provider For Whom Kirkibe is Documenting (Include Credential): William Pierce MD. Scribe Attestation: Kimberly Mars, scribed for William Pierce MD. on 12/11/18 at 0627. Scribe Documentation Reviewed: Yes Provider Attestation: The documentation as recorded by the kirkibe, Kimberly Bueno accurately reflects the service I personally performed and the decisions made by , William Pierce MD. Status of Scribe Document: Viewed
[2018-12-11] MEDS ORDERED: Benzocaine/Menthol LOZ* 1 LOZENGE PO PRN
[2018-12-11 00:13] LABS: Acetaminophen < 15 mcg/mL; Alcohol < 10 mg/dL (<10); Salicylate < 2.50 mg/dL (<30)
[2018-12-11 00:15] LABS: ABS Basophils 0.2 10^3/ul (0-0.2); ABS Eosinophils 0.5 10^3/ul (0-0.6); ABS Lymphocytes 4.3 10^3/ul (1.0-4.8); ABS Monocytes 1.7 10^3/ul (0-0.8); ABS Neutrophils 10.6 10^3/ul (1.5-7.7); Lymphocyte % 24.7 %
[2018-12-11 00:27] LABS: Urine Benzodiazepine Screen None Detected (None Detect); Urine Opiates Screen Presumptive Positive (None Detect)
[2018-12-11 00:28] LABS: TSH (Thyroid Stimulating Horm) 3.19 mcIU/mL (0.34-5.60)
[2018-12-11 00:45] LABS: Urine Appearance Cloudy; Urine Bilirubin Negative (Negative); Urine Blood Negative (Negative); Urine Color Yellow; Urine Glucose Negative (Negative); Urine Ketones Negative (Negative); Urine Nitrite Negative (Negative); Urine Protein Negative (Negative); Urine Specific Gravity 1.031 (1.010-1.030); Urine Urobilinogen Negative (Negative)
[2018-12-11] MEDS ORDERED: Al Hydrox/Mg Hydrox/Simet LIQ* 30 ML UDC PO PRN (05:25)
[2018-12-11] MEDS ORDERED: Naloxone Nasal Spray* 4 MG/0.1 ML NASAL.SPR INTRANASAL PRN (07:04)
[2018-12-11] MEDS ORDERED: Naproxen TAB* 250 MG PO PRN (07:04)
[2018-12-11] MEDS: Lisinopril TAB* 10 MG PO SCH (09:08)
[2018-12-11] MEDS: DULoxetine DR CAP* 60 MG CAP.DR PO SCH ×2 (09:08→21:32)
[2018-12-11] MEDS: oxyCODONE TAB* 5 MG TAB PO PRN ×2 (09:10→17:13)
[2018-12-11] MEDS: Acetaminophen TAB* 325 MG PO PRN ×3 (09:10→21:31)
[2018-12-11] MEDS: Benzocaine/Menthol LOZ* 1 LOZENGE PO PRN ×2 (09:10→17:16)
[2018-12-11] MEDS: Vitamin THERAPEUTIC TAB PO SCH (09:19)
--- NOTE | 2018-12-11 11:03 | HP ---
H&P (Free Text) History and Physical: Justification for admission: Immediate Safety. CC " I was stressed out." The patient was brought to [facility] by himself after he was recently discharged. He stated becoming frustrated after he was at DSS all day and was unable to find housing. He noted that housing is not his motivation for coming to the hospital rather hearing his brother tell him that he was sad and cried telling him that he never wants to lose him. He expressed that he is always the role model and that letting his brother down made him feel guilty. He reported becoming depressed and having thoughts that suicide was the only way out of feeling this way. He denied access to firearms or stockpiles of medications. He reported poor sleep and normal appetite. The patient denied homicidal ideation intent or plan. The patient denied auditory and/ or visual hallucinations. MDD He reported feeling depressed, guilty and overwhelmed. He reported having crying spells , feeling empty inside, feelings of hopelessness , and worthlessness. He reported having feelings of guilt. Anxiety He denied having symptoms of anxiety such as having times where heart feels that it is beating out of chest , sweaty palms, or shallow breathing. Denied having uncomfortable or intrusive thoughts. Reported feeling restless, high strung, or worrying too much most of the time. Bipolar Denied symptoms of echo such as having many ideas at once. Denied increased talkativeness where no one can interrupt. Denied feeling irritable most of the time while having an persistent abundance of energy most of the day without the use of energy drinks, stimulants, or recreational drug use. Denied an increase in intensity in goal directed activities. Denied having the decreased need to sleep for days , having prolonged elevated mood , or feeling on top of the world. Denied impulsive risky sexual encounters. Denied spending money recklessly , going on spending sprees wiping out savings. Denied impulsively traveling out of town or country, having super escobar, and unrealistic wealth or fame. Psychosis Does not endorse hearing things that other people do not hear or seeing things other people do not see. Denied feeling that TV is making references. Denied feeling that people are spying , following , or reading their thoughts. Phobias: Patient denied having excessive fear of a particular thing or situation. Eating disorders: Patient denied having excessive eating habits or feelings of guilt after eating. Denied repeated episodes of self induced vomiting after eating. PTSD Denied flashbacks, nightmares and avoidance of a prior traumatic event. PAST PSYCHIATRIC HISTORY: Prior Diagnosis : Major depressive disorder, recurrent, severe, without psychosis. History of past Psychiatric Hospitalizations: 1 prior psychiatric admission in his teenage years. History of past suicide/homicide attempts : 1 past suicide attempts by swallowing glass. Denied past homicidal incidents. Outpatient follow-up: Follows up with his PCP. Medications: Past trials of medications include cymbalta 60mg BID Guardianship: None. FAMILY HISTORY: - Suicide: Denied family history of suicide. - Mental illness: His sister has depression - Substance abuse: Father abused alcohol and one his brothers was addicted to heroin. SUBSTANCE ABUSE HISTORY: Denied using alcohol, tobacco, heroin cocaine or other illicit substances. Denied abusing pills for recreational use. Denied past Substance abuse treatment. - EtOH: Denied using recently or in the past. - Tobacco: Denied using recently or in the past. - Cannabis: Denied using recently or in the past. - Heroin: Denied using recently or in the past. - Cocaine: Denied using recently or in the past. - Substance abuse treatment: Denied past substance abuse treatment SOCIAL HISTORY: Denied history of sexual and or physical abuse. Grew up in [place]. He dropped out of high school. 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 He is currently supported by social security benefits. He is single and does not have any children. He is currently homeless. He denies outstanding legal issues. - service history: Denied PAST MEDICAL HISTORY: Morbid obesity, hypertension, chronic back pain, bilateral osteoarthritis of knee joints. - Allergies: Denied drug or other allergies. Physical Exam: Please see ED note Mental Status Exam on Admission APPEARANCE : 43 year old male who appears stated age. Patient is obese with poor hygiene and grooming. BEHAVIOR: Cooperative , calm EYE CONTACT: Fair PSYCHOMOTOR ACTIVITY: No psychomotor agitation or retardation. MOVEMENTS: No abnormal movements observed. SPEECH : Normal rate, rhythm, volume and tone. MOOD : "Sad " AFFECT : Type is depressed Range is restricted with shallow depth Mood Congruent THOUGHT PROCESS: Formulated and organized in a logical, linear goal directed manner. No flight of ideas, neologism (made up words) , perseveration , tangential , loose associations , or circumstantiality. THOUGHT CONTENT: no delusions, obsessions, phobias or preoccupations. PERCEPTION: No current auditory or visual hallucinations. Doesnt appear to be responding to internal cues. No evidence of depersonalization , de-realization, or illusions SUICIDALITY Recent suicidal ideation HOMICIDALITY Denied homicidal ideation, intent or plan. Insight/judgment: Fair insight and judgment ORIENTATION: Oriented to self, location, and time. Diagnosis on Admission: Major depressive disorder, recurrent, severe, without psychosis. Assessment: 43 year old male with history of major depressive disorder was readmitted after a recent discharge for having suicidal ideation. Plan #Admit to [facility], Q15 minute observation. Start regular diet. Encourage participation in activities on the milieu. #Patient evaluated in ED and was determined by the emergency room Physician to be medically fit for admission to the B[facility]. # Justification for Admission: For immediate safety per outlined in the [facility] Hygiene Code. # The patient requires psychiatric inpatient admission at this time to assure safety, receive treatment and work toward stabilization. # Labs ordered: CBC, CMP, UDS, TSH, HBA1c, TSH, Toxicology screen, Urine analysis, and lipid profile. EKG ordered for risk of QT prolongation # Obtain collateral information once release is signed for brother Piter [phone] # Collaboration with Excavator Operator Marlene Mendez # Restart home medications. PACKING AND SHIPPING CLERK verified control substance strength. # Medicine to evaluate patient #Goals before discharge include: To eliminate/ reduce suicidal ideation The risks, benefits, and alternative treatment options were discussed as well as of the risks of refusing treatment. After this discussion and an acknowledgement of this understanding was made. A risk/ benefit assessment of treatment was considered and discussed with the patient. When comparing the risks of treatment with the dangers of not receiving treatment, the benefits of treatment outweigh the treatment risks at this time. Risks of allergy, suicidal ideation, behavioral changes, dystonia, rashes, electrolyte imbalances, movement disorders, cardiac conduction changes, serotonin syndrome, metabolic risks were among some of the risks discussed. Acetaminophen (Tylenol Tab*) 650 mg PO Q4H PRN PRN Reason: PAIN or TEMP > 101 F Last Admin: 12/11/18 09:10 Dose: 650 mg Al Hydrox/Mg Hydrox/Simethicone (Maalox Plus*) 30 ml PO Q4H PRN PRN Reason: INDIGESTION Duloxetine HCl (Cymbalta Cap*) 60 mg PO BID [facility] Last Admin: 12/11/18 09:08 Dose: 60 mg Guaifenesin/Dextromethorphan (Robitussin Dm*) 5 ml PO Q6H PRN PRN Reason: COUGH Lisinopril (Prinivil Tab*) 40 mg PO DAILY [facility] Last Admin: 12/11/18 09:08 Dose: 40 mg Multivitamins (Theragran Tab*) 1 tab PO DAILY [facility] Last Admin: 12/11/18 09:19 Dose: Not Given Naloxone HCl (Narcan Nasal [place]) 4 mg INTRANASAL Q2M PRN PRN Reason: RESPIRATORY DEPRESSION Naproxen (Naprosyn Tab*) 500 mg PO Q12H PRN PRN Reason: PAIN Oxycodone HCl (Roxycodone Tab*) 20 mg PO Q8H PRN PRN Reason: PAIN Last Admin: 12/11/18 09:10 Dose: 20 mg Ropinirole HCl (Requip Tab*) 2 mg PO 2100 [facility] Throat Lozenges (Chloraseptic Mauri*) 1 mauri PO Q4H PRN PRN Reason: COUGH Last Admin: 12/11/18 09:10 Dose: 1 mauri Tizanidine HCl (Zanaflex Tab*) 2 mg PO BEDTIME PRN PRN Reason: LEG CRAMPS Vital Signs Temp Pulse Resp BP Pulse Ox 98.7 F 75 16 119/47 98 12/11/18 08:00 12/11/18 08:00 12/11/18 09:10 12/11/18 08:00 12/11/18 08:00 12/10/18 12/10/18 12/10/18 23:25 23:25 23:47 WBC 17.3 H RBC 5.13 Hgb 13.2 L Hct 42 MCV 82 MCH 26 L MCHC 32 RDW 18 H Plt Count 499 H D MPV 6.9 L Neut % (Auto) 61.3 Lymph % (Auto) 24.7 Sutter % (Auto) 10.0 Eos % (Auto) 3.0 Baso % (Auto) 1.0 Absolute Neuts (auto) 10.6 H Absolute Lymphs (auto) 4.3 Absolute Monos (auto) 1.7 H Absolute Eos (auto) 0.5 Absolute Basos (auto) 0.2 Absolute Nucleated RBC 0.0 Nucleated RBC % 0.0 Sodium 135 Potassium 4.2 Chloride 100 L Carbon Dioxide 28 Anion Gap 7 BUN 29 H Creatinine 1.08 Est GFR ( Amer) 89.5 Est GFR (Non-Af Amer) 73.9 BUN/Creatinine Ratio 26.9 H Glucose 115 H Calcium 9.7 Total Bilirubin 0.30 AST 26 ALT 44 Alkaline Phosphatase 76 Total Protein 7.6 Albumin 4.1 Globulin 3.5 Albumin/Globulin Ratio 1.2 TSH 3.19 Urine Color Yellow Urine Appearance Cloudy Urine pH 5.0 Ur Specific [place] 1.031 H Urine Protein Negative Urine Ketones Negative Urine Blood Negative Urine Nitrate Negative Urine Bilirubin Negative Urine Urobilinogen Negative Ur Leukocyte Esterase Negative Urine Glucose Negative Salicylates < 2.50 Urine Opiates Screen Acetaminophen < 15 Ur Barbiturates Screen Ur Phencyclidine Scrn Ur Amphetamines Screen U Benzodiazepines Scrn Urine Cocaine Screen U Cannabinoids Screen Serum Alcohol < 10 12/10/18 23:47 WBC RBC Hgb Hct MCV MCH MCHC RDW Plt Count MPV Neut % (Auto) Lymph % (Auto) Sutter % (Auto) Eos % (Auto) Baso % (Auto) Absolute Neuts (auto) Absolute Lymphs (auto) Absolute Monos (auto) Absolute Eos (auto) Absolute Basos (auto) Absolute Nucleated RBC Nucleated RBC % Sodium Potassium Chloride Carbon Dioxide Anion Gap BUN Creatinine Est GFR ( Amer) Est GFR (Non-Af Amer) BUN/Creatinine Ratio Glucose Calcium Total Bilirubin AST ALT Alkaline Phosphatase Total Protein Albumin Globulin Albumin/Globulin Ratio TSH Urine Color Urine Appearance Urine pH Ur Specific [place] Urine Protein Urine Ketones Urine Blood Urine Nitrate Urine Bilirubin Urine Urobilinogen Ur Leukocyte Esterase Urine Glucose Salicylates Urine Opiates Screen Presumptive positive A Acetaminophen Ur Barbiturates Screen None detected Ur Phencyclidine Scrn None detected Ur Amphetamines Screen None detected U Benzodiazepines Scrn None detected Urine Cocaine Screen None detected U Cannabinoids Screen None detected Serum Alcohol
--- NOTE | 2018-12-11 12:05 | PN ---
BS[facility]: Group Therapy Note - Service Type Service Type: 20150 Group Psychotherapy - Cognitive Behavioral Group Therapy ( CBT):Patient was attentive and participatory in CBT programming this morning, and remained in good behavioral control. Patient expressed positive insights regarding relevant treatment interventions and goals.
[2018-12-11 15:02] LABS: ABS Eosinophils 0.4 10^3/ul (0-0.6); ABS Lymphocytes 2.6 10^3/ul (1.0-4.8); ABS Monocytes 0.9 10^3/ul (0-0.8); ABS Neutrophils 5.7 10^3/ul (1.5-7.7); Eosinophil % 4.1 %; Hematocrit 37 % (42-52); Hemoglobin 12.1 g/dL (14.0-18.0); Lymphocyte % 26.8 %; Mean Corpuscular HGB Conc 33 g/dL (31-36); Mean Corpuscular Hemoglobin 27 pg (27-31); Mean Corpuscular Volume 82 fL (80-94); Mean Platelet Volume 6.9 fL (7.4-10.4); Platelet Count 335 10^3/uL (150-450); Red Cell Distribution Width 17 % (10-15); White Blood Count 9.7 10^3/uL (3.5-10.8)
[2018-12-11] MEDS: rOPINIRole TAB* 1 MG PO SCH (21:32)
[2018-12-12] MEDS: oxyCODONE TAB* 5 MG TAB PO PRN ×3 (01:19→17:23)
[2018-12-12] MEDS: Benzocaine/Menthol LOZ* 1 LOZENGE PO PRN ×3 (01:19→17:22)
[2018-12-12] MEDS: DULoxetine DR CAP* 60 MG CAP.DR PO SCH ×2 (09:18→21:25)
[2018-12-12] MEDS: Vitamin THERAPEUTIC TAB PO SCH (09:20)
[2018-12-12] MEDS: Lisinopril TAB* 10 MG PO SCH (09:20)
--- NOTE | 2018-12-12 13:52 | PN ---
Subjective - Subjective Date of Service: 12/12/18 Service Type: 64735 Hosp care 15 min low complexity Subjective: Tony is seen in weekend coverage for Dr. Oates. He is calm and cooperative, appearing to be euthymic and denying SI. He says he came back to the hospital after discharge on because "my housing fell through." He complains mostly today about his roommate's snoring and requests a room change. Staff report that he has been safe on all checks and they are agreeable with advancing his privileges to q30min checks and outside staff pass breaks. Objective - General Observations Appearance: Disheveled Appears Stated Age: Yes Stature: Overweight Posture: WNL Eye Contact: Average Behavior/Activity: WNL - Interaction Observations Attitude Towards Examiner: Cooperative Stated Mood: Euthymic Affect: Full Speech Pattern/Tone: Clear, Appropriate, Normal Volume Thought Process: Coherent Perception: WNL Thought Content: WNL Hallucination Type: None Delusion Type: None - Cognitive Function Orientation: A&O x 4 Level of Consciousness: Awake Cognition: WNL Estimated Intelligence: Normal Insight: WNL Judgment Within Normal Limits: Yes - Medication Compliance Cooperative with Inpatient Medication Regimen: Yes - Group Participation Participates in Group Activities: Yes Assessment - Assessment Merits Inpatient Hospitalization: Consolidate Improvements, Pending Safe DC Plan Inpatient DSM-V Dx: F33.2 Clinical Impression: 43 y.o. , white male with a history of MDD, recently discharged from the [facility] who promptly returns to the hospital within 24 hours complaining of resumption of SI after his housing plans fell through. BSU: Problem List - Patient Problems (1) MDD (major depressive disorder), recurrent episode, severe Current Visit: Yes Status: Acute Priority: Medium Code(s): F33.2 - MAJOR DEPRESSV DISORDER, RECURRENT SEVERE W/O PSYCH FEATURES SNOMED Code(s): 304691472145 Plan - Plan Treatment Plan: Name: TONY BENNETT JR Birthdate: 1975 [id number] Patient resumed on duloxetine 60mg PO BID. Needs placement. Continue to treat inpatient. Continued Medication Management: Continue Outpt Medication Medications: Current Medications Acetaminophen (Tylenol Tab*) 650 mg PO Q4H PRN PRN Reason: PAIN or TEMP > 101 F Last Admin: 12/11/18 21:31 Dose: 650 mg Al Hydrox/Mg Hydrox/Simethicone (Maalox Plus*) 30 ml PO Q4H PRN PRN Reason: INDIGESTION Duloxetine HCl (Cymbalta Cap*) 60 mg PO BID [facility] Last Admin: 12/12/18 09:18 Dose: 60 mg Guaifenesin/Dextromethorphan (Robitussin Dm*) 5 ml PO Q6H PRN PRN Reason: COUGH Lisinopril (Prinivil Tab*) 40 mg PO DAILY [facility] Last Admin: 12/12/18 09:20 Dose: 40 mg Multivitamins (Theragran Tab*) 1 tab PO DAILY [facility] Last Admin: 12/12/18 09:20 Dose: 1 tab Naloxone HCl (Narcan Nasal [place]) 4 mg INTRANASAL Q2M PRN PRN Reason: RESPIRATORY DEPRESSION Naproxen (Naprosyn Tab*) 500 mg PO Q12H PRN PRN Reason: PAIN Oxycodone HCl (Roxycodone Tab*) 20 mg PO Q8H PRN PRN Reason: PAIN Last Admin: 12/12/18 09:20 Dose: 20 mg Ropinirole HCl (Requip Tab*) 2 mg PO 2100 [facility] Last Admin: 12/11/18 21:32 Dose: 2 mg Throat Lozenges (Chloraseptic [place]*) 1 garret PO Q4H PRN PRN Reason: COUGH Last Admin: 12/12/18 09:23 Dose: 1 garret Tizanidine HCl (Zanaflex Tab*) 2 mg PO BEDTIME PRN PRN Reason: LEG CRAMPS - Discharge Plan Discharge Plan: Inpatient Hospitalization
[2018-12-12] MEDS: Acetaminophen TAB* 325 MG PO PRN (17:22)
[2018-12-12] MEDS: rOPINIRole TAB* 1 MG PO SCH (21:24)
[2018-12-13] MEDS: oxyCODONE TAB* 5 MG TAB PO PRN ×3 (01:40→17:48)
[2018-12-13] MEDS: Benzocaine/Menthol LOZ* 1 LOZENGE PO PRN ×3 (01:42→17:49)
[2018-12-13] MEDS: tiZANidine TAB* 2 MG PO PRN (01:42)
[2018-12-13] MEDS: GuaiFENesin DM* 5 ML UDC PO PRN ×3 (01:43→17:49)
[2018-12-13] MEDS: Lisinopril TAB* 10 MG PO SCH (09:13)
[2018-12-13] MEDS: DULoxetine DR CAP* 60 MG CAP.DR PO SCH ×2 (09:13→20:18)
[2018-12-13] MEDS: Vitamin THERAPEUTIC TAB PO SCH (09:14)
[2018-12-13] MEDS: Acetaminophen TAB* 325 MG PO PRN (09:47)
[2018-12-13] MEDS: rOPINIRole TAB* 1 MG PO SCH (20:19)
[2018-12-14] MEDS: Acetaminophen TAB* 325 MG PO PRN ×2 (01:00→09:32)
[2018-12-14] MEDS: tiZANidine TAB* 2 MG PO PRN (01:00)
[2018-12-14] MEDS: Benzocaine/Menthol LOZ* 1 LOZENGE PO PRN ×2 (01:00→09:34)
[2018-12-14] MEDS: oxyCODONE TAB* 5 MG TAB PO PRN ×2 (01:00→09:32)
[2018-12-14] MEDS: DULoxetine DR CAP* 60 MG CAP.DR PO SCH (09:31)
[2018-12-14] MEDS: Lisinopril TAB* 10 MG PO SCH (09:31)
[2018-12-14] MEDS: Vitamin THERAPEUTIC TAB PO SCH (09:32)
[2018-12-14 09:43] VITALS: BP 117/87
--- NOTE | 2018-12-14 10:07 | DS ---
Subjective - Subjective Service Types: [id number] [facility] Day Mgmt complex over 30 min Discharge Date: 12/14/18 Subjective: CC: " Fine " Patient looks forward to finding housing and getting his fathers estate resolved. The patient was seen and evaluated before discharge today. The patient reported having adequate appetite and sleep. The patient reports attending and participating in day groups. Per nursing patient has been harassing other peers on the unit. Patient reported tolerating medications without side effects. Justification for admission: Immediate Safety. CC " I was stressed out." The patient was brought to [facility] by himself after he was recently discharged. He stated becoming frustrated after he was at DSS all day and was unable to find housing. He noted that housing is not his motivation for coming to the hospital rather hearing his brother tell him that he was sad and cried telling him that he never wants to lose him. He expressed that he is always the role model and that letting his brother down made him feel guilty. He reported becoming depressed and having thoughts that suicide was the only way out of feeling this way. He denied access to firearms or stockpiles of medications. He reported poor sleep and normal appetite. The patient denied homicidal ideation intent or plan. The patient denied auditory and/ or visual hallucinations. MDD He reported feeling depressed, guilty and overwhelmed. He reported having crying spells , feeling empty inside, feelings of hopelessness , and worthlessness. He reported having feelings of guilt. Anxiety He denied having symptoms of anxiety such as having times where heart feels that it is beating out of chest , sweaty palms, or shallow breathing. Denied having uncomfortable or intrusive thoughts. Reported feeling restless, high strung, or worrying too much most of the time. Bipolar Denied symptoms of echo such as having many ideas at once. Denied increased talkativeness where no one can interrupt. Denied feeling irritable most of the time while having an persistent abundance of energy most of the day without the use of energy drinks, stimulants, or recreational drug use. Denied an increase in intensity in goal directed activities. Denied having the decreased need to sleep for days , having prolonged elevated mood , or feeling on top of the world. Denied impulsive risky sexual encounters. Denied spending money recklessly , going on spending sprees wiping out savings. Denied impulsively traveling out of town or country, having super escobar, and unrealistic wealth or fame. Psychosis Does not endorse hearing things that other people do not hear or seeing things other people do not see. Denied feeling that TV is making references. Denied feeling that people are spying , following , or reading their thoughts. Phobias: Patient denied having excessive fear of a particular thing or situation. Eating disorders: Patient denied having excessive eating habits or feelings of guilt after eating. Denied repeated episodes of self induced vomiting after eating. PTSD Denied flashbacks, nightmares and avoidance of a prior traumatic event. PAST PSYCHIATRIC HISTORY: Prior Diagnosis : Major depressive disorder, recurrent, severe, without psychosis. History of past Psychiatric Hospitalizations: 1 prior psychiatric admission in his teenage years. History of past suicide/homicide attempts : 1 past suicide attempts by swallowing glass. Denied past homicidal incidents. Outpatient follow-up: Follows up with his PCP. Medications: Past trials of medications include cymbalta 60mg BID Guardianship: None. FAMILY HISTORY: - Suicide: Denied family history of suicide. - Mental illness: His sister has depression - Substance abuse: Father abused alcohol and one his brothers was addicted to heroin. SUBSTANCE ABUSE HISTORY: Denied using alcohol, tobacco, heroin cocaine or other illicit substances. Denied abusing pills for recreational use. Denied past Substance abuse treatment. - EtOH: Denied using recently or in the past. - Tobacco: Denied using recently or in the past. - Cannabis: Denied using recently or in the past. - Heroin: Denied using recently or in the past. - Cocaine: Denied using recently or in the past. - Substance abuse treatment: Denied past substance abuse treatment SOCIAL HISTORY: Denied history of sexual and or physical abuse. Grew up in [place]. He dropped out of high school. 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 He is currently supported by social security benefits. He is single and does not have any children. He is currently homeless. He denies outstanding legal issues. - service history: Denied PAST MEDICAL HISTORY: Morbid obesity, hypertension, chronic back pain, bilateral osteoarthritis of knee joints. - Allergies: Denied drug or other allergies. Physical Exam: Please see ED note Mental Status Exam on Admission APPEARANCE : 43 year old male who appears stated age. Patient is obese with poor hygiene and grooming. BEHAVIOR: Cooperative , calm EYE CONTACT: Fair PSYCHOMOTOR ACTIVITY: No psychomotor agitation or retardation. MOVEMENTS: No abnormal movements observed. SPEECH : Normal rate, rhythm, volume and tone. MOOD : "Sad " AFFECT : Type is depressed Range is restricted with shallow depth Mood Congruent THOUGHT PROCESS: Formulated and organized in a logical, linear goal directed manner. No flight of ideas, neologism (made up words) , perseveration , tangential , loose associations , or circumstantiality. THOUGHT CONTENT: no delusions, obsessions, phobias or preoccupations. PERCEPTION: No current auditory or visual hallucinations. Doesnt appear to be responding to internal cues. No evidence of depersonalization , de-realization, or illusions SUICIDALITY Recent suicidal ideation HOMICIDALITY Denied homicidal ideation, intent or plan. Insight/judgment: Fair insight and judgment ORIENTATION: Oriented to self, location, and time. Diagnosis on Admission: Major depressive disorder, recurrent, severe, without psychosis. Diagnosis on Discharge: Major depressive disorder, in partial remission. Condition at the time of discharge: At the time of discharge patient showed improvement of sleep and appetite. The patient was not a danger to self or others. The patient denied suicidal ideation , intent or plan. The patient denied homicidal targets, ideation, intent or plan. This patient participated in psychosocial rehabilitation and gained some insight into problems. The patient gained insight into mental illness, triggers, and treatment. The patient took medication as prescribed. The patient denied side effects of medication and objective signs of side effects were not evident. Therapy Resources were offered to the patient. Patient was not given a supply of prescriptions at the time of discharge because he had enough medications until his follow up appointment. The patient plans to attend follow up care with the follow up arrangements that were discussed and put in place. Patient was asked to keep appointments as scheduled, take medication as prescribed, have routine follow up care with their primary care physician and refrain from any use of alcohol or drugs. Objective - General Observations Appearance: Neat Appears Stated Age: Yes Stature: Overweight Posture: Slumped Eye Contact: Average Behavior/Activity: Accelerated - Interaction Observations Attitude Towards Examiner: Cooperative Stated Mood: Euthymic Affect: Full Speech Pattern/Tone: Clear Thought Process: Coherent Perception: WNL Thought Content: WNL Hallucination Type: None Delusion Type: None - Cognitive Function Orientation: A&O x 4 Level of Consciousness: Awake - Medication Compliance Cooperative with Inpatient Medication Regimen: Yes - Group Participation Participates in Group Activities: Yes Treatment Course & Assessment Clinical Course & Impression: Hospital course part A: 43 year old male presented to the hospital after being stressed out about not finding housing. Hospital course part B: Labs ordered included CBC, CMP, UDS, TSH, HBA1c, TSH, Toxicology screen, Urine analysis, and lipid profile. Labs were repeated and found to be within normal limits. Vital signs were monitored during the course of admission. The patient was admitted to the adult behavioral unit and placed on 15 minute check for safety. At a later time the patient was on Q30 minute observation and staff pass. With those limits being extended , there were no occurrence of behavioral incidents. The patient did well on the unit and went to groups. Interacted with peers had adequate sleep and regular appetite. Tolerated medication changes without side effects. Group therapy and services were offered. The risks, benefits, and alternative treatment options were discussed as well as of the risks of refusing treatment. Treatment associated risks discussed. After this discussion made an acknowledgement of this understanding. Follow up care appointments were put in place for follow up care. The importance of monitoring for metabolic changes was discussed and acknowledgement of this understanding was made. Patient informed not to abruptly stop or start new medications before consulting with a medical professional. Improvements in patient from the time of admission include: Improved affect, sleep and decrease in anxiety. No longer suicidal and no longer having feelings of hopelessness. The patient expressed readiness for discharge home. The patient presents with a broader range of affect, and the absence of depressed mood, delusions, perceptual disturbances. The patient denied suicidal and or homicidal ideation intent or plan. Overall, the patient responded well to inpatient treatment as evidenced by their report of strengthening of coping mechanisms, reduced distress, and more positive outlook on circumstances. Of note there was an improvement of recognizing how emotional state can effect mood and behavior. Safety precautions were put in place which included involving the patient to closely monitor for changes in mental state. In addition, implementing follow up care, screening for the need to remove/securing firearms, weapons and stockpile of medications. Patient instructed to immediately call 911 should any safety concerns arise. VP SOFTWARE was checked and no indications of prescription abuse or diversion were present. He was not provided controlled substance on discharge. Patient advised of the lethality and dangerousness of overdose and combining medications with pain medications and/ or with alcohol and acknowledged this understanding. ND VP SOFTWARE confirmed oxycodone 10mg/ 325mg six times a day. Patient expressed having enough medications until his next follow up appointment and did not need refills. Admission labs indicate leukocytosis of 17.3 CBC was repeated and was found to be within normal limits. The patient was advised of the 24 hour / 7 days a week availability of the emergency room and to call 911 in the event of an emergency such as being suicidal and/ or homicidal. The patient was informed of the contact information for [facility], Suicide Prevention and Crisis Services, National Suicide Prevention Lifeline, [facility], Alcoholics Anonymous, and [facility]. Medications started included resuming his home medications. Patient has limited support and did not have contacts that could be involved in a family meeting and participation of care. 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 Patient plans to solve current stressors of finding housing and work with a grease renderer to settle his fathers estate. Patient was not assaultive or a behavioral problem during the course of admission. The patient showed improvement of hygiene and was able to carry out activities of daily living. Patient will be discharged to department of social security and plans to explore housing options. Follow up appointment at [facility] and Dr. Gallagher PCP Patient informed of follow up appointment times. See more details for follow up care in the discharge plan. Risk factors: , Age, single, history of mental illness. Prior suicide attempt. Limited support system. Current change of housing status. Protective factors: Currently no suicidal ideation, intent or plan. No history of service. Currently no feelings of hopelessness, not in an occupation of social isolation, doesnt have multiple medical conditions, no family history of suicide, doesnt have access to firearms. Doesnt have command hallucinations and or psychotic features at this time. No current substance abuse. No current alcohol abuse. Not an anniversary of a loss of a loved one. Currently future orientated. Patient engaged in treatment and compliant with medication. Sodium 135 mmol/L (135-145) 12/10/18 23:25 Potassium 4.2 mmol/L (3.5-5.0) 12/10/18 23:25 BUN 29 mg/dL (6-24) H 12/10/18 23:25 Creatinine 1.08 mg/dL (0.67-1.17) 12/10/18 23:25 Calcium 9.7 mg/dL (8.6-10.3) 12/10/18 23:25 AST 26 U/L (13-39) 12/10/18 23:25 ALT 44 U/L (7-52) 12/10/18 23:25 Vital Signs Temp Pulse Resp BP Pulse Ox 98.8 F 84 18 117/87 98 12/14/18 09:42 12/14/18 09:42 12/14/18 09:42 12/14/18 09:42 12/14/18 09:42 Merits Inpatient Hospitalization: No Clear for Discharge: Adequate Clinical Respons Inpatient DSM-V Dx: F33.2 Discharge Planning - Discharge Planning Discharge Plan: Outpatient Follow Up Outpatient Program: [facility] Recommendations for Continuing Care: Medication Management Medications: Current Medications Acetaminophen (Tylenol Tab*) 650 mg PO Q4H PRN PRN Reason: PAIN or TEMP > 101 F Last Admin: 12/14/18 09:32 Dose: 650 mg Al Hydrox/Mg Hydrox/Simethicone (Maalox Plus*) 30 ml PO Q4H PRN PRN Reason: INDIGESTION Last Admin: 12/13/18 18:47 Dose: 30 ml Duloxetine HCl (Cymbalta Cap*) 60 mg PO BID [facility] Last Admin: 12/14/18 09:31 Dose: 60 mg Guaifenesin/Dextromethorphan (Robitussin Dm*) 5 ml PO Q6H PRN PRN Reason: COUGH Last Admin: 12/13/18 17:49 Dose: 5 ml Lisinopril (Prinivil Tab*) 40 mg PO DAILY [facility] Last Admin: 12/14/18 09:31 Dose: 40 mg Multivitamins (Theragran Tab*) 1 tab PO DAILY [facility] Last Admin: 12/14/18 09:32 Dose: 1 tab Naloxone HCl (Narcan Nasal [place]) 4 mg INTRANASAL Q2M PRN PRN Reason: RESPIRATORY DEPRESSION Naproxen (Naprosyn Tab*) 500 mg PO Q12H PRN PRN Reason: PAIN Oxycodone HCl (Roxycodone Tab*) 20 mg PO Q8H PRN PRN Reason: PAIN Last Admin: 12/14/18 09:32 Dose: 20 mg Ropinirole HCl (Requip Tab*) 2 mg PO 2100 [facility] Last Admin: 12/13/18 20:19 Dose: 2 mg Throat Lozenges (Chloraseptic Mauri*) 1 mauri PO Q4H PRN PRN Reason: COUGH Last Admin: 12/14/18 09:34 Dose: 1 mauri Tizanidine HCl (Zanaflex Tab*) 2 mg PO BEDTIME PRN PRN Reason: LEG CRAMPS Last Admin: 12/14/18 01:00 Dose: 2 mg Discharge Planning: Prescriptions provided for discharge [] Yes [x] No Patient has own supply Follow up care details as per social work arrangements. Patient response to discharge plan: [] eager for discharge [x] agreeable with discharge plan [] ambivalent about discharge [] disagrees with discharge today
== END 2018-12-14 11:00 | disposition home or self-care (01) | DRG 751 ==
LOC: ED 22:35 → BSU 12-11 04:43
PROVIDERS: ADMIT Psychiatry & Neurology Psychiatry; ATTEND Psychiatry & Neurology Psychiatry
PROC: GZHZZZZ Group Psychotherapy (ICD-10-PCS; principal; 2018-12-11)
DX: F33.2 Major depressive disorder, recurrent severe without psychotic features (principal); R45.851 Suicidal ideations; Z68.44 Body mass index [BMI] 60.0-69.9, adult; E66.01 Morbid (severe) obesity due to excess calories; I10 Essential (primary) hypertension; G89.29 Other chronic pain; M54.9 Dorsalgia, unspecified; M17.0 Bilateral primary osteoarthritis of knee; I25.10 Atherosclerotic heart disease of native coronary artery without angina pectoris; M79.601 Pain in right arm; Z91.5 Personal history of self-harm; Z81.8 Family history of other mental and behavioral disorders; Z81.1 Family history of alcohol abuse and dependence; Z81.3 Family history of other psychoactive substance abuse and dependence; Z59.0 Homelessness; Z56.0 Unemployment, unspecified
CPT/HCPCS: 36415; 80053; 80307; 80320; 80329; 81003; 84443; 85025; 90853; 93005; 99222; 99231; 99238; 99284; A9270-GY; G0480

== ENCOUNTER → 2019-01-01 10:29 | Emergency (ER) | payer OTHER ==
[~2019-01-01 10:29] MED LIST changes: +Ketorolac *IM* INJ* 60 MG/2 ML VIAL IM ONE
--- OUTSIDE RECORDS SUMMARY | 2019-01-01 10:44 | XMS REPORT | Continuity of Care Document ---
:1975 External Reference #:[id number] Author Name [facility] Care Team Providers Name Role Phone Aileen Vicente M.D. Primary Care Physician Unavailable Payers Date Identification Numbers Payment Provider Subscriber Effective: 2016 Policy Number: [id number] [employer] Tony Bennett JR PayID: [id number] [address] [address] [place] [address] Advance Directives Type Date Description Status Comment Other Directive 08/28/2017 Health Care Proxy Current and Verified Problems Active Problems Provider Date Hypertensive left ventricular Keon Cabrera M.D.,FACP Onset: 01/22/2018 hypertrophy Note: moderate on echo Essential hypertension Keon Cabrera M.D.,FACP Onset: 11/11/2016 Obesity Troy Haley, ABSTRACT SEARCHER Onset: 08/14/2016 Low back pain Troy Haley, ABSTRACT SEARCHER Onset: 08/14/2016 Hyperlipidemia Troy Haley, ABSTRACT SEARCHER Onset: 08/14/2016 Chronic pain syndrome Keon Cabrera M.D.,FACP Onset: 11/11/2016 Body mass index 40+ - severely obese Keon Cabrera M.D.,FACP Onset: 05/2017 Leukocytosis Keon Cabrera M.D.,FACP Onset: 05/15/2018 Note: sees Dr. Wesley Faulkner, primary osteoarthritis Jelani Alcaraz MD Onset: 10/14/2018 Family History Date Family Member(s) Observation Comments General Heart Disease General Hypertension General Cancer Father [place] at 40. Currently 75 Mother due to Cancer () - colon at 55. Social History Type Date Description Comments Sex Unknown Marital Status Single Occupation Unemployed Tobacco Use Start: Unknown Never Smoked Cigarettes Smoking Status Reviewed: 12/16/18 Never Smoked Cigarettes ETOH Use 08/28/2017 Denies alcohol use Tobacco Use Start: Unknown Patient has never smoked Recreational Drug Use Denies Drug Use Exercise Type/Frequency Mild exercise Allergies, Adverse Reactions, Alerts Description No Known Drug Allergies Medications Active Medications SIG Qnty Indications Ordering Date Provider Lisinopril 1 by mouth every day 90tabs Aileen Vicente MD 12/02/2018 40mg Tablets Amlodipine Besylate 1 by mouth every day 30tabs I10 Aileen Vicente MD 2018 10mg Tablets Optichamber Harper Use With Inhalers 1units Keno Fowler 05/14/2018 [facility] Shiva Cabrera,FACP Ventolin HFA take 2 puffs by 18unjuan manuel De Leon NP 04/14/2018 mouth every 4 hours 108(90Base) mcg/Act as needed Aerosol Buspirone HCL take 1 tablet by 120tabs F41.9 Keon Fowler 04/10/2018 15mg mouth 4 times a day Shiva Cabrera,FACP Tablets Ropinirole HCL Take 1 Tablet By 30tabs Aileen Vicente MD 04/08/2018 2mg Mouth Every Day Tablets Aerochamber MV [facility] Keno Fowler 12/22/2017 mediations Shiva Cabrera,FACP Misc Docusate Sodium 1 tab every 12 hours 120caps Keon Fowler 11/28/2017 as needed for Shiva Cabrera,FACP 100mg Capsules constipation Cymbalta take one capsule by 90caps G89.4 Aileen Vicente MD 08/05/2017 60mg Caps mouth every evening DR Gonzales M54.5 Tizanidine HCL Take 1 Tablet By 60tabs Aileen Vicente MD 06/04/2017 4mg Tablets Mouth Every 6 Hours as Needed Omeprazole Take 1 Capsule By 30captucker De Leon NP 05/23/[address] Mouth Every Day [facility] Motion Sickness take 1/2-1 tablet by 32unjuan manuel Vicente MD 2016 Relief mouth three times a 25mg Chewtabs day as needed Furosemide take 1 tablet by 30tabs Aileen Vicente MD 04/09/2017 20mg Tablets mouth every day in the morning Oxycodone-Acetaminophen take 2 tablets by 84tabs G89.4 Aileen Vicente MD 12/2016 mouth every 8 hours 10-325mg Tablets as needed for pain M54.5 Diphenhydramine HCL 1 cap every night Unknown 25mg Capsules at bedtime for sleep Bupropion HCL ER (SR) take 1 tablet by 90tabs Keon Cabrera, 150mg Tablets mouth every day M.D.,FACP ER 12HR Duloxetine HCL take one capsule by 90caps Aileen Vicente MD 30mg Caps DR Part mouth every morning Iron 1 by mouth every Unknown 325(65Fe) mg Tablets day Gabapentin take one capsule by 120caps Aileen Vicente MD 300mg Capsules mouth in the morning , 1 cap at midday and 2 caps at bedtime Atorvastatin Calcium take 1 tablet by 90tabs Keon Cabrera, 40mg Tablets mouth every day in M.D.,FACP the evening Bupropion Hydrochloride ER take 1 tablet by 30tabs Aileen Vicente MD (SR) mouth every day 150mg Tablets ER 12HR History Medications Fentanyl apply one patch 5units Aileen Vicente MD 11/18/2018 - 25mcg/HR once every 3 11/19/2018 Patches 72HR days Buprenorphine HCL 1-2 sl three 60tabs Aileen Vicente MD 11/14/2018 - 2mg times a day as 11/18/2018 Tablets Sub needed for pain Buprenorphine HCL 1 sl every 12 30tabs Aileen Vicente MD 11/10/2018 - 8mg hours as needed 11/14/2018 Tablets Sub for pain Lisinopril 1 by mouth 60tabs I10 Aileen Vicente MD 10/07/2018 - 20mg Tablets every day bid 12/02/2018 Lisinopril 1 by mouth 30tabs I10 Aileen [...] 04/01/2018 - 30mg twice a day Shiva Cabrera,[facility] 04/10/2018 Tablets Fentanyl apply one patch 10units M79.601 Keon Fowler 02/04/2018 - 25mcg/HR once every 3 Shiva Cabrera,[facility] 03/17/2018 Patches 72HR days Nucynta ER 1 by mouth 60tabs M79.601 Keon Fowler 01/22/2018 - 50mg Tablets twice a day Shiva Cabrera,[facility] 02/04/2018 ER 12HR Lisinopril 1 by mouth 60tabs I10 Aileen Vicente MD 01/22/2018 - 20mg Tablets twice a day 09/11/2018 Buspirone HCL take 1 tablet 120tabs F41.9 Keon Fowler 06/20/2017 - 15mg by mouth four Shiva Cabrera,[facility] 04/01/2018 Tablets times a day Lisinopril 1/2 by mouth 90tabs Keon Fowler 06/09/2017 - 40mg Tablets twice a day Shiva Cabrera,[facility] 01/22/2018 Meclizine HCL 1/2-1 by mouth 30tabs Virgilio 12/31/2016 - 25mg three times a Shiva Francois 04/13/2017 Tablets day as needed Lisinopril take 1 tablet 60tabs Keon Fowler 11/11/2016 - 20mg Tablets by mouth twice Shiva Cabrera,[facility] 06/09/2017 a day Oxycodone HCL 1 tab three 45tabs G89.4 Keon Fowler 11/11/2016 - 20mg times daily as Shiva Cabrera,[facility] 04/09/2017 Tablets needed M54.5 Morphine Sulfate ER 1 tab twice 60tabs M79.601 Keon Fowler 11/11/2016 - daily Shiva Cabrera,[facility] 01/22/2018 15mg Tablets ER Meloxicam once [...] Keon Fowler - orothiazide every morning Shiva Cabrera,[facility] 04/09/2017 20-25mg Tablets Potassium Chloride 1 tab daily Emir Hunter, - Tanya ER 04/10/2018 20Meq Tablets ER Proair HFA inhale 2 puffs 8.500gm Troy De Leon NP - by mouth every 10/07/2018 108(90Base) mcg/Act 4 hours as Aerosol needed Buspirone HCL take 1/2 tablet 60tabs F41.9 Keon Fowler - 30mg by mouth four Shiva Cabrera,[facility] 06/20/2017 Tablets times a day Metaxalone Take 1 Tablet 90tabs Keon Fowler - 800mg By Mouth 3 Shiva Cabrera,[facility] 06/04/2017 Tablets Times A Day Miralax 17 grams by Unknown - Powder mouth every day 10/07/2018 as needed Medications Administered in Office Medication SIG Qnty Indications Ordering Provider Date Triamcinolone (Kenalog) Jelani Alcaraz MD 10/16/2018 Injection Immunizations CPT Code Status Date Vaccine Reaction Lot # [id number] Given 04/08/2018 Tdap - No immediate [id number] Tetanus/Diptheria/Acellular reaction... Pertussis [id number] Given 04/08/2018 Influenza Virus Vaccine, No immediate [id number] Quadrivalent, Split, reaction... Preservative Free [id number] Given 04/09/2017 Influenza Virus Vaccine, [id number] Quadrivalent, Split, Preservative Free Vital Signs Date Vital Result Comment 12/16/2018 4:30pm Weight 420.00 lb w/shoes Heart Rate 100 /min BP Systolic Sitting 152 mmHg BP Diastolic Sitting 104 mmHg O2 % BldC Oximetry 97 % 11/18/2018 3:50pm Weight 440.00 lb Heart Rate [...] Date Facility Test Result H/L Range Note CBC Auto Diff 12/10/2018 [facility] White Blood 17.3 10^3/uL High 3.5-10.[address] [place] [address] [phone] Red Blood Count 5.13 10^6/uL N 4.18-5.48 Hemoglobin 13.2 g/dL Low 14.0-18.0 Hematocrit 42 % N 42-52 Mean Corpuscular Volume 82 fL N 80-94 Mean Corpuscular Hemoglobin 26 pg Low 27-31 Mean Corpuscular HGB Conc 32 g/dL N 31-36 Red Cell Distribution Width 18 % High 10-15 Platelet Count 499 10^3/uL High 150-450 Mean Platelet Volume 6.9 fL Low 7.4-10.4 Abs Neutrophils 10.6 10^3/uL High 1.5-7.7 Abs Lymphocytes 4.3 10^3/uL N 1.0-4.8 Abs Monocytes 1.7 10^3/uL High 0-0.8 Abs Eosinophils 0.5 10^3/uL N 0-0.6 Abs Basophils 0.2 10^3/uL N 0-0.2 Abs Nucleated RBC 0.0 10^3/uL Granulocyte % 61.3 % Lymphocyte % 24.7 % Monocyte % 10.0 % Eosinophil % 3.0 % Basophil % 1.0 % Nucleated Red Blood Cells % 0.0 Urine Drug 12/10/2018 [facility] Urine None Detected None Detect SCR ED & [address] [place] [address] Screen [phone] Urine Barbiturates Screen None Detected None Detect Urine Benzodiazepine Screen None Detected None Detect Urine Cannabinoids Screen None Detected None Detect Urine Cocaine Screen None Detected None Detect Urine Opiates Screen Presumptive Posi <SEE NOTE> Abnormal None Detect 1 Urine Phencyclidine Screen None Detected None Detect 2 Comp Metabolic Panel 12/10/2018 [facility] Sodium 135 mmol/L N 135-[address] [place], [place] [id number] [phone] Potassium 4.2 mmol/L N 3.5-5.0 Chloride 100 mmol/L Low 101-111 Co2 Carbon Dioxide 28 mmol/L N 22-32 Anion Gap 7 mmol/L N 2-11 Glucose 115 mg/dL High 70-100 Blood Urea Nitrogen 29 mg/dL High 6-24 Creatinine 1.08 mg/dL N 0.67-1.17 BUN/Creatinine Ratio 26.9 High 8-20 Calcium 9.7 mg/dL N 8.6-10.3 Total Protein 7.6 g/dL N 6.4-8.9 Albumin 4.1 g/dL N 3.2-5.2 Globulin 3.5 g/dL N 2-4 Albumin/Globulin Ratio 1.2 N 1-3 Total Bilirubin 0.30 mg/dL N 0.2-1.0 Alkaline Phosphatase 76 U/L N 34-104 Alt 44 U/L N 7-52 Ast 26 U/L N 13-39 Egfr Non- 73.9 >60 Egfr 89.5 >60 3 Laboratory test 12/10/2018 [facility] Acetaminophen < 15 g/mL [address] [place] [address] [phone] Alcohol < 10 mg/dL N <10 Salicylate < 2.50 mg/dL <30 TSH (Thyroid Stim Horm) 3.19 mcIU/mL N 0.34-5.60 Urinalysis Profile 12/10/2018 [facility] Urine Color Yellow [address] [place] [address] [phone] Urine Appearance Cloudy Urine Specific [place] 1.031 High 1.010-1.030 Urine pH 5.0 N 5-9 Urine Urobilinogen Negative Negative Urine Ketones Negative Negative Urine Protein Negative Negative Urine Leukocytes Negative Negative Urine Blood Negative Negative Urine Nitrite Negative Negative Urine Bilirubin Negative Negative Urine Glucose Negative Negative Urine Culture And 12/04/2018 [facility] Urine Culture SEE RESULT [address] [place] [address] [phone] Urine Drug SCR ED 12/04/2018 [facility] Urine None None & [facility] [address] [place] [address] Screen [phone] Urine Barbiturates Screen None Detected None Detect Urine Benzodiazepine Screen None Detected None Detect Urine Cannabinoids Screen None Detected None Detect Urine Cocaine Screen None Detected None Detect Urine Opiates Screen Presumptive Posi <SEE NOTE> Abnormal None Detect 6 Urine Phencyclidine Screen None Detected None Detect 7 Urinalysis Profile 12/04/2018 [facility] Urine Color Yellow [address] [place] [address] [phone] Urine Appearance Cloudy Urine Specific [place] 1.046 High 1.010-1.030 Urine pH 5.0 N 5-9 Urine Urobilinogen Negative Negative Urine Ketones Negative Negative Urine Protein 1+(30 mg/dL) Abnormal Negative Urine Leukocytes Negative Negative Urine Blood Negative Negative Urine Nitrite Negative Negative Urine Bilirubin 1+ Abnormal Negative Urine Glucose Negative Negative Urine White Blood Cell Trace(0-5/hpf) Absent Urine Red Blood Cell Trace(0-2/hpf) Absent Urine Bacteria Absent Absent Urine Squamous Epithelial Cell Present Abnormal Absent Laboratory test 12/04/2018 [facility] Acetaminophen < 15 g/mL [address] [place] [address] [phone] Alcohol < 10 mg/dL N <10 Salicylate < 2.50 mg/dL <30 TSH (Thyroid Stim Horm) 1.29 mcIU/mL N 0.34-5.60 Comp Metabolic Panel 12/04/2018 [facility] Sodium 139 mmol/L N 135-[address] [place] [address] [phone] Potassium 3.8 mmol/L N 3.5-5.0 Chloride 106 mmol/L N 101-111 Co2 Carbon Dioxide 26 mmol/L N 22-32 Anion Gap 7 mmol/L N 2-11 Glucose 127 mg/dL High 70-100 Blood Urea Nitrogen 18 mg/dL N 6-24 Creatinine 0.90 mg/dL N 0.67-1.17 BUN/Creatinine Ratio 20.0 N 8-20 Calcium 9.7 mg/dL N 8.6-10.3 Total Protein 7.4 g/dL N 6.4-8.9 Albumin 4.1 g/dL N 3.2-5.2 Globulin 3.3 g/dL N 2-4 Albumin/Globulin Ratio 1.2 N 1-3 Total Bilirubin 0.30 mg/dL N 0.2-1.0 Alkaline Phosphatase 67 U/L N 34-104 Alt 24 U/L N 7-52 Ast 17 U/L N 13-39 Egfr Non- 91.3 >60 Egfr 110.4 >60 9 CBC Auto 12/04/2018 [facility] White Blood 11.8 10^3/uL High 3.5-10.[address] [place] [address] [phone] Red Blood Count 4.69 10^6/uL N 4.18-5.48 Hemoglobin 12.7 g/dL Low 14.0-18.0 Hematocrit 38 % Low 42-52 Mean Corpuscular Volume 81 fL N 80-94 Mean Corpuscular Hemoglobin 27 pg N 27-31 Mean Corpuscular HGB Conc 33 g/dL N 31-36 Red Cell Distribution Width 17 % High 10-15 Platelet Count 374 10^3/uL N 150-450 Mean Platelet Volume 7.4 fL N 7.4-10.4 Abs Neutrophils 7.5 10^3/uL N 1.5-7.7 Abs Lymphocytes 2.9 10^3/uL N 1.0-4.8 Abs Monocytes 0.9 10^3/uL High 0-0.8 Abs Eosinophils 0.3 10^3/uL N 0-0.6 Abs Basophils 0.1 10^3/uL N 0-0.2 Abs Nucleated RBC 0.0 10^3/uL Granulocyte % 63.9 % Lymphocyte % 24.6 % Monocyte % 7.7 % Eosinophil % 2.9 % Basophil % 0.9 % Nucleated Red Blood Cells % 0.1 Drug Abuse 09/30/2018 [facility] Urine Amphetamine Negative ng/ mL 10, 11 [address] [place] [address] [phone] Urine Barbiturates Negative ng/mL 12 Urine Benzodiazepines Negative ng/mL 13 Urine Cocaine Negative ng/mL 14 Urine Phencyclidine Negative ng/mL Cutoff: 25 Urine Tetrahydrocannabinol Negative ng/mL Cutoff: 50 15 Creatinine, Urine 126.6 mg/dL Specific [place] 1.014 pH 7.0 Oxidants Negative 16 Adulterants Comment Normal Codeine, Ur Not Detected ng/mL Cutoff: 25 17 Bmeuvyu-7-zgke-glucuronide, Ur Not Detected ng/mL 18 Morphine, Ur Not Detected ng/mL Cutoff: 25 19 Cciaepbs-1-vhvp-glucuronide, U Not Detected ng/mL 20 6-monoacetylmorphine, Ur Not Detected ng/mL Cutoff: 25 21 Hydrocodone, Ur Not Detected ng/mL Cutoff: 25 22 Norhydrocodone, Ur Not Detected ng/mL Cutoff: 25 23 Dihydrocodeine, Ur Not Detected ng/mL Cutoff: 25 24 Hydromorphone, Ur Not Detected ng/mL Cutoff: 25 25 Hxzhmdlrobuof1jnjrhpgrinotyfw Not Detected ng/mL 26 Oxycodone, Ur Present ng/mL Abnormal Cutoff: 25 27 Noroxycodone, Ur Present ng/mL Abnormal Cutoff: 25 28 Oxymorphone, Ur Present ng/mL Abnormal Cutoff: 25 29 Jbdzpfxqwnz-5-lxwu-glucuronide Present ng/mL Abnormal 30 Noroxymorphone, Ur Present ng/mL Abnormal Cutoff: 25 31 Fentanyl, Ur Not Detected ng/mL Cutoff: 2 32 Norfentanyl, Ur Present ng/mL Abnormal Cutoff: 2 33 Meperidine, Ur Not Detected ng/mL Cutoff: 25 34 Normeperidine, Ur Not Detected ng/mL Cutoff: 25 35 Naloxone, Ur Not Detected ng/mL Cutoff: 25 36 Nizhsbej-2-uefc-glucuronide, U Not Detected ng/mL 37 Methadone, Ur Not Detected ng/mL Cutoff: 25 38 Eddp, Ur Not Detected ng/mL Cutoff: 25 39 Propoxyphene, Ur Not Detected ng/mL Cutoff: 25 40 Norpropoxyphene, Ur Not Detected ng/mL Cutoff: 25 41 Tramadol, Ur Not Detected ng/mL Cutoff: 25 42 O-desmethyltramadol, Ur Not Detected ng/mL Cutoff: 25 43 Tapentadol, Ur Not Detected ng/mL Cutoff: 25 44 N-desmethyltapentadol, Ur Not Detected ng/mL Cutoff: 50 45 Wddkvmmybo-wlam-knqlhvuoaye, U Not Detected ng/mL 46 Buprenorphine, Ur Not Detected ng/mL Cutoff: 5 47 Norbuprenorphine, Ur Not Detected ng/mL Cutoff: 5 48 Norbuprenorphine glucuronide Not Detected ng/mL Cutoff: 20 49 Opioid Interpretation See Comment 50 Laboratory test 09/10/2018 [facility] Troponin-I 0.01 <0.04 [address] (TnI) ng/[place] [address] [phone] CBC Auto Diff 09/10/2018 [facility] White Blood 10.9 High 3.5- 10.[address] Count 10^3/[place] [address] [phone] Red Blood Count 5.12 10^6/uL N 4.18-5.48 [...] Cells % 0 Comp Metabolic Panel 09/10/2018 [facility] Sodium 140 mmol/L N 135-[address] [place] [address] [phone] Potassium 4.3 mmol/L N 3.5-5.0 Chloride 105 [...] Egfr Non- 110.9 >60 Egfr 134.2 >60 52 Laboratory test 09/10/2018 [facility] C Reactive 7.54 mg/L N < 8.[address] [place] [address] [phone] Troponin-I (TnI) 0.01 ng/mL <0.04 53 B-Type Natriuretic Peptide BNP 8 pg/mL <=100 Laboratory test 09/07/2018 [facility] D Dimer < 200 N Less [address] Quantitative ng/mL Than 230 [place] [address] [phone] Laboratory test 09/07/2018 [facility] C Reactive 8.85 mg/L High <8.[address] [place] [address] [phone] Erythrocyte Sed Rate 19 mm/Hr High 0-14 TSH (Thyroid Stim Horm) 2.35 mcIU/mL N 0.34-5.60 Comp Metabolic Panel 09/07/2018 [facility] Sodium 138 mmol/L N 135-[address] [place] [address] [phone] Potassium 3.7 mmol/L N 3.5-5.0 Chloride 102 [...] Egfr Non- 77.2 >60 Egfr 93.4 >60 55 CBC Auto 09/07/2018 [facility] White Blood 11.5 10^3/uL High 3.5-10.[address] [place] [address] [phone] Red Blood Count 4.95 10^6/uL N 4.18-5.48 [...] Blood Cells % 0 Laboratory test 09/07/2018 [facility] B-Type 17 pg/mL <=[address] [place] [address] Peptide BNP [phone] Drug Abuse 20 07/03/2018 [facility] Urine Negative 56, [address] Amphetamine ng/[place] [address] [phone] Urine Barbiturates Negative ng/mL 58 Urine Benzodiazepines Negative ng/mL 59 Urine Cocaine Negative ng/mL 60 Urine Phencyclidine Negative ng/mL Cutoff: 25 Urine Tetrahydrocannabinol Negative ng/mL Cutoff: 50 61 Creatinine, Urine 68.4 mg/dL Specific [place] 1.012 pH 5.9 Oxidants Negative 62 Adulterants Comment Normal Codeine, Ur Not Detected ng/mL Cutoff: 25 63 Shillqd-8-khum-glucuronide, Ur Not Detected ng/mL 64 Morphine, Ur Not Detected ng/mL Cutoff: 25 65 Bqrygjnq-9-sfbb-glucuronide, U Not Detected ng/mL 66 6-monoacetylmorphine, Ur Not Detected ng/mL Cutoff: 25 67 Hydrocodone, Ur Not Detected ng/mL Cutoff: 25 68 Norhydrocodone, Ur Not Detected ng/mL Cutoff: 25 69 Dihydrocodeine, Ur Not Detected ng/mL Cutoff: 25 70 Hydromorphone, Ur Not Detected ng/mL Cutoff: 25 71 Gdppfmoblmmgk1hvgbkcumdmmyfmy Not Detected ng/mL 72 Oxycodone, Ur Present ng/mL Abnormal Cutoff: 25 73 Noroxycodone, Ur Present ng/mL Abnormal Cutoff: 25 74 Oxymorphone, Ur Present ng/mL Abnormal Cutoff: 25 75 Ccdarhxlgwc-0-qghw-glucuronide Present ng/mL Abnormal 76 Noroxymorphone, Ur Present ng/mL Abnormal Cutoff: 25 77 Fentanyl, Ur Not Detected ng/mL Cutoff: 2 78 Norfentanyl, Ur Present ng/mL Abnormal Cutoff: 2 79 Meperidine, Ur Not Detected ng/mL Cutoff: 25 80 Normeperidine, Ur Not Detected ng/mL Cutoff: 25 81 Naloxone, Ur Not Detected ng/mL Cutoff: 25 82 Ciquzmjm-5-ftgg-glucuronide, U Not Detected ng/mL 83 Methadone, Ur Not Detected ng/mL Cutoff: 25 84 Eddp, Ur Not Detected ng/mL Cutoff: 25 85 Propoxyphene, Ur Not Detected ng/mL Cutoff: 25 86 Norpropoxyphene, Ur Not Detected ng/mL Cutoff: 25 87 Tramadol, Ur Not Detected ng/mL Cutoff: 25 88 O-desmethyltramadol, Ur Not Detected ng/mL Cutoff: 25 89 Tapentadol, Ur Not Detected ng/mL Cutoff: 25 90 N-desmethyltapentadol, Ur Not Detected ng/mL Cutoff: 50 91 Flkaihsgoa-ygle-aouoknccbhz, U Not Detected ng/mL 92 Buprenorphine, Ur Not Detected ng/mL Cutoff: 5 93 Norbuprenorphine, Ur Not Detected ng/mL Cutoff: 5 94 Norbuprenorphine glucuronide Not Detected ng/mL Cutoff: 20 95 Opioid Interpretation See Comment 96 Drug Abuse 05/15/2018 [facility] Urine Amphetamine Negative ng/ mL 97, 98 [address] [place] [id number] [phone] Urine Barbiturates Negative ng/mL 99 Urine Benzodiazepines Negative ng/mL 100 Urine Cocaine Negative ng/mL 101 Urine Phencyclidine Negative ng/mL Cutoff: 25 Urine Tetrahydrocannabinol Negative ng/mL Cutoff: 50 102 Creatinine, Urine 113.3 mg/dL Specific [place] 1.015 pH 5.9 Oxidants Negative 103 Adulterants Comment Normal Codeine, Ur Not Detected ng/mL Cutoff: 25 104 Qvvcivb-3-vgbe-glucuronide, Ur Not Detected ng/mL 105 Morphine, Ur Not Detected ng/mL Cutoff: 25 106 Trvdaczw-5-nxxr-glucuronide, U Not Detected ng/mL 107 6-monoacetylmorphine, Ur Not Detected ng/mL Cutoff: 25 108 Hydrocodone, Ur Not Detected ng/mL Cutoff: 25 109 Norhydrocodone, Ur Not Detected ng/mL Cutoff: 25 110 Dihydrocodeine, Ur Not Detected ng/mL Cutoff: 25 111 Hydromorphone, Ur Not Detected ng/mL Cutoff: 25 112 Pkgnnlgphgxek5endeuwvdjolwlav Not Detected ng/mL 113 Oxycodone, Ur Present ng/mL Abnormal Cutoff: 25 114 Noroxycodone, Ur Present ng/mL Abnormal Cutoff: 25 115 Oxymorphone, Ur Not Detected ng/mL Cutoff: 25 116 Vrzjwwrzfnl-0-lokr-glucuronide Present ng/mL Abnormal 117 Noroxymorphone, Ur Present ng/mL Abnormal Cutoff: 25 118 Fentanyl, Ur Present ng/mL Abnormal Cutoff: 2 119 Norfentanyl, Ur Present ng/mL Abnormal Cutoff: 2 120 Meperidine, Ur Not Detected ng/mL Cutoff: 25 121 Normeperidine, Ur Not Detected ng/mL Cutoff: 25 122 Naloxone, Ur Not Detected ng/mL Cutoff: 25 123 Bhzdrkrq-4-ffcc-glucuronide, U Not Detected ng/mL 124 Methadone, Ur Not Detected ng/mL Cutoff: 25 125 Eddp, Ur Not Detected ng/mL Cutoff: 25 126 Propoxyphene, Ur Not Detected ng/mL Cutoff: 25 127 Norpropoxyphene, Ur Not Detected ng/mL Cutoff: 25 128 Tramadol, Ur Not Detected ng/mL Cutoff: 25 129 O-desmethyltramadol, Ur Not Detected ng/mL Cutoff: 25 130 Tapentadol, Ur Not Detected ng/mL Cutoff: 25 131 N-desmethyltapentadol, Ur Not Detected ng/mL Cutoff: 50 132 Fmldmsehcp-lari-nxixpdwcmep, U Not Detected ng/mL 133 Buprenorphine, Ur Not Detected ng/mL Cutoff: 5 134 Norbuprenorphine, Ur Not Detected ng/mL Cutoff: 5 135 Norbuprenorphine glucuronide Not Detected ng/mL Cutoff: 20 136 Opioid Interpretation See Comment 137 Rapid Influenza 05/10/2018 [facility] Influenza A NEGATIVE Negative 138 A & B Molecular [address] [address] [phone] Influenza B Molecular NEGATIVE Negative Laboratory test 05/10/2018 [facility] Rapid Influenza A B SEE RESULT [address] [address] [phone] Lipid Profile 04/15/2018 [facility] Triglycerides 157 mg/dL 140 (Trig/Chol/HDL) [address] [place] [address] [phone] Cholesterol 149 mg/dL 141 HDL Cholesterol 54.0 mg/dL 142 LDL Cholesterol 64 mg/dL 143 Comp Metabolic Panel 04/15/2018 [facility] Sodium 142 mmol/L N 135-[address] [place] [address] [phone] Potassium 4.6 mmol/L N 3.5-5.0 Chloride 107 [...] Egfr Non- 96.2 >60 Egfr 116.4 >60 144 Urine Drug Screen Inhouse 04/10/2018 [facility] Amphetamine Confirm Urine - 12 Urine Buprenorphine Conf QN - Urine Benzodiazepines + Urine Cocaine Random QL - Urine Methamphetamine QL Confm - Urine Methadone - Confirm Opiate Urine - Urine Oxycodone + Urine PCP Phencyclidine QL - Urine THC Confirmation - Urine Barbiturates QN Confirm - CBC No Diff 02/02/2018 [facility] White Blood 11.9 10^3/uL High 3.5-10.[address] [place] [address] [phone] Red Blood Count 4.74 10^6/uL N 4.00-5.40 Hemoglobin 12.7 g/dL Low 14.0-18.0 Hematocrit 39 % Low 42-52 Mean Corpuscular Volume 83 fL N 80-94 Mean Corpuscular Hemoglobin 27 pg N 27-31 Mean Corpuscular HGB Conc 33 g/dL N 31-36 Red Cell Distribution Width 15 % N 10.5-15 Platelet Count 272 10^3/uL N 150-450 Mean Platelet Volume 6.9 um3 Low 7.4-10.4 Laboratory test 02/02/2018 [facility] Troponin-I (TnI) 0.00 ng/ mL <0.[address] [place] [address] [phone] Basic Metabolic 02/02/2018 [facility] Sodium 140 mmol/L N 135- 145 Panel [address] [place] [address] [phone] Potassium 4.1 mmol/L N 3.5-5.0 Chloride 105 mmol/L N 101-111 Co2 Carbon Dioxide 28 mmol/L N 22-32 Anion Gap 7 mmol/L N 2-11 Glucose 120 mg/dL High 70-100 Blood Urea Nitrogen 13 mg/dL N 6-24 Creatinine 0.94 mg/dL N 0.67-1.17 BUN/Creatinine Ratio 13.8 N 8-20 Calcium 9.8 mg/dL N 8.6-10.3 Egfr Non- 87.2 >60 Egfr 105.5 >60 145 BCR/Abl Trans 9:22 01/29/2018 [facility] BCR/abl (Fish) Normal Fish 101 [place] [address] [phone] BCR/abl (Fish) Result Table See Comment 146 BCR/abl (Fish) Specimen Blood BCR/abl (Fish) Referral Reason See Comment 147 BCR/abl (Fish) Method See Comment 148 BCR/abl Results See Comment 149 BCR/abl (Fish) Interpretation See Comment 150 BCR/abl (Fish) Disclaimer See Comment 151 BCR/abl (Fish) Released By See Comment 152 Leukemia/Lymphoma 01/29/2018 [facility] Path (SEE NOTE) 153 Flow 101 [place] [address] 2-8 Marker [phone] Myeloprolif Neoplasm 01/29/2018 [facility] MPNR Result see 154 [address] [place] [address] <SEE NOTE> [phone] MPNR Final Diagnosis See Comment 155 Protein 01/29/2018 [facility] Total 6.8 g/dL 6.3 - Electrophoresis [address] Protein(Pep) 7.9 [place] [address] [phone] Albumin 3.3 g/dL Abnormal 3.4-4.7 Alpha-1 Globulin 0.3 g/dL 0.1-0.3 Alpha-2 Globulin 0.9 g/dL 0.6-1.0 Beta Globulin 1.4 g/dL Abnormal 0.7-1.2 Gamma Globulin 1.0 g/dL 0.6-1.6 Albumin/Globulin Ratio 0.92 Impression See Comment 156 Laboratory test 01/29/2018 [facility] Erythrocyte Sed 28 mm/Hr High 0-[address] [place] [address] [phone] Erythropoietin 13.9 mIU/mL 2.6 - 18.5 157 Retic Count 01/29/2018 [facility] Retic Count 1.7 % High 0.5- 1.[address] [place] [address] [phone] Corrected Retic Count 1.4 % N 0.5-1.5 Maturation Factor Retic 1.5 Retic Index 0.90 Mean Retic Volume 108.1 Immature Retic Fraction 0.44 RBC Retic Count 4.51 10^6/uL Low 4.6-6.2 Hematocrit for Retic CNT 38 % Low 42-52 CBC Auto Diff 01/29/2018 [facility] White Blood 9.9 10^3/uL N 3.5-10.[address] [place] [address] [phone] Red Blood Count 4.51 10^6/uL N 4.00-5.40 [...] Blood Cells % 0 Laboratory test 01/29/2018 [facility] Ferritin 30.7 ng/mL N 24 -336 finding [address] [place] [address] [phone] Vitamin B12 554 pg/mL N 180-914 158 Iron & Iron Binding 01/29/2018 [facility] Iron 41 g/dL Low 50-212 Capacity [address] [place] [address] [phone] Unsaturated Iron Binding 373 g/dL Total Iron Binding Capacity 414 g/dL N 250-450 Transferrin 296 mg/dL N 203-362 % Iron Saturation 10 % Low 15-55 Laboratory test 01/29/2018 [facility] Occult Blood Stool neg x3 finding Diagnostic Comp Metabolic 01/29/2018 [facility] Sodium 139 mmol/L N 135- 145 Panel [address] [place] [address] [phone] Potassium 4.6 mmol/L N 3.5-5.0 Chloride 102 [...] Egfr Non- 78.5 >60 Egfr 94.9 >60 159 Drug Abuse 01/22/2018 [facility] Urine Amphetamine Negative 160, 161 [address] ng/[place] [address] [phone] Urine Barbiturates Negative ng/mL 162 Urine Benzodiazepines Negative ng/mL 163 Urine Cocaine Negative ng/mL 164 Urine Phencyclidine Negative ng/mL Cutoff: 25 Urine Tetrahydrocannabinol Negative ng/mL Cutoff: 50 165 Creatinine, Urine 237.5 mg/dL Specific [place] 1.015 pH 5.7 Oxidants Negative 166 Adulterants Comment Normal Codeine, Ur Not Detected ng/mL Cutoff: 25 167 Wvzyedy-8-cxhy-glucuronide, Ur Not Detected ng/mL 168 Morphine, Ur Present ng/mL Abnormal Cutoff: 25 169 Etkdqhvh-8-dpkr-glucuronide, U Present ng/mL Abnormal 170 6-monoacetylmorphine, Ur Not Detected ng/mL Cutoff: 25 171 Hydrocodone, Ur Not Detected ng/mL Cutoff: 25 172 Norhydrocodone, Ur Not Detected ng/mL Cutoff: 25 173 Dihydrocodeine, Ur Not Detected ng/mL Cutoff: 25 174 Hydromorphone, Ur Not Detected ng/mL Cutoff: 25 175 Kvhdiztgzoldr7zlcetkbspavnbhl Not Detected ng/mL 176 Oxycodone, Ur Present ng/mL Abnormal Cutoff: 25 177 Noroxycodone, Ur Present ng/mL Abnormal Cutoff: 25 178 Oxymorphone, Ur Present ng/mL Abnormal Cutoff: 25 179 Sgeprlkvorg-0-gumq-glucuronide Present ng/mL Abnormal 180 Noroxymorphone, Ur Present ng/mL Abnormal Cutoff: 25 181 Fentanyl, Ur Not Detected ng/mL Cutoff: 2 182 Norfentanyl, Ur Present ng/mL Abnormal Cutoff: 2 183 Meperidine, Ur Not Detected ng/mL Cutoff: 25 184 Normeperidine, Ur Not Detected ng/mL Cutoff: 25 185 Naloxone, Ur Not Detected ng/mL Cutoff: 25 186 Pqsrdjry-5-fajh-glucuronide, U Not Detected ng/mL 187 Methadone, Ur Not Detected ng/mL Cutoff: 25 188 Eddp, Ur Not Detected ng/mL Cutoff: 25 189 Propoxyphene, Ur Not Detected ng/mL Cutoff: 25 190 Norpropoxyphene, Ur Not Detected ng/mL Cutoff: 25 191 Tramadol, Ur Not Detected ng/mL Cutoff: 25 192 O-desmethyltramadol, Ur Not Detected ng/mL Cutoff: 25 193 Tapentadol, Ur Not Detected ng/mL Cutoff: 25 194 N-desmethyltapentadol, Ur Not Detected ng/mL Cutoff: 50 195 Upvjcspiia-gbfh-ulcovrnpqjr, U Not Detected ng/mL 196 Buprenorphine, Ur Not Detected ng/mL Cutoff: 5 197 Norbuprenorphine, Ur Not Detected ng/mL Cutoff: 5 198 Norbuprenorphine glucuronide Not Detected ng/mL Cutoff: 20 199 Opioid Interpretation See Comment 200 Drug Abuse 12/29/2017 [facility] Urine Amphetamine Negative 201, 202 [address] ng/mL [place], [place] [id number] [phone] Urine Barbiturates Negative ng/mL 203 Urine Benzodiazepines Negative ng/mL 204 Urine Cocaine Negative ng/mL 205 Urine Phencyclidine Negative ng/mL Cutoff: 25 Urine Tetrahydrocannabinol Negative ng/mL Cutoff: 50 206 Creatinine, Urine 476.7 mg/dL Specific [place] 1.020 pH 5.8 Oxidants Negative 207 Adulterants Comment Normal Codeine, Ur Not Detected ng/mL Cutoff: 25 208 Szabyjk-0-lefi-glucuronide, Ur Not Detected ng/mL 209 Morphine, Ur Present ng/mL Abnormal Cutoff: 25 210 Oxljglnw-4-ogbn-glucuronide, U Present ng/mL Abnormal 211 6-monoacetylmorphine, Ur Not Detected ng/mL Cutoff: 25 212 Hydrocodone, Ur Not Detected ng/mL Cutoff: 25 213 Norhydrocodone, Ur Not Detected ng/mL Cutoff: 25 214 Dihydrocodeine, Ur Not Detected ng/mL Cutoff: 25 215 Hydromorphone, Ur Present ng/mL Abnormal Cutoff: 25 216 Adaqnehxyribe9kqezoaiyypicmbv Present ng/mL Abnormal 217 Oxycodone, Ur Present ng/mL Abnormal Cutoff: 25 218 Noroxycodone, Ur Present ng/mL Abnormal Cutoff: 25 219 Oxymorphone, Ur Not Detected ng/mL Cutoff: 25 220 Qlbmbctbaxo-7-odyh-glucuronide Present ng/mL Abnormal 221 Noroxymorphone, Ur Present ng/mL Abnormal Cutoff: 25 222 Fentanyl, Ur Not Detected ng/mL Cutoff: 2 223 Norfentanyl, Ur Present ng/mL Abnormal Cutoff: 2 224 Meperidine, Ur Not Detected ng/mL Cutoff: 25 225 Normeperidine, Ur Not Detected ng/mL Cutoff: 25 226 Naloxone, Ur Not Detected ng/mL Cutoff: 25 227 Xntgrfnl-1-njtf-glucuronide, U Not Detected ng/mL 228 Methadone, Ur Not Detected ng/mL Cutoff: 25 229 Eddp, Ur Not Detected ng/mL Cutoff: 25 230 Propoxyphene, Ur Not Detected ng/mL Cutoff: 25 231 Norpropoxyphene, Ur Not Detected ng/mL Cutoff: 25 232 Tramadol, Ur Not Detected ng/mL Cutoff: 25 233 O-desmethyltramadol, Ur Not Detected ng/mL Cutoff: 25 234 Tapentadol, Ur Not Detected ng/mL Cutoff: 25 235 N-desmethyltapentadol, Ur Not Detected ng/mL Cutoff: 50 236 Hpgqxmlplp-ciro-cflxtxzbtkj, U Not Detected ng/mL 237 Buprenorphine, Ur Not Detected ng/mL Cutoff: 5 238 Norbuprenorphine, Ur Not Detected ng/mL Cutoff: 5 239 Norbuprenorphine glucuronide Not Detected ng/mL Cutoff: 20 240 Opioid Interpretation See Comment 241 CBC Auto 12/29/2017 [facility] White Blood 13.2 10^3/uL High 3.5-10.[address] [place] [address] [phone] Red Blood Count 5.03 10^6/uL N 4.00-5.40 [...] Blood Cells % 0 Drug Abuse 11/28/2017 [facility] Urine Amphetamine Negative ng/ mL 242 [address] [place] [address] [phone] Urine Barbiturates Negative ng/mL 243 Urine Benzodiazepines Negative ng/mL 244 Urine Cocaine Negative ng/mL 245 Urine Phencyclidine Negative ng/mL Cutoff: 25 Urine Tetrahydrocannabinol Negative ng/mL Cutoff: 50 246 Creatinine, Urine 88.6 mg/dL Specific [place] 1.014 pH 5.5 Oxidants Negative 247 Adulterants Comment Normal Codeine, Ur Not Detected ng/mL Cutoff: 25 248 Afztale-0-fgvq-glucuronide, Ur Not Detected ng/mL 249 Morphine, Ur Present ng/mL Abnormal Cutoff: 25 250 Rzfreqzr-4-krwm-glucuronide, U Present ng/mL Abnormal 251 6-monoacetylmorphine, Ur Not Detected ng/mL Cutoff: 25 252 Hydrocodone, Ur Not Detected ng/mL Cutoff: 25 253 Norhydrocodone, Ur Not Detected ng/mL Cutoff: 25 254 Dihydrocodeine, Ur Not Detected ng/mL Cutoff: 25 255 Hydromorphone, Ur Not Detected ng/mL Cutoff: 25 256 Xtamdkfsqgleq5slnytstgrvsaebu Not Detected ng/mL 257 Oxycodone, Ur Present ng/mL Abnormal Cutoff: 25 258 Noroxycodone, Ur Present ng/mL Abnormal Cutoff: 25 259 Oxymorphone, Ur Not Detected ng/mL Cutoff: 25 260 Ulyolfbqvvq-4-zngp-glucuronide Present ng/mL Abnormal 261 Noroxymorphone, Ur Present ng/mL Abnormal Cutoff: 25 262 Fentanyl, Ur Not Detected ng/mL Cutoff: 2 263 Norfentanyl, Ur Not Detected ng/mL Cutoff: 2 264 Meperidine, Ur Not Detected ng/mL Cutoff: 25 265 Normeperidine, Ur Not Detected ng/mL Cutoff: 25 266 Naloxone, Ur Not Detected ng/mL Cutoff: 25 267 Ukfvvkga-9-eshv-glucuronide, U Not Detected ng/mL 268 Methadone, Ur Not Detected ng/mL Cutoff: 25 269 Eddp, Ur Not Detected ng/mL Cutoff: 25 270 Propoxyphene, Ur Not Detected ng/mL Cutoff: 25 271 Norpropoxyphene, Ur Not Detected ng/mL Cutoff: 25 272 Tramadol, Ur Not Detected ng/mL Cutoff: 25 273 O-desmethyltramadol, Ur Not Detected ng/mL Cutoff: 25 274 Tapentadol, Ur Not Detected ng/mL Cutoff: 25 275 N-desmethyltapentadol, Ur Not Detected ng/mL Cutoff: 50 276 Omhexqurdo-ddwc-btdfvirszuo, U Not Detected ng/mL 277 Buprenorphine, Ur Not Detected ng/mL Cutoff: 5 278 Norbuprenorphine, Ur Not Detected ng/mL Cutoff: 5 279 Norbuprenorphine glucuronide Not Detected ng/mL Cutoff: 20 280 Opioid Interpretation See Comment 281 CBC Auto 11/28/2017 [facility] White Blood 14.6 10^3/uL High 3.5-10.[address] Count [place], [place] [id number] [phone] Red Blood Count 4.62 10^6/uL N 4.00-5.40 [...] Cells % 0 Comp Metabolic Panel 11/28/2017 [facility] Sodium 142 mmol/L N 135-[address] [place] [address] [phone] Potassium 3.7 mmol/L N 3.5-5.0 Chloride 102 [...] Egfr Non- 77.6 >60 Egfr 93.9 >60 282 Laboratory test 11/28/2017 [facility] B-Type 13 pg/mL [address] [place] [address] Peptide BNP [phone] Drug Abuse 20 08/28/2017 [facility] Urine Negative 284, Urine [address] Amphetamine ng/mL 285 [place], [place] [id number] [phone] Urine Barbiturates Negative ng/mL 286 Urine Benzodiazepines Negative ng/mL 287 Urine Cocaine Negative ng/mL 288 Urine Phencyclidine Negative ng/mL Cutoff: 25 Urine Tetrahydrocannabinol Negative ng/mL Cutoff: 50 289 Creatinine, Urine 294.6 mg/dL Specific [place] 1.019 pH 5.6 Oxidants Negative 290 Adulterants Comment Normal Codeine, Ur Not Detected ng/mL Cutoff: 25 291 Tiaokuu-1-blvn-glucuronide, Ur Not Detected ng/mL 292 Morphine, Ur Present ng/mL Abnormal Cutoff: 25 293 Nrttywum-7-unbi-glucuronide, U Present ng/mL Abnormal 294 6-monoacetylmorphine, Ur Not Detected ng/mL Cutoff: 25 295 Hydrocodone, Ur Not Detected ng/mL Cutoff: 25 296 Norhydrocodone, Ur Not Detected ng/mL Cutoff: 25 297 Dihydrocodeine, Ur Not Detected ng/mL Cutoff: 25 298 Hydromorphone, Ur Present ng/mL Abnormal Cutoff: 25 299 Jkjkovligdhrb5xunupljhpeaqilg Not Detected ng/mL 300 Oxycodone, Ur Present ng/mL Abnormal Cutoff: 25 301 Noroxycodone, Ur Present ng/mL Abnormal Cutoff: 25 302 Oxymorphone, Ur Present ng/mL Abnormal Cutoff: 25 303 Obfywyeturz-7-qsor-glucuronide Present ng/mL Abnormal 304 Noroxymorphone, Ur Present ng/mL Abnormal Cutoff: 25 305 Fentanyl, Ur Not Detected ng/mL Cutoff: 2 306 Norfentanyl, Ur Not Detected ng/mL Cutoff: 2 307 Meperidine, Ur Not Detected ng/mL Cutoff: 25 308 Normeperidine, Ur Not Detected ng/mL Cutoff: 25 309 Naloxone, Ur Not Detected ng/mL Cutoff: 25 310 Kskjjqib-8-zvgc-glucuronide, U Not Detected ng/mL 311 Methadone, Ur Not Detected ng/mL Cutoff: 25 312 Eddp, Ur Not Detected ng/mL Cutoff: 25 313 Propoxyphene, Ur Not Detected ng/mL Cutoff: 25 314 Norpropoxyphene, Ur Not Detected ng/mL Cutoff: 25 315 Tramadol, Ur Not Detected ng/mL Cutoff: 25 316 O-desmethyltramadol, Ur Not Detected ng/mL Cutoff: 25 317 Tapentadol, Ur Not Detected ng/mL Cutoff: 25 318 N-desmethyltapentadol, Ur Not Detected ng/mL Cutoff: 50 319 Afazmjqqdt-vtwq-njmwiczgnxt, U Not Detected ng/mL 320 Buprenorphine, Ur Not Detected ng/mL Cutoff: 5 321 Norbuprenorphine, Ur See Comment ng/mL Cutoff: 5 322 Norbuprenorphine glucuronide Not Detected ng/mL Cutoff: 20 323 Opioid Interpretation See Comment 324 Laboratory test 04/28/2017 [facility] PSA Screening 0.110 N 0- 4.000 [address] ng/[place] [address] [phone] Lipid Profile 04/28/2017 [facility] Triglycerides 139 mg/dL 326 (Trig/Chol/HDL) [address] [place] [address] [phone] Cholesterol 167 mg/dL 327 HDL Cholesterol 41.7 mg/dL 328 LDL Cholesterol 98 mg/dL 329 Comp Metabolic Panel 04/28/2017 [facility] Sodium 138 mmol/L N 133-145 [address] [place] [address] [phone] Potassium 4.2 mmol/L N 3.5-5.0 Chloride 103 [...] Egfr Non- 80.2 >60 Egfr 103.2 >60 330 Drug Abuse 04/09/2017 [facility] Urine Amphetamine Negative ng/ mL 331 20 Urine [address] [place] [address] [phone] Urine Barbiturates Negative ng/mL 332 Urine Benzodiazepines Negative ng/mL 333 Urine Cocaine Negative ng/mL 334 Urine Phencyclidine Negative ng/mL Cutoff: 25 Urine Tetrahydrocannabinol Negative ng/mL Cutoff: 50 335 Creatinine, Urine 53.0 mg/dL Specific [place] 1.015 pH 5.4 Oxidants Negative 336 Adulterants Comment Normal Codeine, Ur Not Detected ng/mL Cutoff: 25 337 Gpebhkv-9-atyn-glucuronide, Ur Not Detected ng/mL 338 Morphine, Ur Not Detected ng/mL Cutoff: 25 339 Ishswmlp-8-xjes-glucuronide, U Not Detected ng/mL 340 6-monoacetylmorphine, Ur Not Detected ng/mL Cutoff: 25 341 Hydrocodone, Ur Not Detected ng/mL Cutoff: 25 342 Norhydrocodone, Ur Not Detected ng/mL Cutoff: 25 343 Dihydrocodeine, Ur Not Detected ng/mL Cutoff: 25 344 Hydromorphone, Ur Not Detected ng/mL Cutoff: 25 345 Wnpussxlqholy6xmndugcabwxvuol Not Detected ng/mL 346 Oxycodone, Ur Present ng/mL Cutoff: 25 347 Noroxycodone, Ur Present ng/mL Cutoff: 25 348 Oxymorphone, Ur Not Detected ng/mL Cutoff: 25 349 Qlmxnnfwnsl-4-rrok-glucuronide Present ng/mL 350 Noroxymorphone, Ur Present ng/mL Cutoff: 25 351 Fentanyl, Ur Not Detected ng/mL Cutoff: 2 352 Norfentanyl, Ur Not Detected ng/mL Cutoff: 2 353 Meperidine, Ur Not Detected ng/mL Cutoff: 25 354 Normeperidine, Ur Not Detected ng/mL Cutoff: 25 355 Naloxone, Ur Not Detected ng/mL Cutoff: 25 356 Zplkwbea-1-ksms-glucuronide, U Not Detected ng/mL 357 Methadone, Ur Not Detected ng/mL Cutoff: 25 358 Eddp, Ur Not Detected ng/mL Cutoff: 25 359 Propoxyphene, Ur Not Detected ng/mL Cutoff: 25 360 Norpropoxyphene, Ur Not Detected ng/mL Cutoff: 25 361 Tramadol, Ur Not Detected ng/mL Cutoff: 25 362 O-desmethyltramadol, Ur Not Detected ng/mL Cutoff: 25 363 Tapentadol, Ur Not Detected ng/mL Cutoff: 25 364 N-desmethyltapentadol, Ur Not Detected ng/mL Cutoff: 50 365 Kbxrllqkmm-bgjo-whohqnivpbn, U Not Detected ng/mL 366 Buprenorphine, Ur Not Detected ng/mL Cutoff: 5 367 Norbuprenorphine, Ur Not Detected ng/mL Cutoff: 5 368 Norbuprenorphine glucuronide Not Detected ng/mL Cutoff: 20 369 Opioid Interpretation See Comment 370 Ua Routine 03/19/2017 [facility] Ua Specific [place] 1.015 Ua PH 5 Ua Color yellow Ua Appera clear Ua WBC neg Ua Protein trace Ua Glucose neg Ua Ketones neg Ua Bilirubin neg Ua Urobilinogen neg Ua Nitrite neg Ua Occult Blood neg Drug Abuse 12/31/2016 [facility] Urine Amphetamine Negative ng/ mL N 371 [address] [place] [address] [phone] Urine Barbiturates Negative ng/mL N 372 Urine Benzodiazepines Negative ng/mL N 373 Urine Cocaine Negative ng/mL N 374 Urine Phencyclidine Negative ng/mL N Cutoff: 25 Urine Tetrahydrocannabinol Negative ng/mL N Cutoff: 50 375 Creatinine, Urine 338.6 mg/dL N Specific [place] 1.018 N pH 5.8 N Oxidants Negative N 376 Adulterants Comment Normal N Codeine, Ur Not Detected ng/mL N Cutoff: 25 377 Befiqxx-2-gtyv-glucuronide, Ur Present ng/mL N 378 Morphine, Ur Present ng/mL N Cutoff: 25 379 Ykqlnfhd-2-wznr-glucuronide, U Present ng/mL N 380 6-monoacetylmorphine, Ur Not Detected ng/mL N Cutoff: 25 381 Hydrocodone, Ur Not Detected ng/mL N Cutoff: 25 382 Norhydrocodone, Ur Not Detected ng/mL N Cutoff: 25 383 Dihydrocodeine, Ur Not Detected ng/mL N Cutoff: 25 384 Hydromorphone, Ur Present ng/mL N Cutoff: 25 385 Sosazkolmxjye9jkblpzdhbpkvypb Present ng/mL N 386 Oxycodone, Ur Present ng/mL N Cutoff: 25 387 Noroxycodone, Ur Present ng/mL N Cutoff: 25 388 Oxymorphone, Ur Not Detected ng/mL N Cutoff: 25 389 Xgaqntkcakh-5-puiq-glucuronide Present ng/mL N 390 Noroxymorphone, Ur Present ng/mL N Cutoff: 25 391 Fentanyl, Ur Not Detected ng/mL N Cutoff: 2 392 Norfentanyl, Ur Not Detected ng/mL N Cutoff: 2 393 Meperidine, Ur Not Detected ng/mL N Cutoff: 25 394 Normeperidine, Ur Not Detected ng/mL N Cutoff: 25 395 Naloxone, Ur Not Detected ng/mL N Cutoff: 25 396 Wagyewxp-7-gmsx-glucuronide, U Not Detected ng/mL N 397 Methadone, Ur Not Detected ng/mL N Cutoff: 25 398 Eddp, Ur Not Detected ng/mL N Cutoff: 25 399 Propoxyphene, Ur Not Detected ng/mL N Cutoff: 25 400 Norpropoxyphene, Ur Not Detected ng/mL N Cutoff: 25 401 Tramadol, Ur Not Detected ng/mL N Cutoff: 25 402 O-desmethyltramadol, Ur Not Detected ng/mL N Cutoff: 25 403 Tapentadol, Ur Not Detected ng/mL N Cutoff: 25 404 N-desmethyltapentadol, Ur Not Detected ng/mL N Cutoff: 50 405 Gysowyaxjw-szpl-dzdgdhrgmzn, U Not Detected ng/mL N 406 Buprenorphine, Ur Not Detected ng/mL N Cutoff: 5 407 Norbuprenorphine, Ur Not Detected ng/mL N Cutoff: 5 408 Norbuprenorphine glucuronide Not Detected ng/mL N Cutoff: 20 409 Opioid Interpretation See Comment N 410 Drug Abuse 11/11/2016 [facility] Urine Amphetamine Negative ng/ mL N 411 [address] [place] [address] [phone] Urine Barbiturates Negative ng/mL N 412 Urine Benzodiazepines Negative ng/mL N 413 Urine Cocaine Negative ng/mL N 414 Urine Phencyclidine Negative ng/mL N Cutoff: 25 Urine Tetrahydrocannabinol Negative ng/mL N Cutoff: 50 415 Creatinine, Urine 224.5 mg/dL N Specific [place] 1.020 N pH 5.6 N Oxidants Negative N 416 Adulterants Comment Normal N Codeine, Ur Not Detected ng/mL N Cutoff: 25 417 Omlnbgf-8-eusg-glucuronide, Ur Not Detected ng/mL N 418 Morphine, Ur Not Detected ng/mL N Cutoff: 25 419 Zudlbmuc-0-hgdl-glucuronide, U Not Detected ng/mL N 420 6-monoacetylmorphine, Ur See Comment ng/mL N Cutoff: 25 421 Hydrocodone, Ur Not Detected ng/mL N Cutoff: 25 422 Norhydrocodone, Ur Not Detected ng/mL N Cutoff: 25 423 Dihydrocodeine, Ur Not Detected ng/mL N Cutoff: 25 424 Hydromorphone, Ur Not Detected ng/mL N Cutoff: 25 425 Sqgmbygkezrtv4cpshliuscnnqkcm Not Detected ng/mL N 426 Oxycodone, Ur Not Detected ng/mL N Cutoff: 25 427 Noroxycodone, Ur Not Detected ng/mL N Cutoff: 25 428 Oxymorphone, Ur Not Detected ng/mL N Cutoff: 25 429 Vpsvzlnvahx-3-axjm-glucuronide Not Detected ng/mL N 430 Noroxymorphone, Ur Not Detected ng/mL N Cutoff: 25 431 Fentanyl, Ur Not Detected ng/mL N Cutoff: 2 432 Norfentanyl, Ur Not Detected ng/mL N Cutoff: 2 433 Meperidine, Ur Not Detected ng/mL N Cutoff: 25 434 Normeperidine, Ur Not Detected ng/mL N Cutoff: 25 435 Naloxone, Ur Not Detected ng/mL N Cutoff: 25 436 Jfcvawkh-4-vgcu-glucuronide, U Not Detected ng/mL N 437 Methadone, Ur Not Detected ng/mL N Cutoff: 25 438 Eddp, Ur Not Detected ng/mL N Cutoff: 25 439 Propoxyphene, Ur Not Detected ng/mL N Cutoff: 25 440 Norpropoxyphene, Ur Not Detected ng/mL N Cutoff: 25 441 Tramadol, Ur Not Detected ng/mL N Cutoff: 25 442 O-desmethyltramadol, Ur Not Detected ng/mL N Cutoff: 25 443 Tapentadol, Ur Not Detected ng/mL N Cutoff: 25 444 N-desmethyltapentadol, Ur Not Detected ng/mL N Cutoff: 50 445 Guwuuatybh-xrmn-jlnykfmhtrd, U Not Detected ng/mL N 446 Buprenorphine, Ur Not Detected ng/mL N Cutoff: 5 447 Norbuprenorphine, Ur Not Detected ng/mL N Cutoff: 5 448 Norbuprenorphine glucuronide Not Detected ng/mL N Cutoff: 20 449 Opioid Interpretation See Comment N 450 Drug Abuse 09/19/2016 [facility] Urine Amphetamine Negative ng/ mL N 451 [address] [place] [address] [phone] Urine Barbiturates Negative ng/mL N 452 Urine Benzodiazepines Negative ng/mL N 453 Urine Cocaine Negative ng/mL N 454 Urine Phencyclidine Negative ng/mL N Cutoff: 25 Urine Tetrahydrocannabinol Negative ng/mL N Cutoff: 50 455 Creatinine 179.1 mg/dL N Specific [place] 1.017 N pH 5.7 N Oxidants Negative N 456 Adulterants Comment Normal N Codeine, Ur Not Detected ng/mL N Cutoff: 25 457 Ndsvfma-2-syyx-glucuronide, Ur Not Detected ng/mL N 458 Morphine, Ur Not Detected ng/mL N Cutoff: 25 459 Muzdzuhu-4-cznl-glucuronide, U Not Detected ng/mL N 460 6-monoacetylmorphine, Ur Not Detected ng/mL N Cutoff: 25 461 Hydrocodone, Ur Not Detected ng/mL N Cutoff: 25 462 Norhydrocodone, Ur Not Detected ng/mL N Cutoff: 25 463 Dihydrocodeine, Ur Not Detected ng/mL N Cutoff: 25 464 Hydromorphone, Ur Not Detected ng/mL N Cutoff: 25 465 Xtofwhiqdglph2audxjkuspvuvnio Not Detected ng/mL N 466 Oxycodone, Ur Present ng/mL N Cutoff: 25 467 Noroxycodone, Ur Present ng/mL N Cutoff: 25 468 Oxymorphone, Ur Not Detected ng/mL N Cutoff: 25 469 Glajviimlhy-8-ikrq-glucuronide Present ng/mL N 470 Noroxymorphone, Ur Present ng/mL N Cutoff: 25 471 Fentanyl, Ur Not Detected ng/mL N Cutoff: 2 472 Norfentanyl, Ur Not Detected ng/mL N Cutoff: 2 473 Meperidine, Ur Not Detected ng/mL N Cutoff: 25 474 Normeperidine, Ur Not Detected ng/mL N Cutoff: 25 475 Naloxone, Ur Not Detected ng/mL N Cutoff: 25 476 Kdziulcj-6-dkle-glucuronide, U Not Detected ng/mL N 477 Methadone, Ur Not Detected ng/mL N Cutoff: 25 478 Eddp, Ur Not Detected ng/mL N Cutoff: 25 479 Propoxyphene, Ur Not Detected ng/mL N Cutoff: 25 480 Norpropoxyphene, Ur Not Detected ng/mL N Cutoff: 25 481 Tramadol, Ur Not Detected ng/mL N Cutoff: 25 482 O-desmethyltramadol, Ur Not Detected ng/mL N Cutoff: 25 483 Tapentadol, Ur Not Detected ng/mL N Cutoff: 25 484 N-desmethyltapentadol, Ur Not Detected ng/mL N Cutoff: 50 485 Tboaivumek-lczn-xlsvwxtzwky, U Not Detected ng/mL N 486 Buprenorphine, Ur Not Detected ng/mL N Cutoff: 5 487 Norbuprenorphine, Ur Not Detected ng/mL N Cutoff: 5 488 Norbuprenorphine glucuronide Not Detected ng/mL N Cutoff: 20 489 Opioid Interpretation See Comment N 490 Drug Abuse 08/09/2016 [facility] Urine Amphetamine Negative ng/ mL N 491 [address] [place] [address] [phone] Urine Barbiturates Negative ng/mL N 492 Urine Benzodiazepines Negative ng/mL N 493 Urine Cocaine Negative ng/mL N 494 Urine Phencyclidine Negative ng/mL N Cutoff: 25 Urine Tetrahydrocannabinol Negative ng/mL N Cutoff: 50 495 Creatinine 188.3 mg/dL N Specific [place] 1.018 N pH 5.8 N Oxidants Negative N 496 Adulterants Comment Normal N Codeine, Ur Not Detected ng/mL N Cutoff: 25 497 Iigjsyp-4-knrf-glucuronide, Ur Not Detected ng/mL N 498 Morphine, Ur Not Detected ng/mL N Cutoff: 25 499 Hjptjnui-4-bzux-glucuronide, U Not Detected ng/mL N 500 6-monoacetylmorphine, Ur Not Detected ng/mL N Cutoff: 25 501 Hydrocodone, Ur Not Detected ng/mL N Cutoff: 25 502 Norhydrocodone, Ur Not Detected ng/mL N Cutoff: 25 503 Dihydrocodeine, Ur Not Detected ng/mL N Cutoff: 25 504 Hydromorphone, Ur Not Detected ng/mL N Cutoff: 25 505 [id number] Not Detected ng/mL N 506 Oxycodone, Ur Present ng/mL N Cutoff: 25 507 Noroxycodone, Ur Present ng/mL N Cutoff: 25 508 Oxymorphone, Ur Not Detected ng/mL N Cutoff: 25 509 [id number]-glucuronide Present ng/mL N 510 Noroxymorphone, Ur Present ng/mL N Cutoff: 25 511 Fentanyl, Ur Not Detected ng/mL N Cutoff: 2 512 Norfentanyl, Ur Not Detected ng/mL N Cutoff: 2 513 Meperidine, Ur Not Detected ng/mL N Cutoff: 25 514 Normeperidine, Ur Not Detected ng/mL N Cutoff: 25 515 Naloxone, Ur Not Detected ng/mL N Cutoff: 25 516 Asonfwvm-5-syev-glucuronide, U Not Detected ng/mL N 517 Methadone, Ur Not Detected ng/mL N Cutoff: 25 518 Eddp, Ur Not Detected ng/mL N Cutoff: 25 519 Propoxyphene, Ur Not Detected ng/mL N Cutoff: 25 520 Norpropoxyphene, Ur Not Detected ng/mL N Cutoff: 25 521 Tramadol, Ur Not Detected ng/mL N Cutoff: 25 522 O-desmethyltramadol, Ur Not Detected ng/mL N Cutoff: 25 523 Tapentadol, Ur Not Detected ng/mL N Cutoff: 25 524 N-desmethyltapentadol, Ur Not Detected ng/mL N Cutoff: 50 525 Ajtpaxivsx-emtv-hcruddkfzte, U Not Detected ng/mL N 526 Buprenorphine, Ur Not Detected ng/mL N Cutoff: 5 527 Norbuprenorphine, Ur Not Detected ng/mL N Cutoff: 5 528 Norbuprenorphine glucuronide Not Detected ng/mL N Cutoff: 20 529 Opioid Interpretation See Comment N 530 1 Presumptive Positive Presumptive positive results are unconfirmed. 2 The urine specimen was tested at the listed cutoffs: Drug class test level (ng/mL) Amphetamines 500 Barbiturates 200 Benzodiazepine metabolites 200 Cocaine metabolites 150 Cannabinoids 50 Opiates 300 Pcp 25 Specimen was received without chain of custody. Results should be used for medical purposes only. 3 Because ethnic data is not always readily [...] 15-29 5 Kidney failure <15 (or dialysis) 4 Therapeutic concentration: <50 ug/mL Toxic concentration: >120 ug/mL 5 SEE RESULT BELOW Name: TONY BENNETT JR : [address]: Rangel Mckoy MD Acct: [id number] Unit: [id number] AGE: 43 Location: [facility] Re12/05/18 SEX: M Status: ADM IN SPEC: [id number] JAYE: 12/04/[address] [facility] [address]: Marvin Alfonso MD REQ: [id number] RECD: 12/04/18 STATUS: COMP OTHR DR: Aileen Vicente MD _ SOURCE: URINE SPDESC: ORDERED: Urine Culture Procedure Result Reported Site Urine Culture Final 12/06/18- 728 ML No Growth (<1,000 CFU/mL) * ML - Main Lab . END OF REPORT DEPARTMENT OF PATHOLOGY, [address] [place] [address] Brennan Richardson M.D. Director [facility] # [id number] 6 Presumptive Positive Presumptive positive results are unconfirmed. 7 The urine specimen was tested at the listed cutoffs: Drug class test level (ng/mL) Amphetamines 500 Barbiturates 200 Benzodiazepine metabolites 200 Cocaine metabolites 150 Cannabinoids 50 Opiates 300 Pcp 25 Specimen was received without chain of custody. Results should be used for medical purposes only. 8 Therapeutic concentration: <50 ug/mL Toxic concentration: >120 ug/mL 9 Because ethnic data is not always readily [...] 15-29 5 Kidney failure <15 (or dialysis) 10 [id number] REFERENCE VALUE Cutoff: 500 12 REFERENCE VALUE Cutoff: 200 13 REFERENCE VALUE Cutoff: 100 14 REFERENCE VALUE Cutoff: 150 15 ADDITIONAL INFORMATION This report is intended for use in clinical monitoring or management of patients. It is not intended for use in employment-related testing. 16 REFERENCE VALUE Cutoff: 200 mg/L 17 Tylenol 3 18 Metabolite of codeine REFERENCE VALUE Cutoff: 100 19 Nicol Guadalupe, Contin; Also a minor metabolite (10%) of codeine and can be seen in low concentrations (<2,000 ng/mL) with poppy seed ingestion. 20 Metabolite of morphine REFERENCE VALUE Cutoff: 100 21 Metabolite of heroin 22 Lortab, [place], Vicodin; Also a very minor metabolite of codeine and impurity (<1%) of oxycodone. 23 Metabolite of hydrocodone 24 Metabolite of hydrocodone 25 Dilaudid, Exalgo; Also a metabolite of hydrocodone and a minor (<5%) metabolite of morphine. 26 Metabolite of hydromorphone REFERENCE VALUE Cutoff: 100 27 Endocet, Percocet, Oxycontin 28 Metabolite of oxycodone 29 Numorphan, Opana; Also a metabolite of oxycodone. 30 Metabolite of oxymorphone REFERENCE VALUE Cutoff: 100 31 Metabolite of oxymorphone 32 Actiq, Duragesic, Fentora 33 Metabolite of fentanyl 34 Demerol 35 Metabolite of meperidine 36 Narcan 37 Metabolite of naloxone REFERENCE VALUE Cutoff: 100 38 Dolophine 39 Metabolite of methadone 40 Darvon, Darvocet 41 Metabolite of propoxyphene 42 Tradol, Ultram, Ultracet 43 Metabolite of tramadol 44 Nucynta 45 Metabolite of tapentadol 46 Metabolite of tapentadol REFERENCE VALUE Cutoff: 100 47 Buprenex, Suboxone 48 Metabolite of buprenorphine 49 Metabolite of buprenorphine 50 Test detected the presence of oxycodone and several metabolites (noroxycodone, oxymorphone, noroxymorphone, and nskafrzzfmt-7-fwel-glucuronide). Suspect use of oxycodone and/or oxymorphone within the past three days. Test detected the presence of norfentanyl (metabolite of fentanyl) only. Suspect use of fentanyl within the past three days. ADDITIONAL INFORMATION This test was developed and its performance characteristics determined by [facility] in a manner consistent with CLIA requirements. This test has not been cleared or approved by the U.S. Food and Drug Administration. Test Performed by: [facility] [address] [place] [address] 51 Troponin-I testing on Plasma Separator Tubes (PST) has a known false positive rate of 0.20-0.40%. All positive troponins reflex immediate secondary confirmatory testing. 52 Because ethnic data is not always readily [...] 15-29 5 Kidney failure <15 (or dialysis) 53 Troponin-I testing on Plasma Separator Tubes (PST) has a known false positive rate of 0.20-0.40%. All positive troponins reflex immediate secondary confirmatory testing. 54 Please note: The following may produce a false positive D Dimer test: - Rheumatoid factor greater than 60 IU/ml - Plasma hemoglobin greater than 0.05 gm/dl - Bilirubin greater than 50 mg/dl - Lipids greater than 1000 mg/dl - FDP greater than 20 ug/ml 55 Because ethnic data is not always readily [...] 15-29 5 Kidney failure <15 (or dialysis) 56 [id number] 57 REFERENCE VALUE Cutoff: 500 58 REFERENCE VALUE Cutoff: 200 59 REFERENCE VALUE Cutoff: 100 60 REFERENCE VALUE Cutoff: 150 61 ADDITIONAL INFORMATION This report is intended for use in clinical monitoring or management of patients. It is not intended for use in employment-related testing. 62 REFERENCE VALUE Cutoff: 200 mg/L 63 Tylenol 3 64 Metabolite of codeine REFERENCE VALUE Cutoff: 100 65 Nicol Guadalupe, Contin; Also a minor metabolite (10%) of codeine and can be seen in low concentrations (<2,000 ng/mL) with poppy seed ingestion. 66 Metabolite of morphine REFERENCE VALUE Cutoff: 100 67 Metabolite of heroin 68 Lortab, [place], Vicodin; Also a very minor metabolite of codeine and impurity (<1%) of oxycodone. 69 Metabolite of hydrocodone 70 Metabolite of hydrocodone 71 Dilaudid, Exalgo; Also a metabolite of hydrocodone and a minor (<5%) metabolite of morphine. 72 Metabolite of hydromorphone REFERENCE VALUE Cutoff: 100 73 Endocet, Percocet, Oxycontin 74 Metabolite of oxycodone 75 Numorphan, Opana; Also a metabolite of oxycodone. 76 Metabolite of oxymorphone REFERENCE VALUE Cutoff: 100 77 Metabolite of oxymorphone 78 Actiq, Duragesic, Fentora 79 Metabolite of fentanyl 80 Demerol 81 Metabolite of meperidine 82 Narcan 83 Metabolite of naloxone REFERENCE VALUE Cutoff: 100 84 Dolophine 85 Metabolite of methadone 86 Darvon, Darvocet 87 Metabolite of propoxyphene 88 Tradol, Ultram, Ultracet 89 Metabolite of tramadol 90 Nucynta 91 Metabolite of tapentadol 92 Metabolite of tapentadol REFERENCE VALUE Cutoff: 100 93 Buprenex, Suboxone 94 Metabolite of buprenorphine 95 Metabolite of buprenorphine 96 Test detected the presence of oxycodone and several metabolites (noroxycodone, oxymorphone, noroxymorphone, and qrgizpwpdhg-9-wlpk-glucuronide). Suspect use of oxycodone and/or oxymorphone within the past three days. Test detected the presence of norfentanyl (metabolite of fentanyl) only. Suspect use of fentanyl within the past three days. ADDITIONAL INFORMATION This test was developed and its performance characteristics determined by [facility] in a manner consistent with CLIA requirements. This test has not been cleared or approved by the U.S. Food and Drug Administration. Test Performed by: [facility] [address] [place] [address] 97 [id number] 98 REFERENCE VALUE Cutoff: 500 99 REFERENCE VALUE Cutoff: 200 100 REFERENCE VALUE Cutoff: 100 101 REFERENCE VALUE Cutoff: 150 102 ADDITIONAL INFORMATION This report is intended for use in clinical monitoring or management of patients. It is not intended for use in employment-related testing. 103 REFERENCE VALUE Cutoff: 200 mg/L 104 Tylenol 3 105 Metabolite of codeine REFERENCE VALUE Cutoff: 100 106 Nicol Guadalupe, [place] Contin; Also a minor metabolite (10%) of codeine and can be seen in low concentrations (<2,000 ng/mL) with poppy seed ingestion. 107 Metabolite of morphine REFERENCE VALUE Cutoff: 100 108 Metabolite of heroin 109 Lortab, [place], Vicodin; Also a very minor metabolite of codeine and impurity (<1%) of oxycodone. 110 Metabolite of hydrocodone 111 Metabolite of hydrocodone 112 Dilaudid, Exalgo; Also a metabolite of hydrocodone and a minor (<5%) metabolite of morphine. 113 Metabolite of hydromorphone REFERENCE VALUE Cutoff: 100 114 Endocet, Percocet, Oxycontin 115 Metabolite of oxycodone 116 Numorphan, Opana; Also a metabolite of oxycodone. 117 Metabolite of oxymorphone REFERENCE VALUE Cutoff: 100 118 Metabolite of oxymorphone 119 Actiq, Duragesic, Fentora 120 Metabolite of fentanyl 121 Demerol 122 Metabolite of meperidine 123 Narcan 124 Metabolite of naloxone REFERENCE VALUE Cutoff: 100 125 Dolophine 126 Metabolite of methadone 127 Darvon, Darvocet 128 Metabolite of propoxyphene 129 Tradol, Ultram, Ultracet 130 Metabolite of tramadol 131 Nucynta 132 Metabolite of tapentadol 133 Metabolite of tapentadol REFERENCE VALUE Cutoff: 100 134 Buprenex, Suboxone 135 Metabolite of buprenorphine 136 Metabolite of buprenorphine 137 Test detected the presence of oxycodone and several metabolites (noroxycodone, noroxymorphone, and gniihnowcxd-4-pkir-glucuronide). Suspect use of oxycodone and/or oxymorphone within the past three days. Test detected the presence of fentanyl and its metabolite (norfentanyl). Suspect use of fentanyl within the past three days. ADDITIONAL INFORMATION This test was developed and its performance characteristics determined by [facility] in a manner consistent with CLIA requirements. This test has not been cleared or approved by the U.S. Food and Drug Administration. Test Performed by: [facility] [address] [place] [id number] Call Center Consultant: [id number] SEE RESULT BELOW Name: TONY BENNETT JR : [address]: Geogre Galaviz MD Acct: [id number] Unit: [id number] AGE: 43 Location: ED Re05/10/18 SEX: M Status: REG ER SPEC: [id number] JAYE: 05/10/18-[address] [facility] [address]: George Galaviz MD REQ: [id number] RECD: 05/10/18 STATUS: MARELY HERRON DR: Keon Cabrera MD _ SOURCE: NASAL SPDESC: ORDERED: Flu A B Request Procedure Result Reported Site Rapid Influenza A B Request Final 05/10/181113 ML Specimen received for Influenza A/B Molecular testing * ML - Main Lab . END OF REPORT DEPARTMENT OF PATHOLOGY, [address] [place] [address] Brennan Richardson M.D. Director [facility] # [id number] 140 Desirable: <150 Borderline High: 150-199 High: 200-499 Very High: >500 141 Desirable: <200 Borderline High: 200-239 High: >239 142 Low: <40 Desirable: 40-60 High: >60 143 Desirable: <100 Near Optimal: 100-129 Borderline High: 130-159 High: 160-189 Very High: >189 144 Because ethnic data is not always readily [...] 15-29 5 Kidney failure <15 (or dialysis) 145 Because ethnic data is not always readily [...] 15-29 5 Kidney failure <15 (or dialysis) 146 Abnormality Name Result Abn Cutoff (%) (%) t(9;22) ABL1/BCR fusion Normal <0.6 147 D64.9 anemia, unspecified, D72.829 elevated white blood cell count, unspecified 148 Locus and probes [Strategy;#Nuclei;Class] 9q34(ABL1),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 149 nuc radha(ABL1,BCR)x2[500] Of 500 nuclei, 0% had fusion of BCR and ABL1. 150 The result is within normal limits for the BCR and ABL1 gene regions. 151 Analyte Specific Reagent (ASR). This test was developed using an analyte specific reagent. Its performance characteristics were determined by [facility] in a manner consistent with CLIA requirements. This test has not been cleared or approved by the U.S. Food and Drug Administration. This FISH test does not rule out other chromosome abnormalities. 152 RESULT: Endy Patricia M.D. Test Performed by: [place] [address] 153 FINAL DIAGNOSIS: No immunophenotypic abnormality identified. Specimen [...] Electronically signed by: Brennan Richardson MD 02/03/18 1115 Technical component performed by: [place] [id number] Cotton Baler: Patrick Lopez II, MD, PhD. 154 see interpretation 155 Peripheral blood, JAK2 V617F mutation analysis: Negative for JAK2 V617F. Method summary - JAK2 V617F analysis: Quantitative, allele-specific polymerase chain reaction (PCR) assay was performed using extracted genomic DNA to evaluate for the point mutation causing JAK2 V617F. The analytic sensitivity of this assay has been determined at 0.06% (see [facility] Interpretive Handbook for method details). Peripheral blood, [...] for the rare type 1-bp deletion (See [facility] [place] Interpretive Handbook for details). Peripheral blood, MPL exon 10 mutation analysis: Negative. No mutation was detected in MPL, exon 10. Method summary - MPL exon 10 mutation analysis: Genomic DNA was extracted and [place] sequencing used to evaluate for mutations in MPL, exon 10 (see [facility] [place] Interpretive Handbook for method details). The sensitivity of this assay is approximately 20%, such that samples containing lower percentages of mutated DNA will appear negative. Comment: Negative results for [id number], CALR exon 9, and MPL exon 10 [...] developed and its performance characteristics determined by [facility] in a manner consistent with CLIA requirements. This test has not been cleared or approved by the U.S. Food and Drug Administration. Test Performed by: [address] [id number] 156 RESULT: No apparent monoclonal protein on serum electrophoresis. Test Performed by: [facility] [address] [place] [address] 157 Test Performed by: [facility] [address] [place] [address] 158 Normal Range 180 to 914 Indeterminate Range 145 to 180 Deficient Range <145 159 Because ethnic data is not always readily [...] 15-29 5 Kidney failure <15 (or dialysis) 160 [id number] 161 REFERENCE VALUE Cutoff: 500 162 REFERENCE VALUE Cutoff: 200 163 REFERENCE VALUE Cutoff: 100 164 REFERENCE VALUE Cutoff: 150 165 ADDITIONAL INFORMATION This report is intended for use in clinical monitoring or management of patients. It is not intended for use in employment-related testing. 166 REFERENCE VALUE Cutoff: 200 mg/L 167 Tylenol 3 168 Metabolite of codeine REFERENCE VALUE Cutoff: 100 169 Nicol Guadalupe, MS Contin; Also a minor metabolite (10%) of codeine and can be seen in low concentrations (<2,000 ng/mL) with poppy seed ingestion. 170 Metabolite of morphine REFERENCE VALUE Cutoff: 100 171 Metabolite of heroin 172 Lortab, [place], Vicodin; Also a very minor metabolite of codeine and impurity (<1%) of oxycodone. 173 Metabolite of hydrocodone 174 Metabolite of hydrocodone 175 Dilaudid, Exalgo; Also a metabolite of hydrocodone and a minor (<5%) metabolite of morphine. 176 Metabolite of hydromorphone REFERENCE VALUE Cutoff: 100 177 Endocet, Percocet, Oxycontin 178 Metabolite of oxycodone 179 Numorphan, Opana; Also a metabolite of oxycodone. 180 Metabolite of oxymorphone REFERENCE VALUE Cutoff: 100 181 Metabolite of oxymorphone 182 Actiq, Duragesic, Fentora 183 Metabolite of fentanyl 184 Demerol 185 Metabolite of meperidine 186 Narcan 187 Metabolite of naloxone REFERENCE VALUE Cutoff: 100 188 Dolophine 189 Metabolite of methadone 190 Darvon, Darvocet 191 Metabolite of propoxyphene 192 Tradol, Ultram, Ultracet 193 Metabolite of tramadol 194 Nucynta 195 Metabolite of tapentadol 196 Metabolite of tapentadol REFERENCE VALUE Cutoff: 100 197 Buprenex, Suboxone 198 Metabolite of buprenorphine 199 Metabolite of buprenorphine 200 Test detected the presence of both morphine and its metabolite (drxwayun-5-dunh-glucuronide). Suspect use of morphine within the past three days. Alternatively, these results could also be suggestive of heroin use. Low levels of morphine can also be seen following poppy seed ingestion. Test detected the presence of oxycodone and several metabolites (noroxycodone, oxymorphone, noroxymorphone, and ddbidnrwuzd-5-ctil-glucuronide). Suspect use of oxycodone or possibly oxycodone and oxymorphone within the past three days. Test detected the presence of norfentanyl (metabolite of fentanyl) only. Suspect use of fentanyl within the past three days. ADDITIONAL INFORMATION This test was developed and its performance characteristics determined by [facility] in a manner consistent with CLIA requirements. This test has not been cleared or approved by the U.S. Food and Drug Administration. Test Performed by: [facility] [address] [place] [address] 201 [id number] REFERENCE VALUE Cutoff: 500 203 REFERENCE VALUE Cutoff: 200 204 REFERENCE VALUE Cutoff: 100 205 REFERENCE VALUE Cutoff: 150 206 ADDITIONAL INFORMATION This report is intended for use in clinical monitoring or management of patients. It is not intended for use in employment-related testing. 207 REFERENCE VALUE Cutoff: 200 mg/L 208 Tylenol 3 209 Metabolite of codeine REFERENCE VALUE Cutoff: 100 210 Nicol Guadalupe, Contin; Also a minor metabolite (10%) of codeine and can be seen in low concentrations (<2,000 ng/mL) with poppy seed ingestion. 211 Metabolite of morphine REFERENCE VALUE Cutoff: 100 212 Metabolite of heroin 213 Lortab, [place], Vicodin; Also a very minor metabolite of codeine and impurity (<1%) of oxycodone. 214 Metabolite of hydrocodone 215 Metabolite of hydrocodone 216 Dilaudid, Exalgo; Also a metabolite of hydrocodone and a minor (<5%) metabolite of morphine. 217 Metabolite of hydromorphone REFERENCE VALUE Cutoff: 100 218 Endocet, Percocet, Oxycontin 219 Metabolite of oxycodone 220 Numorphan, Opana; Also a metabolite of oxycodone. 221 Metabolite of oxymorphone REFERENCE VALUE Cutoff: 100 222 Metabolite of oxymorphone 223 Actiq, Duragesic, Fentora 224 Metabolite of fentanyl 225 Demerol 226 Metabolite of meperidine 227 Narcan 228 Metabolite of naloxone REFERENCE VALUE Cutoff: 100 229 Dolophine 230 Metabolite of methadone 231 Darvon, Darvocet 232 Metabolite of propoxyphene 233 Tradol, Ultram, Ultracet 234 Metabolite of tramadol 235 Nucynta 236 Metabolite of tapentadol 237 Metabolite of tapentadol REFERENCE VALUE Cutoff: 100 238 Buprenex, Suboxone 239 Metabolite of buprenorphine 240 Metabolite of buprenorphine 241 Test detected the presence of both morphine and metabolites (sluiobju-9-jehe-glucuronide, hydromorphone and eovuipgkwkioz-1-aczy-glucuronide). Suspect use of morphine or morphine and hydromorphone within the past three days. Test detected the presence of oxycodone and several metabolites (noroxycodone, noroxymorphone, and gphstnqhfqe-8-ryll-glucuronide). Suspect use of oxycodone or possibly oxycodone and oxymorphone within the past three days. Test detected the presence of norfentanyl (metabolite of fentanyl) only. Suspect use of fentanyl within the past three days. ADDITIONAL INFORMATION This test was developed and its performance characteristics determined by [facility] in a manner consistent with CLIA requirements. This test has not been cleared or approved by the U.S. Food and Drug Administration. Test Performed by: [facility] [address] [place] [address] 242 REFERENCE VALUE Cutoff: 500 243 REFERENCE VALUE Cutoff: 200 244 REFERENCE VALUE Cutoff: 100 245 REFERENCE VALUE Cutoff: 150 246 ADDITIONAL INFORMATION This report is intended for use in clinical monitoring or management of patients. It is not intended for use in employment-related testing. 247 REFERENCE VALUE Cutoff: 200 mg/L 248 Tylenol 3 249 Metabolite of codeine REFERENCE VALUE Cutoff: 100 250 Nicol Guadalupe, Contin; Also a minor metabolite (10%) of codeine and can be seen in low concentrations (<2,000 ng/mL) with poppy seed ingestion. 251 Metabolite of morphine REFERENCE VALUE Cutoff: 100 252 Metabolite of heroin 253 Lortab, [place], Vicodin; Also a very minor metabolite of codeine and impurity (<1%) of oxycodone. 254 Metabolite of hydrocodone 255 Metabolite of hydrocodone 256 Dilaudid, Exalgo; Also a metabolite of hydrocodone and a minor (<5%) metabolite of morphine. 257 Metabolite of hydromorphone REFERENCE VALUE Cutoff: 100 258 Endocet, Percocet, Oxycontin 259 Metabolite of oxycodone 260 Numorphan, Opana; Also a metabolite of oxycodone. 261 Metabolite of oxymorphone REFERENCE VALUE Cutoff: 100 262 Metabolite of oxymorphone 263 Actiq, Duragesic, Fentora 264 Metabolite of fentanyl 265 Demerol 266 Metabolite of meperidine 267 Narcan 268 Metabolite of naloxone REFERENCE VALUE Cutoff: 100 269 Dolophine 270 Metabolite of methadone 271 Darvon, Darvocet 272 Metabolite of propoxyphene 273 Tradol, Ultram, Ultracet 274 Metabolite of tramadol 275 Nucynta 276 Metabolite of tapentadol 277 Metabolite of tapentadol REFERENCE VALUE Cutoff: 100 278 Buprenex, Suboxone 279 Metabolite of buprenorphine 280 Metabolite of buprenorphine 281 Test detected the presence of both morphine and its metabolite (gbfmqbyz-6-mote-glucuronide). Suspect use of morphine within the past three days. Alternatively, these results could also be suggestive of heroin use. Low levels of morphine can also be seen following poppy seed ingestion. Test detected the presence of oxycodone and several metabolites (noroxycodone, noroxymorphone, and gwuepbldbpp-9-qwin-glucuronide). Suspect use of oxycodone or possibly oxycodone and oxymorphone within the past three days. ADDITIONAL INFORMATION This test was developed and its performance characteristics determined by [facility] in a manner consistent with CLIA requirements. This test has not been cleared or approved by the U.S. Food and Drug Administration. Test Performed by: [facility] [address] [place] [address] 548 Because ethnic data is not always readily [...] 15-29 5 Kidney failure <15 (or dialysis) 283 >100 to <200 pg/mL: likely compensated congestive heart failure (CHF) 200 to 400 pg/mL: likely moderate CHF >400 pg/mL: likely moderate to severe CHF 284 [id number] 285 REFERENCE VALUE Cutoff: 500 286 REFERENCE VALUE Cutoff: 200 287 REFERENCE VALUE Cutoff: 100 288 REFERENCE VALUE Cutoff: 150 289 ADDITIONAL INFORMATION This report is intended for use in clinical monitoring or management of patients. It is not intended for use in employment-related testing. 290 REFERENCE VALUE Cutoff: 200 mg/L 291 Tylenol 3 292 Metabolite of codeine REFERENCE VALUE Cutoff: 100 293 Nicol Guadalupe MS Contin; Also a minor metabolite (10%) of codeine and can be seen in low concentrations (<2,000 ng/mL) with poppy seed ingestion. 294 Metabolite of morphine REFERENCE VALUE Cutoff: 100 295 Metabolite of heroin 296 Lortab, [place], Vicodin; Also a very minor metabolite of codeine and impurity (<1%) of oxycodone. 297 Metabolite of hydrocodone 298 Metabolite of hydrocodone 299 Dilaudid, Exalgo; Also a metabolite of hydrocodone and a minor (<5%) metabolite of morphine. 300 Metabolite of hydromorphone REFERENCE VALUE Cutoff: 100 301 Endocet, Percocet, Oxycontin 302 Metabolite of oxycodone 303 Numorphan, Opana; Also a metabolite of oxycodone. 304 Metabolite of oxymorphone REFERENCE VALUE Cutoff: 100 305 Metabolite of oxymorphone 306 Actiq, Duragesic, Fentora 307 Metabolite of fentanyl 308 Demerol 309 Metabolite of meperidine 310 Narcan 311 Metabolite of naloxone REFERENCE VALUE Cutoff: 100 312 Dolophine 313 Metabolite of methadone 314 Darvon, Darvocet 315 Metabolite of propoxyphene 316 Tradol, Ultram, Ultracet 317 Metabolite of tramadol 318 Nucynta 319 Metabolite of tapentadol 320 Metabolite of tapentadol REFERENCE VALUE Cutoff: 100 321 Buprenex, Suboxone 322 Metabolite of buprenorphine Unknown interfering substance present; unable to obtain results. 323 Metabolite of buprenorphine 324 Test detected the presence of both morphine and its metabolites (wesvmmmc-8-ssdr-glucuronide and gtdtcnckdgamz-1-quxj-glucuronide). Suspect use of morphine or morphine and hydromorphone within the past three days. Alternatively, these results could also be suggestive of heroin use. Low levels of morphine can also be seen following poppy seed ingestion. Test detected the presence of oxycodone and several metabolites (noroxycodone, oxymorphone, noroxymorphone, and myhgnumgakn-9-ltvl-glucuronide). Suspect use of oxycodone or possibly oxycodone and oxymorphone within the past three days. ADDITIONAL INFORMATION This test was developed and its performance characteristics determined by [facility] in a manner consistent with CLIA requirements. This test has not been cleared or approved by the U.S. Food and Drug Administration. Test Performed by: [facility] [address] [place] [address] 325 Serum levels of PSA measured using the [employer] DXI Hybritech immunoassay should not be interpreted [...] methods or kits cannot be used interchangeably. 326 Desirable: <150 Borderline High: 150-199 High: 200-499 Very High: >500 327 Desirable: <200 Borderline High: 200-239 High: >239 328 Low: <40 Desirable: 40-60 High: >60 329 Desirable: <100 Near Optimal: 100-129 Borderline High: 130-159 High: 160-189 Very High: >189 330 Because ethnic data is not always readily [...] 15-29 5 Kidney failure <15 (or dialysis) 331 REFERENCE VALUE Cutoff: 500 332 REFERENCE VALUE Cutoff: 200 333 REFERENCE VALUE Cutoff: 100 334 REFERENCE VALUE Cutoff: 150 335 ADDITIONAL INFORMATION This report is intended for use in clinical monitoring or management of patients. It is not intended for use in employment-related testing. 336 REFERENCE VALUE Cutoff: 200 mg/L 337 Tylenol 3 338 Metabolite of codeine REFERENCE VALUE Cutoff: 100 339 Nicol Guadalupe, Contin; Also a minor metabolite (10%) of codeine and can be seen in low concentrations (<2,000 ng/mL) with poppy seed ingestion. 340 Metabolite of morphine REFERENCE VALUE Cutoff: 100 341 Metabolite of heroin 342 Lortab, [place], Vicodin; Also a very minor metabolite of codeine and impurity (<1%) of oxycodone. 343 Metabolite of hydrocodone 344 Metabolite of hydrocodone 345 Dilaudid, Exalgo; Also a metabolite of hydrocodone and a minor (<5%) metabolite of morphine. 346 Metabolite of hydromorphone REFERENCE VALUE Cutoff: 100 347 Endocet, Percocet, Oxycontin 348 Metabolite of oxycodone 349 Numorphan, Opana; Also a metabolite of oxycodone. 350 Metabolite of oxymorphone REFERENCE VALUE Cutoff: 100 351 Metabolite of oxymorphone 352 Actiq, Duragesic, Fentora 353 Metabolite of fentanyl 354 Demerol 355 Metabolite of meperidine 356 Narcan 357 Metabolite of naloxone REFERENCE VALUE Cutoff: 100 358 Dolophine 359 Metabolite of methadone 360 Darvon, Darvocet 361 Metabolite of propoxyphene 362 Tradol, Ultram, Ultracet 363 Metabolite of tramadol 364 Nucynta 365 Metabolite of tapentadol 366 Metabolite of tapentadol REFERENCE VALUE Cutoff: 100 367 Buprenex, Suboxone 368 Metabolite of buprenorphine 369 Metabolite of buprenorphine 370 Test detected the presence of oxycodone and several metabolites (noroxycodone, noroxymorphone, and btlenksnsdv-1-apfd-glucuronide). Suspect use of oxycodone or possibly oxycodone and oxymorphone within the past three days. ADDITIONAL INFORMATION This test was developed and its performance characteristics determined by [facility] in a manner consistent with CLIA requirements. This test has not been cleared or approved by the U.S. Food and Drug Administration. Test Performed by: [facility] [address] [place] [address] 371 REFERENCE VALUE Cutoff: 500 372 REFERENCE VALUE Cutoff: 200 373 REFERENCE VALUE Cutoff: 100 374 REFERENCE VALUE Cutoff: 150 375 ADDITIONAL INFORMATION This report is intended for use in clinical monitoring or management of patients. It is not intended for use in employment-related testing. 376 REFERENCE VALUE Cutoff: 200 mg/L 377 Tylenol 3 378 Metabolite of codeine REFERENCE VALUE Cutoff: 100 379 Nicol Guadalupe MS Contin; Also a minor metabolite (10%) of codeine and can be seen in low concentrations (<2,000 ng/mL) with poppy seed ingestion. 380 Metabolite of morphine REFERENCE VALUE Cutoff: 100 381 Metabolite of heroin 382 Lortab, [place], Vicodin; Also a very minor metabolite of codeine and impurity (<1%) of oxycodone. 383 Metabolite of hydrocodone 384 Metabolite of hydrocodone 385 Dilaudid, Exalgo; Also a metabolite of hydrocodone and a minor (<5%) metabolite of morphine. 386 Metabolite of hydromorphone REFERENCE VALUE Cutoff: 100 387 Endocet, Percocet, Oxycontin 388 Metabolite of oxycodone 389 Numorphan, Opana; Also a metabolite of oxycodone. 390 Metabolite of oxymorphone REFERENCE VALUE Cutoff: 100 391 Metabolite of oxymorphone 392 Actiq, Duragesic, Fentora 393 Metabolite of fentanyl 394 Demerol 395 Metabolite of meperidine 396 Narcan 397 Metabolite of naloxone REFERENCE VALUE Cutoff: 100 398 Dolophine 399 Metabolite of methadone 400 Darvon, Darvocet 401 Metabolite of propoxyphene 402 Tradol, Ultram, Ultracet 403 Metabolite of tramadol 404 Nucynta 405 Metabolite of tapentadol 406 Metabolite of tapentadol REFERENCE VALUE Cutoff: 100 407 Buprenex, Suboxone 408 Metabolite of buprenorphine 409 Metabolite of buprenorphine 410 Test detected the presence of morphine and its metabolites (sfkvdvhl-6-nldz-glucuronide, hydromorphone, and tacoehaydbais-5-lztj-glucuronide) along with gqedkff-0-mkot-glucuronide (metabolite of codeine). Suspect use of morphine or morphine and hydromorphone within the past three days. In addition, suspect possible use of codeine within the past three days or trace amounts of codeine can also be found as an impurity in morphine. Test detected the presence of oxycodone and several metabolites (noroxycodone, noroxymorphone, and fhnwfxgccam-5-wrkq-glucuronide). Suspect use of oxycodone or possibly oxycodone and oxymorphone within the past three days. ADDITIONAL INFORMATION This test was developed and its performance characteristics determined by [facility] in a manner consistent with CLIA requirements. This test has not been cleared or approved by the U.S. Food and Drug Administration. Test Performed by: [facility] [address] [place] [id number] REFERENCE VALUE Cutoff: 500 412 REFERENCE VALUE Cutoff: 200 413 REFERENCE VALUE Cutoff: 100 414 REFERENCE VALUE Cutoff: 150 415 ADDITIONAL INFORMATION This report is intended for use in clinical monitoring or management of patients. It is not intended for use in employment-related testing. 416 REFERENCE VALUE Cutoff: 200 mg/L 417 Tylenol 3 418 Metabolite of codeine REFERENCE VALUE Cutoff: 100 419 Nicol Guadalupe MS Contin; Also a minor metabolite (10%) of codeine and can be seen in low concentrations (<2,000 ng/mL) with poppy seed ingestion. 420 Metabolite of morphine REFERENCE VALUE Cutoff: 100 421 RESULT: Results not available due to analyte specific failure. 422 Lortab, [place], Vicodin; Also a very minor metabolite of codeine and impurity (<1%) of oxycodone. 423 Metabolite of hydrocodone 424 Metabolite of hydrocodone 425 Dilaudid, Exalgo; Also a metabolite of hydrocodone and a minor (<5%) metabolite of morphine. 426 Metabolite of hydromorphone REFERENCE VALUE Cutoff: 100 427 Endocet, Percocet, Oxycontin 428 Metabolite of oxycodone 429 Numorphan, Opana; Also a metabolite of oxycodone. 430 Metabolite of oxymorphone REFERENCE VALUE Cutoff: 100 431 Metabolite of oxymorphone 432 Actiq, Duragesic, Fentora 433 Metabolite of fentanyl 434 Demerol 435 Metabolite of meperidine 436 Narcan 437 Metabolite of naloxone REFERENCE VALUE Cutoff: 100 438 Dolophine 439 Metabolite of methadone 440 Darvon, Darvocet 441 Metabolite of propoxyphene 442 Tradol, Ultram, Ultracet 443 Metabolite of tramadol 444 Nucynta 445 Metabolite of tapentadol 446 Metabolite of tapentadol REFERENCE VALUE Cutoff: 100 447 Buprenex, Suboxone 448 Metabolite of buprenorphine 449 Metabolite of buprenorphine 450 No opioids were detected. The absence of expected drug(s) and/or drug metabolite(s) may indicate non-compliance, altered pharmacokinetics, inappropriate timing of specimen collection relative to drug administration, diluted/adulterated urine, or limitations of testing. ADDITIONAL INFORMATION This test was developed and its performance characteristics determined by [facility] in a manner consistent with CLIA requirements. This test has not been cleared or approved by the U.S. Food and Drug Administration. Test Performed by: [facility] - [address] [address] 451 REFERENCE VALUE Cutoff: 500 452 REFERENCE VALUE Cutoff: 200 453 REFERENCE VALUE Cutoff: 100 454 REFERENCE VALUE Cutoff: 150 455 ADDITIONAL INFORMATION This report is intended for use in clinical monitoring or management of patients. It is not intended for use in employment-related testing. 456 REFERENCE VALUE Cutoff: 200 mg/L 457 Tylenol 3 458 Metabolite of codeine REFERENCE VALUE Cutoff: 100 459 Nicol Guadalupe MS Contin; Also a minor metabolite (10%) of codeine and can be seen in low concentrations (<2,000 ng/mL) with poppy seed ingestion. 460 Metabolite of morphine REFERENCE VALUE Cutoff: 100 461 Metabolite of heroin 462 Lortab, [place], Vicodin; Also a very minor metabolite of codeine and impurity (<1%) of oxycodone. 463 Metabolite of hydrocodone 464 Metabolite of hydrocodone 465 Dilaudid, Exalgo; Also a metabolite of hydrocodone and a minor (<5%) metabolite of morphine. 466 Metabolite of hydromorphone REFERENCE VALUE Cutoff: 100 467 Endocet, Percocet, Oxycontin 468 Metabolite of oxycodone 469 Numorphan, Opana; Also a metabolite of oxycodone. 470 Metabolite of oxymorphone REFERENCE VALUE Cutoff: 100 471 Metabolite of oxymorphone 472 Actiq, Duragesic, Fentora 473 Metabolite of fentanyl 474 Demerol 475 Metabolite of meperidine 476 Narcan 477 Metabolite of naloxone REFERENCE VALUE Cutoff: 100 478 Dolophine 479 Metabolite of methadone 480 Darvon, Darvocet 481 Metabolite of propoxyphene 482 Tradol, Ultram, Ultracet 483 Metabolite of tramadol 484 Nucynta 485 Metabolite of tapentadol 486 Metabolite of tapentadol REFERENCE VALUE Cutoff: 100 487 Buprenex, Suboxone 488 Metabolite of buprenorphine 489 Metabolite of buprenorphine 490 Test detected the presence of oxycodone and several metabolites (noroxycodone, noroxymorphone, and odgdqtgxiuu-5-jbun-glucuronide). Suspect use of oxycodone or possibly oxycodone and oxymorphone within the past three days. ADDITIONAL INFORMATION This test was developed and its performance characteristics determined by [facility] in a manner consistent with CLIA requirements. This test has not been cleared or approved by the U.S. Food and Drug Administration. Test Performed by: [facility] - [address] [address] 491 REFERENCE VALUE Cutoff: 500 492 REFERENCE VALUE Cutoff: 200 493 REFERENCE VALUE Cutoff: 100 494 REFERENCE VALUE Cutoff: 150 495 ADDITIONAL INFORMATION This report is intended for use in clinical monitoring or management of patients. It is not intended for use in employment-related testing. 496 REFERENCE VALUE Cutoff: 200 mg/L 497 Tylenol 3 498 Metabolite of codeine REFERENCE VALUE Cutoff: 100 499 Nicol Guadalupe MS Contin; Also a minor metabolite (10%) of codeine and can be seen in low concentrations (<2,000 ng/mL) with poppy seed ingestion. 500 Metabolite of morphine REFERENCE VALUE Cutoff: 100 501 Metabolite of heroin 502 Lortab, [place], Vicodin; Also a very minor metabolite of codeine and impurity (<1%) of oxycodone. 503 Metabolite of hydrocodone 504 Metabolite of hydrocodone 505 Dilaudid, Exalgo; Also a metabolite of hydrocodone and a minor (<5%) metabolite of morphine. 506 Metabolite of hydromorphone REFERENCE VALUE Cutoff: 100 507 Endocet, Percocet, Oxycontin 508 Metabolite of oxycodone 509 Numorphan, Opana; Also a metabolite of oxycodone. 510 Metabolite of oxymorphone REFERENCE VALUE Cutoff: 100 511 Metabolite of oxymorphone 512 Actiq, Duragesic, Fentora 513 Metabolite of fentanyl 514 Demerol 515 Metabolite of meperidine 516 Narcan 517 Metabolite of naloxone REFERENCE VALUE Cutoff: 100 518 Dolophine 519 Metabolite of methadone 520 Darvon, Darvocet 521 Metabolite of propoxyphene 522 Tradol, Ultram, Ultracet 523 Metabolite of tramadol 524 Nucynta 525 Metabolite of tapentadol 526 Metabolite of tapentadol REFERENCE VALUE Cutoff: 100 527 Buprenex, Suboxone 528 Metabolite of buprenorphine 529 Metabolite of buprenorphine 530 Test detected the presence of oxycodone and several metabolites (noroxycodone, noroxymorphone, and cukvtdjqoim-6-csvm-glucuronide). Suspect use of oxycodone or possibly oxycodone and oxymorphone within the past three days. ADDITIONAL INFORMATION This test was developed and its performance characteristics determined by [facility] in a manner consistent with CLIA requirements. This test has not been cleared or approved by the U.S. Food and Drug Administration. Test Performed by: [facility] - [address] [address] Procedures Date Code Description Status 10/16/2018 54872 Inj/Aspir Major JT Or Bursa W/ US Completed 12/29/2017 26505 ECHO Transthorasic Realtime 2D W Doppler & Color Flow Hosp Completed 12/29/2017 41375 ECHO Transthorasic Realtime 2D W Doppler & Color Flow Hosp Completed 12/29/2017 58697 ECHO Transthoracic, Real-Time 2D With Doppler And Color Completed Flow Encounters Type Date Location Provider Dx Diagnosis Office Visit 11/18/2018 [facility] Rip Vicente MD G89.4 Chronic pain 4:00p Medicine - [facility] syndrome Z79.891 detention (current) use of opiate analgesic Office Visit 10/14/2018 [facility] Jelani Lissa, M17.12 Unilateral primary 3:00p Services Of osteoarthritis, left C.M.A. 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 I10 Essential (primary) hypertension M25.562 Pain in left knee Office Visit 07/03/2018 1:40p [facility] Rip De Leon NP G89.4 Chronic pain Medicine - [facility] syndrome R60.0 Localized edema Office Visit 05/15/2018 4:40p [facility] Rip Fowler G89.4 Chronic pain Medicine - Suite Shiva Cabrera,FACP syndrome R G47.33 Obstructive sleep apnea (adult) (pediatric) E66.8 Other obesity Office Visit 05/11/2018 1:40p [facility] Rip De Leon J06.9 Acute upper Medicine - [facility] ABSTRACT SEARCHER respiratory infection, unspecified Office Visit 04/10/2018 4:00p [facility] Rip Fowler G89.4 Chronic pain Medicine - Suite rosmery Cabrera M.D.,FACP E78.5 Hyperlipidemia, unspecified I10 Essential (primary) hypertension D72.829 Elevated white blood cell count, unspecified Office Visit 04/08/2018 1:00p [facility] Internal Troy De Leon NP Z00.00 [facility] w/o abnormal findings I10 Essential (primary) hypertension E78.5 Hyperlipidemia, unspecified Z23 Encounter for immunization Office Visit 01/22/2018 [facility] Internal Keon Fowler 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.,FACP disorder at C5-C6 Suite R level with radiculopathy G89.4 Chronic pain syndrome D64.9 Anemia, unspecified D72.829 Elevated white blood cell count, unspecified I51.7 Cardiomegaly Office Visit 12/29/2017 1:00p [facility] Internal Becca I50.9 Heart failure, Medicine - Ara Marker, RPA-C unspecified R G89.4 Chronic pain syndrome D72.829 Elevated white blood cell count, unspecified D64.9 Anemia, unspecified Office Visit 11/28/2017 11:30a [facility] Internal Keon Fowler I50.9 Heart failure, Valerie Cabrera M.D.,FACP unspecified Suite R G89.4 Chronic pain syndrome I10 Essential (primary) hypertension M25.511 Pain in right shoulder Office Visit 08/28/2017 11:20a [facility] Rip Fowler I10 Essential ( primary) Valerie Cabrera M.D.,FACP hypertension Suite R G89.4 Chronic pain syndrome M25.511 Pain in right shoulder Office Visit 04/09/2017 3:40p [facility] Internal eKon Fowler G89.4 Chronic pain Medicine - Ara Cabrera M.D.,FACP syndrome R I10 Essential (primary) hypertension Z23 Encounter for immunization Office Visit 03/19/2017 1:40p [facility] Internal Troy De Leon, R35.0 [facility] ABSTRACT SEARCHER micturition Z13.220 Encounter for screening for lipoid disorders Z13.1 Encounter for screening for diabetes mellitus Office Visit 01/16/2017 11:40a [facility] Internal Troy De Leon NP E66.8 Other [facility] Essential (primary) hypertension G89.4 Chronic pain syndrome Office Visit 12/31/2016 4:40p [facility] Internal Keon Fowler G89.4 [facility] Sh[facility] Cabrera,FACP syndrome T75.3xxA Motion sickness, initial encounter I10 Essential (primary) hypertension Office Visit 11/11/2016 4:40p [facility] Internal Keon Fowler G89.4 Chronic pain Medicine - Suite Shiva Cabrera,FACP syndrome R E66.8 Other obesity I10 Essential (primary) hypertension Office Visit 11/04/2016 2:00p [facility] Internal Troyjessa De Leon NP M54.5 Low back pain [facility] H61.23 Impacted cerumen, bilateral Office Visit 10/11/2016 10:40a [facility] Internal Troy De Leon NP M54.5 [facility] Office Visit 09/19/2016 8:40a [facility] Internal Troy De Leon NP Z79.899 Other nursing home Medicine - [facility]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 therapy H61.23 Impacted cerumen, bilateral D48.5 Neoplasm of uncertain behavior of skin Office Visit 09/13/2016 2:00p [facility] Internal Troyjessa De Leon, K08.89 Other specified [facility] ABSTRACT SEARCHER disorders of teeth and supporting structures M79.601 Pain in right arm Office Visit 08/23/2016 10:00a [facility] Internal Troy De Leon NP M54.5 [facility] Office Visit 08/09/2016 3:00p [facility] Internal Troy De Leon ABSTRACT SEARCHER E66.8 Other obesity [facility] M54.5 Low back pain Office Visit 06/23/2007 1:30p Neurosurgery Jaylan Hart 721.3 [facility] Shiva oDminique Lumbar W/O Myelopathy Plan of Treatment Future Appointment(s):01/20/2019 4:40 pm - Aileen Vicente MD at [facility] Internal Medicine - [facility]12/21/2018 9:30 am - Dian Gloria MD at [facility]12/16/2018 - Aileen Vicente MDG89.4 Chronic pain syndromeFollow up:4 [id number] Essential (primary) hypertensionComments:please take your medications daily
[2019-01-01 13:43] VITALS: BP 158/100
--- NOTE | 2019-01-01 15:16 | ED ---
Lower Extremity - HPI Summary HPI Summary: Patient is a 43-year-old male with acute on chronic knee and back pain presenting to the ED with a request for Percocet. He states his knee pain has been worsening due to weather. He has a fixed Percocet prescription and states the only way he can get more is to come into the ED. He states the pain medication is not enough and he needs a prescription for more. He is requesting this on today's visit. 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 He states he has been on pain medication for his back and for his knee since 1995. He states they were attempting to wean him off these medications, but this did not work and he is currently awaiting to see the pain clinic. He is also requesting a Toradol IM. He denies any injury. Remains ambulatory. Difficult with flexion and extension due to discomfort. - History of Current Complaint Chief Complaint: EDExtremityLower Stated Complaint: LT KNEE PAIN PER PT Time Seen by Provider: 01/01/19 11:06 Hx Obtained From: Patient Onset of Pain: Prior to Arrival Onset/Duration: Still Present Severity Initially: Moderate Severity Currently: Moderate Pain Intensity: 6 Pain Scale Used: 0-10 Numeric Timing: Constant Location: Is Discrete @ - left knee Character Of Pain: Aching Associated Signs And Symptoms: Negative: Swelling, Redness, Bruising Aggravating Factor(s): Standing, Ambulation Alleviating Factor(s): Rest Able to Bear Weight: No - Risk Factors Gout Risk Factors: Negative DVT Risk Factors: Negative Septic Arthritis Risk Factor: Negative - Allergies/Home Medications Allergies/Adverse Reactions: Allergies Allergy/AdvReac Type Severity Reaction Status Date / Time No Known Allergies Allergy Verified 01/01/19 10:31 Home Medications: Home Medications Atorvastatin* [Lipitor*] 40 mg PO QPM 01/01/19 [History Confirmed 01/01/19] tiZANidine TAB* [Zanaflex TAB*] 4 mg PO Q6HR 01/01/19 [History Confirmed ] PMH/Surg Hx/FS Hx/Imm Hx Previously Healthy: Yes Endocrine/Hematology History: Denies: Hx Anticoagulant Therapy, Hx Anemia Cardiovascular History: Reports: Hx Coronary Artery Disease, Hx Hypertension History: Denies: Hx Dialysis Musculoskeletal History: Reports: Hx Arthritis - knee, Hx Back Problems - chronic pain, Other Musculoskeletal History - chronic Rt arm pain Sensory History: Denies: Hx Contacts or Glasses, Hx Eye Prosthesis, Hx Legally Blind, Hx Deafness, Hx Hearing Aid Opthamlomology History: Denies: Hx Contacts or Glasses, Hx Eye Prosthesis, Hx Legally Blind Neurological History: Denies: Hx Dementia Psychiatric History: Reports: Hx Anxiety, Hx Depression, Hx Inpatient Treatment - Discharged from [facility] on 12/10/18, Hx Community Mental Health Tx, Hx Substance Abuse, Other Psychiatric Issues/Disorders - obesity Denies: Hx Attention Deficit Hyperactivity Disorder, Hx Autism, Hx Eating Disorder, Hx Panic Disorder, Hx Post Traumatic Stress Disorder, Hx Schizophrenia , Hx Bipolar Disorder, Hx Suicide Attempt - Only thoughts, Hx of Violent Episodes Against Others - Surgical History Surgery Procedure, Year, and Place: none - Immunization History Hx Pertussis Vaccination: No Immunizations Up to Date: Yes Infectious Disease History: No Infectious Disease History: Denies: Traveled Outside the [place] in Last 30 Days - Family History Known Family History: Negative: Cardiac Disease - Social History Occupation: Unemployed Lives: Alone Alcohol Use: None Hx Substance Use: Yes Substance Use Type: Reports: None Substance Use Comment - Amount & Last Used: oxycodone, morphine Hx Tobacco Use: No Smoking Status (MU): Never Smoked Tobacco Review of Systems Negative: Fever, Chills, Fatigue, Skin Diaphoresis Negative: Palpitations, Chest Pain Negative: Shortness Of Breath, Cough Genitourinary: Negative Positive: no symptoms reported, see HPI Positive: Arthralgia, Myalgia Skin: Negative Neurological: Negative All Other Systems Reviewed And Are Negative: Yes Physical Exam Triage Information Reviewed: Yes Vital Signs On Initial Exam: Initial Vitals Temp Pulse Resp BP Pulse Ox 98.7 F 89 20 162/103 96 01/01/19 10:31 01/01/19 10:31 01/01/19 10:31 01/01/19 10:31 01/01/19 10:31 Vital Signs Reviewed: Yes Appearance: Positive: Well-Appearing, Well-Nourished Skin: Positive: Warm, Skin Color Reflects Adequate Perfusion Head/Face: Positive: Normal Head/Face Inspection Eyes: Positive: EOMI, Conjunctiva Clear Neck: Positive: Supple, No Lymphadenopathy Respiratory/Lung Sounds: Positive: Clear to Auscultation, Breath Sounds Present Cardiovascular: Positive: Normal, Pulses are Symmetrical in both Upper and Lower Extremities Musculoskeletal: Positive: Pain @ - left knee pain Neurological: Positive: Speech Normal Psychiatric: Positive: Affect/Mood Appropriate AVPU Assessment: Alert Diagnostics - Vital Signs Vital Signs Temp Pulse Resp BP Pulse Ox 01/01/19 13:42 98.7 F 88 17 158/100 97 01/01/19 13:36 17 01/01/19 10:31 98.7 F 89 20 162/103 96 - Laboratory Lab Statement: Any lab studies that have been ordered have been reviewed, and results considered in the medical decision making process. Lower Extremity Course/Dx - Course Course Of Treatment: During this course treatment, the patient's evaluated for acute on chronic left knee pain. He states due to the weather, the pain has worsened. He is requesting a Percocet and Toradol. I discussed with the patient at length, the need for reduction in weight which would help his back and knee. I've also encouraged ibuprofen, ice to the area, to remain ambulatory , however he has discomfort to rest. I also encouraged further evaluation from orthopedics, and he states he has recently seen an orthopedist who gave him a steroid injection. He states this with good relief but for a very minimal amount of time. Denies any other concerns. I have given patient 5 mg Percocet and 60 mg IM Toradol, however no prescription was given. He states he will follow up with Dr. Vicente. - Diagnoses Differential Diagnosis/HQI/PQRI: Positive: Sprain, Strain, Tendonitis Provider Diagnoses: Knee pain Discharge - Sign-Out/Discharge Documenting (check all that apply): Patient Departure Patient Received Moderate/Deep Sedation with Procedure: No - Discharge Plan Condition: Stable Disposition: HOME Patient Education Materials: Tendinitis (ED) Referrals: Aileen Vicente MD [Primary Care Provider] - Additional Instructions: Continue with ibuprofen, ice and heat intermittently for discomfort - Billing Disposition and Condition Condition: STABLE Disposition: Home
== END | disposition home or self-care (01) ==
LOC: ED 10:29
DX: M25.562 Pain in left knee (principal); I25.10 Atherosclerotic heart disease of native coronary artery without angina pectoris; I10 Essential (primary) hypertension; Z79.899 Other long term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 therapy
CPT/HCPCS: 96372; 99282; A9270-GY; J1885

== ENCOUNTER 2019-05-14 07:00 | Emergency (ER) | payer OTHER ==
--- OUTSIDE RECORDS SUMMARY | 2019-05-14 07:41 | XMS REPORT | Continuity of Care Document ---
:1975 External Reference #:[id number] Author Name Maria Ines Douglas MD (transmitted by agent of provider Jana Tobias) Address [address] [place] [address] Care Team Providers Name Role Phone Dian Gloria MD - Pulmonary Care Team Information Meteorological Technician Disease Aileen Vicente M.D. - Family Medicine Care Team Information Meteorological Technician [phone] Problems Active Problems Provider Date Hypertensive left ventricular Keon Cabrera M.D.,FACP Onset: 01/22/2018 hypertrophy Note: moderate on echo Essential hypertension Keon Cabrera M.D.,FACP Onset: 11/11/2016 Obesity Troyjessa De Leon, ASSISTANT PROFESSOR OF PSYCHOLOGY Onset: 08/14/2016 Low back pain Troyjessa De Leon, ASSISTANT PROFESSOR OF PSYCHOLOGY Onset: 08/14/2016 Hyperlipidemia Troyjessa De Leon, ASSISTANT PROFESSOR OF PSYCHOLOGY Onset: 08/14/2016 Chronic pain syndrome Keon Cabrera M.D.,FACP Onset: 11/11/2016 Body mass index 40+ - severely obese Keon Cabrera M.D.,FACP Onset: 05/2017 Leukocytosis Keon Cabrera M.D.,FACP Onset: 05/15/2018 Note: sees Dr. Wesley Faulkner, primary osteoarthritis Jelani Alcaraz MD Onset: 10/14/2018 Recurrent major depressive episodes Aileen Vicente MD Onset: 12/16/2018 Social History Type Date Description Comments Sex Unknown Tobacco Use Start: Unknown Never Smoked Cigarettes Smoking Status Reviewed: 04/08/19 Never Smoked Cigarettes ETOH Use 08/28/2017 Denies alcohol use Tobacco Use Start: Unknown Patient has never smoked Recreational Drug Use Denies Drug Use Exercise Type/Frequency Mild exercise Allergies, Adverse Reactions, Alerts Description No Known Drug Allergies Medications Active Medications SIG Qnty Indications Ordering Date Provider Valium 1 po 2 hrs before 2tabs Aileen Vicente MD 01/25/2019 2mg Tablets procedure, may repeat once if needed Cane 4 point cane M17.12 Aileen Vicente MD 01/20/2019 [facility] Fentanyl apply one patch 10units Aileen Vicente MD 01/01/2019 25mcg/HR once every 3 days Patches 72HR Lisinopril 1 by mouth every 90tabs Aileen Vicente MD 12/02/2018 40mg day Tablets Amlodipine Besylate 1 by mouth every 30tabs I10 Aileen Vicente MD 10/07/2018 day 10mg Tablets Optichamber Harper Use With Inhalers 1units Keon Fowler 05/14/2018 [facility] Shiva Cabrera,FACP Ventolin HFA take 2 puffs by 18units Aileen Vicente MD 04/14/2018 mouth every 4 hours 108(90Base) mcg/Act as needed Aerosol Buspirone HCL take 1 tablet by 120tabs F41.9 Keon Fowler 04/10/2018 15mg mouth 4 times a day Shiva Cabrera,FACP Tablets Ropinirole HCL Take 1 Tablet By 30tabs Aileen Vicente MD 04/08/2018 2mg Mouth Every Day Tablets Docusate Sodium 1 tab every 12 120caps Keon Fowler 11/28/2017 hours as needed for Shiva Cabrera,FACP 100mg Capsules constipation Tizanidine HCL Take 1 Tablet By 60tabs Aileen Vicente MD 06/04/2017 4mg Mouth Every 6 Hours Tablets as Needed Omeprazole Take 1 Capsule By 30caps Aileen Vicente MD 05/23/2017 40mg Mouth Every Day Capsules DR [facility] Motion Sickness Take 1/2-1 Tablet 32units Jenny 04/13/2017 Relief By Mouth Three CottonShiva 25mg Times A Day as Chewtabs Needed Furosemide take 1 tablet by 30tabs Aileen Vicente MD 04/09/2017 20mg mouth every day in Tablets the morning Oxycodone-Acetamino take 2 tablets by 84tabs G89.4 Aileen Vicente MD 2016 phen mouth every 8 hours 10-325mg as needed for pain Tablets M54.5 Diphenhydramine HCL 1 cap every night Unknown 25mg Capsules at bedtime for sleep Iron 1 by mouth every Unknown 325(65Fe) mg Tablets day Gabapentin Take 1 Cap By Mouth 120caps Aileen Vicente MD 300mg Capsules In The Morning, 1 Cap AT Midday, And 2 Caps AT Bedtime Atorvastatin Calcium take 1 tablet by 90tabs Keon Cabrera, 40mg Tablets mouth every day in M.D.,FACP the evening Bupropion Hydrochloride ER take 1 tablet by 30tabs Aileen Vicente MD (SR) mouth every day 150mg Tablets ER 12HR Duloxetine HCL 30mg in the morning Unknown 60mg Caps DR Part and 60mg at night History Medications DULoxetine HCl take 1 capsule Aileen Vicente MD 12/26/2018 - 60mg Caps DR by mouth every 12/26/2018 Part morning Fentanyl apply one patch 5units Aileen Vicente MD 11/18/2018 - 25mcg/HR Patches once every 3 11/19/2018 72HR days Buprenorphine HCL 1-2 sl three 60tabs Aileen Vicente MD 11/14/2018 - 2mg times a day as 11/18/2018 Tablets Sub needed for pain Buprenorphine HCL 1 sl every 12 30tabs Aileen Vicente MD 11/10/2018 - 8mg hours as needed 11/14/2018 Tablets Sub for pain Lisinopril 1 by mouth every 60tabs I10 Aileen Vicente MD 10/07/2018 - 20mg Tablets day bid 12/02/2018 Medications Administered in Office Medication SIG Qnty Indications Ordering Provider Date Triamcinolone (Kenalog) Jelani Alcaraz MD 01/26/2019 Injection Triamcinolone (Kenalog) Jelani Alcaraz MD 10/16/2018 Injection Immunizations CPT Code Status Date Vaccine Reaction Lot # [id number] Given 04/08/2018 Tdap - No immediate [id number] Tetanus/Diptheria/Acellular reaction...jh Pertussis [id number] Given 04/08/2018 Influenza Virus Vaccine, No immediate [id number] Quadrivalent, Split, reaction... Preservative Free [id number] Given 04/09/2017 Influenza Virus Vaccine, [id number] Quadrivalent, Split, Preservative Free Vital Signs Date Vital Result Comment 04/08/2019 2:53pm Height 71 inches 5'11" Weight 444.00 lb Heart Rate 94 /min BP Systolic Sitting 140 mmHg BP Diastolic Sitting 90 mmHg Pain Level 9 O2 % BldC Oximetry 99 % BMI (Body Mass Index) 61.9 kg/m2 01/26/2019 1:54pm Height 71 inches 5'11" Weight 429.00 lb Heart Rate 110 /min BP Systolic 146 mmHg BP Diastolic 86 mmHg Body Temperature 98.6 F Pain Level 9 BMI (Body Mass Index) 59.8 kg/m2 Results Test Acquired Date Facility Test Result H/L Range Note Drug Abuse 02/02/2019 [facility] Urine Amphetamine Negative ng/ mL 1, 2 [address] [place] [address] [phone] Urine Barbiturates Negative ng/mL 3 Urine Benzodiazepines Negative ng/mL 4 Urine Cocaine Negative ng/mL 5 Urine Phencyclidine Negative ng/mL Cutoff: 25 Urine Tetrahydrocannabinol Negative ng/mL Cutoff: 50 6 Creatinine, Urine 180.8 mg/dL Specific [place] 1.020 pH 5.5 Oxidants Negative 7 Adulterants Comment Normal Codeine, Ur Not Detected ng/mL Cutoff: 25 8 Gynagte-6-dogo-glucuronide, Ur Not Detected ng/mL 9 Morphine, Ur Not Detected ng/mL Cutoff: 25 10 Znkbqxaq-6-yrns-glucuronide, U Not Detected ng/mL 11 6-monoacetylmorphine, Ur Not Detected ng/mL Cutoff: 25 12 Hydrocodone, Ur Not Detected ng/mL Cutoff: 25 13 Norhydrocodone, Ur Not Detected ng/mL Cutoff: 25 14 Dihydrocodeine, Ur Not Detected ng/mL Cutoff: 25 15 Hydromorphone, Ur Not Detected ng/mL Cutoff: 25 16 Auvjqmlynzodi7lrikmpmplttkhfc Not Detected ng/mL 17 Oxycodone, Ur Present ng/mL Abnormal Cutoff: 25 18 Noroxycodone, Ur Present ng/mL Abnormal Cutoff: 25 19 Oxymorphone, Ur Present ng/mL Abnormal Cutoff: 25 20 Vfpioqdimrg-2-szva-glucuronide Present ng/mL Abnormal 21 Noroxymorphone, Ur Present ng/mL Abnormal Cutoff: 25 22 Fentanyl, Ur Present ng/mL Abnormal Cutoff: 2 23 Norfentanyl, Ur Present ng/mL Abnormal Cutoff: 2 24 Meperidine, Ur Not Detected ng/mL Cutoff: 25 25 Normeperidine, Ur Not Detected ng/mL Cutoff: 25 26 Naloxone, Ur Not Detected ng/mL Cutoff: 25 27 Babqzikq-7-duwc-glucuronide, U Not Detected ng/mL 28 Methadone, Ur [...] Ur Not Detected ng/mL Cutoff: 50 36 Salfpygbws-neds-dmbqnxmdaoa, U Not Detected ng/mL 37 Buprenorphine, Ur Not Detected ng/mL Cutoff: 5 38 Norbuprenorphine, Ur Not Detected ng/mL Cutoff: 5 39 Norbuprenorphine glucuronide Not Detected ng/mL Cutoff: 20 40 Opioid Interpretation See Comment 41 Drug Abuse 01/20/2019 [facility] Urine Amphetamine Negative ng/ mL 42, 43 [address] [place] [address] [phone] Urine Barbiturates Negative ng/mL 44 Urine Benzodiazepines Negative ng/mL 45 Urine Cocaine Negative ng/mL 46 Urine Phencyclidine Negative ng/mL Cutoff: 25 Urine Tetrahydrocannabinol Negative ng/mL Cutoff: 50 47 Creatinine, Urine 341.7 mg/dL Specific [place] 1.020 pH 5.4 Oxidants Negative 48 Adulterants Comment Normal Codeine, Ur Not Detected ng/mL Cutoff: 25 49 Tblufan-2-uglw-glucuronide, Ur Not Detected ng/mL 50 Morphine, Ur Not Detected ng/mL Cutoff: 25 51 Cowevxys-1-eocr-glucuronide, U Not Detected ng/mL 52 6-monoacetylmorphine, Ur Not Detected ng/mL Cutoff: 25 53 Hydrocodone, Ur Not Detected ng/mL Cutoff: 25 54 Norhydrocodone, Ur Not Detected ng/mL Cutoff: 25 55 Dihydrocodeine, Ur Not Detected ng/mL Cutoff: 25 56 Hydromorphone, Ur Not Detected ng/mL Cutoff: 25 57 Mpknessitbztd4ymmkmkekmufjhut Not Detected ng/mL 58 Oxycodone, Ur Present ng/mL Abnormal Cutoff: 25 59 Noroxycodone, Ur Present ng/mL Abnormal Cutoff: 25 60 Oxymorphone, Ur Present ng/mL Abnormal Cutoff: 25 61 Xhpvbrmwinh-8-jyaq-glucuronide Present ng/mL Abnormal 62 Noroxymorphone, Ur Present ng/mL Abnormal Cutoff: 25 63 Fentanyl, Ur Not Detected ng/mL Cutoff: 2 64 Norfentanyl, Ur Present ng/mL Abnormal Cutoff: 2 65 Meperidine, Ur Not Detected ng/mL Cutoff: 25 66 Normeperidine, Ur Not Detected ng/mL Cutoff: 25 67 Naloxone, Ur Not Detected ng/mL Cutoff: 25 68 Hekibziq-5-twsk-glucuronide, U Not Detected ng/mL 69 Methadone, Ur Not Detected ng/mL Cutoff: 25 70 Eddp, Ur Not Detected ng/mL Cutoff: 25 71 Propoxyphene, Ur Not Detected ng/mL Cutoff: 25 72 Norpropoxyphene, Ur Not Detected ng/mL Cutoff: 25 73 Tramadol, Ur Not Detected ng/mL Cutoff: 25 74 O-desmethyltramadol, Ur Not Detected ng/mL Cutoff: 25 75 Tapentadol, Ur Not Detected ng/mL Cutoff: 25 76 N-desmethyltapentadol, Ur Not Detected ng/mL Cutoff: 50 77 Bkarjanxrz-hyyi-blaiamfloqi, U Not Detected ng/mL 78 Buprenorphine, Ur Not Detected ng/mL Cutoff: 5 79 Norbuprenorphine, Ur See Comment ng/mL Cutoff: 5 80 Norbuprenorphine glucuronide Not Detected ng/mL Cutoff: 20 81 Opioid Interpretation See Comment 82 Drug Abuse 12/16/2018 [facility] Urine Amphetamine Negative ng/ mL 83, 84 [address] [place] [address] [phone] Urine Barbiturates Negative ng/mL 85 Urine Benzodiazepines Negative ng/mL 86 Urine Cocaine Negative ng/mL 87 Urine Phencyclidine Negative ng/mL Cutoff: 25 Urine Tetrahydrocannabinol Negative ng/mL Cutoff: 50 88 Creatinine, Urine 222.4 mg/dL Specific [place] 1.019 pH 5.5 Oxidants Negative 89 Adulterants Comment Normal Codeine, Ur Not Detected ng/mL Cutoff: 25 90 Oxpvuog-4-tmyb-glucuronide, Ur Not Detected ng/mL 91 Morphine, Ur Not Detected ng/mL Cutoff: 25 92 Deycwogn-9-gidj-glucuronide, U Not Detected ng/mL 93 6-monoacetylmorphine, Ur Not Detected ng/mL Cutoff: 25 94 Hydrocodone, Ur Not Detected ng/mL Cutoff: 25 95 Norhydrocodone, Ur Not Detected ng/mL Cutoff: 25 96 Dihydrocodeine, Ur Not Detected ng/mL Cutoff: 25 97 Hydromorphone, Ur Not Detected ng/mL Cutoff: 25 98 Qaemdejvastco5zjxyahrdooulzrc Not Detected ng/mL 99 Oxycodone, Ur Present ng/mL Abnormal Cutoff: 25 100 Noroxycodone, Ur Present ng/mL Abnormal Cutoff: 25 101 Oxymorphone, Ur Present ng/mL Abnormal Cutoff: 25 102 Sxbsvjyrflj-1-lopb-glucuronide Present ng/mL Abnormal 103 Noroxymorphone, Ur Present ng/mL Abnormal Cutoff: 25 104 Fentanyl, Ur Not Detected ng/mL Cutoff: 2 105 Norfentanyl, Ur Not Detected ng/mL Cutoff: 2 106 Meperidine, Ur Not Detected ng/mL Cutoff: 25 107 Normeperidine, Ur Not Detected ng/mL Cutoff: 25 108 Naloxone, Ur Not Detected ng/mL Cutoff: 25 109 Vyddooha-3-vupn-glucuronide, U Not Detected ng/mL 110 Methadone, Ur Not Detected ng/mL Cutoff: 25 111 Eddp, Ur Not Detected ng/mL Cutoff: 25 112 Propoxyphene, Ur Not Detected ng/mL Cutoff: 25 113 Norpropoxyphene, Ur Not Detected ng/mL Cutoff: 25 114 Tramadol, Ur Not Detected ng/mL Cutoff: 25 115 O-desmethyltramadol, Ur Not Detected ng/mL Cutoff: 25 116 Tapentadol, Ur Not Detected ng/mL Cutoff: 25 117 N-desmethyltapentadol, Ur Not Detected ng/mL Cutoff: 50 118 Ralmtpzdcu-xgau-fhaofqerdwa, U Not Detected ng/mL 119 Buprenorphine, Ur Not Detected ng/mL Cutoff: 5 120 Norbuprenorphine, Ur Not Detected ng/mL Cutoff: 5 121 Norbuprenorphine glucuronide Not Detected ng/mL Cutoff: 20 122 Opioid Interpretation See Comment 123 CBC Auto 12/10/2018 [facility] White Blood 17.3 10^3/uL High 3.5-10.[address] [place] [address] [phone] Red Blood Count 5.13 10^6/uL Normal 4.18-5.48 Hemoglobin 13.2 g/dL Low 14.0-18.0 Hematocrit 42 % Normal 42-52 Mean Corpuscular Volume 82 fL Normal 80-94 Mean Corpuscular Hemoglobin 26 pg Low 27-31 Mean Corpuscular HGB Conc 32 g/dL Normal 31-36 Red Cell Distribution Width 18 % High 10-15 Platelet Count 499 10^3/uL High 150-450 Mean Platelet Volume 6.9 fL Low 7.4-10.4 Abs Neutrophils 10.6 10^3/uL High 1.5-7.7 Abs Lymphocytes 4.3 10^3/uL Normal 1.0-4.8 Abs Monocytes 1.7 10^3/uL High 0-0.8 Abs Eosinophils 0.5 10^3/uL Normal 0-0.6 Abs Basophils 0.2 10^3/uL Normal 0-0.2 Abs Nucleated RBC 0.0 10^3/uL Granulocyte % 61.3 % Lymphocyte % 24.7 % Monocyte % 10.0 % Eosinophil % 3.0 % Basophil % 1.0 % Nucleated Red Blood Cells % 0.0 Urine Drug 12/10/2018 [facility] Urine None Detected None Detect SCR ED & [address] [place] [address] Screen [phone] Urine Barbiturates Screen None Detected None Detect Urine Benzodiazepine Screen None Detected None Detect Urine Cannabinoids Screen None Detected None Detect Urine Cocaine Screen None Detected None Detect Urine Opiates Screen Presumptive Posi <SEE NOTE> Abnormal None Detect 124 Urine Phencyclidine Screen None Detected None Detect 125 Comp Metabolic 12/10/2018 [facility] Sodium 135 mmol/L Normal 135-[address] [place] [address] [phone] Potassium 4.2 mmol/L Normal 3.5-5.0 Chloride 100 mmol/L Low 101-111 Co2 Carbon Dioxide 28 mmol/L Normal 22-32 Anion Gap 7 mmol/L Normal 2-11 Glucose 115 mg/dL High 70-100 Blood Urea Nitrogen 29 mg/dL High 6-24 Creatinine 1.08 mg/dL Normal 0.67-1.17 BUN/Creatinine Ratio 26.9 High 8-20 Calcium 9.7 mg/dL Normal 8.6-10.3 Total Protein 7.6 g/dL Normal 6.4-8.9 Albumin 4.1 g/dL Normal 3.2-5.2 Globulin 3.5 g/dL Normal 2-4 Albumin/Globulin Ratio 1.2 Normal 1-3 Total Bilirubin 0.30 mg/dL Normal 0.2-1.0 Alkaline Phosphatase 76 U/L Normal 34-104 Alt 44 U/L Normal 7-52 Ast 26 U/L Normal 13-39 Egfr Non- 73.9 >60 Egfr 89.5 >60 126 Laboratory test 12/10/2018 [facility] Acetaminophen < 15 g/mL [address] [place] [address] [phone] Alcohol < 10 mg/dL Normal <10 Salicylate < 2.50 mg/dL <30 TSH (Thyroid Stim Horm) 3.19 mcIU/mL Normal 0.34-5.60 Urinalysis Profile 12/10/2018 [facility] Urine Color Yellow [address] [place] [address] [phone] Urine Appearance Cloudy Urine Specific [place] 1.031 High 1.010-1.030 Urine pH 5.0 Normal 5-9 Urine Urobilinogen Negative Negative Urine Ketones Negative Negative Urine Protein Negative Negative Urine Leukocytes Negative Negative Urine Blood Negative Negative Urine Nitrite Negative Negative Urine Bilirubin Negative Negative Urine Glucose Negative Negative CBC Auto 12/04/2018 [facility] White Blood 11.8 10^3/uL High 3.5-10.[address] [place] [address] [phone] Red Blood Count 4.69 10^6/uL Normal 4.18-5.48 Hemoglobin 12.7 g/dL Low 14.0-18.0 Hematocrit 38 % Low 42-52 Mean Corpuscular Volume 81 fL Normal 80-94 Mean Corpuscular Hemoglobin 27 pg Normal 27-31 Mean Corpuscular HGB Conc 33 g/dL Normal 31-36 Red Cell Distribution Width 17 % High 10-15 Platelet Count 374 10^3/uL Normal 150-450 Mean Platelet Volume 7.4 fL Normal 7.4-10.4 Abs Neutrophils 7.5 10^3/uL Normal 1.5-7.7 Abs Lymphocytes 2.9 10^3/uL Normal 1.0-4.8 Abs Monocytes 0.9 10^3/uL High 0-0.8 Abs Eosinophils 0.3 10^3/uL Normal 0-0.6 Abs Basophils 0.1 10^3/uL Normal 0-0.2 Abs Nucleated RBC 0.0 10^3/uL Granulocyte % 63.9 % Lymphocyte % 24.6 % Monocyte % 7.7 % Eosinophil % 2.9 % Basophil % 0.9 % Nucleated Red Blood Cells % 0.1 Comp Metabolic 12/04/2018 [facility] Sodium 139 mmol/L Normal 135-145 Panel [address] [place] [address] [phone] Potassium 3.8 mmol/L Normal 3.5-5.0 Chloride 106 mmol/L Normal 101-111 Co2 Carbon Dioxide 26 mmol/L Normal 22-32 Anion Gap 7 mmol/L Normal 2-11 Glucose 127 mg/dL High 70-100 Blood Urea Nitrogen 18 mg/dL Normal 6-24 Creatinine 0.90 mg/dL Normal 0.67-1.17 BUN/Creatinine Ratio 20.0 Normal 8-20 Calcium 9.7 mg/dL Normal 8.6-10.3 Total Protein 7.4 g/dL Normal 6.4-8.9 Albumin 4.1 g/dL Normal 3.2-5.2 Globulin 3.3 g/dL Normal 2-4 Albumin/Globulin Ratio 1.2 Normal 1-3 Total Bilirubin 0.30 mg/dL Normal 0.2-1.0 Alkaline Phosphatase 67 U/L Normal 34-104 Alt 24 U/L Normal 7-52 Ast 17 U/L Normal 13-39 Egfr Non- 91.3 >60 Egfr 110.4 >60 128 Laboratory test 12/04/2018 [facility] Acetaminophen < 15 g/mL 129 [address] [place] [address] [phone] Alcohol < 10 mg/dL Normal <10 Salicylate < 2.50 mg/dL <30 TSH (Thyroid Stim Horm) 1.29 mcIU/mL Normal 0.34-5.60 Urinalysis Profile 12/04/2018 [facility] Urine Color Yellow [address] [place] [address] [phone] Urine Appearance Cloudy Urine Specific [place] 1.046 High 1.010-1.030 Urine pH 5.0 Normal 5-9 Urine Urobilinogen Negative Negative Urine Ketones Negative Negative Urine Protein 1+(30 mg/dL) Abnormal Negative Urine Leukocytes Negative Negative Urine Blood Negative Negative Urine Nitrite Negative Negative Urine Bilirubin 1+ Abnormal Negative Urine Glucose Negative Negative Urine White Blood Cell Trace(0-5/hpf) Absent Urine Red Blood Cell Trace(0-2/hpf) Absent Urine Bacteria Absent Absent Urine Squamous Epithelial Cell Present Abnormal Absent Urine Drug 12/04/2018 [facility] Urine None Detected None Detect SCR ED & [address] [place] [address] Screen [phone] Urine Barbiturates Screen None Detected None Detect Urine Benzodiazepine Screen None Detected None Detect Urine Cannabinoids Screen None Detected None Detect Urine Cocaine Screen None Detected None Detect Urine Opiates Screen Presumptive Posi <SEE NOTE> Abnormal None Detect 130 Urine Phencyclidine Screen None Detected None Detect 131 Urine Culture And 12/04/2018 [facility] Urine Culture SEE RESULT [address] [place], [place] [id number] [phone] 1 [id number] REFERENCE VALUE Cutoff: 500 3 REFERENCE VALUE Cutoff: 200 4 REFERENCE VALUE Cutoff: 100 5 REFERENCE VALUE Cutoff: 150 6 ADDITIONAL INFORMATION This report is intended for use in clinical monitoring or management of patients. It is not intended for use in employment-related testing. Test Performed by: [facility] [employer] [facility] [address] [place] [address] Coin Machine Collector: Patrick Lopez M.D. Ph.D.; [facility]# [id number] REFERENCE VALUE Cutoff: 200 mg/L 8 Tylenol 3 9 Metabolite of codeine REFERENCE VALUE Cutoff: 100 10 Nicol Guadalupe, MS Contin; Also a minor metabolite (10%) of codeine and can be seen in low concentrations (<2,000 ng/mL) with poppy seed ingestion. 11 Metabolite of morphine REFERENCE VALUE Cutoff: 100 12 Metabolite of heroin 13 Lortab, Agency, Vicodin; Also a very minor metabolite of [...] and several metabolites (noroxycodone, oxymorphone, noroxymorphone, and ystewvnzexe-1-bylt-glucuronide). Suspect use of oxycodone and/or oxymorphone within the past three days. Test detected the presence of fentanyl and its metabolite (norfentanyl). Suspect use of fentanyl within the past three days. ADDITIONAL INFORMATION This test was developed and its performance characteristics determined by [facility] in a manner consistent with CLIA requirements. This test has not been cleared or approved by the U.S. Food and Drug Administration. 42 [id number] REFERENCE VALUE Cutoff: 500 44 REFERENCE VALUE Cutoff: 200 45 REFERENCE VALUE Cutoff: 100 46 REFERENCE VALUE Cutoff: 150 47 ADDITIONAL INFORMATION This report is intended for use in clinical monitoring or management of patients. It is not intended for use in employment-related testing. Test Performed by: [facility] [address] [place] [id number] REFERENCE VALUE Cutoff: 200 mg/L 49 Tylenol 3 50 Metabolite of codeine REFERENCE VALUE Cutoff: 100 51 Nicol Guadalupe MS Contin; Also a minor metabolite (10%) of codeine and can be seen in low concentrations (<2,000 ng/mL) with poppy seed ingestion. 52 Metabolite of morphine REFERENCE VALUE Cutoff: 100 53 Metabolite of heroin 54 Lortab, Agency, Vicodin; Also a very minor metabolite of codeine and impurity (<1%) of oxycodone. 55 Metabolite of hydrocodone 56 Metabolite of hydrocodone 57 Dilaudid, Exalgo; Also a metabolite of hydrocodone and a minor (<5%) metabolite of morphine. 58 Metabolite of hydromorphone REFERENCE VALUE Cutoff: 100 59 Endocet, Percocet, Oxycontin 60 Metabolite of oxycodone 61 Numorphan, Opana; Also a metabolite of oxycodone. 62 Metabolite of oxymorphone REFERENCE VALUE Cutoff: 100 63 Metabolite of oxymorphone 64 Actiq, Duragesic, Fentora 65 Metabolite of fentanyl 66 Demerol 67 Metabolite of meperidine 68 Narcan 69 Metabolite of naloxone REFERENCE VALUE Cutoff: 100 70 Dolophine 71 Metabolite of methadone 72 Darvon, Darvocet 73 Metabolite of propoxyphene 74 Tradol, Ultram, Ultracet 75 Metabolite of tramadol 76 Nucynta 77 Metabolite of tapentadol 78 Metabolite of tapentadol REFERENCE VALUE Cutoff: 100 79 Buprenex, Suboxone 80 Unknown interfering substance present; unable to obtain results. Metabolite of buprenorphine 81 Metabolite of buprenorphine 82 Test detected the presence of oxycodone and several metabolites (noroxycodone, oxymorphone, noroxymorphone, and rllmnexemin-1-ahrc-glucuronide). Suspect use of oxycodone and/or oxymorphone within the past three days. Test detected the presence of norfentanyl (metabolite of fentanyl) only. Suspect use of fentanyl within the past three days. ADDITIONAL INFORMATION This test was developed and its performance characteristics determined by [facility] in a manner consistent with CLIA requirements. This test has not been cleared or approved by the U.S. Food and Drug Administration. 83 [id number] 84 REFERENCE VALUE Cutoff: 500 85 REFERENCE VALUE Cutoff: 200 86 REFERENCE VALUE Cutoff: 100 87 REFERENCE VALUE Cutoff: 150 88 ADDITIONAL INFORMATION This report is intended for use in clinical monitoring or management of patients. It is not intended for use in employment-related testing. Test Performed by: [facility] [address] [place] [address] 89 REFERENCE VALUE Cutoff: 200 mg/L 90 Tylenol 3 91 Metabolite of codeine REFERENCE VALUE Cutoff: 100 92 Nicol Guadalupe MS Contin; Also a minor metabolite (10%) of codeine and can be seen in low concentrations (<2,000 ng/mL) with poppy seed ingestion. 93 Metabolite of morphine REFERENCE VALUE Cutoff: 100 94 Metabolite of heroin 95 Lortab, Agency, Vicodin; Also a very minor metabolite of codeine and impurity (<1%) of oxycodone. 96 Metabolite of hydrocodone 97 Metabolite of hydrocodone 98 Dilaudid, Exalgo; Also a metabolite of hydrocodone and a minor (<5%) metabolite of morphine. 99 Metabolite of hydromorphone REFERENCE VALUE Cutoff: 100 100 Endocet, Percocet, Oxycontin 101 Metabolite of oxycodone 102 Numorphan, Opana; Also a metabolite of oxycodone. 103 Metabolite of oxymorphone REFERENCE VALUE Cutoff: 100 104 Metabolite of oxymorphone 105 Actiq, Duragesic, Fentora 106 Metabolite of fentanyl 107 Demerol 108 Metabolite of meperidine 109 Narcan 110 Metabolite of naloxone REFERENCE VALUE Cutoff: 100 111 Dolophine 112 Metabolite of methadone 113 Darvon, Darvocet 114 Metabolite of propoxyphene 115 Tradol, Ultram, Ultracet 116 Metabolite of tramadol 117 Nucynta 118 Metabolite of tapentadol 119 Metabolite of tapentadol REFERENCE VALUE Cutoff: 100 120 Buprenex, Suboxone 121 Metabolite of buprenorphine 122 Metabolite of buprenorphine 123 Test detected the presence of oxycodone and several metabolites (noroxycodone, oxymorphone, noroxymorphone, and zdegbhqzywc-5-phri-glucuronide). Suspect use of oxycodone and/or oxymorphone within the past three days. ADDITIONAL INFORMATION This test was developed and its performance characteristics determined by [facility] in a manner consistent with CLIA requirements. This test has not been cleared or approved by the U.S. Food and Drug Administration. 124 Presumptive Positive Presumptive positive results are unconfirmed. 125 The urine specimen was tested at the listed cutoffs: Drug class test level (ng/mL) Amphetamines 500 Barbiturates 200 Benzodiazepine metabolites 200 Cocaine metabolites 150 Cannabinoids 50 Opiates 300 Pcp 25 Specimen was received without chain of custody. Results should be used for medical purposes only. 126 Because ethnic data is not always readily [...] 15-29 5 Kidney failure <15 (or dialysis) 127 Therapeutic concentration: <50 ug/mL Toxic concentration: >120 ug/mL 128 Because ethnic data is not always readily [...] 15-29 5 Kidney failure <15 (or dialysis) 129 Therapeutic concentration: <50 ug/mL Toxic concentration: >120 ug/mL 130 Presumptive Positive Presumptive positive results are unconfirmed. 131 The urine specimen was tested at the listed cutoffs: Drug class test level (ng/mL) Amphetamines 500 Barbiturates 200 Benzodiazepine metabolites 200 Cocaine metabolites 150 Cannabinoids 50 Opiates 300 Pcp 25 Specimen was received without chain of custody. Results should be used for medical purposes only. 132 SEE RESULT BELOW Name: SABRINA CESARTONY : [address]: Rangel Mckoy MD Acct: [id number] Unit: [id number] AGE: 43 Location: [place] [address] Re12/05/18 SEX: M Status: ADM IN SPEC: [id number] JAYE: 12/04/[address]: Marvin Alfonso MD REQ: [id number] RECD: 12/04/18 STATUS: COMP OTHR DR: Aileen Vicente MD _ SOURCE: URINE SPDESC: ORDERED: Urine Culture Procedure Result Reported Site Urine Culture Final 12/06/18- 728 ML No Growth (<1,000 CFU/mL) * ML - Main Lab . END OF REPORT DEPARTMENT OF PATHOLOGY, [address] [place] [address] Brennan Richardson M.D. Director [facility] # [id number] Procedures Date Code Description Status 01/26/2019 Inj/Aspir Major JT Or Bursa W/ US Completed 12/11/2018 78694 EKG, Interpretation Only Completed 10/16/2018 Inj/Aspir Major JT Or Bursa W/ US Completed Medical Devices Description No Information Available Encounters Type Date Location Provider Dx Diagnosis Office Visit 01/20/2019 [facility] Aileen Vicente MD I10 Essential ( primary) 3:00p Medicine - [facility] hypertension G89.4 Chronic pain syndrome Z79.891 long term (current) use of opiate analgesic M17.12 Unilateral primary osteoarthritis, left knee Office Visit 12/16/2018 4:20p [facility] Aileen Vicente MD G89.4 Chronic pain Medicine - Ccmob syndrome I10 Essential (primary) hypertension F33.9 Major depressive disorder, recurrent, unspecified Office Visit 11/18/2018 4:00p [facility] Aileen Vicente MD G89.4 Chronic pain Medicine - Ccmob syndrome Z79.891 [facility] (current) use of opiate analgesic Office Visit 10/14/2018 Rattan Jelani Alcaraz, M17.12 Unilateral primary 3:00p Orthopedics at osteoarthritis, left [place] knee Office Visit 10/07/2018 [facility] Aileen Vicente I10 Essential (primary) 3:00p Medicine - [facility]cm[facility] hypertension G89.4 Chronic pain syndrome M17.12 Unilateral primary osteoarthritis, left knee Assessments Date Code Description Provider 02/02/2019 Z79.891 [facility] (current) use of opiate Nurse Visit A analgesic 02/02/2019 G89.4 Chronic pain syndrome Nurse Visit A 01/26/2019 M17.12 Unilateral primary osteoarthritis, Jelani Alcaraz MD left knee 01/20/2019 I10 Essential (primary) hypertension Aileen Vicente MD 01/20/2019 G89.4 Chronic pain syndrome Aileen Vicente MD 01/20/2019 Z79.891 [facility] (current) use of opiate Aileen Vicente MD analgesic 01/20/2019 M17.12 Unilateral primary osteoarthritis, Aileen Vicente MD left knee 12/16/2018 G89.4 Chronic pain syndrome Aileen Vicente MD 12/16/2018 I10 Essential (primary) hypertension Aileen Vicente MD 12/16/2018 F33.9 Major depressive disorder, Aileen Vicente MD recurrent, unspecified 12/11/2018 Z51.81 Encounter for therapeutic drug Satnam Madison M.D., [facility], level monitoring [facility]ASNC 11/18/2018 G89.4 Chronic pain syndrome Aileen Vicente MD 11/18/2018 Z79.891 long term (current) use of opiate Aileen Vicente MD analgesic 10/16/2018 M17.12 Unilateral primary osteoarthritis, Jelani Alcaraz MD left knee 10/14/2018 M17.12 Unilateral primary osteoarthritis, Jelani Alcaraz MD left knee 10/07/2018 I10 Essential (primary) hypertension Aileen Vicente MD 10/07/2018 G89.4 Chronic pain syndrome Aileen Vicente MD 10/07/2018 M17.12 Unilateral primary osteoarthritis, Aileen Vicente MD left knee Plan of Treatment No Information Available Functional Status Description No Information Available Mental Status Description No Information Available Referrals Refer to Dr Reason for Referral Status Appt Date [facility] pt with long standing opiates for Sent Russel [place] non cancer chronic pain, now with suspected opiate abuse due to non prescribed opiates found in urine [address] [place] [address] [phone] [facility] weight loss Scheduled 11/23/2018 [address] [facility] [address] [place], [place] [id number] [phone] Jelani Alcaraz MD pt with moderate to severe OA of left knee Sent 2018 [address] [place], [place] [id number] [phone]
--- OUTSIDE RECORDS SUMMARY | 2019-05-14 07:41 | XMS REPORT | Continuity of Care Document ---
:1975 External Reference #:[id number] Author Name Maria Ines Douglas MD (transmitted by agent of provider Lilia Roy) Address [address] [facility] , [place] [address] Care Team Providers Name Role Phone Dian Gloria MD - Pulmonary Care Team Information Trapper Bird [phone] Disease Aileen Vicente M.D. - Family Medicine Care Team Information Trapper Bird Problems Active Problems Provider Date Hypertensive left ventricular Keon Cabrera M.D.,FACP Onset: 01/22/2018 hypertrophy Note: moderate on echo Essential hypertension Keon Cabrera M.D.,FACP Onset: 11/11/2016 Obesity Troyjessa De Leon, HOT REPAIRMAN Onset: 08/14/2016 Low back pain Troy Haley, HOT REPAIRMAN Onset: 08/14/2016 Hyperlipidemia Troyjessa De Leon, HOT REPAIRMAN Onset: 08/14/2016 Chronic pain syndrome Keon Cabrera [...] Unknown Never Smoked Cigarettes Smoking Status Reviewed: 05/07/19 Never Smoked Cigarettes ETOH Use 08/28/2017 Denies [...] point cane M17.12 Aileen Vicente MD 01/20/2019 [facility] [place] Fentanyl apply one patch 10units Maria Ines Douglas 01/01/2019 25mcg/HR once every 3 days Patches 72HR Lisinopril 1 by mouth every 90tabs Aileen Vicente MD 12/02/2018 40mg day Tablets Amlodipine Besylate 1 by mouth every 30tabs I10 Aileen Vicente MD 10/07/2018 day 10mg Tablets Optichamber Harper Use With Inhalers 1units Keon Fowler 05/14/2018 [facility] Shiva Cabrera,FACP Ventolin HFA take 2 puffs [...] Tizanidine HCL Take 1 Tablet By 60tabs Jenny 06/04/2017 4mg Mouth Every 6 Hours Shiva Soriano Tablets as Needed Omeprazole Take 1 Capsule By 30captucker Vicente MD 05/23/2017 40mg Mouth Every Day Capsules DR [facility] Motion Sickness Take 1/2-1 Tablet 32units Jenny 04/13/2017 Relief By Mouth Three Shiva Soriano 25mg Times A Day as Chewtabs Needed Oxycodone-Acetamino take 2 tablets by 84tabs G89.4 Maria Ines Douglas 2016 phen mouth every 8 hours MD 10-325mg as needed for pain Tablets M54.5 Furosemide take 1 tablet by 30tabs [...] in the morning Unknown 60mg Caps DR Gonzales and 60mg at night History Medications DULoxetine HCl take 1 capsule by Aileen Vicente MD 12/26/2018 - 60mg Caps DR swartz every 12/26/2018 Part morning Fentanyl apply one patch 5units Aileen Vicente MD 11/18/2018 - 25mcg/HR Patches once every 3 days 11/19/2018 72HR Buprenorphine HCL 1-2 sl three 60tabs Aileen Vicente MD 11/14/2018 - 2mg times a day as 11/18/2018 Tablets Sub needed for pain Buprenorphine HCL 1 sl every 12 30tabs Aileen Vicente MD 11/10/2018 - 8mg hours as needed 11/14/2018 Tablets Sub for pain Medications Administered in Office Medication SIG Qnty Indications Ordering Provider Date Triamcinolone (Kenalog) Jelani Alcaraz MD 01/26/2019 Injection Triamcinolone (Kenalog) Jelani Alcaraz MD 10/16/2018 Injection Immunizations CPT Code Status Date Vaccine Reaction Lot # [id number] Given 04/08/2018 Tdap - No immediate [id number] Tetanus/Diptheria/Acellular reaction... Pertussis 99418 Given 04/08/2018 Influenza Virus Vaccine, No immediate [id number] Quadrivalent, Split, reaction... Preservative Free 23872 Given 04/09/2017 Influenza Virus Vaccine, [id number] Quadrivalent, Split, Preservative Free Vital Signs Date Vital Result Comment 05/07/2019 2:03pm Height 71 inches 5'11" Weight 425.00 lb Heart Rate 104 /min BP Systolic 151 mmHg BP Diastolic 100 mmHg Body Temperature 97.9 F O2 % BldC Oximetry 96 % BMI (Body Mass Index) 59.3 kg/m2 04/08/2019 2:53pm Height 71 inches 5'11" Weight 444.00 lb Heart Rate 94 /min BP Systolic Sitting 140 mmHg BP Diastolic Sitting 90 mmHg Pain Level 9 O2 % BldC Oximetry 99 % BMI (Body Mass Index) 61.9 kg/m2 Results Test Acquired Date Facility Test Result H/L Range Note Drug Abuse 02/02/2019 [facility] Urine Amphetamine Negative ng/ mL 1, 2 [address] [place] [address] [phone] Urine Barbiturates Negative ng/mL 3 Urine Benzodiazepines Negative ng/mL 4 Urine Cocaine Negative ng/mL 5 Urine Phencyclidine Negative ng/mL Cutoff: 25 Urine Tetrahydrocannabinol Negative ng/mL Cutoff: 50 6 Creatinine, Urine 180.8 mg/dL Specific Davy 1.020 pH 5.5 Oxidants Negative 7 Adulterants Comment Normal Codeine, Ur Not Detected ng/mL Cutoff: 25 8 Prvjoqm-0-jubl-glucuronide, Ur Not Detected ng/mL 9 Morphine, Ur Not Detected ng/mL Cutoff: 25 10 Jkkqusgc-5-akis-glucuronide, U Not Detected ng/mL 11 6-monoacetylmorphine, Ur Not Detected ng/mL Cutoff: 25 12 Hydrocodone, Ur Not Detected ng/mL Cutoff: 25 13 Norhydrocodone, Ur Not Detected ng/mL Cutoff: 25 14 Dihydrocodeine, Ur Not Detected ng/mL Cutoff: 25 15 Hydromorphone, Ur Not Detected ng/mL Cutoff: 25 16 Ghziltosflnci7jtyxxtiagyohnde Not Detected ng/mL 17 Oxycodone, Ur Present ng/mL Abnormal Cutoff: 25 18 Noroxycodone, Ur Present ng/mL Abnormal Cutoff: 25 19 Oxymorphone, Ur Present ng/mL Abnormal Cutoff: 25 20 Rhyrwfqandj-3-vrxt-glucuronide Present ng/mL Abnormal 21 Noroxymorphone, Ur Present ng/mL Abnormal Cutoff: 25 22 Fentanyl, Ur Present ng/mL Abnormal Cutoff: 2 23 Norfentanyl, Ur Present ng/mL Abnormal Cutoff: 2 24 Meperidine, Ur Not Detected ng/mL Cutoff: 25 25 Normeperidine, Ur Not Detected ng/mL Cutoff: 25 26 Naloxone, Ur Not Detected ng/mL Cutoff: 25 27 Bjvswosg-8-unyt-glucuronide, U Not Detected ng/mL 28 Methadone, Ur [...] Ur Not Detected ng/mL Cutoff: 50 36 Behmhccsih-cptw-apdhruliyjq, U Not Detected ng/mL 37 Buprenorphine, Ur Not Detected ng/mL Cutoff: 5 38 Norbuprenorphine, Ur Not Detected ng/mL Cutoff: 5 39 Norbuprenorphine glucuronide Not Detected ng/mL Cutoff: 20 40 Opioid Interpretation See Comment 41 Drug Abuse 01/20/2019 [facility] Urine Amphetamine Negative ng/ mL 42, 43 [address] [place] [address] [phone] Urine Barbiturates Negative ng/mL 44 Urine Benzodiazepines Negative ng/mL 45 Urine Cocaine Negative ng/mL 46 Urine Phencyclidine Negative ng/mL Cutoff: 25 Urine Tetrahydrocannabinol Negative ng/mL Cutoff: 50 47 Creatinine, Urine 341.7 mg/dL Specific Davy 1.020 pH 5.4 Oxidants Negative 48 Adulterants Comment Normal Codeine, Ur Not Detected ng/mL Cutoff: 25 49 Jgmerhb-2-ynlk-glucuronide, Ur Not Detected ng/mL 50 Morphine, Ur Not Detected ng/mL Cutoff: 25 51 Woqillps-8-cjfz-glucuronide, U Not Detected ng/mL 52 6-monoacetylmorphine, Ur Not Detected ng/mL Cutoff: 25 53 Hydrocodone, Ur Not Detected ng/mL Cutoff: 25 54 Norhydrocodone, Ur Not Detected ng/mL Cutoff: 25 55 Dihydrocodeine, Ur Not Detected ng/mL Cutoff: 25 56 Hydromorphone, Ur Not Detected ng/mL Cutoff: 25 57 Boteenimddozr9kriujbyslmlpmck Not Detected ng/mL 58 Oxycodone, Ur Present ng/mL Abnormal Cutoff: 25 59 Noroxycodone, Ur Present ng/mL Abnormal Cutoff: 25 60 Oxymorphone, Ur Present ng/mL Abnormal Cutoff: 25 61 Xiofwvgxwkr-0-cdil-glucuronide Present ng/mL Abnormal 62 Noroxymorphone, Ur Present ng/mL Abnormal Cutoff: 25 63 Fentanyl, Ur Not Detected ng/mL Cutoff: 2 64 Norfentanyl, Ur Present ng/mL Abnormal Cutoff: 2 65 Meperidine, Ur Not Detected ng/mL Cutoff: 25 66 Normeperidine, Ur Not Detected ng/mL Cutoff: 25 67 Naloxone, Ur Not Detected ng/mL Cutoff: 25 68 Syyfrjoq-0-eznx-glucuronide, U Not Detected ng/mL 69 Methadone, Ur [...] Ur Not Detected ng/mL Cutoff: 50 77 Jkvgubtjko-dhhe-byultcgkkpp, U Not Detected ng/mL 78 Buprenorphine, Ur Not Detected ng/mL Cutoff: 5 79 Norbuprenorphine, Ur See Comment ng/mL Cutoff: 5 80 Norbuprenorphine glucuronide Not Detected ng/mL Cutoff: 20 81 Opioid Interpretation See Comment 82 Drug Abuse 12/16/2018 [facility] Urine Amphetamine Negative ng/ mL 83, 84 [address] [place] [address] [phone] Urine Barbiturates Negative ng/mL 85 Urine Benzodiazepines Negative ng/mL 86 Urine Cocaine Negative ng/mL 87 Urine Phencyclidine Negative ng/mL Cutoff: 25 Urine Tetrahydrocannabinol Negative ng/mL Cutoff: 50 88 Creatinine, Urine 222.4 mg/dL Specific Davy 1.019 pH 5.5 Oxidants Negative 89 Adulterants Comment Normal Codeine, Ur Not Detected ng/mL Cutoff: 25 90 Fqhorqh-3-cjnf-glucuronide, Ur Not Detected ng/mL 91 Morphine, Ur Not Detected ng/mL Cutoff: 25 92 Xtslwsvn-9-mkjo-glucuronide, U Not Detected ng/mL 93 6-monoacetylmorphine, Ur Not Detected ng/mL Cutoff: 25 94 Hydrocodone, Ur Not Detected ng/mL Cutoff: 25 95 Norhydrocodone, Ur Not Detected ng/mL Cutoff: 25 96 Dihydrocodeine, Ur Not Detected ng/mL Cutoff: 25 97 Hydromorphone, Ur Not Detected ng/mL Cutoff: 25 98 Pbwaxeaoorcwj3ywsioahghdgbcrx Not Detected ng/mL 99 Oxycodone, Ur Present ng/mL Abnormal Cutoff: 25 100 Noroxycodone, Ur Present ng/mL Abnormal Cutoff: 25 101 Oxymorphone, Ur Present ng/mL Abnormal Cutoff: 25 102 Hkhltttkkzx-1-omcy-glucuronide Present ng/mL Abnormal 103 Noroxymorphone, Ur Present ng/mL Abnormal Cutoff: 25 104 Fentanyl, Ur Not Detected ng/mL Cutoff: 2 105 Norfentanyl, Ur Not Detected ng/mL Cutoff: 2 106 Meperidine, Ur Not Detected ng/mL Cutoff: 25 107 Normeperidine, Ur Not Detected ng/mL Cutoff: 25 108 Naloxone, Ur Not Detected ng/mL Cutoff: 25 109 Uxoxkise-4-hsef-glucuronide, U Not Detected ng/mL 110 Methadone, Ur [...] Ur Not Detected ng/mL Cutoff: 50 118 Lntftmjfoi-uzas-kmyuolepnyu, U Not Detected ng/mL 119 Buprenorphine, Ur Not Detected ng/mL Cutoff: 5 120 Norbuprenorphine, Ur Not Detected ng/mL Cutoff: 5 121 Norbuprenorphine glucuronide Not Detected ng/mL Cutoff: 20 122 Opioid Interpretation See Comment 123 CBC Auto 12/10/2018 [facility] White Blood 17.3 10^3/uL High 3.5-10.[address] [place] [address] [phone] Red Blood Count 5.13 10^6/uL Normal 4.18-5.48 [...] Blood Cells % 0.0 Urine Drug 12/10/2018 [facility] Urine None Detected None Detect SCR ED & [address] [place] [address] Screen [phone] Urine Barbiturates Screen None Detected None Detect Urine Benzodiazepine Screen None Detected None Detect Urine Cannabinoids Screen None Detected None Detect Urine Cocaine Screen None Detected None Detect Urine Opiates Screen Presumptive Posi <SEE NOTE> Abnormal None Detect 124 Urine Phencyclidine Screen None Detected None Detect 125 Comp Metabolic 12/10/2018 [facility] Sodium 135 mmol/L Normal 135-[address] [place] [address] [phone] Potassium 4.2 mmol/L Normal 3.5-5.0 Chloride 100 [...] Egfr 89.5 >60 126 Laboratory test 12/10/2018 [facility] Acetaminophen < 15 g/mL [address] [place] [address] [phone] Alcohol < 10 mg/dL Normal <10 Salicylate < 2.50 mg/dL <30 TSH (Thyroid Stim Horm) 3.19 mcIU/mL Normal 0.34-5.60 Urinalysis Profile 12/10/2018 [facility] Urine Color Yellow [address] [place] [address] [phone] Urine Appearance Cloudy Urine Specific Davy 1.031 High 1.010-1.030 Urine pH 5.0 Normal 5-9 Urine Urobilinogen Negative Negative Urine Ketones Negative Negative Urine Protein Negative Negative Urine Leukocytes Negative Negative Urine Blood Negative Negative Urine Nitrite Negative Negative Urine Bilirubin Negative Negative Urine Glucose Negative Negative CBC Auto 12/04/2018 [facility] White Blood 11.8 10^3/uL High 3.5-10.[address] [place] [address] [phone] Red Blood Count 4.69 10^6/uL Normal 4.18-5.48 [...] Blood Cells % 0.1 Comp Metabolic 12/04/2018 [facility] Sodium 139 mmol/L Normal 135-[address] [place] [address] [phone] Potassium 3.8 mmol/L Normal 3.5-5.0 Chloride 106 [...] Egfr 110.4 >60 128 Laboratory test 12/04/2018 [facility] Acetaminophen < 15 g/mL 129 finding [address] [place] [address] [phone] Alcohol < 10 mg/dL Normal <10 Salicylate < 2.50 mg/dL <30 TSH (Thyroid Stim Horm) 1.29 mcIU/mL Normal 0.34-5.60 Urinalysis Profile 12/04/2018 [facility] Urine Color Yellow [address] [place] [address] [phone] Urine Appearance Cloudy Urine Specific Davy 1.046 High 1.010-1.030 Urine pH 5.0 Normal [...] Cell Present Abnormal Absent Urine Drug 12/04/2018 [facility] Urine None Detected None Detect SCR ED & [address] [place] [address] Screen [phone] Urine Barbiturates Screen None Detected None Detect Urine Benzodiazepine Screen None Detected None Detect Urine Cannabinoids Screen None Detected None Detect Urine Cocaine Screen None Detected None Detect Urine Opiates Screen Presumptive Posi <SEE NOTE> Abnormal None Detect 130 Urine Phencyclidine Screen None Detected None Detect 131 Urine Culture And 12/04/2018 [facility] Urine Culture SEE RESULT [address] [place], [place] [address] [phone] 1 [id number] 2 REFERENCE VALUE Cutoff: 500 3 REFERENCE VALUE Cutoff: 200 4 REFERENCE VALUE Cutoff: 100 5 REFERENCE VALUE Cutoff: 150 6 ADDITIONAL INFORMATION This report is intended for use in clinical monitoring or management of patients. It is not intended for use in employment-related testing. Test Performed by: [facility] [address] [place] [address] Ground Support Equipment Fitter: Patrick Lopez M.D. Ph.D.; CLIA# [id number] REFERENCE VALUE Cutoff: 200 mg/L 8 Tylenol 3 9 Metabolite of codeine REFERENCE VALUE Cutoff: 100 10 Nicol Guadalupe, MS Contin; Also a minor metabolite (10%) of codeine and can be seen in low concentrations (<2,000 ng/mL) with poppy seed ingestion. 11 Metabolite of morphine REFERENCE VALUE Cutoff: 100 12 Metabolite of heroin 13 Lortab, Petrolia, Vicodin; Also a very minor metabolite of [...] and several metabolites (noroxycodone, oxymorphone, noroxymorphone, and cbiycvfysmb-1-pxbn-glucuronide). Suspect use of oxycodone and/or oxymorphone within the past three days. Test detected the presence of fentanyl and its metabolite (norfentanyl). Suspect use of fentanyl within the past three days. ADDITIONAL INFORMATION This test was developed and its performance characteristics determined by [facility] in a manner consistent with CLIA requirements. This test has not been cleared or approved by the U.S. Food and Drug Administration. 42 [id number] REFERENCE VALUE Cutoff: 500 44 REFERENCE VALUE Cutoff: 200 45 REFERENCE VALUE Cutoff: 100 46 REFERENCE VALUE Cutoff: 150 47 ADDITIONAL INFORMATION This report is intended for use in clinical monitoring or management of patients. It is not intended for use in employment-related testing. Test Performed by: [facility] [place] [facility] [address] [place] [address] 48 REFERENCE VALUE Cutoff: 200 mg/L 49 Tylenol 3 50 Metabolite of codeine REFERENCE VALUE Cutoff: 100 51 Nicol Guadalupe MS Contin; Also a minor metabolite (10%) of codeine and can be seen in low concentrations (<2,000 ng/mL) with poppy seed ingestion. 52 Metabolite of morphine REFERENCE VALUE Cutoff: 100 53 Metabolite of heroin 54 Lortab, Petrolia, Vicodin; Also a very minor metabolite of [...] and several metabolites (noroxycodone, oxymorphone, noroxymorphone, and wardmzdsadh-7-ynnb-glucuronide). Suspect use of oxycodone and/or oxymorphone within the past three days. Test detected the presence of norfentanyl (metabolite of fentanyl) only. Suspect use of fentanyl within the past three days. ADDITIONAL INFORMATION This test was developed and its performance characteristics determined by [facility] in a manner consistent with CLIA requirements. This test has not been cleared or approved by the U.S. Food and Drug Administration. 83 [id number] REFERENCE VALUE Cutoff: 500 85 REFERENCE VALUE Cutoff: 200 86 REFERENCE VALUE Cutoff: 100 87 REFERENCE VALUE Cutoff: 150 88 ADDITIONAL INFORMATION This report is intended for use in clinical monitoring or management of patients. It is not intended for use in employment-related testing. Test Performed by: [facility] [address] [place] [phone] 89 REFERENCE VALUE Cutoff: 200 mg/L 90 Tylenol 3 91 Metabolite of codeine REFERENCE VALUE Cutoff: 100 92 Nicol Guadalupe, Contin; Also a minor metabolite (10%) of codeine and can be seen in low concentrations (<2,000 ng/mL) with poppy seed ingestion. 93 Metabolite of morphine REFERENCE VALUE Cutoff: 100 94 Metabolite of heroin 95 Lortab, Petrolia, Vicodin; Also a very minor metabolite of [...] and several metabolites (noroxycodone, oxymorphone, noroxymorphone, and eylfjxziabn-7-egec-glucuronide). Suspect use of oxycodone and/or oxymorphone within the past three days. ADDITIONAL INFORMATION This test was developed and its performance characteristics determined by [facility] in a manner consistent with [...] purposes only. 132 SEE RESULT BELOW Name: TONY BENNETT JR : [address]: Rangel Mckoy MD Acct: [id number] Unit: [id number] AGE: 43 Location: [facility] 213- Re12/05/18 SEX: M Status: ADM IN SPEC: [id number] JAYE: 12/04/18 [facility] DR: Marvin Alfonso MD REQ: [id number] RECD: 12/04/18 STATUS: COMP OTHR DR: Aileen Vicente MD _ SOURCE: URINE SPDESC: ORDERED: Urine Culture Procedure Result Reported Site Urine Culture Final 12/06/18- 728 ML No Growth (<1,000 CFU/mL) * ML - Main Lab . END OF REPORT DEPARTMENT OF PATHOLOGY, [address] [place] [address] Brennan Richardson M.D. Director [facility] # [id number] Procedures Date Code Description Status 01/26/2019 37188 Inj/Aspir Major JT Or Bursa W/ US Completed 12/11/2018 50036 EKG, Interpretation Only Completed Medical Devices Description No Information Available Encounters Type Date Location Provider Dx Diagnosis Office Visit 04/08/2019 [facility] Internal Maria Ines Douglas, G89.4 Chronic pain 3:00p Medicine - Ccmob syndrome I10 Essential (primary) hypertension F33.9 Major depressive disorder, recurrent, unspecified M25.562 Pain in left knee Office Visit 01/20/2019 3:00p [facility] Internal Aileen Vicente MD I10 Essential (primary) Medicine - Ccmob hypertension G89.4 Chronic pain syndrome Z79.891 FDC (current) use of opiate analgesic M17.12 Unilateral primary osteoarthritis, left knee Office Visit 12/16/2018 4:20p [facility] Aileen Vicente MD G89.4 Chronic pain Medicine - Ccmob syndrome I10 Essential (primary) hypertension F33.9 Major depressive disorder, recurrent, unspecified Office Visit 11/18/2018 4:00p [facility] Internal Aileen Vicente MD G89.4 Chronic pain Medicine - Ccmob syndrome 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 Assessments Date Code Description Provider 05/07/2019 G89.4 Chronic pain syndrome Maria Ines Douglas MD 05/07/2019 I10 Essential (primary) hypertension Maria Ines Douglas MD 05/07/2019 F33.9 Major depressive disorder, Maria Ines Douglas MD recurrent, unspecified 05/07/2019 G47.33 Obstructive sleep apnea (adult) Maria Ines Douglas MD (pediatric) 05/07/2019 E66.8 Other obesity Maria Ines Douglas MD 04/08/2019 G89.4 Chronic pain syndrome Maria Ines Douglas MD 04/08/2019 I10 Essential (primary) hypertension Maria Ines Douglas MD 04/08/2019 F33.9 Major depressive disorder, Maria Ines Douglas MD recurrent, unspecified 04/08/2019 M25.562 Pain in left knee Maria Ines Douglas MD 02/02/2019 Z79.891 FDC (current) use of opiate Nurse Visit A analgesic 02/02/2019 G89.4 Chronic pain syndrome Nurse Visit A 01/26/2019 M17.12 Unilateral primary osteoarthritis, Jelani Alcaraz MD left knee 01/20/2019 I10 Essential (primary) hypertension Aileen Vicente MD 01/20/2019 G89.4 Chronic pain syndrome Aileen Vicente MD 01/20/2019 Z79.891 FDC (current) use of opiate Aileen Vicente MD analgesic 01/20/2019 M17.12 Unilateral primary osteoarthritis, Aileen Vicente MD left knee 12/16/2018 G89.4 Chronic pain syndrome Aileen Vicente MD 12/16/2018 I10 Essential (primary) hypertension Aileen Vicente MD 12/16/2018 F33.9 Major depressive disorder, Aileen Vicente MD recurrent, unspecified 12/11/2018 Z51.81 Encounter for therapeutic drug Satnam [place] M.D., [facility], level monitoring [facility] 11/18/2018 G89.4 Chronic pain syndrome Aileen Vicente MD 11/18/2018 Z79.891 FDC (current) use of opiate Aileen Vicente MD analgesic Plan of Treatment No Information Available Functional Status Description No Information Available Mental Status Description No Information Available Referrals Refer to Dr Reason for Referral Status Appt Date Alcohol & Drug [place] Of pt with long standing opiates for Sent Russel [place] non cancer chronic pain, now with suspected opiate abuse due to non prescribed opiates found in urine [address] [facility] [facility] [address] [place] [address] [phone]
--- NOTE | 2019-05-14 07:44 | ED ---
Back Pain - HPI Summary HPI Summary: This patient is a 44 year old male brought in by EMS presenting to [facility] with a chief complaint of a chronic knee/back pain flare up. Patient states the constant pain started two days ago, and decided to come get seen for it this morning. He states this chronic pain problem started 15 years ago following traumatic injury to his vertebrae. He rates his pain 9/10 in severity. He reports dizziness, which he attributes to his blood pressure elevating when he is in severe pain. She reports headache. He states he currently takes percocet for his back pain, which he has been taking since 15 years ago. He states he is awaiting prior authorization for fentanyl patches for his knee pain. Pt denies any fever, chills, erythema of eyes, sore throat, CP, neck pain, cough, abdominal pain, N/V, dysuria, hematuria, edema, numbness or rash. - History of Current Complaint Chief Complaint: EDExtremityLower Stated Complaint: BACK/KNEE PAIN PER EMS Time Seen by Provider: 05/14/19 07:22 Hx Obtained From: Patient Onset/Duration: Lasting Days Onset/Duration: Started Days Ago Pain Intensity: 9 Pain Scale Used: 0-10 Numeric - Allergies/Home Medications Allergies/Adverse Reactions: Allergies Allergy/AdvReac Type Severity Reaction Status Date / Time No Known Allergies Allergy Verified 01/01/19 10:31 PMH/Surg Hx/FS Hx/Imm Hx Endocrine/Hematology History: Denies: Hx Anticoagulant Therapy, Hx Anemia Cardiovascular History: Reports: Hx Coronary Artery Disease, Hx Hypertension History: Denies: Hx Dialysis Musculoskeletal History: Reports: Hx Arthritis - knee, Hx Back Problems - chronic pain, Other Musculoskeletal History - chronic Rt arm pain Sensory History: Denies: Hx Contacts or Glasses, Hx Eye Prosthesis, Hx Legally Blind, Hx Deafness, Hx Hearing Aid Opthamlomology History: Denies: Hx Contacts or Glasses, Hx Eye Prosthesis, Hx Legally Blind Neurological History: Denies: Hx Dementia Psychiatric History: Reports: Hx Anxiety, Hx Depression, Hx Inpatient Treatment - Discharged from [facility] on 12/10/18, Hx Community Mental Health Tx, Hx Substance Abuse, Other Psychiatric Issues/Disorders - obesity Denies: Hx Attention Deficit Hyperactivity Disorder, Hx Autism, Hx Eating Disorder, Hx Panic Disorder, Hx Post Traumatic Stress Disorder, Hx Schizophrenia , Hx Bipolar Disorder, Hx Suicide Attempt - Only thoughts, Hx of Violent Episodes Against Others - Surgical History Surgery Procedure, Year, and Place: none Infectious Disease History: No Infectious Disease History: Denies: Traveled Outside the [place] in Last 30 Days - Family History Known Family History: Negative: Cardiac Disease - Social History Alcohol Use: None Hx Substance Use: Yes Substance Use Type: Reports: None Substance Use Comment - Amount & Last Used: oxycodone, morphine Hx Tobacco Use: No Smoking Status (MU): Never Smoked Tobacco Review of Systems Negative: Fever, Chills Negative: Erythema Negative: Sore Throat Negative: Chest Pain Negative: Shortness Of Breath, Cough Negative: Abdominal Pain, Vomiting, Nausea Negative: dysuria, hematuria Positive: Other - Back and knee pain. Negative: Edema Negative: Rash Neurological: Other - Dizziness Negative: Numbness All Other Systems Reviewed And Are Negative: No Physical Exam - Summary Physical Exam Summary: Constitutional: Well-developed, Well-nourished, Alert. (-) Distressed Skin: Warm, Dry HENT: Normocephalic; Atraumatic Eyes: Conjunctiva normal Neck: Musculoskeletal ROM normal neck. (-) JVD, (-) Stridor, (-) Tracheal deviation Cardio: Rhythm regular, rate normal, Heart sounds normal; Intact distal pulses; The pedal pulses are 2+ and symmetric. Radial pulses are 2+ and symmetric. (-) Murmur Pulmonary/Chest wall: Effort normal. (-) Respiratory distress, (-) Wheezes, (-) Rales Abd: Soft, (-) tenderness, (-) Distension, (-) Guarding, (-) Rebound Musculoskeletal: (-) Edema. No joint effusions, no redness or swelling. Lymph: (-) Cervical adenopathy Neuro: Alert, Oriented x3. Strength is 5/5 in the lower extremities. Psych: Mood and affect Normal Triage Information Reviewed: Yes Vital Signs On Initial Exam: Initial Vitals Temp Pulse Resp BP Pulse Ox 98.1 F 97 18 154/101 97 05/14/19 07:25 05/14/19 07:25 05/14/19 07:25 05/14/19 07:25 05/14/19 07:25 Vital Signs Reviewed: Yes Procedures - Sedation Patient Received Moderate/Deep Sedation with Procedure: No Diagnostics - Vital Signs Vital Signs Temp Pulse Resp BP Pulse Ox 05/14/19 07:25 98.1 F 97 18 154/101 97 - Laboratory Lab Statement: Any lab studies that have been ordered have been reviewed, and results considered in the medical decision making process. Back Pain Course/Dx - Course Course Of Treatment: This patient is a 44 year old male brought in by EMS presenting to [facility] with a chief complaint of a chronic knee/back pain flare up. No signs of septic joint. This appears to be acute exacerbation of chronic pain. Spoke to his PCP, Dr. Douglas. She states she does not want any more pain medication prescription for him from the emergency room. A prescription for a topical cream was suggested and she was agreeable to this. She states she will facilitate prior authorization for Fentanyl patches. A plan for discharge was discussed with the patient and he was agreeable with this plan. - Diagnoses Provider Diagnoses: Exacerbation of chronic back pain, Chronic knee pain Discharge ED - Sign-Out/Discharge Documenting (check all that apply): Patient Departure - Discharge - Discharge Plan Condition: Stable Disposition: HOME Patient Education Materials: Chronic Back Pain (DC) Referrals: Aileen Vicente MD [Primary Care Provider] - Additional Instructions: Follow up with your primary care provider for pain management. Return to ED with new or worsening symptoms. - Attestation Statements Document Initiated by Scribe: Yes Documenting Scribe: Hubert Franks Provider For Whom Scribe is Documenting (Include Credential): Jase Reyez MD Scribe Attestation: Hubert Mars, scribed for Jase Reyez MD on 05/14/19 at 0848. Status of Scribe Document: Ready
[2019-05-14] MEDS ORDERED: oxyCODONE/Acetamin 5/325 MG* TAB PO ONE (08:06)
[2019-05-14] MEDS ORDERED: Naproxen TAB* 250 MG PO ONE (08:06)
[2019-05-14 09:25] VITALS: BP 130/95
== END 2019-05-14 09:25 | disposition home or self-care (01) ==
LOC: ED 07:00
DX: G89.29 Other chronic pain (principal); M54.9 Dorsalgia, unspecified; M25.569 Pain in unspecified knee; R42 Dizziness and giddiness; R51 Headache; I25.10 Atherosclerotic heart disease of native coronary artery without angina pectoris; I10 Essential (primary) hypertension; F41.9 Anxiety disorder, unspecified; F32.9 Major depressive disorder, single episode, unspecified; Z79.899 Other long term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 therapy
CPT/HCPCS: 99282; A9270-GY

== ENCOUNTER 2020-06-09 14:36 | Inpatient (IN) ==
[2020-06-09 16:39] LABS: ABS Basophils 0.1 10^3/ul (0-0.2); ABS Eosinophils 0.1 10^3/ul (0-0.6); ABS Lymphocytes 2.4 10^3/ul (1.0-4.8); ABS Monocytes 0.9 10^3/ul (0-0.8); ABS Neutrophils 8.3 10^3/ul (1.5-7.7); Hematocrit 40 % (42-52); Hemoglobin 13.2 g/dL (14.0-18.0); Lymphocyte % 20.5 %; Mean Corpuscular HGB Conc 33 g/dL (31-36); Mean Corpuscular Hemoglobin 27 pg (27-31); Mean Corpuscular Volume 81 fL (80-94); Mean Platelet Volume 7.3 fL (7.4-10.4); Nucleated Red Blood Cells % 0.1; Platelet Count 352 10^3/uL (150-450); Red Blood Count 4.91 10^6 /uL (4.18-5.48); Red Cell Distribution Width 15 % (10-15); White Blood Count 11.8 10^3/uL (3.5-10.8)
[2020-06-09 16:41] LABS: Urine Appearance Cloudy; Urine Bilirubin Negative (Negative); Urine Blood Negative (Negative); Urine Color Amber; Urine Glucose Negative (Negative); Urine Ketones Trace (Negative); Urine Nitrite Negative (Negative); Urine Protein 1+(30 mg/dL) (Negative); Urine Specific Gravity 1.023 (1.010-1.030); Urine Urobilinogen Negative (Negative)
[2020-06-09 16:46] LABS: ALT 15 U/L (7-52); AST 14 U/L (13-39); Albumin 4.4 g/dL (3.2-5.2); Albumin/Globulin Ratio 1.5 (1-3); Alkaline Phosphatase 55 U/L (34-104); Anion Gap 8 mmol/L (2-11); BUN/Creatinine Ratio 10.1 (8-20); Blood Urea Nitrogen 11 mg/dL (6-24); CO2 Carbon Dioxide 26 mmol/L (22-32); Calcium 9.7 mg/dL (8.6-10.3); Chloride 103 mmol/L (101-111); EGFR African American 87.7 (>60); EGFR Non-African American 72.5 (>60); Glucose 96 mg/dL (70-100); Potassium 4.3 mmol/L (3.5-5.0); Sodium 137 mmol/L (135-145); Total Protein 7.4 g/dL (6.4-8.9)
[2020-06-09 16:48] LABS: Acetaminophen < 15 mcg/mL; Alcohol, S < 10 mg/dL (<10); Salicylate < 2.50 mg/dL (<30); Urine Benzodiazepine Screen None Detected (None Detect); Urine Cannabinoids Screen None Detected (None Detect); Urine Opiates Screen Presumptive Positive (None Detect)
[2020-06-09 16:59] LABS: Urine Bacteria Absent (Absent); Urine Red Blood Cell Absent (Absent); Urine Squamous Epithelial Cell Present (Absent); Urine White Blood Cell Trace(0-5/hpf) (Absent)
[2020-06-09] MEDS ORDERED: Al Hydrox/Mg Hydrox/Simet LIQ 30 ML UDC PO PRN (17:32)
[2020-06-09] MEDS ORDERED: Albuterol HFA INHALER 8 gm MDI INH PRN (19:01)
[2020-06-10 08:03] LABS: HDL Cholesterol 34.5 mg/dL
[2020-06-10] MEDS: DULoxetine DR 30 mg CAP PO SCH (08:17)
[2020-06-10] MEDS: Vitamin THERAPEUTIC TAB PO SCH (08:19)
[2020-06-10] MEDS: CMCS: Meloxicam 7.5 mg TAB (NF) PO SCH (08:36)
[2020-06-11] MEDS: DULoxetine DR 30 mg CAP PO SCH (09:20)
[2020-06-11] MEDS: Vitamin THERAPEUTIC TAB PO SCH (09:24)
[2020-06-11] MEDS: CMCS: Meloxicam 7.5 mg TAB (NF) PO SCH (09:24)
[2020-06-12] MEDS: Vitamin THERAPEUTIC TAB PO SCH (09:28)
[2020-06-12] MEDS: DULoxetine DR 30 mg CAP PO SCH (09:28)
[2020-06-12] MEDS: CMCS: Meloxicam 7.5 mg TAB (NF) PO SCH (09:29)
[2020-06-13 08:42] VITALS: BP 155/87
[2020-06-13] MEDS: DULoxetine DR 30 mg CAP PO SCH (10:06)
[2020-06-13] MEDS: Vitamin THERAPEUTIC TAB PO SCH (10:08)
[2020-06-13] MEDS: CMCS: Meloxicam 7.5 mg TAB (NF) PO SCH (10:11)
== END 2020-06-13 14:23 | disposition home or self-care (01) ==
LOC: ED 14:36 → BSU 20:52
PROVIDERS: ADMIT Psychiatry & Neurology Psychiatry; ATTEND Psychiatry & Neurology Psychiatry

== ENCOUNTER 2020-07-06 04:09 | Inpatient (IN) ==
[2020-07-06 05:01] LABS: Urine Appearance Cloudy; Urine Bilirubin Negative (Negative); Urine Blood Negative (Negative); Urine Color Amber; Urine Glucose Negative (Negative); Urine Ketones 1+ (Negative); Urine Nitrite Negative (Negative); Urine Protein 1+(30 mg/dL) (Negative); Urine Specific Gravity 1.025 (1.010-1.030); Urine Urobilinogen Negative (Negative)
[2020-07-06 05:09] LABS: Urine Benzodiazepine Screen None Detected (None Detect); Urine Cannabinoids Screen None Detected (None Detect); Urine Opiates Screen None Detected (None Detect)
[2020-07-06 05:21] LABS: Urine Bacteria Absent (Absent); Urine Red Blood Cell Absent (Absent); Urine Squamous Epithelial Cell Present (Absent); Urine White Blood Cell Trace(0-5/hpf) (Absent)
[2020-07-06 06:19] LABS: Hematocrit 41 % (42-52); Hemoglobin 13.6 g/dL (14.0-18.0); Mean Corpuscular HGB Conc 33 g/dL (31-36); Mean Corpuscular Hemoglobin 27 pg (27-31); Mean Corpuscular Volume 81 fL (80-94); Mean Platelet Volume 7.3 fL (7.4-10.4); Platelet Count 308 10^3/uL (150-450); Red Blood Count 5.11 10^6 /uL (4.18-5.48); Red Cell Distribution Width 15 % (10-15); White Blood Count 15.7 10^3/uL (3.5-10.8)
[2020-07-06 06:37] LABS: ALT 22 U/L (7-52); AST 18 U/L (13-39); Albumin 4.3 g/dL (3.2-5.2); Albumin/Globulin Ratio 1.3 (1-3); Alkaline Phosphatase 66 U/L (34-104); Anion Gap 11 mmol/L (2-11); BUN/Creatinine Ratio 14.4 (8-20); Blood Urea Nitrogen 13 mg/dL (6-24); CO2 Carbon Dioxide 22 mmol/L (22-32); Calcium 9.7 mg/dL (8.6-10.3); Chloride 104 mmol/L (101-111); EGFR African American 109.4 (>60); EGFR Non-African American 90.4 (>60); Globulin 3.3 g/dL (2-4); Glucose 106 mg/dL (70-100); Potassium 3.5 mmol/L (3.5-5.0); Sodium 137 mmol/L (135-145); Total Protein 7.6 g/dL (6.4-8.9)
[2020-07-06 06:44] LABS: Acetaminophen < 15 mcg/mL; Alcohol, S < 10 mg/dL (<10); Salicylate < 2.50 mg/dL (<30)
[2020-07-06 06:55] LABS: TSH Ultra Thyroid Stim Horm 0.84 mcIU/mL (0.34-5.60)
[2020-07-06 07:13] LABS: ABS Basophils 0.1 10^3/ul (0-0.2); ABS Eosinophils 0.1 10^3/ul (0-0.6); ABS Lymphocytes 2.6 10^3/ul (1.0-4.8); ABS Monocytes 1.6 10^3/ul (0-0.8); ABS Neutrophils 11.3 10^3/ul (1.5-7.7); Eosinophil % 0.9 %; Lymphocyte % 16.8 %
[2020-07-06] MEDS ORDERED: DULOXETINE 60 MG PO SCH (11:00)
[2020-07-06] MEDS ORDERED: Duloxetine Sprinkle 30 mg CAP PO SCH (11:00)
[2020-07-06] MEDS ORDERED: Albuterol HFA INHALER 8 gm MDI INH PRN (14:28)
[2020-07-06] MEDS: DULoxetine DR 30 mg CAP PO SCH (14:46)
[2020-07-07] MEDS: MELOXICAM 7.5 MG PO SCH (09:17)
[2020-07-07] MEDS: DULoxetine DR 30 mg CAP PO SCH (09:17)
[2020-07-07] MEDS: Vitamin THERAPEUTIC TAB PO SCH (09:19)
[2020-07-07] MEDS ORDERED: Albuterol HFA INHALER 8 gm MDI INH PRN (14:30)
[2020-07-07] MEDS: Albuterol HFA INHALER 8 gm MDI INH PRN (17:51)
[2020-07-07 20:06] LABS: Hematocrit 42 % (42-52); Hemoglobin 13.7 g/dL (14.0-18.0); Mean Corpuscular HGB Conc 32 g/dL (31-36); Mean Corpuscular Hemoglobin 26 pg (27-31); Mean Corpuscular Volume 81 fL (80-94); Mean Platelet Volume 7.5 fL (7.4-10.4); Platelet Count 361 10^3/uL (150-450); Red Cell Distribution Width 16 % (10-15); White Blood Count 19.1 10^3/uL (3.5-10.8)
[2020-07-07 20:48] LABS: ABS Basophils 0.1 10^3/ul (0-0.2); ABS Eosinophils 0.8 10^3/ul (0-0.6); ABS Lymphocytes 3.2 10^3/ul (1.0-4.8); Eosinophil % 4.1 %; Lymphocyte % 16.8 %
[2020-07-08] MEDS: MELOXICAM 7.5 MG PO SCH (08:20)
[2020-07-08] MEDS: Vitamin THERAPEUTIC TAB PO SCH (08:20)
[2020-07-08] MEDS: DULoxetine DR 30 mg CAP PO SCH (08:21)
[2020-07-08] MEDS: Albuterol HFA INHALER 8 gm MDI INH PRN (13:59)
[2020-07-09] MEDS: DULoxetine DR 30 mg CAP PO SCH (08:43)
[2020-07-09] MEDS: MELOXICAM 7.5 MG PO SCH (08:44)
[2020-07-09] MEDS: Vitamin THERAPEUTIC TAB PO SCH (08:45)
[2020-07-09] MEDS: Al Hydrox/Mg Hydrox/Simet LIQ 30 ML UDC PO PRN (16:18)
[2020-07-09] MEDS: Albuterol HFA INHALER 8 gm MDI INH PRN (18:40)
[2020-07-10] MEDS: Al Hydrox/Mg Hydrox/Simet LIQ 30 ML UDC PO PRN ×3 (07:40→21:07)
[2020-07-10] MEDS: MELOXICAM 7.5 MG PO SCH (08:10)
[2020-07-10] MEDS: DULoxetine DR 30 mg CAP PO SCH (08:10)
[2020-07-10] MEDS: Vitamin THERAPEUTIC TAB PO SCH (08:11)
[2020-07-10] MEDS: Albuterol HFA INHALER 8 gm MDI INH PRN (09:32)
[2020-07-11] MEDS: Vitamin THERAPEUTIC TAB PO SCH (08:12)
[2020-07-11] MEDS: MELOXICAM 7.5 MG PO SCH (08:14)
[2020-07-11] MEDS: DULoxetine DR 30 mg CAP PO SCH (08:14)
[2020-07-11 09:48] VITALS: BP 113/88
== END 2020-07-11 11:20 | disposition home or self-care (01) | DRG 751 ==
LOC: ED 04:09 → BSU 10:44
PROVIDERS: ADMIT Psychiatry & Neurology Psychiatry; ATTEND Psychiatry & Neurology Psychiatry